=== PATIENT | female | born 1935 | race Caucasian/White ===

== ENCOUNTER → 2017-01-05 | Outpatient (CLI) | payer MEDICARE ==
[~2017-01-05] MED LIST: /RISE35TA OR; ACET65TA OR; ASPI325T OR; ASPI81TA85 PO; ATEN25TA PO; CALCCHW12 OR; CALCTAB28 PO; CENTRUM SILVER PO; COLA100C2 OR; CRAN125T PO; DOCU10CA PO; DUONSOL IN; GLUC1000 OR; LIPI20TA OR; LIPI80TA PO; LORT5TAB PO; MAGN400C2 PO; MILKSUS OR; NADO40TA5 OR; PLAV75TA38 PO; POTA20TA2 OR; SLOWTAB OR; TRAM50TA2 OR; VITA200016 PO; XANA0.5T OR; ZOCO20TA PO; ZOFR20TA PO; megakrill PO
--- NOTE | 2017-01-05 09:51 | REP ---
ULTRASOUND ABDOMINAL AORTA: Real-time sonographic evaluation of abdominal aorta performed and compared to prior study of 07/15/2016. Maximum AP diameter of the proximal abdominal aorta at the level of the diaphragms is 2.7 cm, at the level of the renal arteries 2.7 cm, at the mid aspect 2.7 cm, and just above the bifurcation 2.2 cm. Right common iliac artery measures 9 x 8 mm and left common iliac 6 x 8 mm. IMPRESSION: No significant change compared to prior study of 07/15/2016. Signed by Samson Vang MD 01/05/2017 08:06 P
== END ==
LOC: M RAD 08:18
PROVIDERS: ATTEND Family Medicine
DX: I71.4 Abdominal aortic aneurysm, without rupture (principal)

== ENCOUNTER → 2017-03-06 | Outpatient (CLI) | payer MEDICARE ==
--- NOTE | 2017-03-07 08:01 | REP ---
RIGHT RIBS, WITH PA CHEST: HISTORY: Trauma on the right. COMPARISON: None. The accompanying frontal view of the chest has been compared to 07/23/2016. There is a fracture of the right 6th rib. There is a fracture of the right 7th rib. The accompanying frontal view of the chest shows patchy opacities in the right lower lobe with blunting of the right CP angle, representing a change from the prior exam. This is likely secondary to subsegmental atelectatic change due to splinting from the rib fractures. IMPRESSION: Rib fractures and lung field findings as described above. Signed by Reji Pena DO 03/07/2017 09:55 A
== END ==
LOC: M WUC 13:04
PROVIDERS: ATTEND Physician Assistant
DX: S22.31XA Fracture of one rib, right side, initial encounter for closed fracture (principal); X58.XXXA Exposure to other specified factors, initial encounter; Y92.89 Other specified places as the place of occurrence of the external cause; Y93.89 Activity, other specified; Y99.8 Other external cause status

== ENCOUNTER → 2017-03-25 | Outpatient (CLI) | payer MEDICARE ==
[2017-03-25 20:02] LABS: ADD MORPHOLOGY? YES; BASO % 0.8 % (0.0-1.0); EOS # 0.1 K/mm3 (0.0-0.50); LARGE UNSTAINED CELL # 0.1 K/mm3 (0.0-0.4); LARGE UNSTAINED CELL % 1.4 % (0.0-4.0); LYMPH # 1.7 K/mm3 (1.5-4.5); LYMPH % 28.3 % (24.0-44.0); MEAN CORPUSCULAR HEMOGLOBIN 34.6 pg (27.0-33.0); MEAN CORPUSCULAR HGB CONC 31.5 g/dl (32.0-36.5); MEAN CORPUSCULAR VOLUME 109.8 fl (80.0-96.0); MONO # 0.5 K/mm3 (0.0-0.8); MONO % 8.6 % (0.0-5.0); NEUTROPHILS # 3.4 K/mm3 (1.8-7.7); NEUTROPHILS % 58.9 % (36.0-66.0); PLATELET COUNT, AUTOMATED 297 k/mm3 (150-450); RED CELL DISTRIBUTION WIDTH 14.7 % (11.5-14.5); WHITE BLOOD COUNT 5.7 K/mm3 (4.0-10.0)
[2017-03-25 20:11] LABS: VITAMIN B12 LEVEL 490 PG/ML (247-911)
[2017-03-25 20:35] LABS: ALBUMIN 3.3 GM/DL (3.2-5.2); ALBUMIN/GLOBULIN RATIO 0.92 (1.00-1.93); ALKALINE PHOSPHATASE 76 U/L (45-117); ALT/SGPT 26 U/L (12-78); ANION GAP 5 MEQ/L (8-16); AST/SGOT 24 U/L (15-37); BILIRUBIN,TOTAL 0.2 MG/DL (0.2-1.0); BLOOD UREA NITROGEN 18 MG/DL (7-18); CALCIUM LEVEL 8.6 MG/DL (8.8-10.2); CARBON DIOXIDE LEVEL 29 MEQ/L (21-32); CHLORIDE LEVEL 104 MEQ/L (98-107); CREATININE FOR GFR 0.61 MG/DL (0.55-1.02); FERRITIN 36 NG/ML (8-252); GLOMERULAR FILTRATION RATE > 60.0 (>32); GLUCOSE, FASTING 74 MG/DL (83-110); PERCENT SATURATION 10.5 % (13.2-37.4); SODIUM LEVEL 138 MEQ/L (136-145); TOTAL IRON BINDING CAPACITY 382 UG/DL (250-450); TOTAL PROTEIN 6.9 GM/DL (6.4-8.2)
== END ==
LOC: M WUC 18:13
PROVIDERS: ATTEND Family Medicine
DX: E55.9 Vitamin D deficiency, unspecified (principal); Z80.0 Family history of malignant neoplasm of digestive organs; Z79.899 Other long term (current) drug therapy

== ENCOUNTER → 2017-04-14 | Outpatient (CLI) | payer MEDICARE ==
--- NOTE | 2017-04-14 11:30 | REPMRS ---
Patient History The patient states she has not had a clinical breast exam in over a year. Patient is postmenopausal. Family history of colorectal cancer in mother at age 50 or over. Digital Woman Screen Mammo: April 14, 2017 - Exam #: [id number] Bilateral CC and MLO view(s) were taken. Technologist: Rebecca Jones, Technologist Prior study comparison: March 11, 2016, digital woman screen mammo performed at [facility]. FINDINGS: There are scattered fibroglandular densities. There has been no change in the appearance of the mammogram from the prior studies. There is a mild amount of residual fibroglandular tissue which is fairly symmetric. There is no interval development of dominant mass, architectural distortion, or clustered microcalcification suggestive of malignancy. ASSESSMENT: BI-RADS/ACR category 1 mammogram. Negative. Recommendation Routine screening mammogram in 1 year (for women over age 40). This mammogram was interpreted with the aid of an FDA-approved computer-aided dectection system. Electronically Signed By: Samson Vang MD 04/14/17 0008
== END ==
LOC: M WHC 10:52
PROVIDERS: ATTEND Family Medicine
DX: Z12.31 Encounter for screening mammogram for malignant neoplasm of breast (principal); Z78.0 Asymptomatic menopausal state

== ENCOUNTER 2017-06-22 08:57 | Outpatient (CLI) | payer MEDICARE ==
[~2017-06-22] VITALS: Ht 167.6 cm; Wt 62.6 kg
[~2017-06-22 08:57] MED LIST changes: +PLAV1TAB2 PO; -PLAV75TA38 PO
[2017-06-22] MEDS ORDERED: ZOLEDRONIC ACID 5 MG in APPROPRIATE DILUENT 1 EA IV ONE (09:15)
[2017-06-22] MEDS ORDERED: LORA2TAB9 PO (10:25)
[2017-06-22] MEDS ORDERED: PARO10TA3 PO (10:28)
[2017-06-22] MEDS ORDERED: LISI2.5T3 PO (10:28)
[2017-06-22] MEDS ORDERED: CLOB-49 EX (10:28)
[2017-06-22] MEDS ORDERED: VITA100T86 PO (10:34)
[2017-06-22] MEDS ORDERED: CRAN125T PO (10:34)
[2017-06-22] MEDS ORDERED: CULT10CA2 PO (10:34)
[2017-09-07] MEDS ORDERED: KRIL1000 PO (10:30)
[2017-09-07] MEDS ORDERED: MAGN400T5 PO (10:30)
[2017-09-07] MEDS ORDERED: CALCTAB74 PO (10:30)
[2017-09-07] MEDS ORDERED: CRAN400C PO (10:30)
[2017-09-07] MEDS ORDERED: FERR325T3 PO (10:36)
[2017-09-07] MEDS ORDERED: NITR0.4S14 SL (10:36)
[2017-09-07] MEDS ORDERED: RECL5INJ2 IV (10:36)
[2017-09-07] MEDS ORDERED: PANT40TA2 PO ×2 (10:36)
[2017-09-07] MEDS ORDERED: TOPR25TA PO (10:36)
[2017-09-07] MEDS ORDERED: LISI-542 PO (10:36)
[2017-09-07] MEDS ORDERED: NORC1TAB4 PO (10:36)
[2017-09-07] MEDS ORDERED: MEGA1CAP3 PO (11:23)
== END 2017-06-22 10:15 | disposition home or self-care (01) ==
LOC: M INFU 08:57
PROVIDERS: ATTEND Family Medicine
DX: M85.80 Other specified disorders of bone density and structure, unspecified site (principal); Z72.0 Tobacco use; Z86.79 Personal history of other diseases of the circulatory system; Z96.641 Presence of right artificial hip joint; Z91.048 Other nonmedicinal substance allergy status; Z79.82 Long term (current) use of aspirin; Z79.899 Other long term (current) drug therapy; Z88.5 Allergy status to narcotic agent; Z78.0 Asymptomatic menopausal state
CPT/HCPCS: 96365; J3489

== ENCOUNTER → 2017-07-13 | Outpatient (CLI) | payer MEDICARE ==
[~2017-07-13] MED LIST changes: +CALCTAB74 PO; +CLOB-49 EX; +CRAN400C PO; +CULT10CA2 PO; +FERR325T3 PO; +KRIL1000 PO; +LISI-542 PO; +LISI2.5T3 PO; +LORA2TAB9 PO; +MAGN400T5 PO; +MEGA1CAP3 PO; +NITR0.4S14 SL; +NORC1TAB4 PO; +PANT40TA2 PO; +PARO10TA3 PO; +RECL5INJ2 IV; +TOPR25TA PO; +VITA100T86 PO
[2017-07-13 12:36] LABS: BASO % 0.7 % (0.0-1.0); EOS # 0.1 K/mm3 (0.0-0.50); EOS % 1.6 % (0.0-3.0); LARGE UNSTAINED CELL # 0.1 K/mm3 (0.0-0.4); LARGE UNSTAINED CELL % 1.1 % (0.0-4.0); LYMPH # 0.5 K/mm3 (1.5-4.5); LYMPH % 8.8 % (24.0-44.0); MEAN CORPUSCULAR HEMOGLOBIN 34.1 pg (27.0-33.0); MEAN CORPUSCULAR HGB CONC 30.8 g/dl (32.0-36.5); MEAN CORPUSCULAR VOLUME 110.7 fl (80.0-96.0); MONO # 0.4 K/mm3 (0.0-0.8); MONO % 7.5 % (0.0-5.0); NEUTROPHILS # 4.4 K/mm3 (1.8-7.7); NEUTROPHILS % 80.4 % (36.0-66.0); PLATELET COUNT, AUTOMATED 274 k/mm3 (150-450); WHITE BLOOD COUNT 5.4 K/mm3 (4.0-10.0)
[2017-07-13 12:41] LABS: ADD MORPHOLOGY? YES
[2017-07-13 12:46] LABS: CHOLESTEROL LEVEL 126 MG/DL (<200); FERRITIN 62 NG/ML (8-252); FREE T4 0.89 NG/DL (0.76-1.46); PERCENT SATURATION 6.6 % (13.2-45.0); TOTAL IRON BINDING CAPACITY 331 UG/DL (250-450); TOTAL PROTEIN 6.7 GM/DL (6.4-8.2); TRIGLYCERIDES LEVEL 69 MG/DL (<150)
[2017-07-13 13:07] LABS: HYPOCHROMASIA 1+; POLYCHROMASIA 1+
[2017-07-13 14:30] LABS: PRETREATED FOLATE FOR RBCFOL 16.7 NG/ML
[2017-07-15 09:26] LABS: ALBUMIN 3.28 GM/DL (3.29-5.55); ALBUMIN % 48.9 % (55.8-66.1); GAMMA GLOBULIN % 15.9 % (11.1-18.8)
== END ==
LOC: M WUC 09:34
PROVIDERS: ATTEND Family Medicine
DX: D50.9 Iron deficiency anemia, unspecified (principal); R73.01 Impaired fasting glucose; Z79.899 Other long term (current) drug therapy

== ENCOUNTER → 2017-07-16 | Outpatient (REF) | payer MEDICARE | LOC: M SFHCPLAZ 14:00 | PROVIDERS: ATTEND Family Medicine | DX: D50.9 Iron deficiency anemia, unspecified (principal) ==

== ENCOUNTER → 2017-07-20 | Outpatient (REF) | payer MEDICARE ==
[2017-07-20 19:04] LABS: FERRITIN 70 NG/ML (8-252); TOTAL IRON BINDING CAPACITY 341 UG/DL (250-450)
[2017-07-20 21:12] LABS: MEAN CORPUSCULAR HEMOGLOBIN 34.6 pg (27.0-33.0); MEAN CORPUSCULAR HGB CONC 31.8 g/dl (32.0-36.5); MEAN CORPUSCULAR VOLUME 108.7 fl (80.0-96.0); RED CELL DISTRIBUTION WIDTH 14.7 % (11.5-14.5); RETIC HEMOGLOBIN CONTENT CHr 34.3 PG (24-36); RETICULOCYTE ABSOLUTE ADVIA212 60 x10(9)/L (17-77); WHITE BLOOD COUNT 4.4 K/mm3 (4.0-10.0)
[2017-07-20 22:32] LABS: ANISOCYTOSIS 2+; HYPOCHROMASIA 1+
[2017-07-22 10:14] LABS: H PYLORI SERUM QUANT IgG ABY 1.4 U/mL (0.0-0.8)
== END ==
LOC: M SFHCPLAZ 14:58
PROVIDERS: ATTEND Family Medicine
DX: D50.9 Iron deficiency anemia, unspecified (principal)

== ENCOUNTER → 2017-07-21 | Outpatient (CLI) | payer MEDICARE ==
[~2017-07-21] MED LIST changes: +E-Z-GAS II EFFERVESCENT PACKET (SODIUM BICARB./CITRIC ACID/SIMETHICONE) As Ordered ONE; +E-Z-HD 98% w/w 340GM SUSP BTL As Ordered ONE; +E-Z-PAQUE 96% w/w SUSP 176GM BTL As Ordered ONE
--- NOTE | 2017-07-21 17:26 | REP ---
UPPER GI, AIR CONTRAST, AND SMALL BOWEL FOLLOW-THROUGH: The procedure was performed under the direct supervision of Dr. Vang. The images were reviewed with Dr. Vang. The wheat and oats flake miller film shows no organomegaly or pathological masses. The intestinal gas pattern is nonspecific. There are degenerative changes of the spine. The patient is status post right hip arthroplasty. There are old healed fractures of the pubic rami. There are surgical sutures noted in the pelvis. Liquid barium and gas-producing granules were given in the erect position as well as liquid barium in the prone oblique position in order to perform a double contrast upper GI examination. The oral and pharyngeal stages of deglutition are unremarkable. Esophageal transport is prompt and efficient and there is no esophagitis, stricture, mucosal ring or hiatal hernia. Gastroesophageal reflux is not demonstrated on this examination. The stomach harris are normally outlined. The rugal folds are smooth and regular. There is no gastritis, neoplasm or ulcer disease. Within the duodenal bulb there are small punctate barium collections which may represent small ulcers. There are thickened folds in the post bulbar duodenum which may represent duodenitis. The visualized portion of the proximal small bowel appears normal in course and caliber. The barium column was followed through the small bowel to the level of the terminal ileum. Small bowel transit time is approximately 65 minutes. During fluoroscopy, gentle palpation shows all loops are freely movable and pliable. There are no fixed or angulated loops. The small bowel mucosal pattern is normal in course and caliber. There is no transition to suggest a partial small bowel obstruction. Spot filming of the terminal ileum shows it to be unremarkable. IMPRESSION: There are small punctate barium collections in the duodenal bulb, which may represent small ulcers. There are thickened folds in the post bulbar duodenum which may represent duodenitis. 4 minutes and 34 seconds of fluoroscopy time was utilized for this procedure. Reviewed by SHERIDAN Lala 07/23/2017 04:04 PEdited and Signed by Samson Vang MD 07/23/2017 07:21 P
== END ==
LOC: M RAD 10:04
PROVIDERS: ATTEND Family Medicine
DX: D50.0 Iron deficiency anemia secondary to blood loss (chronic) (principal)

== ENCOUNTER → 2017-07-23 | Outpatient (CLI) | payer MEDICARE ==
[~2017-07-23] MED LIST changes: -E-Z-GAS II EFFERVESCENT PACKET (SODIUM BICARB./CITRIC ACID/SIMETHICONE) As Ordered ONE; -E-Z-HD 98% w/w 340GM SUSP BTL As Ordered ONE; -E-Z-PAQUE 96% w/w SUSP 176GM BTL As Ordered ONE
[2017-07-23 16:57] LABS: ALBUMIN 3.2 GM/DL (3.2-5.2); ALBUMIN/GLOBULIN RATIO 0.91 (1.00-1.93); ALKALINE PHOSPHATASE 67 U/L (45-117); ALT/SGPT 33 U/L (12-78); ANION GAP 10 MEQ/L (8-16); AST/SGOT 31 U/L (15-37); BILIRUBIN,TOTAL 0.3 MG/DL (0.2-1.0); BLOOD UREA NITROGEN 17 MG/DL (7-18); CALCIUM LEVEL 8.4 MG/DL (8.8-10.2); CARBON DIOXIDE LEVEL 22 MEQ/L (21-32); CHLORIDE LEVEL 107 MEQ/L (98-107); CREATININE FOR GFR 0.59 MG/DL (0.55-1.02); GLOMERULAR FILTRATION RATE > 60.0 (>32); GLUCOSE, FASTING 89 MG/DL (83-110); POTASSIUM SERUM 4.4 MEQ/L (3.5-5.1); SODIUM LEVEL 139 MEQ/L (136-145); TOTAL PROTEIN 6.7 GM/DL (6.4-8.2)
== END ==
LOC: M WUC 13:57
PROVIDERS: ATTEND Family Medicine
DX: Z01.812 Encounter for preprocedural laboratory examination (principal)

== ENCOUNTER → 2017-07-27 | Outpatient (CLI) | payer MEDICARE ==
[~2017-07-27] MED LIST changes: +ISOVUE-370 76% 100ML VIAL (Q9967) As Ordered ONE
--- NOTE | 2017-07-27 15:36 | REP ---
CT ANGIOGRAM OF THE CHEST: TECHNIQUE: Axial contrast enhanced images from the thoracic inlet to the upper abdomen using 100 mL Isovue 370 intravenous contrast material with multiplanar reformations. COMPARISON: 04/24/2016 There is diffuse aneurysmal dilatation of the descending thoracic aorta with moderate diffuse atherosclerotic calcifications noted as well. The maximum diameter of the aneurysm is 4.6 cm in diameter, essentially unchanged since the prior exam. There is no dissection. More distally in the infrarenal region is aneurysmal dilatation of the abdominal aorta up to 3.5 cm also unchanged, although incompletely imaged. The inferior aspect of the aneurysm is not imaged. Heart is upper limits of normal in size. No mediastinal or hilar adenopathy is seen. There is no pleural or pericardial effusion. Scattered fibrotic changes are seen in the lungs. The other visualized upper abdominal structures appear unchanged. There is adrenal gland thickening. 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 Signed by Samson Vang MD 07/27/2017 05:24 P
== END ==
LOC: M RAD 10:11
PROVIDERS: ATTEND Family Medicine
DX: I71.2 Thoracic aortic aneurysm, without rupture (principal)
CPT/HCPCS: 71275; Q9967

== ENCOUNTER → 2017-07-30 | Outpatient (CLI) | payer MEDICARE ==
[~2017-07-30] MED LIST changes: -ISOVUE-370 76% 100ML VIAL (Q9967) As Ordered ONE
[2017-07-30 12:29] LABS: BASO % 0.6 % (0.0-1.0); EOS # 0.1 10^3/uL (0.0-0.50); EOS % 1.2 % (0.0-3.0); IMMATURE GRANULOCYTE % 0.2 % (0-0); LYMPH # 0.8 10^3/uL (1.5-4.5); LYMPH % 16.5 % (24.0-44.0); MEAN CORPUSCULAR HEMOGLOBIN 33.8 pg (27.0-33.0); MEAN CORPUSCULAR VOLUME 105.6 fl (80.0-96.0); MONO # 0.4 10^3/uL (0.0-0.8); MONO % 9.1 % (0.0-5.0); NEUTROPHILS # 3.5 10^3/uL (1.8-7.7); NEUTROPHILS % 72.4 % (36.0-66.0); PLATELET COUNT, AUTOMATED 235 10^3/uL (150-450); RED CELL DISTRIBUTION WIDTH 15.1 % (11.5-14.5); WHITE BLOOD COUNT 4.9 10^3/uL (4.0-10.0)
== END ==
LOC: M WUC 10:37
PROVIDERS: ATTEND Physician Assistant Medical
DX: D50.0 Iron deficiency anemia secondary to blood loss (chronic) (principal)

== ENCOUNTER → 2017-08-02 | Outpatient (REF) | payer MEDICARE ==
[2017-08-02 13:35] LABS: BASO % 0.7 % (0.0-1.0); EOS # 0.1 10^3/uL (0.0-0.50); EOS % 1.5 % (0.0-3.0); IMMATURE GRANULOCYTE % 0.2 % (0-0); LYMPH # 0.8 10^3/uL (1.5-4.5); LYMPH % 16.6 % (24.0-44.0); MEAN CORPUSCULAR HEMOGLOBIN 33.5 pg (27.0-33.0); MONO # 0.5 10^3/uL (0.0-0.8); MONO % 10.7 % (0.0-5.0); NEUTROPHILS # 3.2 10^3/uL (1.8-7.7); NEUTROPHILS % 70.3 % (36.0-66.0); PLATELET COUNT, AUTOMATED 213 10^3/uL (150-450); RED CELL DISTRIBUTION WIDTH 15.5 % (11.5-14.5); WHITE BLOOD COUNT 4.6 10^3/uL (4.0-10.0)
[2017-08-02 13:40] LABS: ADD MANUAL DIFFER NO; ADD MORPHOLOGY? YES; DIFF SLIDE NUMBER 200; MEAN CORPUSCULAR VOLUME 108.1 fl (80.0-96.0)
[2017-08-02 14:38] LABS: PERCENT SATURATION 58.1 % (13.2-45.0)
== END ==
LOC: M SFHCPLAZ 11:51
PROVIDERS: ATTEND Physician Assistant Medical
DX: K26.9 Duodenal ulcer, unspecified as acute or chronic, without hemorrhage or perforation (principal); Z23 Encounter for immunization
CPT/HCPCS: 82728; 83550; 85025; 90662; G0463

== ENCOUNTER → 2017-08-05 | Outpatient (CLI) | payer MEDICARE ==
[2017-08-05 17:42] LABS: MEAN CORPUSCULAR HEMOGLOBIN 34.6 pg (27.0-33.0); MEAN CORPUSCULAR HGB CONC 32.3 g/dl (32.0-36.5); RED CELL DISTRIBUTION WIDTH 15.9 % (11.5-14.5); RETIC HEMOGLOBIN EQUIVALENT 38.8 pg (24-36); RETICULOCYTE % 2.3 % (0.5-1.5); WHITE BLOOD COUNT 4.5 10^3/uL (4.0-10.0)
[2017-08-05 17:43] LABS: MEAN CORPUSCULAR VOLUME 107.1 fl (80.0-96.0)
[2017-08-05 17:57] LABS: FERRITIN 50 NG/ML (8-252); PERCENT SATURATION 18.1 % (13.2-45.0); TOTAL IRON BINDING CAPACITY 381 UG/DL (250-450)
[2017-08-05 18:34] LABS: ANISOCYTOSIS 2+; BASOPHILS 1 % (0-4); EOSINOPHILS 3 % (0-5)
[2017-08-07 14:09] LABS: H PYLORI SERUM QUANT IgG ABY 1.3 U/mL (0.0-0.8)
== END ==
LOC: M WUC 14:50
PROVIDERS: ATTEND Family Medicine
DX: D50.9 Iron deficiency anemia, unspecified (principal)

== ENCOUNTER → 2017-08-15 | Outpatient (CLI) | payer MEDICARE ==
[2017-08-15 18:03] LABS: BASO # 0.1 10^3/uL (0.0-0.2); BASO % 0.9 % (0.0-1.0); EOS # 0.2 10^3/uL (0.0-0.50); EOS % 4.1 % (0.0-3.0); IMMATURE GRANULOCYTE % 0.4 % (0-0); LYMPH # 1.9 10^3/uL (1.5-4.5); MEAN CORPUSCULAR HGB CONC 31.2 g/dl (32.0-36.5); MONO # 0.6 10^3/uL (0.0-0.8); MONO % 11.2 % (0.0-5.0); NEUTROPHILS # 2.5 10^3/uL (1.8-7.7); NEUTROPHILS % 47.4 % (36.0-66.0); PLATELET COUNT, AUTOMATED 258 10^3/uL (150-450); RED CELL DISTRIBUTION WIDTH 15.5 % (11.5-14.5); WHITE BLOOD COUNT 5.3 10^3/uL (4.0-10.0)
[2017-08-15 18:05] LABS: MEAN CORPUSCULAR VOLUME 108.9 fl (80.0-96.0); POSITIVE MORPH POS FLAG
[2017-08-15 18:06] LABS: ADD MORPHOLOGY? YES
[2017-08-15 18:24] LABS: PERCENT SATURATION 14.3 % (13.2-45.0)
[2017-08-15 19:39] LABS: ANISOCYTOSIS 2+
== END ==
LOC: M WUC 08:35
PROVIDERS: ATTEND Physician Assistant Medical
DX: K26.9 Duodenal ulcer, unspecified as acute or chronic, without hemorrhage or perforation (principal)

== ENCOUNTER 2017-09-16 11:05 | Day surgery (SDC) | payer MEDICARE ==
[~2017-09-16] VITALS: Ht 162.6 cm; Wt 53.7 kg
[2017-09-16] MEDS ORDERED: NS 1,000 ML IV SCH (14:00)
[2017-09-16] MEDS ORDERED: MIDAZOLAM INJ 2 MG/2 ML VIAL (J2250) As Ordered ONE ×3 (15:40→16:45)
[2017-09-16] MEDS ORDERED: fentaNYL 100 MCG/2 ML INJECTION (J3010) As Ordered ONE ×2 (15:41→16:15)
[2017-09-16] MEDS ORDERED: PROPOFOL 200 MG/20 ML VIAL As Ordered ONE (16:16)
[2017-09-16] MEDS ORDERED: LIDOCAINE 2% INJ 100 MG/5 ML SDV (FOR ANES.) As Ordered ONE (16:16)
[2017-09-16] MEDS ORDERED: ePHEDrine SULFATE 25 MG/5 ML(5MG/ML) SYRINGE As Ordered ONE (17:05)
[2017-09-16] MEDS ORDERED: PHENYLephrine HCL 500 MCG/5 ML (100MCG/ML) SYRINGE (J2370) As Ordered ONE (17:05)
--- NOTE | 2017-09-16 17:15 | ROOR ---
Patient Name: Izzy Chairez Procedure Date: 09/16/2017 4:22 PM Date of : 1935 Age: 81 Room: [facility] Gender: Female Note Status: Finalized Procedure: Upper GI endoscopy Indications: Iron deficiency anemia Providers: Jayme Phelan Jr, MD Referring MD: Ger Wray MD Requesting Provider: Medicines: Propofol per Anesthesia Complications: No immediate complications. Procedure: Pre-Anesthesia Assessment: - Prior to the procedure, a History and Physical was performed, and patient medications and allergies were reviewed. The patient is competent. The risks and benefits of the procedure and the sedation options and risks were discussed with the patient. All questions were answered and informed consent was obtained. Patient identification and proposed procedure were verified by the physician and the nurse in the pre-procedure area and in the procedure room. Mental Status Examination: alert and oriented. Airway Examination: normal oropharyngeal airway and neck mobility. Respiratory Examination: clear to auscultation. CV Examination: normal. ASA Grade Assessment: III - A patient with severe systemic disease. After reviewing the risks and benefits, the patient was deemed in satisfactory condition to undergo the procedure. The anesthesia plan was to use moderate sedation / analgesia (conscious sedation). Immediately prior to administration of medications, the patient was re-assessed for adequacy to receive sedatives. The heart rate, respiratory rate, oxygen saturations, blood pressure, adequacy of pulmonary ventilation, and response to care were monitored throughout the procedure. The physical status of the patient was re-assessed after the procedure. The Endoscope was introduced through the mouth, and advanced to the second part of duodenum. The upper GI endoscopy was accomplished without difficulty. The patient tolerated the procedure well. Findings: The upper third of the esophagus, middle third of the esophagus and lower third of the esophagus were normal. The cardia, gastric fundus and gastric body were normal. Diffuse mildly erythematous mucosa without bleeding was found in the gastric antrum and in the prepyloric region of the stomach. Biopsies were taken with a cold forceps for histology. The duodenal bulb, first portion of the duodenum and second portion of the duodenum were normal. Impression: - Normal upper third of esophagus, middle third of esophagus and lower third of esophagus. - Normal cardia, gastric fundus and gastric body. - Erythematous mucosa in the antrum and prepyloric region of the stomach. Biopsied. - Normal duodenal bulb, first portion of the duodenum and second portion of the duodenum. Recommendation: - Discharge patient to home (ambulatory). - Return to my office in 3 weeks. Jayme Phelan MD Jayme Phelan Jr, MD 09/16/2017 5:15:32 PM This report has been signed electronically. Number of Addenda: 0 Note Initiated On: 09/16/2017 4:22 PM Estimated Blood Loss: Estimated blood loss: none.
--- NOTE | 2017-09-16 17:20 | ROOR ---
Patient Name: Izzy Chairez Procedure Date: 09/16/2017 4:56 PM Date of : 1935 Age: 81 Gender: Female Note Status: Finalized Procedure: Colonoscopy Indications: Iron deficiency anemia Providers: Jayme Phelan Jr, MD Referring MD: Ger Wray MD Requesting Provider: Medicines: Propofol per Anesthesia Complications: No immediate complications. Procedure: Pre-Anesthesia Assessment: - Prior to the procedure, a History and Physical was performed, and patient medications and allergies were reviewed. The patient is competent. The risks and benefits of the procedure and the sedation options and risks were discussed with the patient. All questions were answered and informed consent was obtained. Patient identification and proposed procedure were verified by the physician and the nurse in the pre-procedure area and in the procedure room. Mental Status Examination: alert and oriented. Airway Examination: normal oropharyngeal airway and neck mobility. Respiratory Examination: clear to auscultation. CV Examination: normal. ASA Grade Assessment: III - A patient with severe systemic disease. After reviewing the risks and benefits, the patient was deemed in satisfactory condition to undergo the procedure. The anesthesia plan was to use moderate sedation / analgesia (conscious sedation). Immediately prior to administration of medications, the patient was re-assessed for adequacy to receive sedatives. The heart rate, respiratory rate, oxygen saturations, blood pressure, adequacy of pulmonary ventilation, and response to care were monitored throughout the procedure. The physical status of the patient was re-assessed after the procedure. The Colonoscope was introduced through the anus and advanced to the cecum, identified by appendiceal orifice and ileocecal valve. The colonoscopy was performed without difficulty. The patient tolerated the procedure well. The quality of the bowel preparation was adequate and fair. Findings: The rectum, sigmoid colon, descending colon, appendiceal orifice and ileocecal valve appeared normal. Two polyps were found in the transverse colon and ascending colon. The polyps were diminutive in size. These polyps were removed with a jumbo cold forceps. Resection and retrieval were complete. Impression: - Preparation of the colon was fair. - The rectum, sigmoid colon, descending colon, ascending colon, appendiceal orifice and ileocecal valve are normal. - Two diminutive polyps in the transverse colon and in the ascending colon, removed with a jumbo cold forceps. Resected and retrieved. Recommendation: - Repeat colonoscopy in 5-10 years for surveillance based on pathology results. Jayme Phelan MD Jayme Phelan Jr, MD 09/16/2017 5:19:24 PM This report has been signed electronically. Number of Addenda: 0 Note Initiated On: 09/16/2017 4:56 PM Estimated Blood Loss: Estimated blood loss: none.
[2017-09-16 17:40] VITALS: BP 98/72
== END 2017-09-16 18:07 | disposition home or self-care (01) ==
LOC: M OPP 11:05
PROVIDERS: ATTEND Surgery
DX: D50.9 Iron deficiency anemia, unspecified (principal); Z80.0 Family history of malignant neoplasm of digestive organs; Z87.11 Personal history of peptic ulcer disease; R63.4 Abnormal weight loss; D12.2 Benign neoplasm of ascending colon; D12.3 Benign neoplasm of transverse colon; K31.89 Other diseases of stomach and duodenum; I25.10 Atherosclerotic heart disease of native coronary artery without angina pectoris; Z95.5 Presence of coronary angioplasty implant and graft; I25.2 Old myocardial infarction; I10 Essential (primary) hypertension; E78.5 Hyperlipidemia, unspecified; I73.9 Peripheral vascular disease, unspecified; I71.4 Abdominal aortic aneurysm, without rupture; K57.32 Diverticulitis of large intestine without perforation or abscess without bleeding; R23.3 Spontaneous ecchymoses; M19.90 Unspecified osteoarthritis, unspecified site; M54.9 Dorsalgia, unspecified; F41.9 Anxiety disorder, unspecified; F32.9 Major depressive disorder, single episode, unspecified; G43.909 Migraine, unspecified, not intractable, without status migrainosus; Z78.0 Asymptomatic menopausal state; R32 Unspecified urinary incontinence; Z96.641 Presence of right artificial hip joint; F17.210 Nicotine dependence, cigarettes, uncomplicated; Z88.5 Allergy status to narcotic agent; Z79.82 Long term (current) use of aspirin; Z79.899 Other long term (current) drug therapy; Z80.1 Family history of malignant neoplasm of trachea, bronchus and lung
CPT/HCPCS: 43239; 45380; 88305; J2250; J2370; J3010

== ENCOUNTER → 2017-09-20 | Outpatient (REF) | payer MEDICARE | LOC: M SFHCPLAZ 15:35 | PROVIDERS: ATTEND Physician Assistant Medical | DX: N30.00 Acute cystitis without hematuria (principal) ==

== ENCOUNTER → 2017-11-26 | Outpatient (CLI) | payer MEDICARE ==
[2017-11-26 19:21] LABS: ALBUMIN 3.6 GM/DL (3.2-5.2); ALBUMIN/GLOBULIN RATIO 0.95 (1.00-1.93); ALKALINE PHOSPHATASE 65 U/L (45-117); ALT/SGPT 20 U/L (12-78); ANION GAP 6 MEQ/L (8-16); AST/SGOT 18 U/L (7-37); BILIRUBIN,TOTAL 0.3 MG/DL (0.2-1.0); BLOOD UREA NITROGEN 17 MG/DL (7-18); CALCIUM LEVEL 9.5 MG/DL (8.8-10.2); CARBON DIOXIDE LEVEL 34 MEQ/L (21-32); CHLORIDE LEVEL 100 MEQ/L (98-107); CREATININE FOR GFR 0.66 MG/DL (0.55-1.02); FERRITIN 48 NG/ML (8-252); GLOMERULAR FILTRATION RATE > 60.0 (>32); GLUCOSE, FASTING 85 MG/DL (70-100); IRON (FE) 55 UG/DL (50-170); MAGNESIUM LEVEL 1.8 MG/DL (1.8-2.4); PERCENT SATURATION 17.1 % (13.2-45.0); POTASSIUM SERUM 3.8 MEQ/L (3.5-5.1); SODIUM LEVEL 140 MEQ/L (136-145); TOTAL IRON BINDING CAPACITY 322 UG/DL (250-450); TOTAL PROTEIN 7.4 GM/DL (6.4-8.2)
[2017-11-26 19:27] LABS: BASO # 0.1 10^3/uL (0.0-0.2); BASO % 1.1 % (0.0-1.0); EOS # 0.1 10^3/uL (0.0-0.50); EOS % 2.1 % (0.0-3.0); HEMATOCRIT 36.9 % (36.0-47.0); HEMOGLOBIN 11.6 g/dl (12.0-16.0); IMMATURE GRANULOCYTE % 0.2 % (0-0); LYMPH # 1.5 10^3/uL (1.5-4.5); LYMPH % 30.8 % (24.0-44.0); MEAN CORPUSCULAR HEMOGLOBIN 33.3 pg (27.0-33.0); MEAN CORPUSCULAR HGB CONC 31.4 g/dl (32.0-36.5); MONO # 0.6 10^3/uL (0.0-0.8); MONO % 12.9 % (0.0-5.0); NEUTROPHILS # 2.5 10^3/uL (1.8-7.7); NEUTROPHILS % 52.9 % (36.0-66.0); PLATELET COUNT, AUTOMATED 263 10^3/uL (150-450); RED BLOOD COUNT 3.48 10^6/uL (4.00-5.40); RED CELL DISTRIBUTION WIDTH 13.2 % (11.5-14.5); RETIC HEMOGLOBIN EQUIVALENT 34.9 pg (24-36); RETICULOCYTE # 45.2 10^9/L (17-77); RETICULOCYTE % 1.3 % (0.5-1.5); WHITE BLOOD COUNT 4.7 10^3/uL (4.0-10.0)
[2017-11-26 19:41] LABS: TOTAL 25(OH) VITAMIN D 37.7 NG/ML (30.0-100.0)
[2017-11-26 20:27] LABS: ESTIMATED AVERAGE GLUCOSE 120 MG/DL (60-110); HEMOGLOBIN A1c 5.8 %
== END ==
LOC: M WUC 14:41
DX: D50.9 Iron deficiency anemia, unspecified (principal); R73.01 Impaired fasting glucose; E55.9 Vitamin D deficiency, unspecified
CPT/HCPCS: 83550

== ENCOUNTER → 2018-01-11 | Outpatient (CLI) | payer MEDICARE | LOC: M RAD 07:38 | DX: I65.23 Occlusion and stenosis of bilateral carotid arteries (principal); I71.4 Abdominal aortic aneurysm, without rupture | CPT/HCPCS: 76775 ==

== ENCOUNTER → 2018-01-11 | Outpatient (CLI) | payer MEDICARE | LOC: M RAD 07:42 | DX: I71.4 Abdominal aortic aneurysm, without rupture (principal) ==

== ENCOUNTER 2018-03-02 14:48 | Inpatient (IN) | payer MEDICARE ==
[2018-03-02 15:27] LABS: BASO % 0.3 % (0.0-1.0); EOS % 0.4 % (0.0-3.0); HEMATOCRIT 31.5 % (36.0-47.0); HEMOGLOBIN 11.1 g/dl (12.0-15.5); IMMATURE GRANULOCYTE % 0.5 % (0-3.0); LYMPH # 0.8 10^3/uL (1.5-4.5); LYMPH % 9.7 % (24.0-44.0); MEAN CORPUSCULAR HEMOGLOBIN 34.9 pg (27.0-33.0); MEAN CORPUSCULAR HGB CONC 35.2 g/dl (32.0-36.5); MEAN CORPUSCULAR VOLUME 99.1 fl (80.0-96.0); MONO # 0.7 10^3/uL (0.0-0.8); MONO % 8.5 % (0.0-5.0); NEUTROPHILS # 6.2 10^3/uL (1.8-7.7); NEUTROPHILS % 80.6 % (36.0-66.0); PLATELET COUNT, AUTOMATED 211 10^3/uL (150-450); RED BLOOD COUNT 3.18 10^6/uL (4.00-5.40); RED CELL DISTRIBUTION WIDTH 15.2 % (11.5-14.5); WHITE BLOOD COUNT 7.7 10^3/uL (4.0-10.0)
[2018-03-02 15:31] LABS: INR 0.94; PROTHROMBIN TIME 12.7 SECONDS (12.4-14.5)
[2018-03-02 15:32] LABS: PARTIAL THROMBOPLASTIN TIME 30.8 SECONDS (26.8-37.9)
[2018-03-02 15:40] LABS: ACETAMINOPHEN LEVEL < 2.0 UG/ML (10.0-30.0); ALBUMIN 3.3 GM/DL (3.2-5.2); ALBUMIN/GLOBULIN RATIO 0.94 (1.00-1.93); ALKALINE PHOSPHATASE 115 U/L (45-117); ALT/SGPT 249 U/L (12-78); ANION GAP 8 MEQ/L (8-16); AST/SGOT 53 U/L (7-37); BILIRUBIN,DIRECT 0.4 MG/DL (0.0-0.2); BILIRUBIN,TOTAL 0.8 MG/DL (0.2-1.0); BLOOD UREA NITROGEN 17 MG/DL (7-18); CALCIUM LEVEL 9.3 MG/DL (8.8-10.2); CARBON DIOXIDE LEVEL 23 MEQ/L (21-32); CHLORIDE LEVEL 107 MEQ/L (98-107); CPK CREATINE PHOSPHOKINASE 82 U/L (26-192); GLOMERULAR FILTRATION RATE > 60.0 (>32); GLUCOSE, FASTING 121 MG/DL (70-100); POTASSIUM SERUM 3.4 MEQ/L (3.5-5.1); SODIUM LEVEL 138 MEQ/L (136-145); TOTAL PROTEIN 6.8 GM/DL (6.4-8.2); TROPONIN I 0.07 NG/ML (< 0.10)
[2018-03-02 15:45] LABS: CK-MB VALUE MASS 3.7 NG/ML (<3.6); MB/CK RELATIVE INDEX 4.51 (< OR =4); THYROID STIMULATING HORMONE 0.951 uIU/ML (0.358-3.740)
[2018-03-02] MEDS: NS 1,000 ML IV (16:14)
[2018-03-02] MEDS ORDERED: ACETYLCYSTEINE IV ×3 (16:15→21:15)
[2018-03-02] MEDS ORDERED: D5W IV ×3 (16:15→21:15)
[2018-03-02] MEDS: D5W IV (16:46)
[2018-03-02] MEDS: ACETYLCYSTEINE IV (16:46)
[2018-03-02 17:28] LABS: SALICYLATE LEVEL < 1.7 MG/DL (5.0-30.0)
[2018-03-02 18:07] LABS: MAGNESIUM LEVEL 1.2 MG/DL (1.8-2.4); NT-PRO BNP 1277 PG/ML (<450)
[2018-03-02] MEDS: POTASSIUM CHLORIDE 10 MEQ SR TABLET PO (18:44)
[2018-03-02] MEDS: MAG SULF 1GM/100ML (MAG RUN) 1 GM in APPROPRIATE DILUENT 1 EA IV (20:15)
[2018-03-02] MEDS ORDERED: ONDANSETRON 4MG/2ML VIAL (J2405) IV (20:30)
[2018-03-02] MEDS ORDERED: BISACODYL 5 MG TAB PO (20:30)
[2018-03-02] MEDS ORDERED: MAGNESIUM OXIDE 400 MG TAB (MAG-OX) PO (20:30)
[2018-03-02] MEDS: CALCIUM/VITAMIN D 500 MG TAB PO (21:00)
[2018-03-02] MEDS: MAGNESIUM OXIDE 400 MG TAB (MAG-OX) PO (21:00)
[2018-03-02] MEDS: ANALGESIC BALM CRM 120 GM TOP (21:00)
[2018-03-02] MEDS: SENOKOT S TAB PO (21:00)
[2018-03-02 21:56] LABS: AMMONIA 11 uMOL/L (<32)
[2018-03-02 21:59] LABS: LACTIC ACID SEPSIS PROTOCOL 1.9 MMOL/L (0.4-2.0)
[2018-03-02 22:02] LABS: ALBUMIN 2.8 GM/DL (3.2-5.2); ALBUMIN/GLOBULIN RATIO 0.72 (1.00-1.93); ALKALINE PHOSPHATASE 89 U/L (45-117); ALT/SGPT 212 U/L (12-78); ANION GAP 9 MEQ/L (8-16); AST/SGOT 41 U/L (7-37); BILIRUBIN,TOTAL 0.9 MG/DL (0.2-1.0); BLOOD UREA NITROGEN 13 MG/DL (7-18); CARBON DIOXIDE LEVEL 21 MEQ/L (21-32); CHLORIDE LEVEL 110 MEQ/L (98-107); CK-MB VALUE MASS 3.6 NG/ML (<3.6); CPK CREATINE PHOSPHOKINASE 75 U/L (26-192); CREATININE FOR GFR 0.66 MG/DL (0.55-1.30); GLOMERULAR FILTRATION RATE > 60.0 (>32); GLUCOSE, FASTING 101 MG/DL (70-100); POTASSIUM SERUM 3.7 MEQ/L (3.5-5.1); SODIUM LEVEL 140 MEQ/L (136-145); TOTAL PROTEIN 6.7 GM/DL (6.4-8.2); TROPONIN I 0.08 NG/ML (< 0.10)
[2018-03-03 00:53] LABS: INR 1.01; PROTHROMBIN TIME 13.4 SECONDS (12.4-14.5)
[2018-03-03 00:54] LABS: PARTIAL THROMBOPLASTIN TIME 31.2 SECONDS (26.8-37.9)
[2018-03-03] MEDS: ACETYLCYSTEINE IV ×2 (01:54→06:13)
[2018-03-03] MEDS: D5W IV ×2 (01:54→06:13)
[2018-03-03] MEDS: NICOTINE 14 MG/24 HR TRANSDERMAL TD (01:55)
[2018-03-03 03:35] LABS: CK-MB VALUE MASS 3.3 NG/ML (<3.6); CPK CREATINE PHOSPHOKINASE 68 U/L (26-192); MB/CK RELATIVE INDEX 4.85 (< OR =4); TROPONIN I 0.08 NG/ML (< 0.10)
[2018-03-03 06:38] LABS: HEMATOCRIT 26.6 % (36.0-47.0); HEMOGLOBIN 9.6 g/dl (12.0-15.5); MEAN CORPUSCULAR HEMOGLOBIN 34.9 pg (27.0-33.0); MEAN CORPUSCULAR HGB CONC 36.1 g/dl (32.0-36.5); MEAN CORPUSCULAR VOLUME 96.7 fl (80.0-96.0); PLATELET COUNT, AUTOMATED 185 10^3/uL (150-450); RED BLOOD COUNT 2.75 10^6/uL (4.00-5.40); RED CELL DISTRIBUTION WIDTH 14.9 % (11.5-14.5); WHITE BLOOD COUNT 6.7 10^3/uL (4.0-10.0)
[2018-03-03 06:48] LABS: INR 1.06; PROTHROMBIN TIME 13.9 SECONDS (12.4-14.5)
[2018-03-03 06:49] LABS: PARTIAL THROMBOPLASTIN TIME 31.6 SECONDS (26.8-37.9)
[2018-03-03 07:01] LABS: AMMONIA 29 uMOL/L (<32)
[2018-03-03 07:02] LABS: ACETAMINOPHEN LEVEL < 2.0 UG/ML (10.0-30.0); ALBUMIN 2.6 GM/DL (3.2-5.2); ALBUMIN/GLOBULIN RATIO 0.81 (1.00-1.93); ALKALINE PHOSPHATASE 75 U/L (45-117); ALT/SGPT 180 U/L (12-78); ANION GAP 8 MEQ/L (8-16); AST/SGOT 38 U/L (7-37); BILIRUBIN,TOTAL 0.7 MG/DL (0.2-1.0); BLOOD UREA NITROGEN 10 MG/DL (7-18); CALCIUM LEVEL 8.5 MG/DL (8.8-10.2); CARBON DIOXIDE LEVEL 24 MEQ/L (21-32); CHLORIDE LEVEL 106 MEQ/L (98-107); CREATININE FOR GFR 0.55 MG/DL (0.55-1.30); GLOMERULAR FILTRATION RATE > 60.0 (>32); GLUCOSE, FASTING 133 MG/DL (70-100); MAGNESIUM LEVEL 1.8 MG/DL (1.8-2.4); POTASSIUM SERUM 3.6 MEQ/L (3.5-5.1); SODIUM LEVEL 138 MEQ/L (136-145); TOTAL PROTEIN 5.8 GM/DL (6.4-8.2)
[2018-03-03] MEDS: SENOKOT S TAB PO ×2 (09:00→21:32)
[2018-03-03] MEDS: ANALGESIC BALM CRM 120 GM TOP ×4 (09:00→21:00)
[2018-03-03] MEDS: METOPROLOL SUCC *XL* 25MG TAB (TopROL *XL*) PO (09:00)
[2018-03-03] MEDS: PANTOPRAZOLE 40MG TAB (PROTONIX) PO (09:48)
[2018-03-03] MEDS: HEPARIN SOD (PORCINE) 5000 UNITS/ML VIAL SC ×3 (09:48→21:33)
[2018-03-03] MEDS: VITAMIN D 1,000 INTERNATIONAL UNITS TABLET PO (09:48)
[2018-03-03] MEDS: MAGNESIUM OXIDE 400 MG TAB (MAG-OX) PO ×2 (09:48→21:32)
[2018-03-03] MEDS: MULTIVITAMINS/MINERALS THERAP 1 TAB PO (09:48)
[2018-03-03] MEDS: CLOPIDOGREL 75 MG TAB PO (09:48)
[2018-03-03] MEDS: CALCIUM/VITAMIN D 500 MG TAB PO ×2 (10:00→21:32)
[2018-03-03 12:21] LABS: PROTHROMBIN TIME 13.3 SECONDS (12.4-14.5)
[2018-03-03 12:22] LABS: PARTIAL THROMBOPLASTIN TIME 32.2 SECONDS (26.8-37.9)
[2018-03-03 13:17] LABS: ALBUMIN 2.6 GM/DL (3.2-5.2); ALKALINE PHOSPHATASE 82 U/L (45-117); ALT/SGPT 179 U/L (12-78); ANION GAP 6 MEQ/L (8-16); AST/SGOT 35 U/L (7-37); BILIRUBIN,TOTAL 0.5 MG/DL (0.2-1.0); BLOOD UREA NITROGEN 8 MG/DL (7-18); CALCIUM LEVEL 8.7 MG/DL (8.8-10.2); CARBON DIOXIDE LEVEL 26 MEQ/L (21-32); CHLORIDE LEVEL 107 MEQ/L (98-107); CREATININE FOR GFR 0.71 MG/DL (0.55-1.30); GLOMERULAR FILTRATION RATE > 60.0 (>32); GLUCOSE, FASTING 136 MG/DL (70-100); POTASSIUM SERUM 3.4 MEQ/L (3.5-5.1); SODIUM LEVEL 139 MEQ/L (136-145); TOTAL PROTEIN 6.3 GM/DL (6.4-8.2)
[2018-03-03 18:31] LABS: INR 0.97; PARTIAL THROMBOPLASTIN TIME 30.9 SECONDS (26.8-37.9)
[2018-03-03 18:48] LABS: ALBUMIN 2.6 GM/DL (3.2-5.2); ALBUMIN/GLOBULIN RATIO 0.81 (1.00-1.93); ALKALINE PHOSPHATASE 99 U/L (45-117); ALT/SGPT 157 U/L (12-78); ANION GAP 7 MEQ/L (8-16); AST/SGOT 30 U/L (7-37); BILIRUBIN,TOTAL 0.4 MG/DL (0.2-1.0); BLOOD UREA NITROGEN 10 MG/DL (7-18); CALCIUM LEVEL 8.5 MG/DL (8.8-10.2); CARBON DIOXIDE LEVEL 27 MEQ/L (21-32); CHLORIDE LEVEL 106 MEQ/L (98-107); CREATININE FOR GFR 0.86 MG/DL (0.55-1.30); GLOMERULAR FILTRATION RATE > 60.0 (>32); GLUCOSE, FASTING 154 MG/DL (70-100); POTASSIUM SERUM 3.6 MEQ/L (3.5-5.1); SODIUM LEVEL 140 MEQ/L (136-145); TOTAL PROTEIN 5.8 GM/DL (6.4-8.2)
[2018-03-03] MEDS: METOPROLOL TART 25 MG TABLET PO (21:32)
[2018-03-04] MEDS: METOPROLOL TART 25 MG TABLET PO ×2 (09:00→20:34)
[2018-03-04] MEDS: CALCIUM/VITAMIN D 500 MG TAB PO ×2 (09:00→20:17)
[2018-03-04] MEDS: SENOKOT S TAB PO ×2 (09:00→20:17)
[2018-03-04] MEDS: CLOPIDOGREL 75 MG TAB PO (09:00)
[2018-03-04] MEDS: HEPARIN SOD (PORCINE) 5000 UNITS/ML VIAL SC ×2 (09:00→20:17)
[2018-03-04] MEDS: MULTIVITAMINS/MINERALS THERAP 1 TAB PO (09:00)
[2018-03-04] MEDS: ANALGESIC BALM CRM 120 GM TOP ×4 (09:00→20:18)
[2018-03-04] MEDS: PANTOPRAZOLE 40MG TAB (PROTONIX) PO (09:00)
[2018-03-04] MEDS: MAGNESIUM OXIDE 400 MG TAB (MAG-OX) PO ×2 (09:00→20:17)
[2018-03-04] MEDS: VITAMIN D 1,000 INTERNATIONAL UNITS TABLET PO (09:00)
[2018-03-05] MEDS: PANTOPRAZOLE 40MG TAB (PROTONIX) PO ×2 (08:07→09:00)
[2018-03-05] MEDS: VITAMIN D 1,000 INTERNATIONAL UNITS TABLET PO (08:07)
[2018-03-05] MEDS: SENOKOT S TAB PO ×2 (08:07→20:43)
[2018-03-05] MEDS: CALCIUM/VITAMIN D 500 MG TAB PO ×2 (08:07→20:43)
[2018-03-05] MEDS: MAGNESIUM OXIDE 400 MG TAB (MAG-OX) PO ×3 (08:07→20:43)
[2018-03-05] MEDS: MULTIVITAMINS/MINERALS THERAP 1 TAB PO (08:07)
[2018-03-05] MEDS: CLOPIDOGREL 75 MG TAB PO ×2 (08:07→09:00)
[2018-03-05] MEDS: METOPROLOL TART 25 MG TABLET PO ×3 (08:10→20:43)
[2018-03-05] MEDS: HEPARIN SOD (PORCINE) 5000 UNITS/ML VIAL SC ×2 (08:10→20:44)
[2018-03-05] MEDS: ANALGESIC BALM CRM 120 GM TOP ×4 (08:11→20:46)
[2018-03-06] MEDS: CALCIUM/VITAMIN D 500 MG TAB PO ×2 (09:00→21:00)
[2018-03-06] MEDS: HEPARIN SOD (PORCINE) 5000 UNITS/ML VIAL SC ×2 (09:00→21:00)
[2018-03-06] MEDS: MULTIVITAMINS/MINERALS THERAP 1 TAB PO (09:00)
[2018-03-06] MEDS: MAGNESIUM OXIDE 400 MG TAB (MAG-OX) PO ×2 (09:00→21:00)
[2018-03-06] MEDS: SENOKOT S TAB PO ×2 (09:00→21:00)
[2018-03-06] MEDS: VITAMIN D 1,000 INTERNATIONAL UNITS TABLET PO (09:00)
[2018-03-06] MEDS: METOPROLOL TART 25 MG TABLET PO ×2 (09:00→21:00)
[2018-03-06] MEDS: ANALGESIC BALM CRM 120 GM TOP ×4 (09:00→21:00)
[2018-03-06] MEDS: CLOPIDOGREL 75 MG TAB PO (09:00)
[2018-03-06] MEDS: PANTOPRAZOLE 40MG TAB (PROTONIX) PO (09:00)
[2018-03-07] MEDS: METOPROLOL TART 25 MG TABLET PO ×2 (09:00→21:58)
[2018-03-07] MEDS: CLOPIDOGREL 75 MG TAB PO (09:00)
[2018-03-07] MEDS: VITAMIN D 1,000 INTERNATIONAL UNITS TABLET PO (09:00)
[2018-03-07] MEDS: MAGNESIUM OXIDE 400 MG TAB (MAG-OX) PO ×2 (09:00→21:58)
[2018-03-07] MEDS: CALCIUM/VITAMIN D 500 MG TAB PO ×2 (09:00→21:58)
[2018-03-07] MEDS: SENOKOT S TAB PO ×2 (09:00→21:58)
[2018-03-07] MEDS: HEPARIN SOD (PORCINE) 5000 UNITS/ML VIAL SC ×2 (09:00→21:58)
[2018-03-07] MEDS: PANTOPRAZOLE 40MG TAB (PROTONIX) PO (09:00)
[2018-03-07] MEDS: MULTIVITAMINS/MINERALS THERAP 1 TAB PO (09:00)
[2018-03-07] MEDS: ANALGESIC BALM CRM 120 GM TOP ×4 (09:00→21:59)
[2018-03-08] MEDS: MULTIVITAMINS/MINERALS THERAP 1 TAB PO (09:00)
[2018-03-08] MEDS: CALCIUM/VITAMIN D 500 MG TAB PO ×2 (09:00→21:00)
[2018-03-08] MEDS: HEPARIN SOD (PORCINE) 5000 UNITS/ML VIAL SC ×2 (09:00→21:00)
[2018-03-08] MEDS: ANALGESIC BALM CRM 120 GM TOP ×4 (09:00→21:00)
[2018-03-08] MEDS: CLOPIDOGREL 75 MG TAB PO (09:00)
[2018-03-08] MEDS: SENOKOT S TAB PO ×2 (09:00→21:00)
[2018-03-08] MEDS: MAGNESIUM OXIDE 400 MG TAB (MAG-OX) PO ×2 (09:00→21:00)
[2018-03-08] MEDS: VITAMIN D 1,000 INTERNATIONAL UNITS TABLET PO (09:00)
[2018-03-08] MEDS: METOPROLOL TART 25 MG TABLET PO ×2 (09:00→21:00)
[2018-03-08] MEDS: PANTOPRAZOLE 40MG TAB (PROTONIX) PO (09:00)
[2018-03-09] MEDS: PANTOPRAZOLE 40MG TAB (PROTONIX) PO (09:00)
[2018-03-09] MEDS: MAGNESIUM OXIDE 400 MG TAB (MAG-OX) PO ×2 (09:00→21:00)
[2018-03-09] MEDS: CALCIUM/VITAMIN D 500 MG TAB PO ×2 (09:00→21:00)
[2018-03-09] MEDS: CLOPIDOGREL 75 MG TAB PO (09:00)
[2018-03-09] MEDS: MULTIVITAMINS/MINERALS THERAP 1 TAB PO (09:00)
[2018-03-09] MEDS: VITAMIN D 1,000 INTERNATIONAL UNITS TABLET PO (09:00)
[2018-03-09] MEDS: METOPROLOL TART 25 MG TABLET PO ×2 (09:00→21:00)
[2018-03-09] MEDS: SENOKOT S TAB PO ×2 (09:00→21:00)
[2018-03-09] MEDS: HEPARIN SOD (PORCINE) 5000 UNITS/ML VIAL SC ×2 (09:00→21:00)
[2018-03-09] MEDS: ANALGESIC BALM CRM 120 GM TOP ×4 (09:00→21:00)
[2018-03-10] MEDS: SENOKOT S TAB PO ×2 (09:00→20:25)
[2018-03-10] MEDS: MULTIVITAMINS/MINERALS THERAP 1 TAB PO (09:00)
[2018-03-10] MEDS: ANALGESIC BALM CRM 120 GM TOP ×4 (09:00→20:25)
[2018-03-10] MEDS: MAGNESIUM OXIDE 400 MG TAB (MAG-OX) PO ×2 (09:00→20:25)
[2018-03-10] MEDS: CALCIUM/VITAMIN D 500 MG TAB PO ×2 (09:00→20:25)
[2018-03-10] MEDS: CLOPIDOGREL 75 MG TAB PO (09:00)
[2018-03-10] MEDS: HEPARIN SOD (PORCINE) 5000 UNITS/ML VIAL SC ×2 (09:00→20:25)
[2018-03-10] MEDS: PANTOPRAZOLE 40MG TAB (PROTONIX) PO (09:00)
[2018-03-10] MEDS: VITAMIN D 1,000 INTERNATIONAL UNITS TABLET PO (09:00)
[2018-03-10] MEDS: METOPROLOL TART 25 MG TABLET PO ×2 (09:00→20:24)
[2018-03-11] MEDS: METOPROLOL TART 25 MG TABLET PO ×2 (09:00→21:00)
[2018-03-11] MEDS: PANTOPRAZOLE 40MG TAB (PROTONIX) PO (09:00)
[2018-03-11] MEDS: VITAMIN D 1,000 INTERNATIONAL UNITS TABLET PO (09:00)
[2018-03-11] MEDS: CALCIUM/VITAMIN D 500 MG TAB PO ×2 (09:00→21:00)
[2018-03-11] MEDS: MAGNESIUM OXIDE 400 MG TAB (MAG-OX) PO ×2 (09:00→21:00)
[2018-03-11] MEDS: ANALGESIC BALM CRM 120 GM TOP ×4 (09:00→21:00)
[2018-03-11] MEDS: MULTIVITAMINS/MINERALS THERAP 1 TAB PO (09:00)
[2018-03-11] MEDS: SENOKOT S TAB PO ×2 (09:00→21:00)
[2018-03-11] MEDS: HEPARIN SOD (PORCINE) 5000 UNITS/ML VIAL SC ×2 (09:00→21:00)
[2018-03-11] MEDS: CLOPIDOGREL 75 MG TAB PO (09:00)
[2018-03-12] MEDS: CLOPIDOGREL 75 MG TAB PO (09:38)
[2018-03-12] MEDS: METOPROLOL TART 25 MG TABLET PO ×2 (09:38→20:34)
[2018-03-12] MEDS: MAGNESIUM OXIDE 400 MG TAB (MAG-OX) PO ×2 (09:38→20:34)
[2018-03-12] MEDS: HEPARIN SOD (PORCINE) 5000 UNITS/ML VIAL SC ×2 (09:39→20:34)
[2018-03-12] MEDS: MULTIVITAMINS/MINERALS THERAP 1 TAB PO (09:39)
[2018-03-12] MEDS: VITAMIN D 1,000 INTERNATIONAL UNITS TABLET PO (09:39)
[2018-03-12] MEDS: CALCIUM/VITAMIN D 500 MG TAB PO ×2 (09:39→20:34)
[2018-03-12] MEDS: PANTOPRAZOLE 40MG TAB (PROTONIX) PO (09:39)
[2018-03-12] MEDS: ANALGESIC BALM CRM 120 GM TOP ×4 (09:39→20:34)
[2018-03-12] MEDS: SENOKOT S TAB PO ×2 (09:39→20:34)
[2018-03-13] MEDS: CALCIUM/VITAMIN D 500 MG TAB PO (08:46)
[2018-03-13] MEDS: MULTIVITAMINS/MINERALS THERAP 1 TAB PO (08:46)
[2018-03-13] MEDS: PANTOPRAZOLE 40MG TAB (PROTONIX) PO (08:46)
[2018-03-13] MEDS: METOPROLOL TART 25 MG TABLET PO (08:46)
[2018-03-13] MEDS: CLOPIDOGREL 75 MG TAB PO (08:46)
[2018-03-13] MEDS: SENOKOT S TAB PO (08:46)
[2018-03-13] MEDS: MAGNESIUM OXIDE 400 MG TAB (MAG-OX) PO (08:46)
[2018-03-13] MEDS: VITAMIN D 1,000 INTERNATIONAL UNITS TABLET PO (08:47)
[2018-03-13] MEDS: HEPARIN SOD (PORCINE) 5000 UNITS/ML VIAL SC (08:47)
[2018-03-13] MEDS: ANALGESIC BALM CRM 120 GM TOP ×3 (08:47→16:31)
== END 2018-03-13 17:10 | disposition home or self-care (01) | DRG 918 ==
LOC: M ICU 03-03 06:01 → M MS5PR 03-04 16:24 → M PCU 03-03 16:10 → M ED 14:48 → M ED INP 20:03
DX: T39.1X1A Poisoning by 4-Aminophenol derivatives, accidental (unintentional), initial encounter (principal); I25.10 Atherosclerotic heart disease of native coronary artery without angina pectoris; M19.90 Unspecified osteoarthritis, unspecified site; I25.2 Old myocardial infarction; I65.23 Occlusion and stenosis of bilateral carotid arteries; K21.9 Gastro-esophageal reflux disease without esophagitis; F17.200 Nicotine dependence, unspecified, uncomplicated; F03.90 Unspecified dementia, unspecified severity, without behavioral disturbance, psychotic disturbance, mood disturbance, and anxiety; Z79.899 Other long term (current) drug therapy; I73.9 Peripheral vascular disease, unspecified; I71.4 Abdominal aortic aneurysm, without rupture; Z88.5 Allergy status to narcotic agent; G43.909 Migraine, unspecified, not intractable, without status migrainosus; E78.5 Hyperlipidemia, unspecified; I11.9 Hypertensive heart disease without heart failure; K59.00 Constipation, unspecified; Z95.2 Presence of prosthetic heart valve; I95.9 Hypotension, unspecified; E83.42 Hypomagnesemia; D64.9 Anemia, unspecified; M54.5 Low back pain

== ENCOUNTER 2018-03-14 21:39 | Inpatient (IN) | payer MEDICARE, MEDICAID ==
[2018-03-14] MEDS: NS 1,000 ML IV ×2 (21:56→22:45)
[2018-03-14 22:38] LABS: BASO # 0.1 10^3/uL (0.0-0.2); BASO % 0.8 % (0.0-1.0); EOS # 0.1 10^3/uL (0.0-0.50); EOS % 1.3 % (0.0-3.0); HEMATOCRIT 31.5 % (36.0-47.0); HEMOGLOBIN 10.2 g/dl (12.0-15.5); IMMATURE GRANULOCYTE % 0.5 % (0-3.0); LYMPH # 0.9 10^3/uL (1.5-4.5); LYMPH % 14.3 % (24.0-44.0); MEAN CORPUSCULAR HEMOGLOBIN 35.2 pg (27.0-33.0); MEAN CORPUSCULAR HGB CONC 32.4 g/dl (32.0-36.5); MEAN CORPUSCULAR VOLUME 108.6 fl (80.0-96.0); MONO # 0.8 10^3/uL (0.0-0.8); NEUTROPHILS # 4.2 10^3/uL (1.8-7.7); NEUTROPHILS % 70.1 % (36.0-66.0); PLATELET COUNT, AUTOMATED 285 10^3/uL (150-450); RED CELL DISTRIBUTION WIDTH 15.5 % (11.5-14.5)
[2018-03-14 22:57] LABS: AMPHETAMINES LEVEL URINE NEGATIVE (NEGATIVE); BARBITURATES URINE NEGATIVE (NEGATIVE); BENZODIAZEPINES URINE NEGATIVE (NEGATIVE); CANNABINOIDS URINE NEGATIVE (NEGATIVE); COCAINE METABOLITE URINE NEGATIVE (NEGATIVE); METHADONE URINE NEGATIVE (NEGATIVE); OPIATES URINE NEGATIVE (NEGATIVE); PHENCYCLIDINE URINE NEGATIVE (NEGATIVE)
[2018-03-14 23:30] LABS: ACETAMINOPHEN LEVEL < 2.0 UG/ML (10.0-30.0); ALBUMIN/GLOBULIN RATIO 0.83 (1.00-1.93); ALKALINE PHOSPHATASE 94 U/L (45-117); ALT/SGPT 83 U/L (12-78); ANION GAP 4 MEQ/L (8-16); AST/SGOT 30 U/L (7-37); BILIRUBIN,DIRECT < 0.1 MG/DL (0.0-0.2); BILIRUBIN,TOTAL 0.2 MG/DL (0.2-1.0); BLOOD UREA NITROGEN 19 MG/DL (7-18); CALCIUM LEVEL 8.4 MG/DL (8.8-10.2); CARBON DIOXIDE LEVEL 32 MEQ/L (21-32); CHLORIDE LEVEL 106 MEQ/L (98-107); CPK CREATINE PHOSPHOKINASE 102 U/L (26-192); CREATININE FOR GFR 0.68 MG/DL (0.55-1.30); GLOMERULAR FILTRATION RATE > 60.0 (>32); GLUCOSE, FASTING 103 MG/DL (70-100); POTASSIUM SERUM 4.1 MEQ/L (3.5-5.1); SALICYLATE LEVEL < 1.7 MG/DL (5.0-30.0); SODIUM LEVEL 142 MEQ/L (136-145); TOTAL PROTEIN 6.6 GM/DL (6.4-8.2); TROPONIN I 0.03 NG/ML (< 0.10)
[2018-03-14 23:36] LABS: APPEARANCE, URINE CLEAR (CLEAR); BACTERIA, URINE AUTO NEGATIVE (NEGATIVE); BILIRUBIN, URINE AUTO NEGATIVE (NEGATIVE); BLOOD, URINE BLOOD NEGATIVE (NEGATIVE); COLOR, URINE YELLOW (YELLOW); GLUCOSE, URINE (UA) AUTO NEGATIVE (NEGATIVE); KETONE, URINE AUTO NEGATIVE (NEGATIVE); LEUKOCYTE ESTERASE, URINE AUTO 1+ (NEGATIVE); MB/CK RELATIVE INDEX 1.96 (< OR =4); NITRITE, URINE AUTO NEGATIVE (NEGATIVE); PROTEIN, URINE AUTO 1+ mg/dL (NEGATIVE); RBC, URINE AUTO 3 /HPF (0-3); SPECIFIC GRAVITY URINE AUTO 1.019 (1.002-1.035); SQUAMOUS EPITHELIAL CELL UR AU 1 /HPF (0-6); UROBILINOGEN, URINE AUTO 0.2 mg/dL (0.0-2.0); WBC, URINE AUTO 4 /HPF (0-3)
[2018-03-14 23:43] LABS: ETHYL ALCOHOL (ETHANOL) < 0.003 % (0.000-0.010)
[2018-03-15] MEDS: OLANZapine INTRAMUSCULAR 10 MG VIAL (S0166) IM (00:14)
[2018-03-15] MEDS ORDERED: NITROGLYCERIN 0.4 MG SUBL TABLET SL (01:00)
[2018-03-15 01:36] LABS: AMMONIA 12 uMOL/L (<32)
[2018-03-15] MEDS: VITAMIN D 1,000 INTERNATIONAL UNITS TABLET PO (09:00)
[2018-03-15] MEDS: MAGNESIUM OXIDE 400 MG TAB (MAG-OX) PO ×2 (09:00→20:20)
[2018-03-15] MEDS: ENOXAPARIN 40 MG/0.4 ML SYRINGE (J1650) SC (09:00)
[2018-03-15] MEDS: MULTIVITAMINS/MINERALS THERAP 1 TAB PO (09:00)
[2018-03-15] MEDS: PANTOPRAZOLE 40MG TAB (PROTONIX) PO (09:00)
[2018-03-15] MEDS: FERROUS SULFATE 325MG TAB PO (09:00)
[2018-03-15 10:08] LABS: FOLATE 17.7 NG/ML (>5.4)
[2018-03-15] MEDS: LORazepam 0.5 MG TAB PO (10:27)
[2018-03-15] MEDS: LISINOPRIL 5 MG TAB PO (10:28)
[2018-03-15] MEDS: CLOPIDOGREL 75 MG TAB PO (10:28)
[2018-03-15] MEDS: PARoxetine 10MG TABLET PO (10:28)
[2018-03-15] MEDS: METOPROLOL SUCC *XL* 25MG TAB (TopROL *XL*) PO (10:29)
[2018-03-15] MEDS: NICOTINE 14 MG/24 HR TRANSDERMAL TD (10:31)
[2018-03-15] MEDS: ATORVASTATIN 20 MG TAB PO (20:20)
[2018-03-16] MEDS: LORazepam 0.5 MG TAB PO (03:41)
[2018-03-16 06:04] LABS: BASO # 0.1 10^3/uL (0.0-0.2); BASO % 1.2 % (0.0-1.0); EOS # 0.1 10^3/uL (0.0-0.50); EOS % 2.5 % (0.0-3.0); HEMATOCRIT 31.8 % (36.0-47.0); HEMOGLOBIN 10.1 g/dl (12.0-15.5); IMMATURE GRANULOCYTE % 0.4 % (0-3.0); LYMPH # 1.1 10^3/uL (1.5-4.5); LYMPH % 19.1 % (24.0-44.0); MEAN CORPUSCULAR HEMOGLOBIN 34.7 pg (27.0-33.0); MEAN CORPUSCULAR HGB CONC 31.8 g/dl (32.0-36.5); MEAN CORPUSCULAR VOLUME 109.3 fl (80.0-96.0); MONO # 0.7 10^3/uL (0.0-0.8); MONO % 12.8 % (0.0-5.0); NEUTROPHILS # 3.6 10^3/uL (1.8-7.7); PLATELET COUNT, AUTOMATED 300 10^3/uL (150-450); RED BLOOD COUNT 2.91 10^6/uL (4.00-5.40); RED CELL DISTRIBUTION WIDTH 15.3 % (11.5-14.5); WHITE BLOOD COUNT 5.6 10^3/uL (4.0-10.0)
[2018-03-16 06:39] LABS: ALBUMIN/GLOBULIN RATIO 0.65 (1.00-1.93); ALKALINE PHOSPHATASE 97 U/L (45-117); ALT/SGPT 68 U/L (12-78); ANION GAP 6 MEQ/L (8-16); AST/SGOT 26 U/L (7-37); BILIRUBIN,TOTAL 0.4 MG/DL (0.2-1.0); BLOOD UREA NITROGEN 26 MG/DL (7-18); CALCIUM LEVEL 8.8 MG/DL (8.8-10.2); CARBON DIOXIDE LEVEL 29 MEQ/L (21-32); CHLORIDE LEVEL 104 MEQ/L (98-107); CREATININE FOR GFR 0.85 MG/DL (0.55-1.30); GLOMERULAR FILTRATION RATE > 60.0 (>32); GLUCOSE, FASTING 105 MG/DL (70-100); MAGNESIUM LEVEL 1.9 MG/DL (1.8-2.4); SODIUM LEVEL 139 MEQ/L (136-145); TOTAL PROTEIN 7.6 GM/DL (6.4-8.2)
[2018-03-16] MEDS: VITAMIN D 1,000 INTERNATIONAL UNITS TABLET PO (09:00)
[2018-03-16] MEDS: FERROUS SULFATE 325MG TAB PO (09:00)
[2018-03-16] MEDS: PANTOPRAZOLE 40MG TAB (PROTONIX) PO (09:00)
[2018-03-16] MEDS: MULTIVITAMINS/MINERALS THERAP 1 TAB PO (09:00)
[2018-03-16] MEDS: MAGNESIUM OXIDE 400 MG TAB (MAG-OX) PO ×2 (09:00→21:11)
[2018-03-16] MEDS: PARoxetine 10MG TABLET PO (09:00)
[2018-03-16] MEDS: CLOPIDOGREL 75 MG TAB PO (12:01)
[2018-03-16] MEDS: LISINOPRIL 5 MG TAB PO (12:02)
[2018-03-16] MEDS: METOPROLOL SUCC *XL* 25MG TAB (TopROL *XL*) PO (12:02)
[2018-03-16] MEDS: ENOXAPARIN 40 MG/0.4 ML SYRINGE (J1650) SC (12:04)
[2018-03-16] MEDS: PARoxetine 20 MG TAB PO (12:04)
[2018-03-16] MEDS ORDERED: LORazepam 2 MG/ML VIAL (J2060) IV (12:45)
[2018-03-16] MEDS ORDERED: LORazepam 2 MG/ML VIAL (J2060) IM (16:00)
[2018-03-16] MEDS: ATORVASTATIN 20 MG TAB PO (21:12)
[2018-03-17 06:15] LABS: BASO # 0.1 10^3/uL (0.0-0.2); BASO % 1.7 % (0.0-1.0); EOS # 0.2 10^3/uL (0.0-0.50); HEMATOCRIT 29.5 % (36.0-47.0); HEMOGLOBIN 9.5 g/dl (12.0-15.5); IMMATURE GRANULOCYTE % 0.3 % (0-3.0); LYMPH # 0.9 10^3/uL (1.5-4.5); MEAN CORPUSCULAR HEMOGLOBIN 35.2 pg (27.0-33.0); MEAN CORPUSCULAR HGB CONC 32.2 g/dl (32.0-36.5); MEAN CORPUSCULAR VOLUME 109.3 fl (80.0-96.0); MONO # 0.5 10^3/uL (0.0-0.8); MONO % 14.5 % (0.0-5.0); NEUTROPHILS # 1.9 10^3/uL (1.8-7.7); NEUTROPHILS % 52.5 % (36.0-66.0); PLATELET COUNT, AUTOMATED 283 10^3/uL (150-450); RED CELL DISTRIBUTION WIDTH 15.2 % (11.5-14.5); WHITE BLOOD COUNT 3.6 10^3/uL (4.0-10.0)
[2018-03-17 06:40] LABS: ALBUMIN 2.6 GM/DL (3.2-5.2); ALBUMIN/GLOBULIN RATIO 0.68 (1.00-1.93); ALKALINE PHOSPHATASE 83 U/L (45-117); ALT/SGPT 54 U/L (12-78); ANION GAP 3 MEQ/L (8-16); AST/SGOT 26 U/L (7-37); BILIRUBIN,TOTAL 0.3 MG/DL (0.2-1.0); BLOOD UREA NITROGEN 20 MG/DL (7-18); CALCIUM LEVEL 8.5 MG/DL (8.8-10.2); CARBON DIOXIDE LEVEL 32 MEQ/L (21-32); CHLORIDE LEVEL 107 MEQ/L (98-107); GLOMERULAR FILTRATION RATE > 60.0 (>32); GLUCOSE, FASTING 80 MG/DL (70-100); POTASSIUM SERUM 3.9 MEQ/L (3.5-5.1); SODIUM LEVEL 142 MEQ/L (136-145); TOTAL PROTEIN 6.4 GM/DL (6.4-8.2)
[2018-03-17] MEDS: CLOPIDOGREL 75 MG TAB PO (08:37)
[2018-03-17] MEDS: ENOXAPARIN 40 MG/0.4 ML SYRINGE (J1650) SC (08:37)
[2018-03-17] MEDS: PANTOPRAZOLE 40MG TAB (PROTONIX) PO (08:37)
[2018-03-17] MEDS: VITAMIN D 1,000 INTERNATIONAL UNITS TABLET PO (08:37)
[2018-03-17] MEDS: MAGNESIUM OXIDE 400 MG TAB (MAG-OX) PO ×2 (08:37→20:22)
[2018-03-17] MEDS: MULTIVITAMINS/MINERALS THERAP 1 TAB PO (08:38)
[2018-03-17] MEDS: FERROUS SULFATE 325MG TAB PO (08:38)
[2018-03-17] MEDS: LISINOPRIL 5 MG TAB PO (09:00)
[2018-03-17] MEDS: METOPROLOL SUCC *XL* 25MG TAB (TopROL *XL*) PO (09:00)
[2018-03-17] MEDS: PPD DOCUMENTATION ENTRY MISC XX (10:00)
[2018-03-17] MEDS ORDERED: PPD DOCUMENTATION ENTRY MISC XX (14:15)
[2018-03-17] MEDS: TUBERCULIN PPD 5 UNITS/0.1 ML ID (15:10)
[2018-03-17] MEDS: ATORVASTATIN 20 MG TAB PO (20:23)
[2018-03-18 00:08] LABS: VIT B12 UNSAT BINDING CAPACITY 1245 pg/mL (725-2045)
[2018-03-18 06:06] LABS: BASO # 0.1 10^3/uL (0.0-0.2); BASO % 2.1 % (0.0-1.0); EOS # 0.1 10^3/uL (0.0-0.50); EOS % 3.6 % (0.0-3.0); HEMATOCRIT 31.3 % (36.0-47.0); HEMOGLOBIN 9.9 g/dl (12.0-15.5); IMMATURE GRANULOCYTE % 0.5 % (0-3.0); LYMPH # 1.1 10^3/uL (1.5-4.5); LYMPH % 27.1 % (24.0-44.0); MEAN CORPUSCULAR HEMOGLOBIN 34.6 pg (27.0-33.0); MEAN CORPUSCULAR HGB CONC 31.6 g/dl (32.0-36.5); MEAN CORPUSCULAR VOLUME 109.4 fl (80.0-96.0); MONO # 0.6 10^3/uL (0.0-0.8); MONO % 16.3 % (0.0-5.0); NEUTROPHILS % 50.4 % (36.0-66.0); PLATELET COUNT, AUTOMATED 315 10^3/uL (150-450); RED BLOOD COUNT 2.86 10^6/uL (4.00-5.40); RED CELL DISTRIBUTION WIDTH 14.8 % (11.5-14.5); WHITE BLOOD COUNT 3.9 10^3/uL (4.0-10.0)
[2018-03-18 06:28] LABS: ALBUMIN 2.8 GM/DL (3.2-5.2); ALBUMIN/GLOBULIN RATIO 0.67 (1.00-1.93); ALKALINE PHOSPHATASE 84 U/L (45-117); ALT/SGPT 51 U/L (12-78); ANION GAP 3 MEQ/L (8-16); AST/SGOT 28 U/L (7-37); BILIRUBIN,TOTAL 0.4 MG/DL (0.2-1.0); BLOOD UREA NITROGEN 18 MG/DL (7-18); CALCIUM LEVEL 8.7 MG/DL (8.8-10.2); CARBON DIOXIDE LEVEL 32 MEQ/L (21-32); CHLORIDE LEVEL 105 MEQ/L (98-107); GLOMERULAR FILTRATION RATE > 60.0 (>32); GLUCOSE, FASTING 94 MG/DL (70-100); POTASSIUM SERUM 4.3 MEQ/L (3.5-5.1); SODIUM LEVEL 140 MEQ/L (136-145)
[2018-03-18] MEDS: FERROUS SULFATE 325MG TAB PO (08:05)
[2018-03-18] MEDS: CLOPIDOGREL 75 MG TAB PO (08:06)
[2018-03-18] MEDS: METOPROLOL SUCC *XL* 25MG TAB (TopROL *XL*) PO (08:07)
[2018-03-18] MEDS: MAGNESIUM OXIDE 400 MG TAB (MAG-OX) PO ×2 (08:07→20:02)
[2018-03-18] MEDS: MULTIVITAMINS/MINERALS THERAP 1 TAB PO (08:08)
[2018-03-18] MEDS: VITAMIN D 1,000 INTERNATIONAL UNITS TABLET PO (08:08)
[2018-03-18] MEDS: PARoxetine 20 MG TAB PO (08:08)
[2018-03-18] MEDS: LISINOPRIL 5 MG TAB PO (08:08)
[2018-03-18] MEDS: PANTOPRAZOLE 40MG TAB (PROTONIX) PO (08:08)
[2018-03-18] MEDS: ENOXAPARIN 40 MG/0.4 ML SYRINGE (J1650) SC (08:09)
[2018-03-18] MEDS: QUEtiapine FUMARATE 50 MG TAB PO (20:02)
[2018-03-18] MEDS: ATORVASTATIN 20 MG TAB PO (20:02)
[2018-03-19] MEDS: FERROUS SULFATE 325MG TAB PO (09:00)
[2018-03-19] MEDS: ENOXAPARIN 40 MG/0.4 ML SYRINGE (J1650) SC (09:15)
[2018-03-19] MEDS: MAGNESIUM OXIDE 400 MG TAB (MAG-OX) PO ×2 (09:15→20:01)
[2018-03-19] MEDS: MULTIVITAMINS/MINERALS THERAP 1 TAB PO (09:15)
[2018-03-19] MEDS: VITAMIN D 1,000 INTERNATIONAL UNITS TABLET PO (09:15)
[2018-03-19] MEDS: PARoxetine 20 MG TAB PO (09:15)
[2018-03-19] MEDS: PANTOPRAZOLE 40MG TAB (PROTONIX) PO (09:16)
[2018-03-19] MEDS: METOPROLOL SUCC *XL* 25MG TAB (TopROL *XL*) PO (09:16)
[2018-03-19] MEDS: LISINOPRIL 5 MG TAB PO (09:16)
[2018-03-19] MEDS: CLOPIDOGREL 75 MG TAB PO (09:16)
[2018-03-19] MEDS: PPD DOCUMENTATION ENTRY MISC XX (10:00)
[2018-03-19] MEDS: ATORVASTATIN 20 MG TAB PO (20:01)
[2018-03-19] MEDS: QUEtiapine FUMARATE 50 MG TAB PO (20:01)
[2018-03-20] MEDS: METOPROLOL SUCC *XL* 25MG TAB (TopROL *XL*) PO (09:00)
[2018-03-20] MEDS: LISINOPRIL 5 MG TAB PO (09:00)
[2018-03-20] MEDS: ENOXAPARIN 40 MG/0.4 ML SYRINGE (J1650) SC (09:02)
[2018-03-20] MEDS: VITAMIN D 1,000 INTERNATIONAL UNITS TABLET PO (09:03)
[2018-03-20] MEDS: MAGNESIUM OXIDE 400 MG TAB (MAG-OX) PO ×2 (09:03→23:20)
[2018-03-20] MEDS: CLOPIDOGREL 75 MG TAB PO (09:03)
[2018-03-20] MEDS: PARoxetine 20 MG TAB PO (09:04)
[2018-03-20] MEDS: FERROUS SULFATE 325MG TAB PO (09:04)
[2018-03-20] MEDS: PANTOPRAZOLE 40MG TAB (PROTONIX) PO (09:04)
[2018-03-20] MEDS: MULTIVITAMINS/MINERALS THERAP 1 TAB PO (09:04)
[2018-03-20] MEDS: QUEtiapine FUMARATE 50 MG TAB PO ×2 (21:00→23:20)
[2018-03-20] MEDS: ATORVASTATIN 20 MG TAB PO (23:20)
[2018-03-21 06:11] LABS: HEMOGLOBIN 10.3 g/dl (12.0-15.5); MEAN CORPUSCULAR HEMOGLOBIN 34.2 pg (27.0-33.0); MEAN CORPUSCULAR HGB CONC 31.2 g/dl (32.0-36.5); MEAN CORPUSCULAR VOLUME 109.6 fl (80.0-96.0); PLATELET COUNT, AUTOMATED 328 10^3/uL (150-450); RED BLOOD COUNT 3.01 10^6/uL (4.00-5.40); RED CELL DISTRIBUTION WIDTH 14.4 % (11.5-14.5); WHITE BLOOD COUNT 5.8 10^3/uL (4.0-10.0)
[2018-03-21] MEDS: FERROUS SULFATE 325MG TAB PO ×2 (09:00→09:52)
[2018-03-21] MEDS: ENOXAPARIN 40 MG/0.4 ML SYRINGE (J1650) SC (09:00)
[2018-03-21] MEDS: MAGNESIUM OXIDE 400 MG TAB (MAG-OX) PO ×2 (09:52→20:24)
[2018-03-21] MEDS: PARoxetine 20 MG TAB PO (09:52)
[2018-03-21] MEDS: PANTOPRAZOLE 40MG TAB (PROTONIX) PO (09:52)
[2018-03-21] MEDS: MULTIVITAMINS/MINERALS THERAP 1 TAB PO (09:52)
[2018-03-21] MEDS: VITAMIN D 1,000 INTERNATIONAL UNITS TABLET PO (09:52)
[2018-03-21] MEDS: METOPROLOL SUCC *XL* 25MG TAB (TopROL *XL*) PO (09:53)
[2018-03-21] MEDS: LISINOPRIL 5 MG TAB PO (09:53)
[2018-03-21] MEDS: CLOPIDOGREL 75 MG TAB PO (09:53)
[2018-03-21] MEDS: QUEtiapine FUMARATE 50 MG TAB PO (20:24)
[2018-03-21] MEDS: ATORVASTATIN 20 MG TAB PO (20:24)
[2018-03-22] MEDS: FERROUS SULFATE 325MG TAB PO ×2 (09:00→09:21)
[2018-03-22] MEDS: LISINOPRIL 5 MG TAB PO (09:20)
[2018-03-22] MEDS: MULTIVITAMINS/MINERALS THERAP 1 TAB PO (09:21)
[2018-03-22] MEDS: METOPROLOL SUCC *XL* 25MG TAB (TopROL *XL*) PO (09:21)
[2018-03-22] MEDS: PARoxetine 20 MG TAB PO (09:21)
[2018-03-22] MEDS: VITAMIN D 1,000 INTERNATIONAL UNITS TABLET PO (09:22)
[2018-03-22] MEDS: MAGNESIUM OXIDE 400 MG TAB (MAG-OX) PO ×2 (09:22→20:24)
[2018-03-22] MEDS: PANTOPRAZOLE 40MG TAB (PROTONIX) PO (09:22)
[2018-03-22] MEDS: CLOPIDOGREL 75 MG TAB PO (09:22)
[2018-03-22] MEDS: QUEtiapine FUMARATE 50 MG TAB PO (20:24)
[2018-03-22] MEDS: ATORVASTATIN 20 MG TAB PO (20:25)
[2018-03-23] MEDS: PARoxetine 20 MG TAB PO (10:12)
[2018-03-23] MEDS: MULTIVITAMINS/MINERALS THERAP 1 TAB PO (10:12)
[2018-03-23] MEDS: LISINOPRIL 5 MG TAB PO (10:12)
[2018-03-23] MEDS: CLOPIDOGREL 75 MG TAB PO (10:12)
[2018-03-23] MEDS: PANTOPRAZOLE 40MG TAB (PROTONIX) PO (10:12)
[2018-03-23] MEDS: VITAMIN D 1,000 INTERNATIONAL UNITS TABLET PO (10:12)
[2018-03-23] MEDS: FERROUS SULFATE 325MG TAB PO (10:13)
[2018-03-23] MEDS: METOPROLOL SUCC *XL* 25MG TAB (TopROL *XL*) PO (10:13)
[2018-03-23] MEDS: MAGNESIUM OXIDE 400 MG TAB (MAG-OX) PO ×2 (10:13→20:09)
[2018-03-23] MEDS: ACETAMINOPHEN TAB 650MG DOSE (2X325MG) PO (16:37)
[2018-03-23] MEDS: ATORVASTATIN 20 MG TAB PO (20:09)
[2018-03-23] MEDS: QUEtiapine FUMARATE 50 MG TAB PO (20:09)
[2018-03-24 05:45] LABS: HEMATOCRIT 31.5 % (36.0-47.0); HEMOGLOBIN 10.1 g/dl (12.0-15.5); MEAN CORPUSCULAR HEMOGLOBIN 34.6 pg (27.0-33.0); MEAN CORPUSCULAR HGB CONC 32.1 g/dl (32.0-36.5); MEAN CORPUSCULAR VOLUME 107.9 fl (80.0-96.0); PLATELET COUNT, AUTOMATED 275 10^3/uL (150-450); RED BLOOD COUNT 2.92 10^6/uL (4.00-5.40); RED CELL DISTRIBUTION WIDTH 13.6 % (11.5-14.5); WHITE BLOOD COUNT 4.6 10^3/uL (4.0-10.0)
[2018-03-24] MEDS: PANTOPRAZOLE 40MG TAB (PROTONIX) PO (09:11)
[2018-03-24] MEDS: VITAMIN D 1,000 INTERNATIONAL UNITS TABLET PO (09:11)
[2018-03-24] MEDS: CLOPIDOGREL 75 MG TAB PO (09:11)
[2018-03-24] MEDS: MULTIVITAMINS/MINERALS THERAP 1 TAB PO (09:11)
[2018-03-24] MEDS: MAGNESIUM OXIDE 400 MG TAB (MAG-OX) PO ×2 (09:12→20:49)
[2018-03-24] MEDS: METOPROLOL SUCC *XL* 25MG TAB (TopROL *XL*) PO (09:12)
[2018-03-24] MEDS: PARoxetine 20 MG TAB PO (09:12)
[2018-03-24] MEDS: FERROUS SULFATE 325MG TAB PO (09:12)
[2018-03-24] MEDS: LISINOPRIL 5 MG TAB PO (09:12)
[2018-03-24] MEDS: QUEtiapine FUMARATE 50 MG TAB PO (20:49)
[2018-03-24] MEDS: ATORVASTATIN 20 MG TAB PO (20:49)
[2018-03-25] MEDS: PARoxetine 20 MG TAB PO (08:49)
[2018-03-25] MEDS: MULTIVITAMINS/MINERALS THERAP 1 TAB PO (08:49)
[2018-03-25] MEDS: CLOPIDOGREL 75 MG TAB PO (08:49)
[2018-03-25] MEDS: VITAMIN D 1,000 INTERNATIONAL UNITS TABLET PO (08:49)
[2018-03-25] MEDS: MAGNESIUM OXIDE 400 MG TAB (MAG-OX) PO ×2 (08:49→20:38)
[2018-03-25] MEDS: PANTOPRAZOLE 40MG TAB (PROTONIX) PO (08:49)
[2018-03-25] MEDS: FERROUS SULFATE 325MG TAB PO (08:50)
[2018-03-25] MEDS: METOPROLOL SUCC *XL* 25MG TAB (TopROL *XL*) PO (08:50)
[2018-03-25] MEDS: LISINOPRIL 5 MG TAB PO ×2 (08:50→08:51)
[2018-03-25] MEDS: QUEtiapine FUMARATE 50 MG TAB PO (20:38)
[2018-03-25] MEDS: ATORVASTATIN 20 MG TAB PO (20:38)
[2018-03-26] MEDS: METOPROLOL SUCC *XL* 25MG TAB (TopROL *XL*) PO (08:13)
[2018-03-26] MEDS: PARoxetine 20 MG TAB PO (08:13)
[2018-03-26] MEDS: PANTOPRAZOLE 40MG TAB (PROTONIX) PO (08:13)
[2018-03-26] MEDS: VITAMIN D 1,000 INTERNATIONAL UNITS TABLET PO (08:14)
[2018-03-26] MEDS: MULTIVITAMINS/MINERALS THERAP 1 TAB PO (08:14)
[2018-03-26] MEDS: CLOPIDOGREL 75 MG TAB PO (08:14)
[2018-03-26] MEDS: LISINOPRIL 5 MG TAB PO (08:15)
[2018-03-26] MEDS: FERROUS SULFATE 325MG TAB PO (08:16)
[2018-03-26] MEDS: MAGNESIUM OXIDE 400 MG TAB (MAG-OX) PO ×2 (08:16→21:22)
[2018-03-26] MEDS: QUEtiapine FUMARATE 50 MG TAB PO (21:21)
[2018-03-26] MEDS: ATORVASTATIN 20 MG TAB PO (21:22)
[2018-03-27 06:50] LABS: HEMATOCRIT 30.4 % (36.0-47.0); HEMOGLOBIN 9.8 g/dl (12.0-15.5); MEAN CORPUSCULAR HEMOGLOBIN 34.4 pg (27.0-33.0); MEAN CORPUSCULAR HGB CONC 32.2 g/dl (32.0-36.5); MEAN CORPUSCULAR VOLUME 106.7 fl (80.0-96.0); PLATELET COUNT, AUTOMATED 235 10^3/uL (150-450); RED BLOOD COUNT 2.85 10^6/uL (4.00-5.40); RED CELL DISTRIBUTION WIDTH 13.4 % (11.5-14.5); WHITE BLOOD COUNT 6.2 10^3/uL (4.0-10.0)
[2018-03-27] MEDS: PARoxetine 20 MG TAB PO (08:37)
[2018-03-27] MEDS: MULTIVITAMINS/MINERALS THERAP 1 TAB PO (08:37)
[2018-03-27] MEDS: MAGNESIUM OXIDE 400 MG TAB (MAG-OX) PO ×2 (08:37→20:28)
[2018-03-27] MEDS: VITAMIN D 1,000 INTERNATIONAL UNITS TABLET PO (08:37)
[2018-03-27] MEDS: PANTOPRAZOLE 40MG TAB (PROTONIX) PO (08:37)
[2018-03-27] MEDS: FERROUS SULFATE 325MG TAB PO ×2 (08:37→08:40)
[2018-03-27] MEDS: CLOPIDOGREL 75 MG TAB PO (08:37)
[2018-03-27] MEDS: LISINOPRIL 5 MG TAB PO (08:38)
[2018-03-27] MEDS: METOPROLOL SUCC *XL* 25MG TAB (TopROL *XL*) PO (08:38)
[2018-03-27] MEDS: QUEtiapine FUMARATE 50 MG TAB PO (20:28)
[2018-03-27] MEDS: ATORVASTATIN 20 MG TAB PO (20:28)
[2018-03-28] MEDS: FERROUS SULFATE 325MG TAB PO (09:00)
[2018-03-28] MEDS: CLOPIDOGREL 75 MG TAB PO (11:07)
[2018-03-28] MEDS: METOPROLOL SUCC *XL* 25MG TAB (TopROL *XL*) PO (11:07)
[2018-03-28] MEDS: LISINOPRIL 5 MG TAB PO (11:07)
[2018-03-28] MEDS: VITAMIN D 1,000 INTERNATIONAL UNITS TABLET PO (11:07)
[2018-03-28] MEDS: PARoxetine 20 MG TAB PO (11:08)
[2018-03-28] MEDS: MULTIVITAMINS/MINERALS THERAP 1 TAB PO (11:08)
[2018-03-28] MEDS: PANTOPRAZOLE 40MG TAB (PROTONIX) PO (11:08)
[2018-03-28] MEDS: MAGNESIUM OXIDE 400 MG TAB (MAG-OX) PO ×2 (11:08→21:41)
[2018-03-28] MEDS: QUEtiapine FUMARATE 50 MG TAB PO (21:41)
[2018-03-28] MEDS: ATORVASTATIN 20 MG TAB PO (21:41)
[2018-03-29] MEDS: FERROUS SULFATE 325MG TAB PO (09:00)
[2018-03-29] MEDS: PARoxetine 20 MG TAB PO (09:39)
[2018-03-29] MEDS: MAGNESIUM OXIDE 400 MG TAB (MAG-OX) PO ×2 (09:39→20:35)
[2018-03-29] MEDS: VITAMIN D 1,000 INTERNATIONAL UNITS TABLET PO (09:39)
[2018-03-29] MEDS: PANTOPRAZOLE 40MG TAB (PROTONIX) PO (09:40)
[2018-03-29] MEDS: MULTIVITAMINS/MINERALS THERAP 1 TAB PO (09:40)
[2018-03-29] MEDS: METOPROLOL SUCC *XL* 25MG TAB (TopROL *XL*) PO (09:40)
[2018-03-29] MEDS: CLOPIDOGREL 75 MG TAB PO (09:40)
[2018-03-29] MEDS: LISINOPRIL 5 MG TAB PO (09:40)
[2018-03-29] MEDS: ATORVASTATIN 20 MG TAB PO (20:35)
[2018-03-29] MEDS: QUEtiapine FUMARATE 50 MG TAB PO (20:35)
[2018-03-30] MEDS: MULTIVITAMINS/MINERALS THERAP 1 TAB PO (08:34)
[2018-03-30] MEDS: FERROUS SULFATE 325MG TAB PO (08:34)
[2018-03-30] MEDS: VITAMIN D 1,000 INTERNATIONAL UNITS TABLET PO (08:34)
[2018-03-30] MEDS: METOPROLOL SUCC *XL* 25MG TAB (TopROL *XL*) PO (08:35)
[2018-03-30] MEDS: PARoxetine 20 MG TAB PO (08:35)
[2018-03-30] MEDS: CLOPIDOGREL 75 MG TAB PO (08:36)
[2018-03-30] MEDS: MAGNESIUM OXIDE 400 MG TAB (MAG-OX) PO ×2 (08:36→21:00)
[2018-03-30] MEDS: PANTOPRAZOLE 40MG TAB (PROTONIX) PO (08:36)
[2018-03-30] MEDS: LISINOPRIL 5 MG TAB PO (08:37)
[2018-03-30] MEDS: ATORVASTATIN 20 MG TAB PO (21:00)
[2018-03-30] MEDS: QUEtiapine FUMARATE 50 MG TAB PO (21:00)
[2018-03-31] MEDS: PANTOPRAZOLE 40MG TAB (PROTONIX) PO (08:47)
[2018-03-31] MEDS: MULTIVITAMINS/MINERALS THERAP 1 TAB PO (08:47)
[2018-03-31] MEDS: MAGNESIUM OXIDE 400 MG TAB (MAG-OX) PO ×2 (08:47→20:08)
[2018-03-31] MEDS: VITAMIN D 1,000 INTERNATIONAL UNITS TABLET PO (08:48)
[2018-03-31] MEDS: CLOPIDOGREL 75 MG TAB PO (08:48)
[2018-03-31] MEDS: METOPROLOL SUCC *XL* 25MG TAB (TopROL *XL*) PO (08:48)
[2018-03-31] MEDS: PARoxetine 20 MG TAB PO (08:48)
[2018-03-31] MEDS: LISINOPRIL 5 MG TAB PO (08:48)
[2018-03-31] MEDS: FERROUS SULFATE 325MG TAB PO (08:49)
[2018-03-31] MEDS: QUEtiapine FUMARATE 50 MG TAB PO (20:07)
[2018-03-31] MEDS: ATORVASTATIN 20 MG TAB PO (20:08)
[2018-04-01] MEDS: FERROUS SULFATE 325MG TAB PO (09:00)
[2018-04-01] MEDS: MULTIVITAMINS/MINERALS THERAP 1 TAB PO (10:26)
[2018-04-01] MEDS: CLOPIDOGREL 75 MG TAB PO (10:26)
[2018-04-01] MEDS: MAGNESIUM OXIDE 400 MG TAB (MAG-OX) PO ×2 (10:26→21:24)
[2018-04-01] MEDS: VITAMIN D 1,000 INTERNATIONAL UNITS TABLET PO (10:26)
[2018-04-01] MEDS: PARoxetine 20 MG TAB PO (10:26)
[2018-04-01] MEDS: PANTOPRAZOLE 40MG TAB (PROTONIX) PO (10:26)
[2018-04-01] MEDS: LISINOPRIL 5 MG TAB PO (10:27)
[2018-04-01] MEDS: METOPROLOL SUCC *XL* 25MG TAB (TopROL *XL*) PO (10:27)
[2018-04-01] MEDS: QUEtiapine FUMARATE 50 MG TAB PO (21:24)
[2018-04-01] MEDS: ATORVASTATIN 20 MG TAB PO (21:24)
[2018-04-02] MEDS: FERROUS SULFATE 325MG TAB PO (09:00)
[2018-04-02] MEDS: MULTIVITAMINS/MINERALS THERAP 1 TAB PO (09:10)
[2018-04-02] MEDS: VITAMIN D 1,000 INTERNATIONAL UNITS TABLET PO (09:11)
[2018-04-02] MEDS: PARoxetine 20 MG TAB PO (09:12)
[2018-04-02] MEDS: LISINOPRIL 5 MG TAB PO (09:12)
[2018-04-02] MEDS: CLOPIDOGREL 75 MG TAB PO (09:13)
[2018-04-02] MEDS: PANTOPRAZOLE 40MG TAB (PROTONIX) PO (09:13)
[2018-04-02] MEDS: METOPROLOL SUCC *XL* 25MG TAB (TopROL *XL*) PO (09:13)
[2018-04-02] MEDS: MAGNESIUM OXIDE 400 MG TAB (MAG-OX) PO ×2 (09:14→20:29)
[2018-04-02] MEDS: QUEtiapine FUMARATE 50 MG TAB PO (20:29)
[2018-04-02] MEDS: ATORVASTATIN 20 MG TAB PO (20:29)
[2018-04-03] MEDS: PANTOPRAZOLE 40MG TAB (PROTONIX) PO (09:13)
[2018-04-03] MEDS: CLOPIDOGREL 75 MG TAB PO (09:13)
[2018-04-03] MEDS: VITAMIN D 1,000 INTERNATIONAL UNITS TABLET PO (09:13)
[2018-04-03] MEDS: FERROUS SULFATE 325MG TAB PO ×2 (09:14→09:18)
[2018-04-03] MEDS: MULTIVITAMINS/MINERALS THERAP 1 TAB PO (09:14)
[2018-04-03] MEDS: PARoxetine 20 MG TAB PO (09:14)
[2018-04-03] MEDS: MAGNESIUM OXIDE 400 MG TAB (MAG-OX) PO ×2 (09:14→21:13)
[2018-04-03] MEDS: LISINOPRIL 5 MG TAB PO (09:15)
[2018-04-03] MEDS: METOPROLOL SUCC *XL* 25MG TAB (TopROL *XL*) PO (09:16)
[2018-04-03] MEDS: QUEtiapine FUMARATE 50 MG TAB PO (21:13)
[2018-04-03] MEDS: ATORVASTATIN 20 MG TAB PO (21:13)
[2018-04-04] MEDS: FERROUS SULFATE 325MG TAB PO ×2 (09:00→10:20)
[2018-04-04] MEDS: LISINOPRIL 5 MG TAB PO (09:00)
[2018-04-04] MEDS: METOPROLOL SUCC *XL* 25MG TAB (TopROL *XL*) PO (09:00)
[2018-04-04] MEDS: PARoxetine 20 MG TAB PO (10:20)
[2018-04-04] MEDS: VITAMIN D 1,000 INTERNATIONAL UNITS TABLET PO (10:20)
[2018-04-04] MEDS: CLOPIDOGREL 75 MG TAB PO (10:20)
[2018-04-04] MEDS: MULTIVITAMINS/MINERALS THERAP 1 TAB PO (10:20)
[2018-04-04] MEDS: PANTOPRAZOLE 40MG TAB (PROTONIX) PO (10:21)
[2018-04-04] MEDS: MAGNESIUM OXIDE 400 MG TAB (MAG-OX) PO ×2 (10:21→21:20)
[2018-04-04] MEDS: ATORVASTATIN 20 MG TAB PO (21:20)
[2018-04-04] MEDS: QUEtiapine FUMARATE 50 MG TAB PO (21:20)
[2018-04-05] MEDS: FERROUS SULFATE 325MG TAB PO ×2 (09:00→09:23)
[2018-04-05] MEDS: VITAMIN D 1,000 INTERNATIONAL UNITS TABLET PO (09:22)
[2018-04-05] MEDS: PARoxetine 20 MG TAB PO (09:22)
[2018-04-05] MEDS: CLOPIDOGREL 75 MG TAB PO (09:23)
[2018-04-05] MEDS: MAGNESIUM OXIDE 400 MG TAB (MAG-OX) PO ×2 (09:23→20:00)
[2018-04-05] MEDS: MULTIVITAMINS/MINERALS THERAP 1 TAB PO (09:23)
[2018-04-05] MEDS: PANTOPRAZOLE 40MG TAB (PROTONIX) PO (09:23)
[2018-04-05] MEDS: METOPROLOL SUCC *XL* 25MG TAB (TopROL *XL*) PO (09:26)
[2018-04-05] MEDS: LISINOPRIL 5 MG TAB PO (09:26)
[2018-04-05] MEDS: QUEtiapine FUMARATE 50 MG TAB PO (20:00)
[2018-04-05] MEDS: ATORVASTATIN 20 MG TAB PO (20:00)
[2018-04-06] MEDS: FERROUS SULFATE 325MG TAB PO ×2 (09:35→09:37)
[2018-04-06] MEDS: PANTOPRAZOLE 40MG TAB (PROTONIX) PO (09:35)
[2018-04-06] MEDS: METOPROLOL SUCC *XL* 25MG TAB (TopROL *XL*) PO (09:36)
[2018-04-06] MEDS: VITAMIN D 1,000 INTERNATIONAL UNITS TABLET PO (09:36)
[2018-04-06] MEDS: CLOPIDOGREL 75 MG TAB PO (09:36)
[2018-04-06] MEDS: MULTIVITAMINS/MINERALS THERAP 1 TAB PO (09:36)
[2018-04-06] MEDS: PARoxetine 20 MG TAB PO (09:36)
[2018-04-06] MEDS: LISINOPRIL 5 MG TAB PO (09:36)
[2018-04-06] MEDS: MAGNESIUM OXIDE 400 MG TAB (MAG-OX) PO ×2 (09:37→21:16)
[2018-04-06] MEDS: ATORVASTATIN 20 MG TAB PO (21:15)
[2018-04-06] MEDS: QUEtiapine FUMARATE 50 MG TAB PO (21:16)
[2018-04-07] MEDS: PARoxetine 20 MG TAB PO (09:51)
[2018-04-07] MEDS: VITAMIN D 1,000 INTERNATIONAL UNITS TABLET PO (09:51)
[2018-04-07] MEDS: CLOPIDOGREL 75 MG TAB PO (09:51)
[2018-04-07] MEDS: MULTIVITAMINS/MINERALS THERAP 1 TAB PO (09:51)
[2018-04-07] MEDS: PANTOPRAZOLE 40MG TAB (PROTONIX) PO (09:51)
[2018-04-07] MEDS: MAGNESIUM OXIDE 400 MG TAB (MAG-OX) PO ×2 (09:52→20:31)
[2018-04-07] MEDS: LISINOPRIL 5 MG TAB PO (09:52)
[2018-04-07] MEDS: METOPROLOL SUCC *XL* 25MG TAB (TopROL *XL*) PO (09:52)
[2018-04-07] MEDS: FERROUS SULFATE 325MG TAB PO (09:53)
[2018-04-07] MEDS: ATORVASTATIN 20 MG TAB PO (20:30)
[2018-04-07] MEDS: QUEtiapine FUMARATE 50 MG TAB PO (20:31)
[2018-04-07] MEDS: ACETAMINOPHEN TAB 650MG DOSE (2X325MG) PO (21:01)
[2018-04-07] MEDS: NORCO, ANEXSIA 5/325MG TABLET (HYDROcodone/ACETAMINOPHEN) PO (21:40)
[2018-04-08] MEDS: VITAMIN D 1,000 INTERNATIONAL UNITS TABLET PO (10:15)
[2018-04-08] MEDS: FERROUS SULFATE 325MG TAB PO ×2 (10:15→10:19)
[2018-04-08] MEDS: CLOPIDOGREL 75 MG TAB PO (10:15)
[2018-04-08] MEDS: PARoxetine 20 MG TAB PO (10:15)
[2018-04-08] MEDS: MULTIVITAMINS/MINERALS THERAP 1 TAB PO (10:16)
[2018-04-08] MEDS: BISACODYL 5 MG TAB PO (10:16)
[2018-04-08] MEDS: PANTOPRAZOLE 40MG TAB (PROTONIX) PO (10:16)
[2018-04-08] MEDS: MAGNESIUM OXIDE 400 MG TAB (MAG-OX) PO ×2 (10:16→21:22)
[2018-04-08] MEDS: LISINOPRIL 5 MG TAB PO (10:16)
[2018-04-08] MEDS: METOPROLOL SUCC *XL* 25MG TAB (TopROL *XL*) PO (10:17)
[2018-04-08] MEDS: ATORVASTATIN 20 MG TAB PO (21:22)
[2018-04-08] MEDS: QUEtiapine FUMARATE 50 MG TAB PO (21:22)
[2018-04-09] MEDS: ACETAMINOPHEN TAB 650MG DOSE (2X325MG) PO ×2 (00:01→16:24)
[2018-04-09] MEDS: PARoxetine 20 MG TAB PO (08:36)
[2018-04-09] MEDS: PANTOPRAZOLE 40MG TAB (PROTONIX) PO (08:36)
[2018-04-09] MEDS: CLOPIDOGREL 75 MG TAB PO (08:36)
[2018-04-09] MEDS: MULTIVITAMINS/MINERALS THERAP 1 TAB PO (08:36)
[2018-04-09] MEDS: LISINOPRIL 5 MG TAB PO (08:37)
[2018-04-09] MEDS: MAGNESIUM OXIDE 400 MG TAB (MAG-OX) PO ×2 (08:37→20:12)
[2018-04-09] MEDS: METOPROLOL SUCC *XL* 25MG TAB (TopROL *XL*) PO (08:37)
[2018-04-09] MEDS: VITAMIN D 1,000 INTERNATIONAL UNITS TABLET PO (08:37)
[2018-04-09] MEDS: FERROUS SULFATE 325MG TAB PO (08:37)
[2018-04-09] MEDS: ATORVASTATIN 20 MG TAB PO (20:12)
[2018-04-09] MEDS: QUEtiapine FUMARATE 50 MG TAB PO (20:12)
[2018-04-10] MEDS: PARoxetine 20 MG TAB PO (09:56)
[2018-04-10] MEDS: MULTIVITAMINS/MINERALS THERAP 1 TAB PO (09:56)
[2018-04-10] MEDS: METOPROLOL SUCC *XL* 25MG TAB (TopROL *XL*) PO (09:56)
[2018-04-10] MEDS: CLOPIDOGREL 75 MG TAB PO (09:56)
[2018-04-10] MEDS: LISINOPRIL 5 MG TAB PO (09:56)
[2018-04-10] MEDS: PANTOPRAZOLE 40MG TAB (PROTONIX) PO (09:56)
[2018-04-10] MEDS: VITAMIN D 1,000 INTERNATIONAL UNITS TABLET PO (09:57)
[2018-04-10] MEDS: MAGNESIUM OXIDE 400 MG TAB (MAG-OX) PO ×2 (09:57→20:31)
[2018-04-10] MEDS: FERROUS SULFATE 325MG TAB PO (09:57)
[2018-04-10] MEDS: ACETAMINOPHEN TAB 650MG DOSE (2X325MG) PO ×2 (10:01→18:38)
[2018-04-10] MEDS: ATORVASTATIN 20 MG TAB PO (20:31)
[2018-04-10] MEDS: QUEtiapine FUMARATE 50 MG TAB PO (20:31)
[2018-04-11] MEDS: FERROUS SULFATE 325MG TAB PO (08:39)
[2018-04-11] MEDS: LISINOPRIL 5 MG TAB PO (08:40)
[2018-04-11] MEDS: METOPROLOL SUCC *XL* 25MG TAB (TopROL *XL*) PO (08:40)
[2018-04-11] MEDS: PARoxetine 20 MG TAB PO (08:41)
[2018-04-11] MEDS: VITAMIN D 1,000 INTERNATIONAL UNITS TABLET PO (08:41)
[2018-04-11] MEDS: MULTIVITAMINS/MINERALS THERAP 1 TAB PO (08:41)
[2018-04-11] MEDS: CLOPIDOGREL 75 MG TAB PO (08:41)
[2018-04-11] MEDS: PANTOPRAZOLE 40MG TAB (PROTONIX) PO (08:41)
[2018-04-11] MEDS: MAGNESIUM OXIDE 400 MG TAB (MAG-OX) PO ×2 (08:41→21:38)
[2018-04-11] MEDS: ACETAMINOPHEN TAB 650MG DOSE (2X325MG) PO (16:26)
[2018-04-11] MEDS: QUEtiapine FUMARATE 50 MG TAB PO (21:38)
[2018-04-11] MEDS: ATORVASTATIN 20 MG TAB PO (21:38)
[2018-04-12] MEDS: MULTIVITAMINS/MINERALS THERAP 1 TAB PO (08:43)
[2018-04-12] MEDS: VITAMIN D 1,000 INTERNATIONAL UNITS TABLET PO (08:43)
[2018-04-12] MEDS: ACETAMINOPHEN TAB 650MG DOSE (2X325MG) PO (08:43)
[2018-04-12] MEDS: MAGNESIUM OXIDE 400 MG TAB (MAG-OX) PO ×2 (08:44→21:39)
[2018-04-12] MEDS: PANTOPRAZOLE 40MG TAB (PROTONIX) PO (08:44)
[2018-04-12] MEDS: METOPROLOL SUCC *XL* 25MG TAB (TopROL *XL*) PO (08:44)
[2018-04-12] MEDS: LISINOPRIL 5 MG TAB PO (08:45)
[2018-04-12] MEDS: PARoxetine 20 MG TAB PO (08:45)
[2018-04-12] MEDS: FERROUS SULFATE 325MG TAB PO (08:45)
[2018-04-12] MEDS: CLOPIDOGREL 75 MG TAB PO (08:45)
[2018-04-12] MEDS: ATORVASTATIN 20 MG TAB PO (21:39)
[2018-04-12] MEDS: QUEtiapine FUMARATE 50 MG TAB PO (21:39)
[2018-04-13] MEDS: FERROUS SULFATE 325MG TAB PO (09:00)
[2018-04-13] MEDS: CLOPIDOGREL 75 MG TAB PO (09:51)
[2018-04-13] MEDS: MAGNESIUM OXIDE 400 MG TAB (MAG-OX) PO ×2 (09:52→20:15)
[2018-04-13] MEDS: PARoxetine 20 MG TAB PO (09:52)
[2018-04-13] MEDS: VITAMIN D 1,000 INTERNATIONAL UNITS TABLET PO (09:52)
[2018-04-13] MEDS: METOPROLOL SUCC *XL* 25MG TAB (TopROL *XL*) PO (09:52)
[2018-04-13] MEDS: PANTOPRAZOLE 40MG TAB (PROTONIX) PO (09:52)
[2018-04-13] MEDS: LISINOPRIL 5 MG TAB PO (09:53)
[2018-04-13] MEDS: MULTIVITAMINS/MINERALS THERAP 1 TAB PO (09:53)
[2018-04-13] MEDS: QUEtiapine FUMARATE 50 MG TAB PO (20:14)
[2018-04-13] MEDS: ATORVASTATIN 20 MG TAB PO (20:14)
[2018-04-14] MEDS: FERROUS SULFATE 325MG TAB PO (07:39)
[2018-04-14] MEDS: LISINOPRIL 5 MG TAB PO (07:39)
[2018-04-14] MEDS: MAGNESIUM OXIDE 400 MG TAB (MAG-OX) PO ×2 (07:40→21:56)
[2018-04-14] MEDS: METOPROLOL SUCC *XL* 25MG TAB (TopROL *XL*) PO (07:40)
[2018-04-14] MEDS: CLOPIDOGREL 75 MG TAB PO (07:40)
[2018-04-14] MEDS: MULTIVITAMINS/MINERALS THERAP 1 TAB PO (07:40)
[2018-04-14] MEDS: VITAMIN D 1,000 INTERNATIONAL UNITS TABLET PO (07:41)
[2018-04-14] MEDS: PANTOPRAZOLE 40MG TAB (PROTONIX) PO (07:41)
[2018-04-14] MEDS: PARoxetine 20 MG TAB PO (07:41)
[2018-04-14] MEDS: ATORVASTATIN 20 MG TAB PO (21:55)
[2018-04-14] MEDS: QUEtiapine FUMARATE 50 MG TAB PO (21:56)
[2018-04-15] MEDS: FERROUS SULFATE 325MG TAB PO (09:00)
[2018-04-15] MEDS: VITAMIN D 1,000 INTERNATIONAL UNITS TABLET PO (09:57)
[2018-04-15] MEDS: PARoxetine 20 MG TAB PO (09:58)
[2018-04-15] MEDS: PANTOPRAZOLE 40MG TAB (PROTONIX) PO (09:58)
[2018-04-15] MEDS: MULTIVITAMINS/MINERALS THERAP 1 TAB PO (09:58)
[2018-04-15] MEDS: METOPROLOL SUCC *XL* 25MG TAB (TopROL *XL*) PO (09:58)
[2018-04-15] MEDS: MAGNESIUM OXIDE 400 MG TAB (MAG-OX) PO ×2 (09:58→20:04)
[2018-04-15] MEDS: LISINOPRIL 5 MG TAB PO (09:59)
[2018-04-15] MEDS: CLOPIDOGREL 75 MG TAB PO (09:59)
[2018-04-15] MEDS: MUPIROCIN 2% OINT 22 GM TUBE TOP ×2 (11:45→20:05)
[2018-04-15] MEDS: ACETAMINOPHEN TAB 650MG DOSE (2X325MG) PO (16:19)
[2018-04-15] MEDS: QUEtiapine FUMARATE 50 MG TAB PO (20:04)
[2018-04-15] MEDS: ATORVASTATIN 20 MG TAB PO (20:04)
[2018-04-16] MEDS: FERROUS SULFATE 325MG TAB PO (09:00)
[2018-04-16] MEDS: METOPROLOL SUCC *XL* 25MG TAB (TopROL *XL*) PO (10:24)
[2018-04-16] MEDS: VITAMIN D 1,000 INTERNATIONAL UNITS TABLET PO (10:24)
[2018-04-16] MEDS: MULTIVITAMINS/MINERALS THERAP 1 TAB PO (10:24)
[2018-04-16] MEDS: CLOPIDOGREL 75 MG TAB PO (10:25)
[2018-04-16] MEDS: MAGNESIUM OXIDE 400 MG TAB (MAG-OX) PO ×2 (10:25→20:54)
[2018-04-16] MEDS: LISINOPRIL 5 MG TAB PO (10:25)
[2018-04-16] MEDS: PARoxetine 20 MG TAB PO (10:25)
[2018-04-16] MEDS: PANTOPRAZOLE 40MG TAB (PROTONIX) PO (10:25)
[2018-04-16] MEDS: MUPIROCIN 2% OINT 22 GM TUBE TOP ×2 (10:26→20:54)
[2018-04-16] MEDS: ATORVASTATIN 20 MG TAB PO (20:54)
[2018-04-16] MEDS: QUEtiapine FUMARATE 50 MG TAB PO (20:54)
[2018-04-17] MEDS: LISINOPRIL 5 MG TAB PO (08:17)
[2018-04-17] MEDS: MAGNESIUM OXIDE 400 MG TAB (MAG-OX) PO ×2 (08:17→20:55)
[2018-04-17] MEDS: MULTIVITAMINS/MINERALS THERAP 1 TAB PO (08:17)
[2018-04-17] MEDS: VITAMIN D 1,000 INTERNATIONAL UNITS TABLET PO (08:17)
[2018-04-17] MEDS: FERROUS SULFATE 325MG TAB PO (08:17)
[2018-04-17] MEDS: PARoxetine 20 MG TAB PO (08:18)
[2018-04-17] MEDS: CLOPIDOGREL 75 MG TAB PO (08:18)
[2018-04-17] MEDS: MUPIROCIN 2% OINT 22 GM TUBE TOP ×2 (08:18→20:55)
[2018-04-17] MEDS: METOPROLOL SUCC *XL* 25MG TAB (TopROL *XL*) PO (08:18)
[2018-04-17] MEDS: PANTOPRAZOLE 40MG TAB (PROTONIX) PO (08:18)
[2018-04-17] MEDS: ACETAMINOPHEN TAB 650MG DOSE (2X325MG) PO (19:09)
[2018-04-17] MEDS: ATORVASTATIN 20 MG TAB PO (20:55)
[2018-04-17] MEDS: QUEtiapine FUMARATE 50 MG TAB PO (20:55)
[2018-04-18] MEDS: MAGNESIUM OXIDE 400 MG TAB (MAG-OX) PO ×2 (08:24→20:45)
[2018-04-18] MEDS: MULTIVITAMINS/MINERALS THERAP 1 TAB PO (08:24)
[2018-04-18] MEDS: FERROUS SULFATE 325MG TAB PO ×2 (08:25→09:00)
[2018-04-18] MEDS: LISINOPRIL 5 MG TAB PO (08:25)
[2018-04-18] MEDS: PARoxetine 20 MG TAB PO (08:25)
[2018-04-18] MEDS: CLOPIDOGREL 75 MG TAB PO (08:25)
[2018-04-18] MEDS: VITAMIN D 1,000 INTERNATIONAL UNITS TABLET PO (08:25)
[2018-04-18] MEDS: PANTOPRAZOLE 40MG TAB (PROTONIX) PO (08:26)
[2018-04-18] MEDS: MUPIROCIN 2% OINT 22 GM TUBE TOP ×2 (08:26→20:45)
[2018-04-18] MEDS: METOPROLOL SUCC *XL* 25MG TAB (TopROL *XL*) PO (08:26)
[2018-04-18] MEDS: ATORVASTATIN 20 MG TAB PO (20:44)
[2018-04-18] MEDS: QUEtiapine FUMARATE 50 MG TAB PO (20:45)
[2018-04-19] MEDS: PARoxetine 20 MG TAB PO (07:19)
[2018-04-19] MEDS: MULTIVITAMINS/MINERALS THERAP 1 TAB PO (07:19)
[2018-04-19] MEDS: VITAMIN D 1,000 INTERNATIONAL UNITS TABLET PO (07:19)
[2018-04-19] MEDS: PANTOPRAZOLE 40MG TAB (PROTONIX) PO (07:19)
[2018-04-19] MEDS: CLOPIDOGREL 75 MG TAB PO (07:19)
[2018-04-19] MEDS: MAGNESIUM OXIDE 400 MG TAB (MAG-OX) PO ×2 (07:19→20:13)
[2018-04-19] MEDS: METOPROLOL SUCC *XL* 25MG TAB (TopROL *XL*) PO (07:22)
[2018-04-19] MEDS: MUPIROCIN 2% OINT 22 GM TUBE TOP ×2 (07:23→20:13)
[2018-04-19] MEDS: FERROUS SULFATE 325MG TAB PO (07:23)
[2018-04-19] MEDS: LISINOPRIL 5 MG TAB PO (07:23)
[2018-04-19] MEDS: ATORVASTATIN 20 MG TAB PO (20:12)
[2018-04-19] MEDS: QUEtiapine FUMARATE 50 MG TAB PO (20:13)
[2018-04-20] MEDS: FERROUS SULFATE 325MG TAB PO (07:55)
[2018-04-20] MEDS: PANTOPRAZOLE 40MG TAB (PROTONIX) PO (08:01)
[2018-04-20] MEDS: LISINOPRIL 5 MG TAB PO (08:02)
[2018-04-20] MEDS: PARoxetine 20 MG TAB PO (08:02)
[2018-04-20] MEDS: CLOPIDOGREL 75 MG TAB PO (08:02)
[2018-04-20] MEDS: METOPROLOL SUCC *XL* 25MG TAB (TopROL *XL*) PO (08:02)
[2018-04-20] MEDS: MULTIVITAMINS/MINERALS THERAP 1 TAB PO (08:03)
[2018-04-20] MEDS: MUPIROCIN 2% OINT 22 GM TUBE TOP ×2 (08:03→22:33)
[2018-04-20] MEDS: VITAMIN D 1,000 INTERNATIONAL UNITS TABLET PO (08:03)
[2018-04-20] MEDS: MAGNESIUM OXIDE 400 MG TAB (MAG-OX) PO ×2 (08:03→22:32)
[2018-04-20] MEDS: QUEtiapine FUMARATE 50 MG TAB PO (22:33)
[2018-04-20] MEDS: ATORVASTATIN 20 MG TAB PO (22:33)
[2018-04-21] MEDS: FERROUS SULFATE 325MG TAB PO (09:18)
[2018-04-21] MEDS: VITAMIN D 1,000 INTERNATIONAL UNITS TABLET PO (09:18)
[2018-04-21] MEDS: LISINOPRIL 5 MG TAB PO (09:18)
[2018-04-21] MEDS: METOPROLOL SUCC *XL* 25MG TAB (TopROL *XL*) PO (09:18)
[2018-04-21] MEDS: MAGNESIUM OXIDE 400 MG TAB (MAG-OX) PO ×2 (09:19→20:48)
[2018-04-21] MEDS: MULTIVITAMINS/MINERALS THERAP 1 TAB PO (09:19)
[2018-04-21] MEDS: CLOPIDOGREL 75 MG TAB PO (09:19)
[2018-04-21] MEDS: PARoxetine 20 MG TAB PO (09:19)
[2018-04-21] MEDS: PANTOPRAZOLE 40MG TAB (PROTONIX) PO (09:19)
[2018-04-21] MEDS: MUPIROCIN 2% OINT 22 GM TUBE TOP ×2 (09:20→20:48)
[2018-04-21] MEDS: QUEtiapine FUMARATE 50 MG TAB PO (20:48)
[2018-04-21] MEDS: ATORVASTATIN 20 MG TAB PO (20:48)
[2018-04-22] MEDS: PANTOPRAZOLE 40MG TAB (PROTONIX) PO (08:52)
[2018-04-22] MEDS: FERROUS SULFATE 325MG TAB PO (08:52)
[2018-04-22] MEDS: PARoxetine 20 MG TAB PO (08:52)
[2018-04-22] MEDS: CLOPIDOGREL 75 MG TAB PO (08:52)
[2018-04-22] MEDS: MUPIROCIN 2% OINT 22 GM TUBE TOP ×2 (08:53→20:47)
[2018-04-22] MEDS: MAGNESIUM OXIDE 400 MG TAB (MAG-OX) PO ×2 (08:53→20:45)
[2018-04-22] MEDS: LISINOPRIL 5 MG TAB PO (08:53)
[2018-04-22] MEDS: METOPROLOL SUCC *XL* 25MG TAB (TopROL *XL*) PO (08:53)
[2018-04-22] MEDS: MULTIVITAMINS/MINERALS THERAP 1 TAB PO (08:53)
[2018-04-22] MEDS: VITAMIN D 1,000 INTERNATIONAL UNITS TABLET PO (08:53)
[2018-04-22] MEDS: QUEtiapine FUMARATE 50 MG TAB PO (20:45)
[2018-04-22] MEDS: ATORVASTATIN 20 MG TAB PO (20:45)
[2018-04-23] MEDS: CLOPIDOGREL 75 MG TAB PO (08:05)
[2018-04-23] MEDS: MAGNESIUM OXIDE 400 MG TAB (MAG-OX) PO ×2 (08:05→22:07)
[2018-04-23] MEDS: MULTIVITAMINS/MINERALS THERAP 1 TAB PO (08:05)
[2018-04-23] MEDS: VITAMIN D 1,000 INTERNATIONAL UNITS TABLET PO (08:05)
[2018-04-23] MEDS: FERROUS SULFATE 325MG TAB PO ×2 (08:05→08:08)
[2018-04-23] MEDS: PARoxetine 20 MG TAB PO (08:05)
[2018-04-23] MEDS: LISINOPRIL 5 MG TAB PO (08:05)
[2018-04-23] MEDS: PANTOPRAZOLE 40MG TAB (PROTONIX) PO (08:05)
[2018-04-23] MEDS: METOPROLOL SUCC *XL* 25MG TAB (TopROL *XL*) PO (08:05)
[2018-04-23] MEDS: MUPIROCIN 2% OINT 22 GM TUBE TOP ×2 (08:09→22:07)
[2018-04-23] MEDS: QUEtiapine FUMARATE 50 MG TAB PO (22:07)
[2018-04-23] MEDS: ATORVASTATIN 20 MG TAB PO (22:07)
[2018-04-24] MEDS: MUPIROCIN 2% OINT 22 GM TUBE TOP ×2 (08:35→20:40)
[2018-04-24] MEDS: VITAMIN D 1,000 INTERNATIONAL UNITS TABLET PO (08:35)
[2018-04-24] MEDS: CLOPIDOGREL 75 MG TAB PO (08:36)
[2018-04-24] MEDS: MULTIVITAMINS/MINERALS THERAP 1 TAB PO (08:36)
[2018-04-24] MEDS: METOPROLOL SUCC *XL* 25MG TAB (TopROL *XL*) PO (08:36)
[2018-04-24] MEDS: PANTOPRAZOLE 40MG TAB (PROTONIX) PO (08:36)
[2018-04-24] MEDS: LISINOPRIL 5 MG TAB PO (08:36)
[2018-04-24] MEDS: PARoxetine 20 MG TAB PO (08:36)
[2018-04-24] MEDS: FERROUS SULFATE 325MG TAB PO (08:37)
[2018-04-24] MEDS: MAGNESIUM OXIDE 400 MG TAB (MAG-OX) PO ×2 (08:37→20:39)
[2018-04-24] MEDS: ATORVASTATIN 20 MG TAB PO (20:39)
[2018-04-24] MEDS: QUEtiapine FUMARATE 50 MG TAB PO (20:39)
[2018-04-25] MEDS: MAGNESIUM OXIDE 400 MG TAB (MAG-OX) PO ×2 (08:19→21:33)
[2018-04-25] MEDS: MULTIVITAMINS/MINERALS THERAP 1 TAB PO (08:19)
[2018-04-25] MEDS: FERROUS SULFATE 325MG TAB PO (08:19)
[2018-04-25] MEDS: VITAMIN D 1,000 INTERNATIONAL UNITS TABLET PO (08:20)
[2018-04-25] MEDS: METOPROLOL SUCC *XL* 25MG TAB (TopROL *XL*) PO (08:20)
[2018-04-25] MEDS: MUPIROCIN 2% OINT 22 GM TUBE TOP ×2 (08:20→21:34)
[2018-04-25] MEDS: CLOPIDOGREL 75 MG TAB PO (08:20)
[2018-04-25] MEDS: PARoxetine 20 MG TAB PO (08:20)
[2018-04-25] MEDS: PANTOPRAZOLE 40MG TAB (PROTONIX) PO (08:20)
[2018-04-25] MEDS: LISINOPRIL 5 MG TAB PO (08:20)
[2018-04-25 08:35] LABS: BASO % 0.9 % (0.0-1.0); EOS # 0.3 10^3/uL (0.0-0.50); EOS % 5.7 % (0.0-3.0); HEMATOCRIT 28.9 % (36.0-47.0); HEMOGLOBIN 9.4 g/dl (12.0-15.5); IMMATURE GRANULOCYTE % 0.7 % (0-3.0); LYMPH # 1.3 10^3/uL (1.5-4.5); LYMPH % 28.4 % (24.0-44.0); MEAN CORPUSCULAR HEMOGLOBIN 33.1 pg (27.0-33.0); MEAN CORPUSCULAR HGB CONC 32.5 g/dl (32.0-36.5); MEAN CORPUSCULAR VOLUME 101.8 fl (80.0-96.0); MONO # 0.6 10^3/uL (0.0-0.8); MONO % 12.6 % (0.0-5.0); NEUTROPHILS # 2.4 10^3/uL (1.8-7.7); NEUTROPHILS % 51.7 % (36.0-66.0); PLATELET COUNT, AUTOMATED 215 10^3/uL (150-450); RED BLOOD COUNT 2.84 10^6/uL (4.00-5.40); WHITE BLOOD COUNT 4.5 10^3/uL (4.0-10.0)
[2018-04-25 09:07] LABS: ALBUMIN 2.7 GM/DL (3.2-5.2); ALBUMIN/GLOBULIN RATIO 0.75 (1.00-1.93); ALKALINE PHOSPHATASE 73 U/L (45-117); ALT/SGPT 24 U/L (12-78); ANION GAP 5 MEQ/L (8-16); AST/SGOT 19 U/L (7-37); BILIRUBIN,TOTAL 0.3 MG/DL (0.2-1.0); BLOOD UREA NITROGEN 17 MG/DL (7-18); CALCIUM LEVEL 8.6 MG/DL (8.8-10.2); CARBON DIOXIDE LEVEL 33 MEQ/L (21-32); CHLORIDE LEVEL 99 MEQ/L (98-107); CREATININE FOR GFR 0.89 MG/DL (0.55-1.30); GLOMERULAR FILTRATION RATE > 60.0 (>32); GLUCOSE, FASTING 81 MG/DL (70-100); POTASSIUM SERUM 3.9 MEQ/L (3.5-5.1); SODIUM LEVEL 137 MEQ/L (136-145); TOTAL PROTEIN 6.3 GM/DL (6.4-8.2)
[2018-04-25] MEDS: ATORVASTATIN 20 MG TAB PO (21:32)
[2018-04-25] MEDS: QUEtiapine FUMARATE 50 MG TAB PO (21:33)
[2018-04-26] MEDS: FERROUS SULFATE 325MG TAB PO (08:20)
[2018-04-26] MEDS: PARoxetine 20 MG TAB PO (08:24)
[2018-04-26] MEDS: PANTOPRAZOLE 40MG TAB (PROTONIX) PO (08:24)
[2018-04-26] MEDS: LISINOPRIL 5 MG TAB PO (08:25)
[2018-04-26] MEDS: VITAMIN D 1,000 INTERNATIONAL UNITS TABLET PO (08:25)
[2018-04-26] MEDS: MULTIVITAMINS/MINERALS THERAP 1 TAB PO (08:25)
[2018-04-26] MEDS: CLOPIDOGREL 75 MG TAB PO (08:25)
[2018-04-26] MEDS: MAGNESIUM OXIDE 400 MG TAB (MAG-OX) PO ×2 (08:25→20:30)
[2018-04-26] MEDS: METOPROLOL SUCC *XL* 25MG TAB (TopROL *XL*) PO (08:25)
[2018-04-26] MEDS: MUPIROCIN 2% OINT 22 GM TUBE TOP ×2 (08:26→20:30)
[2018-04-26] MEDS: QUEtiapine FUMARATE 50 MG TAB PO (20:29)
[2018-04-26] MEDS: ATORVASTATIN 20 MG TAB PO (20:29)
[2018-04-27] MEDS: FERROUS SULFATE 325MG TAB PO (09:00)
[2018-04-27] MEDS: MULTIVITAMINS/MINERALS THERAP 1 TAB PO (10:54)
[2018-04-27] MEDS: PARoxetine 20 MG TAB PO (10:54)
[2018-04-27] MEDS: VITAMIN D 1,000 INTERNATIONAL UNITS TABLET PO (10:54)
[2018-04-27] MEDS: MAGNESIUM OXIDE 400 MG TAB (MAG-OX) PO ×2 (10:54→20:56)
[2018-04-27] MEDS: PANTOPRAZOLE 40MG TAB (PROTONIX) PO (10:55)
[2018-04-27] MEDS: METOPROLOL SUCC *XL* 25MG TAB (TopROL *XL*) PO (10:55)
[2018-04-27] MEDS: MUPIROCIN 2% OINT 22 GM TUBE TOP ×2 (10:55→20:56)
[2018-04-27] MEDS: LISINOPRIL 5 MG TAB PO (10:55)
[2018-04-27] MEDS: CLOPIDOGREL 75 MG TAB PO (10:55)
[2018-04-27] MEDS: QUEtiapine FUMARATE 50 MG TAB PO (20:56)
[2018-04-27] MEDS: ATORVASTATIN 20 MG TAB PO (20:56)
[2018-04-28] MEDS: FERROUS SULFATE 325MG TAB PO ×2 (09:00→10:04)
[2018-04-28] MEDS: METOPROLOL SUCC *XL* 25MG TAB (TopROL *XL*) PO (10:04)
[2018-04-28] MEDS: MULTIVITAMINS/MINERALS THERAP 1 TAB PO (10:04)
[2018-04-28] MEDS: MAGNESIUM OXIDE 400 MG TAB (MAG-OX) PO ×2 (10:04→22:01)
[2018-04-28] MEDS: VITAMIN D 1,000 INTERNATIONAL UNITS TABLET PO (10:04)
[2018-04-28] MEDS: PARoxetine 20 MG TAB PO (10:05)
[2018-04-28] MEDS: CLOPIDOGREL 75 MG TAB PO (10:05)
[2018-04-28] MEDS: MUPIROCIN 2% OINT 22 GM TUBE TOP ×2 (10:05→22:01)
[2018-04-28] MEDS: PANTOPRAZOLE 40MG TAB (PROTONIX) PO (10:05)
[2018-04-28] MEDS: LISINOPRIL 5 MG TAB PO (10:05)
[2018-04-28] MEDS: QUEtiapine FUMARATE 50 MG TAB PO (22:00)
[2018-04-28] MEDS: ATORVASTATIN 20 MG TAB PO (22:00)
[2018-04-29] MEDS: CLOPIDOGREL 75 MG TAB PO (10:18)
[2018-04-29] MEDS: MULTIVITAMINS/MINERALS THERAP 1 TAB PO (10:18)
[2018-04-29] MEDS: VITAMIN D 1,000 INTERNATIONAL UNITS TABLET PO (10:18)
[2018-04-29] MEDS: PARoxetine 20 MG TAB PO (10:18)
[2018-04-29] MEDS: MAGNESIUM OXIDE 400 MG TAB (MAG-OX) PO ×2 (10:18→20:08)
[2018-04-29] MEDS: PANTOPRAZOLE 40MG TAB (PROTONIX) PO (10:18)
[2018-04-29] MEDS: LISINOPRIL 5 MG TAB PO (10:19)
[2018-04-29] MEDS: METOPROLOL SUCC *XL* 25MG TAB (TopROL *XL*) PO (10:19)
[2018-04-29] MEDS: FERROUS SULFATE 325MG TAB PO (10:19)
[2018-04-29] MEDS: MUPIROCIN 2% OINT 22 GM TUBE TOP ×2 (10:21→20:09)
[2018-04-29] MEDS: QUEtiapine FUMARATE 50 MG TAB PO (20:08)
[2018-04-29] MEDS: ATORVASTATIN 20 MG TAB PO (20:09)
[2018-04-30] MEDS: PARoxetine 20 MG TAB PO (08:08)
[2018-04-30] MEDS: PANTOPRAZOLE 40MG TAB (PROTONIX) PO (08:08)
[2018-04-30] MEDS: CLOPIDOGREL 75 MG TAB PO (08:08)
[2018-04-30] MEDS: VITAMIN D 1,000 INTERNATIONAL UNITS TABLET PO (08:08)
[2018-04-30] MEDS: MULTIVITAMINS/MINERALS THERAP 1 TAB PO (08:08)
[2018-04-30] MEDS: METOPROLOL SUCC *XL* 25MG TAB (TopROL *XL*) PO (08:09)
[2018-04-30] MEDS: LISINOPRIL 5 MG TAB PO (08:09)
[2018-04-30] MEDS: MUPIROCIN 2% OINT 22 GM TUBE TOP ×2 (08:09→20:04)
[2018-04-30] MEDS: FERROUS SULFATE 325MG TAB PO (08:09)
[2018-04-30] MEDS: MAGNESIUM OXIDE 400 MG TAB (MAG-OX) PO ×2 (08:09→20:03)
[2018-04-30] MEDS: ATORVASTATIN 20 MG TAB PO (20:03)
[2018-04-30] MEDS: QUEtiapine FUMARATE 50 MG TAB PO (20:03)
[2018-05-01] MEDS: VITAMIN D 1,000 INTERNATIONAL UNITS TABLET PO (08:19)
[2018-05-01] MEDS: LISINOPRIL 5 MG TAB PO (08:19)
[2018-05-01] MEDS: PANTOPRAZOLE 40MG TAB (PROTONIX) PO (08:19)
[2018-05-01] MEDS: MULTIVITAMINS/MINERALS THERAP 1 TAB PO (08:19)
[2018-05-01] MEDS: CLOPIDOGREL 75 MG TAB PO (08:19)
[2018-05-01] MEDS: METOPROLOL SUCC *XL* 25MG TAB (TopROL *XL*) PO (08:19)
[2018-05-01] MEDS: PARoxetine 20 MG TAB PO (08:19)
[2018-05-01] MEDS: FERROUS SULFATE 325MG TAB PO (08:20)
[2018-05-01] MEDS: MUPIROCIN 2% OINT 22 GM TUBE TOP ×2 (08:20→20:18)
[2018-05-01] MEDS: MAGNESIUM OXIDE 400 MG TAB (MAG-OX) PO ×2 (08:20→20:18)
[2018-05-01] MEDS: QUEtiapine FUMARATE 50 MG TAB PO (20:18)
[2018-05-01] MEDS: ATORVASTATIN 20 MG TAB PO (20:18)
[2018-05-02] MEDS: VITAMIN D 1,000 INTERNATIONAL UNITS TABLET PO (08:59)
[2018-05-02] MEDS: LISINOPRIL 5 MG TAB PO (08:59)
[2018-05-02] MEDS: PANTOPRAZOLE 40MG TAB (PROTONIX) PO (08:59)
[2018-05-02] MEDS: CLOPIDOGREL 75 MG TAB PO (08:59)
[2018-05-02] MEDS: PARoxetine 20 MG TAB PO (09:00)
[2018-05-02] MEDS: METOPROLOL SUCC *XL* 25MG TAB (TopROL *XL*) PO (09:00)
[2018-05-02] MEDS: MAGNESIUM OXIDE 400 MG TAB (MAG-OX) PO ×2 (09:00→20:36)
[2018-05-02] MEDS: MULTIVITAMINS/MINERALS THERAP 1 TAB PO (09:00)
[2018-05-02] MEDS: MUPIROCIN 2% OINT 22 GM TUBE TOP ×2 (09:01→20:36)
[2018-05-02] MEDS: FERROUS SULFATE 325MG TAB PO ×2 (09:01→19:59)
[2018-05-02] MEDS: QUEtiapine FUMARATE 50 MG TAB PO (20:36)
[2018-05-02] MEDS: ATORVASTATIN 20 MG TAB PO (20:36)
[2018-05-03] MEDS: CLOPIDOGREL 75 MG TAB PO (08:14)
[2018-05-03] MEDS: VITAMIN D 1,000 INTERNATIONAL UNITS TABLET PO (08:14)
[2018-05-03] MEDS: MULTIVITAMINS/MINERALS THERAP 1 TAB PO (08:14)
[2018-05-03] MEDS: MAGNESIUM OXIDE 400 MG TAB (MAG-OX) PO ×2 (08:14→20:06)
[2018-05-03] MEDS: METOPROLOL SUCC *XL* 25MG TAB (TopROL *XL*) PO (08:15)
[2018-05-03] MEDS: PANTOPRAZOLE 40MG TAB (PROTONIX) PO (08:16)
[2018-05-03] MEDS: PARoxetine 20 MG TAB PO (08:16)
[2018-05-03] MEDS: LISINOPRIL 5 MG TAB PO (08:16)
[2018-05-03] MEDS: MUPIROCIN 2% OINT 22 GM TUBE TOP ×2 (08:17→20:07)
[2018-05-03] MEDS: ATORVASTATIN 20 MG TAB PO (20:06)
[2018-05-03] MEDS: QUEtiapine FUMARATE 50 MG TAB PO (20:06)
[2018-05-04] MEDS: FERROUS SULFATE 325MG TAB PO (07:31)
[2018-05-04] MEDS: VITAMIN D 1,000 INTERNATIONAL UNITS TABLET PO (08:52)
[2018-05-04] MEDS: MULTIVITAMINS/MINERALS THERAP 1 TAB PO (08:52)
[2018-05-04] MEDS: CLOPIDOGREL 75 MG TAB PO (08:52)
[2018-05-04] MEDS: PANTOPRAZOLE 40MG TAB (PROTONIX) PO (08:52)
[2018-05-04] MEDS: METOPROLOL SUCC *XL* 25MG TAB (TopROL *XL*) PO (08:52)
[2018-05-04] MEDS: MAGNESIUM OXIDE 400 MG TAB (MAG-OX) PO ×2 (08:53→20:03)
[2018-05-04] MEDS: PARoxetine 20 MG TAB PO (08:53)
[2018-05-04] MEDS: MUPIROCIN 2% OINT 22 GM TUBE TOP ×2 (08:53→20:04)
[2018-05-04] MEDS: LISINOPRIL 5 MG TAB PO (08:53)
[2018-05-04] MEDS: QUEtiapine FUMARATE 50 MG TAB PO (20:03)
[2018-05-04] MEDS: ATORVASTATIN 20 MG TAB PO (20:03)
[2018-05-05] MEDS: FERROUS SULFATE 325MG TAB PO (09:00)
[2018-05-05] MEDS: MULTIVITAMINS/MINERALS THERAP 1 TAB PO (09:17)
[2018-05-05] MEDS: PANTOPRAZOLE 40MG TAB (PROTONIX) PO (09:17)
[2018-05-05] MEDS: CLOPIDOGREL 75 MG TAB PO (09:17)
[2018-05-05] MEDS: MAGNESIUM OXIDE 400 MG TAB (MAG-OX) PO ×2 (09:18→21:04)
[2018-05-05] MEDS: VITAMIN D 1,000 INTERNATIONAL UNITS TABLET PO (09:18)
[2018-05-05] MEDS: LISINOPRIL 5 MG TAB PO (09:18)
[2018-05-05] MEDS: PARoxetine 20 MG TAB PO (09:18)
[2018-05-05] MEDS: METOPROLOL SUCC *XL* 25MG TAB (TopROL *XL*) PO (09:19)
[2018-05-05] MEDS: MUPIROCIN 2% OINT 22 GM TUBE TOP ×2 (09:19→21:05)
[2018-05-05] MEDS: QUEtiapine FUMARATE 50 MG TAB PO (21:04)
[2018-05-05] MEDS: ATORVASTATIN 20 MG TAB PO (21:05)
[2018-05-06] MEDS: FERROUS SULFATE 325MG TAB PO (09:00)
[2018-05-06] MEDS: PANTOPRAZOLE 40MG TAB (PROTONIX) PO (10:50)
[2018-05-06] MEDS: MAGNESIUM OXIDE 400 MG TAB (MAG-OX) PO ×2 (10:50→21:01)
[2018-05-06] MEDS: MULTIVITAMINS/MINERALS THERAP 1 TAB PO (10:50)
[2018-05-06] MEDS: VITAMIN D 1,000 INTERNATIONAL UNITS TABLET PO (10:51)
[2018-05-06] MEDS: CLOPIDOGREL 75 MG TAB PO (10:51)
[2018-05-06] MEDS: LISINOPRIL 5 MG TAB PO (10:51)
[2018-05-06] MEDS: PARoxetine 20 MG TAB PO (10:51)
[2018-05-06] MEDS: METOPROLOL SUCC *XL* 25MG TAB (TopROL *XL*) PO (10:51)
[2018-05-06] MEDS: MUPIROCIN 2% OINT 22 GM TUBE TOP ×2 (10:53→21:01)
[2018-05-06] MEDS: QUEtiapine FUMARATE 50 MG TAB PO (21:01)
[2018-05-06] MEDS: ATORVASTATIN 20 MG TAB PO (21:01)
[2018-05-07] MEDS: VITAMIN D 1,000 INTERNATIONAL UNITS TABLET PO (07:52)
[2018-05-07] MEDS: CLOPIDOGREL 75 MG TAB PO (07:52)
[2018-05-07] MEDS: MAGNESIUM OXIDE 400 MG TAB (MAG-OX) PO ×2 (07:52→21:03)
[2018-05-07] MEDS: PANTOPRAZOLE 40MG TAB (PROTONIX) PO (07:53)
[2018-05-07] MEDS: PARoxetine 20 MG TAB PO (07:53)
[2018-05-07] MEDS: METOPROLOL SUCC *XL* 25MG TAB (TopROL *XL*) PO (07:53)
[2018-05-07] MEDS: FERROUS SULFATE 325MG TAB PO (07:53)
[2018-05-07] MEDS: MULTIVITAMINS/MINERALS THERAP 1 TAB PO (07:53)
[2018-05-07] MEDS: LISINOPRIL 5 MG TAB PO (07:54)
[2018-05-07] MEDS: MUPIROCIN 2% OINT 22 GM TUBE TOP ×2 (07:54→21:03)
[2018-05-07] MEDS: ATORVASTATIN 20 MG TAB PO (21:03)
[2018-05-07] MEDS: QUEtiapine FUMARATE 50 MG TAB PO (21:03)
[2018-05-08] MEDS: PANTOPRAZOLE 40MG TAB (PROTONIX) PO (08:08)
[2018-05-08] MEDS: FERROUS SULFATE 325MG TAB PO (08:08)
[2018-05-08] MEDS: PARoxetine 20 MG TAB PO (08:09)
[2018-05-08] MEDS: CLOPIDOGREL 75 MG TAB PO (08:09)
[2018-05-08] MEDS: MULTIVITAMINS/MINERALS THERAP 1 TAB PO (08:09)
[2018-05-08] MEDS: METOPROLOL SUCC *XL* 25MG TAB (TopROL *XL*) PO (08:09)
[2018-05-08] MEDS: MAGNESIUM OXIDE 400 MG TAB (MAG-OX) PO ×2 (08:09→20:39)
[2018-05-08] MEDS: VITAMIN D 1,000 INTERNATIONAL UNITS TABLET PO (08:09)
[2018-05-08] MEDS: LISINOPRIL 5 MG TAB PO (08:09)
[2018-05-08] MEDS: MUPIROCIN 2% OINT 22 GM TUBE TOP ×2 (08:12→20:40)
[2018-05-08] MEDS: ATORVASTATIN 20 MG TAB PO (20:39)
[2018-05-08] MEDS: QUEtiapine FUMARATE 50 MG TAB PO (20:40)
[2018-05-09] MEDS: FERROUS SULFATE 325MG TAB PO (09:00)
[2018-05-09] MEDS: MULTIVITAMINS/MINERALS THERAP 1 TAB PO (10:14)
[2018-05-09] MEDS: VITAMIN D 1,000 INTERNATIONAL UNITS TABLET PO (10:14)
[2018-05-09] MEDS: PARoxetine 20 MG TAB PO (10:14)
[2018-05-09] MEDS: LISINOPRIL 5 MG TAB PO (10:15)
[2018-05-09] MEDS: PANTOPRAZOLE 40MG TAB (PROTONIX) PO (10:15)
[2018-05-09] MEDS: METOPROLOL SUCC *XL* 25MG TAB (TopROL *XL*) PO (10:15)
[2018-05-09] MEDS: MAGNESIUM OXIDE 400 MG TAB (MAG-OX) PO ×2 (10:15→20:33)
[2018-05-09] MEDS: CLOPIDOGREL 75 MG TAB PO (10:15)
[2018-05-09] MEDS: MUPIROCIN 2% OINT 22 GM TUBE TOP ×2 (10:16→20:34)
[2018-05-09] MEDS: ATORVASTATIN 20 MG TAB PO (20:33)
[2018-05-09] MEDS: QUEtiapine FUMARATE 50 MG TAB PO (20:33)
[2018-05-10] MEDS: LISINOPRIL 5 MG TAB PO (10:33)
[2018-05-10] MEDS: FERROUS SULFATE 325MG TAB PO (10:33)
[2018-05-10] MEDS: METOPROLOL SUCC *XL* 25MG TAB (TopROL *XL*) PO (10:34)
[2018-05-10] MEDS: PARoxetine 20 MG TAB PO (10:58)
[2018-05-10] MEDS: VITAMIN D 1,000 INTERNATIONAL UNITS TABLET PO (10:58)
[2018-05-10] MEDS: MULTIVITAMINS/MINERALS THERAP 1 TAB PO (10:58)
[2018-05-10] MEDS: CLOPIDOGREL 75 MG TAB PO (10:58)
[2018-05-10] MEDS: MUPIROCIN 2% OINT 22 GM TUBE TOP ×2 (10:59→20:49)
[2018-05-10] MEDS: PANTOPRAZOLE 40MG TAB (PROTONIX) PO (10:59)
[2018-05-10] MEDS: MAGNESIUM OXIDE 400 MG TAB (MAG-OX) PO ×2 (10:59→20:49)
[2018-05-10] MEDS: ATORVASTATIN 20 MG TAB PO (20:49)
[2018-05-10] MEDS: QUEtiapine FUMARATE 50 MG TAB PO (20:49)
[2018-05-11] MEDS: PANTOPRAZOLE 40MG TAB (PROTONIX) PO (08:38)
[2018-05-11] MEDS: MAGNESIUM OXIDE 400 MG TAB (MAG-OX) PO ×2 (08:38→20:55)
[2018-05-11] MEDS: FERROUS SULFATE 325MG TAB PO ×2 (08:38→08:45)
[2018-05-11] MEDS: PARoxetine 20 MG TAB PO (08:38)
[2018-05-11] MEDS: CLOPIDOGREL 75 MG TAB PO (08:38)
[2018-05-11] MEDS: MULTIVITAMINS/MINERALS THERAP 1 TAB PO (08:38)
[2018-05-11] MEDS: LISINOPRIL 5 MG TAB PO (08:38)
[2018-05-11] MEDS: METOPROLOL SUCC *XL* 25MG TAB (TopROL *XL*) PO (08:40)
[2018-05-11] MEDS: MUPIROCIN 2% OINT 22 GM TUBE TOP ×2 (08:41→20:55)
[2018-05-11] MEDS: VITAMIN D 1,000 INTERNATIONAL UNITS TABLET PO (08:42)
[2018-05-11] MEDS: QUEtiapine FUMARATE 50 MG TAB PO (20:55)
[2018-05-11] MEDS: ATORVASTATIN 20 MG TAB PO (20:55)
[2018-05-12] MEDS: VITAMIN D 1,000 INTERNATIONAL UNITS TABLET PO (07:57)
[2018-05-12] MEDS: PARoxetine 20 MG TAB PO (07:57)
[2018-05-12] MEDS: MULTIVITAMINS/MINERALS THERAP 1 TAB PO (07:57)
[2018-05-12] MEDS: MAGNESIUM OXIDE 400 MG TAB (MAG-OX) PO ×2 (07:57→19:59)
[2018-05-12] MEDS: CLOPIDOGREL 75 MG TAB PO (07:57)
[2018-05-12] MEDS: LISINOPRIL 5 MG TAB PO (07:58)
[2018-05-12] MEDS: PANTOPRAZOLE 40MG TAB (PROTONIX) PO (07:58)
[2018-05-12] MEDS: FERROUS SULFATE 325MG TAB PO (07:58)
[2018-05-12] MEDS: MUPIROCIN 2% OINT 22 GM TUBE TOP ×2 (07:58→19:59)
[2018-05-12] MEDS: METOPROLOL SUCC *XL* 25MG TAB (TopROL *XL*) PO (07:58)
[2018-05-12] MEDS: ATORVASTATIN 20 MG TAB PO (19:58)
[2018-05-12] MEDS: QUEtiapine FUMARATE 50 MG TAB PO (19:59)
[2018-05-12] MEDS: ACETAMINOPHEN TAB 650MG DOSE (2X325MG) PO (20:01)
[2018-05-13] MEDS: FERROUS SULFATE 325MG TAB PO (09:00)
[2018-05-13] MEDS: CLOPIDOGREL 75 MG TAB PO (12:26)
[2018-05-13] MEDS: PANTOPRAZOLE 40MG TAB (PROTONIX) PO (12:26)
[2018-05-13] MEDS: MULTIVITAMINS/MINERALS THERAP 1 TAB PO (12:26)
[2018-05-13] MEDS: PARoxetine 20 MG TAB PO (12:26)
[2018-05-13] MEDS: METOPROLOL SUCC *XL* 25MG TAB (TopROL *XL*) PO (12:26)
[2018-05-13] MEDS: LISINOPRIL 5 MG TAB PO (12:27)
[2018-05-13] MEDS: MAGNESIUM OXIDE 400 MG TAB (MAG-OX) PO ×2 (12:27→21:24)
[2018-05-13] MEDS: VITAMIN D 1,000 INTERNATIONAL UNITS TABLET PO (12:27)
[2018-05-13] MEDS: MUPIROCIN 2% OINT 22 GM TUBE TOP (12:28)
[2018-05-13] MEDS: ACETAMINOPHEN TAB 650MG DOSE (2X325MG) PO (18:21)
[2018-05-13] MEDS: QUEtiapine FUMARATE 50 MG TAB PO (21:24)
[2018-05-13] MEDS: ATORVASTATIN 20 MG TAB PO (21:24)
[2018-05-14] MEDS: PARoxetine 20 MG TAB PO (07:49)
[2018-05-14] MEDS: MULTIVITAMINS/MINERALS THERAP 1 TAB PO (07:49)
[2018-05-14] MEDS: CLOPIDOGREL 75 MG TAB PO (07:49)
[2018-05-14] MEDS: PANTOPRAZOLE 40MG TAB (PROTONIX) PO (07:50)
[2018-05-14] MEDS: MAGNESIUM OXIDE 400 MG TAB (MAG-OX) PO ×2 (07:50→21:49)
[2018-05-14] MEDS: LISINOPRIL 5 MG TAB PO (07:50)
[2018-05-14] MEDS: METOPROLOL SUCC *XL* 25MG TAB (TopROL *XL*) PO (07:50)
[2018-05-14] MEDS: VITAMIN D 1,000 INTERNATIONAL UNITS TABLET PO (07:50)
[2018-05-14] MEDS: FERROUS SULFATE 325MG TAB PO (07:51)
[2018-05-14] MEDS: QUEtiapine FUMARATE 50 MG TAB PO (21:49)
[2018-05-14] MEDS: ATORVASTATIN 20 MG TAB PO (21:49)
[2018-05-15] MEDS: FERROUS SULFATE 325MG TAB PO (09:00)
[2018-05-15] MEDS: CLOPIDOGREL 75 MG TAB PO (10:01)
[2018-05-15] MEDS: PANTOPRAZOLE 40MG TAB (PROTONIX) PO (10:01)
[2018-05-15] MEDS: MULTIVITAMINS/MINERALS THERAP 1 TAB PO (10:01)
[2018-05-15] MEDS: VITAMIN D 1,000 INTERNATIONAL UNITS TABLET PO (10:02)
[2018-05-15] MEDS: PARoxetine 20 MG TAB PO (10:02)
[2018-05-15] MEDS: MAGNESIUM OXIDE 400 MG TAB (MAG-OX) PO ×2 (10:02→20:31)
[2018-05-15] MEDS: LISINOPRIL 5 MG TAB PO (10:02)
[2018-05-15] MEDS: METOPROLOL SUCC *XL* 25MG TAB (TopROL *XL*) PO (10:03)
[2018-05-15] MEDS: QUEtiapine FUMARATE 50 MG TAB PO (20:31)
[2018-05-15] MEDS: ATORVASTATIN 20 MG TAB PO (20:31)
[2018-05-16] MEDS: FERROUS SULFATE 325MG TAB PO (09:00)
[2018-05-16] MEDS: LISINOPRIL 5 MG TAB PO (10:29)
[2018-05-16] MEDS: MAGNESIUM OXIDE 400 MG TAB (MAG-OX) PO ×2 (10:30→20:37)
[2018-05-16] MEDS: MULTIVITAMINS/MINERALS THERAP 1 TAB PO (10:30)
[2018-05-16] MEDS: CLOPIDOGREL 75 MG TAB PO (10:30)
[2018-05-16] MEDS: VITAMIN D 1,000 INTERNATIONAL UNITS TABLET PO (10:31)
[2018-05-16] MEDS: METOPROLOL SUCC *XL* 25MG TAB (TopROL *XL*) PO (10:31)
[2018-05-16] MEDS: PARoxetine 20 MG TAB PO (10:31)
[2018-05-16] MEDS: PANTOPRAZOLE 40MG TAB (PROTONIX) PO (10:31)
[2018-05-16] MEDS: QUEtiapine FUMARATE 50 MG TAB PO (20:37)
[2018-05-16] MEDS: ATORVASTATIN 20 MG TAB PO (20:37)
[2018-05-17] MEDS: FERROUS SULFATE 325MG TAB PO (09:35)
[2018-05-17] MEDS: CLOPIDOGREL 75 MG TAB PO (09:35)
[2018-05-17] MEDS: MAGNESIUM OXIDE 400 MG TAB (MAG-OX) PO ×2 (09:35→21:14)
[2018-05-17] MEDS: PARoxetine 20 MG TAB PO (09:35)
[2018-05-17] MEDS: MULTIVITAMINS/MINERALS THERAP 1 TAB PO (09:35)
[2018-05-17] MEDS: METOPROLOL SUCC *XL* 25MG TAB (TopROL *XL*) PO (09:36)
[2018-05-17] MEDS: LISINOPRIL 5 MG TAB PO (09:36)
[2018-05-17] MEDS: PANTOPRAZOLE 40MG TAB (PROTONIX) PO (09:38)
[2018-05-17] MEDS: VITAMIN D 1,000 INTERNATIONAL UNITS TABLET PO (09:38)
[2018-05-17] MEDS: ATORVASTATIN 20 MG TAB PO (21:14)
[2018-05-17] MEDS: QUEtiapine FUMARATE 50 MG TAB PO (21:14)
[2018-05-18] MEDS: METOPROLOL SUCC *XL* 25MG TAB (TopROL *XL*) PO (09:00)
[2018-05-18] MEDS: FERROUS SULFATE 325MG TAB PO ×2 (09:00→11:19)
[2018-05-18] MEDS: MUPIROCIN 2% OINT 22 GM TUBE TOP ×2 (09:00→21:06)
[2018-05-18] MEDS: LISINOPRIL 5 MG TAB PO (09:00)
[2018-05-18] MEDS: SODIUM CHLORIDE 0.9% 1000ML IV (10:44)
[2018-05-18] MEDS: VANCOMYCIN HCL 1,000 MG, VIAL MATE ADAPTER 1 EACH in D5W 250 ML IV (11:15)
[2018-05-18] MEDS: MULTIVITAMINS/MINERALS THERAP 1 TAB PO (11:18)
[2018-05-18 11:19] LABS: BASO # 0.1 10^3/uL (0.0-0.2); BASO % 0.6 % (0.0-1.0); EOS # 0.2 10^3/uL (0.0-0.50); EOS % 3.1 % (0.0-3.0); HEMATOCRIT 32.5 % (36.0-47.0); HEMOGLOBIN 10.3 g/dl (12.0-15.5); IMMATURE GRANULOCYTE % 0.4 % (0-3.0); LYMPH # 1.8 10^3/uL (1.5-4.5); LYMPH % 22.3 % (24.0-44.0); MEAN CORPUSCULAR HEMOGLOBIN 32.1 pg (27.0-33.0); MEAN CORPUSCULAR HGB CONC 31.7 g/dl (32.0-36.5); MEAN CORPUSCULAR VOLUME 101.2 fl (80.0-96.0); MONO # 0.9 10^3/uL (0.0-0.8); MONO % 10.9 % (0.0-5.0); NEUTROPHILS # 4.9 10^3/uL (1.8-7.7); NEUTROPHILS % 62.7 % (36.0-66.0); PLATELET COUNT, AUTOMATED 255 10^3/uL (150-450); RED BLOOD COUNT 3.21 10^6/uL (4.00-5.40); RED CELL DISTRIBUTION WIDTH 13.6 % (11.5-14.5); WHITE BLOOD COUNT 7.9 10^3/uL (4.0-10.0)
[2018-05-18] MEDS: MAGNESIUM OXIDE 400 MG TAB (MAG-OX) PO ×2 (11:19→21:06)
[2018-05-18] MEDS: MEROPENEM INJ 1 GM in APPROPRIATE DILUENT 1 EA IV ×2 (11:19→22:30)
[2018-05-18] MEDS: PANTOPRAZOLE 40MG TAB (PROTONIX) PO (11:19)
[2018-05-18] MEDS: VITAMIN D 1,000 INTERNATIONAL UNITS TABLET PO (11:19)
[2018-05-18] MEDS: PARoxetine 20 MG TAB PO (11:19)
[2018-05-18] MEDS: CLOPIDOGREL 75 MG TAB PO (11:19)
[2018-05-18 11:44] LABS: LACTIC ACID SEPSIS PROTOCOL 1.2 MMOL/L (0.4-2.0)
[2018-05-18 11:44] LABS: ALBUMIN 2.9 GM/DL (3.2-5.2); ALBUMIN/GLOBULIN RATIO 0.73 (1.00-1.93); ALKALINE PHOSPHATASE 79 U/L (45-117); ALT/SGPT 24 U/L (12-78); ANION GAP 7 MEQ/L (8-16); AST/SGOT 24 U/L (7-37); BILIRUBIN,TOTAL 0.3 MG/DL (0.2-1.0); BLOOD UREA NITROGEN 21 MG/DL (7-18); CALCIUM LEVEL 8.4 MG/DL (8.8-10.2); CARBON DIOXIDE LEVEL 29 MEQ/L (21-32); CHLORIDE LEVEL 99 MEQ/L (98-107); CREATININE FOR GFR 0.92 MG/DL (0.55-1.30); GLOMERULAR FILTRATION RATE > 60.0 (>32); GLUCOSE, FASTING 120 MG/DL (70-100); POTASSIUM SERUM 4.3 MEQ/L (3.5-5.1); SODIUM LEVEL 135 MEQ/L (136-145); TOTAL PROTEIN 6.9 GM/DL (6.4-8.2)
[2018-05-18] MEDS: VANCOMYCIN HCL 500 MG in D5W MINI-BAG PLUS 100 ML IV (16:08)
[2018-05-18 16:39] LABS: APPEARANCE, URINE HAZY (CLEAR); BACTERIA, URINE AUTO NEGATIVE (NEGATIVE); BILIRUBIN, URINE AUTO NEGATIVE (NEGATIVE); BLOOD, URINE BLOOD NEGATIVE (NEGATIVE); COLOR, URINE YELLOW (YELLOW); GLUCOSE, URINE (UA) AUTO NEGATIVE (NEGATIVE); KETONE, URINE AUTO NEGATIVE (NEGATIVE); LEUKOCYTE ESTERASE, URINE AUTO TRACE (NEGATIVE); NITRITE, URINE AUTO NEGATIVE (NEGATIVE); PROTEIN, URINE AUTO NEGATIVE (NEGATIVE); RBC, URINE AUTO 2 /HPF (0-3); SPECIFIC GRAVITY URINE AUTO 1.014 (1.002-1.035); SQUAMOUS EPITHELIAL CELL UR AU 1 /HPF (0-6); TRANSITIONAL EPITHELIAL AUTO <1 /HPF; UROBILINOGEN, URINE AUTO 0.2 mg/dL (0.0-2.0); WBC, URINE AUTO 7 /HPF (0-3)
[2018-05-18] MEDS: QUEtiapine FUMARATE 50 MG TAB PO (21:05)
[2018-05-18] MEDS: ATORVASTATIN 20 MG TAB PO (21:05)
[2018-05-19 06:26] LABS: BASO # 0.1 10^3/uL (0.0-0.2); BASO % 1.1 % (0.0-1.0); EOS # 0.3 10^3/uL (0.0-0.50); EOS % 5.5 % (0.0-3.0); HEMATOCRIT 28.6 % (36.0-47.0); HEMOGLOBIN 9.2 g/dl (12.0-15.5); IMMATURE GRANULOCYTE % 0.4 % (0-3.0); LYMPH # 1.4 10^3/uL (1.5-4.5); LYMPH % 24.6 % (24.0-44.0); MEAN CORPUSCULAR HEMOGLOBIN 31.8 pg (27.0-33.0); MEAN CORPUSCULAR HGB CONC 32.2 g/dl (32.0-36.5); MONO # 0.7 10^3/uL (0.0-0.8); MONO % 12.4 % (0.0-5.0); NEUTROPHILS # 3.1 10^3/uL (1.8-7.7); PLATELET COUNT, AUTOMATED 252 10^3/uL (150-450); RED BLOOD COUNT 2.89 10^6/uL (4.00-5.40); RED CELL DISTRIBUTION WIDTH 13.5 % (11.5-14.5); WHITE BLOOD COUNT 5.5 10^3/uL (4.0-10.0)
[2018-05-19 06:47] LABS: ALBUMIN 2.5 GM/DL (3.2-5.2); ALBUMIN/GLOBULIN RATIO 0.58 (1.00-1.93); ALKALINE PHOSPHATASE 69 U/L (45-117); ALT/SGPT 24 U/L (12-78); ANION GAP 5 MEQ/L (8-16); AST/SGOT 23 U/L (7-37); BILIRUBIN,TOTAL 0.3 MG/DL (0.2-1.0); BLOOD UREA NITROGEN 16 MG/DL (7-18); CALCIUM LEVEL 8.1 MG/DL (8.8-10.2); CARBON DIOXIDE LEVEL 30 MEQ/L (21-32); CHLORIDE LEVEL 102 MEQ/L (98-107); CREATININE FOR GFR 0.75 MG/DL (0.55-1.30); GLOMERULAR FILTRATION RATE > 60.0 (>32); GLUCOSE, FASTING 102 MG/DL (70-100); POTASSIUM SERUM 4.1 MEQ/L (3.5-5.1); SODIUM LEVEL 137 MEQ/L (136-145); TOTAL PROTEIN 6.8 GM/DL (6.4-8.2)
[2018-05-19] MEDS: FERROUS SULFATE 325MG TAB PO (09:14)
[2018-05-19] MEDS: METOPROLOL SUCC *XL* 25MG TAB (TopROL *XL*) PO (09:15)
[2018-05-19] MEDS: CLOPIDOGREL 75 MG TAB PO (09:15)
[2018-05-19] MEDS: MULTIVITAMINS/MINERALS THERAP 1 TAB PO (09:15)
[2018-05-19] MEDS: VITAMIN D 1,000 INTERNATIONAL UNITS TABLET PO (09:15)
[2018-05-19] MEDS: MAGNESIUM OXIDE 400 MG TAB (MAG-OX) PO ×2 (09:15→20:39)
[2018-05-19] MEDS: MUPIROCIN 2% OINT 22 GM TUBE TOP ×2 (09:16→20:40)
[2018-05-19] MEDS: PANTOPRAZOLE 40MG TAB (PROTONIX) PO (09:16)
[2018-05-19] MEDS: PARoxetine 20 MG TAB PO (09:16)
[2018-05-19] MEDS: MEROPENEM INJ 1 GM in APPROPRIATE DILUENT 1 EA IV ×2 (10:49→22:26)
[2018-05-19] MEDS: VANCOMYCIN HCL 1,000 MG, VIAL MATE ADAPTER 1 EACH in D5W 250 ML IV (13:36)
[2018-05-19] MEDS: QUEtiapine FUMARATE 50 MG TAB PO (20:39)
[2018-05-19] MEDS: ATORVASTATIN 20 MG TAB PO (20:40)
[2018-05-20] MEDS: FERROUS SULFATE 325MG TAB PO ×2 (09:00→10:38)
[2018-05-20] MEDS: METOPROLOL SUCC *XL* 25MG TAB (TopROL *XL*) PO (09:00)
[2018-05-20] MEDS: MUPIROCIN 2% OINT 22 GM TUBE TOP ×2 (09:00→20:33)
[2018-05-20] MEDS: MULTIVITAMINS/MINERALS THERAP 1 TAB PO (10:37)
[2018-05-20] MEDS: MAGNESIUM OXIDE 400 MG TAB (MAG-OX) PO ×2 (10:37→20:32)
[2018-05-20] MEDS: PARoxetine 20 MG TAB PO (10:37)
[2018-05-20] MEDS: PANTOPRAZOLE 40MG TAB (PROTONIX) PO (10:38)
[2018-05-20] MEDS: CLOPIDOGREL 75 MG TAB PO (10:38)
[2018-05-20] MEDS: VITAMIN D 1,000 INTERNATIONAL UNITS TABLET PO (10:39)
[2018-05-20] MEDS: ACETAMINOPHEN TAB 650MG DOSE (2X325MG) PO (14:59)
[2018-05-20] MEDS: ATORVASTATIN 20 MG TAB PO (20:32)
[2018-05-20] MEDS: QUEtiapine FUMARATE 50 MG TAB PO (20:32)
[2018-05-21] MEDS: MULTIVITAMINS/MINERALS THERAP 1 TAB PO (08:01)
[2018-05-21] MEDS: MAGNESIUM OXIDE 400 MG TAB (MAG-OX) PO ×2 (08:02→21:35)
[2018-05-21] MEDS: VITAMIN D 1,000 INTERNATIONAL UNITS TABLET PO (08:02)
[2018-05-21] MEDS: PARoxetine 20 MG TAB PO (08:02)
[2018-05-21] MEDS: PANTOPRAZOLE 40MG TAB (PROTONIX) PO (08:02)
[2018-05-21] MEDS: CLOPIDOGREL 75 MG TAB PO (08:02)
[2018-05-21] MEDS: FERROUS SULFATE 325MG TAB PO ×3 (08:05→08:09)
[2018-05-21] MEDS: METOPROLOL SUCC *XL* 25MG TAB (TopROL *XL*) PO (08:05)
[2018-05-21] MEDS: MUPIROCIN 2% OINT 22 GM TUBE TOP ×2 (08:06→21:36)
[2018-05-21] MEDS: ACETAMINOPHEN TAB 650MG DOSE (2X325MG) PO (16:09)
[2018-05-21] MEDS: QUEtiapine FUMARATE 50 MG TAB PO (21:35)
[2018-05-21] MEDS: ATORVASTATIN 20 MG TAB PO (21:35)
[2018-05-22] MEDS: ACETAMINOPHEN TAB 650MG DOSE (2X325MG) PO ×2 (05:39→16:07)
[2018-05-22] MEDS: MULTIVITAMINS/MINERALS THERAP 1 TAB PO (08:14)
[2018-05-22] MEDS: MAGNESIUM OXIDE 400 MG TAB (MAG-OX) PO ×2 (08:15→20:18)
[2018-05-22] MEDS: CLOPIDOGREL 75 MG TAB PO (08:15)
[2018-05-22] MEDS: PANTOPRAZOLE 40MG TAB (PROTONIX) PO (08:15)
[2018-05-22] MEDS: PARoxetine 20 MG TAB PO (08:15)
[2018-05-22] MEDS: VITAMIN D 1,000 INTERNATIONAL UNITS TABLET PO (08:15)
[2018-05-22] MEDS: FERROUS SULFATE 325MG TAB PO (08:15)
[2018-05-22] MEDS: METOPROLOL SUCC *XL* 25MG TAB (TopROL *XL*) PO (08:16)
[2018-05-22] MEDS: MUPIROCIN 2% OINT 22 GM TUBE TOP ×2 (08:17→20:18)
[2018-05-22] MEDS: ATORVASTATIN 20 MG TAB PO (20:17)
[2018-05-22] MEDS: QUEtiapine FUMARATE 50 MG TAB PO (20:18)
[2018-05-23] MEDS: MULTIVITAMINS/MINERALS THERAP 1 TAB PO (11:39)
[2018-05-23] MEDS: PANTOPRAZOLE 40MG TAB (PROTONIX) PO (11:39)
[2018-05-23] MEDS: METOPROLOL SUCC *XL* 25MG TAB (TopROL *XL*) PO (11:39)
[2018-05-23] MEDS: VITAMIN D 1,000 INTERNATIONAL UNITS TABLET PO (11:39)
[2018-05-23] MEDS: FERROUS SULFATE 325MG TAB PO (11:40)
[2018-05-23] MEDS: MUPIROCIN 2% OINT 22 GM TUBE TOP ×2 (11:40→20:02)
[2018-05-23] MEDS: MAGNESIUM OXIDE 400 MG TAB (MAG-OX) PO ×2 (11:40→20:03)
[2018-05-23] MEDS: PARoxetine 20 MG TAB PO (11:40)
[2018-05-23] MEDS: CLOPIDOGREL 75 MG TAB PO (11:40)
[2018-05-23] MEDS: QUEtiapine FUMARATE 50 MG TAB PO (20:03)
[2018-05-23] MEDS: ATORVASTATIN 20 MG TAB PO (20:03)
[2018-05-24] MEDS: ACETAMINOPHEN TAB 650MG DOSE (2X325MG) PO (06:39)
[2018-05-24] MEDS: PARoxetine 20 MG TAB PO (08:47)
[2018-05-24] MEDS: PANTOPRAZOLE 40MG TAB (PROTONIX) PO (08:47)
[2018-05-24] MEDS: CLOPIDOGREL 75 MG TAB PO (08:47)
[2018-05-24] MEDS: MAGNESIUM OXIDE 400 MG TAB (MAG-OX) PO ×2 (08:47→21:31)
[2018-05-24] MEDS: FERROUS SULFATE 325MG TAB PO (08:47)
[2018-05-24] MEDS: METOPROLOL SUCC *XL* 25MG TAB (TopROL *XL*) PO (08:47)
[2018-05-24] MEDS: MULTIVITAMINS/MINERALS THERAP 1 TAB PO (08:47)
[2018-05-24] MEDS: VITAMIN D 1,000 INTERNATIONAL UNITS TABLET PO (08:47)
[2018-05-24] MEDS: MUPIROCIN 2% OINT 22 GM TUBE TOP ×2 (09:00→21:32)
[2018-05-24] MEDS: ATORVASTATIN 20 MG TAB PO (21:31)
[2018-05-24] MEDS: QUEtiapine FUMARATE 50 MG TAB PO (21:31)
[2018-05-25] MEDS: FERROUS SULFATE 325MG TAB PO (09:00)
[2018-05-25] MEDS: MUPIROCIN 2% OINT 22 GM TUBE TOP ×2 (09:00→21:53)
[2018-05-25] MEDS: PANTOPRAZOLE 40MG TAB (PROTONIX) PO (09:17)
[2018-05-25] MEDS: VITAMIN D 1,000 INTERNATIONAL UNITS TABLET PO (09:17)
[2018-05-25] MEDS: PARoxetine 20 MG TAB PO (09:17)
[2018-05-25] MEDS: MULTIVITAMINS/MINERALS THERAP 1 TAB PO (09:17)
[2018-05-25] MEDS: MAGNESIUM OXIDE 400 MG TAB (MAG-OX) PO ×2 (09:18→21:52)
[2018-05-25] MEDS: CLOPIDOGREL 75 MG TAB PO (09:18)
[2018-05-25] MEDS: METOPROLOL SUCC *XL* 25MG TAB (TopROL *XL*) PO (09:21)
[2018-05-25] MEDS: QUEtiapine FUMARATE 50 MG TAB PO (21:52)
[2018-05-25] MEDS: ATORVASTATIN 20 MG TAB PO (21:52)
[2018-05-26] MEDS: FERROUS SULFATE 325MG TAB PO (09:00)
[2018-05-26] MEDS: MAGNESIUM OXIDE 400 MG TAB (MAG-OX) PO ×2 (11:34→21:21)
[2018-05-26] MEDS: CLOPIDOGREL 75 MG TAB PO (11:34)
[2018-05-26] MEDS: PARoxetine 20 MG TAB PO (11:34)
[2018-05-26] MEDS: PANTOPRAZOLE 40MG TAB (PROTONIX) PO (11:34)
[2018-05-26] MEDS: METOPROLOL SUCC *XL* 25MG TAB (TopROL *XL*) PO (11:34)
[2018-05-26] MEDS: VITAMIN D 1,000 INTERNATIONAL UNITS TABLET PO (11:35)
[2018-05-26] MEDS: MUPIROCIN 2% OINT 22 GM TUBE TOP ×2 (11:35→21:21)
[2018-05-26] MEDS: MULTIVITAMINS/MINERALS THERAP 1 TAB PO (11:35)
[2018-05-26] MEDS: ATORVASTATIN 20 MG TAB PO (21:20)
[2018-05-26] MEDS: QUEtiapine FUMARATE 50 MG TAB PO (21:20)
[2018-05-27] MEDS: METOPROLOL SUCC *XL* 25MG TAB (TopROL *XL*) PO (10:04)
[2018-05-27] MEDS: CLOPIDOGREL 75 MG TAB PO (10:04)
[2018-05-27] MEDS: MAGNESIUM OXIDE 400 MG TAB (MAG-OX) PO ×2 (10:04→20:45)
[2018-05-27] MEDS: VITAMIN D 1,000 INTERNATIONAL UNITS TABLET PO (10:04)
[2018-05-27] MEDS: MULTIVITAMINS/MINERALS THERAP 1 TAB PO (10:04)
[2018-05-27] MEDS: PARoxetine 20 MG TAB PO (10:05)
[2018-05-27] MEDS: MUPIROCIN 2% OINT 22 GM TUBE TOP ×2 (10:05→20:46)
[2018-05-27] MEDS: PANTOPRAZOLE 40MG TAB (PROTONIX) PO (10:05)
[2018-05-27] MEDS: FERROUS SULFATE 325MG TAB PO (10:06)
[2018-05-27] MEDS: ATORVASTATIN 20 MG TAB PO (20:45)
[2018-05-27] MEDS: QUEtiapine FUMARATE 50 MG TAB PO (20:45)
[2018-05-27] MEDS: ACETAMINOPHEN TAB 650MG DOSE (2X325MG) PO (20:47)
[2018-05-28] MEDS: ACETAMINOPHEN TAB 650MG DOSE (2X325MG) PO ×4 (05:47→20:24)
[2018-05-28] MEDS: FERROUS SULFATE 325MG TAB PO ×2 (08:46→08:58)
[2018-05-28] MEDS: PANTOPRAZOLE 40MG TAB (PROTONIX) PO (08:46)
[2018-05-28] MEDS: VITAMIN D 1,000 INTERNATIONAL UNITS TABLET PO (08:46)
[2018-05-28] MEDS: CLOPIDOGREL 75 MG TAB PO (08:47)
[2018-05-28] MEDS: MAGNESIUM OXIDE 400 MG TAB (MAG-OX) PO ×2 (08:47→20:23)
[2018-05-28] MEDS: PARoxetine 20 MG TAB PO (08:47)
[2018-05-28] MEDS: MULTIVITAMINS/MINERALS THERAP 1 TAB PO (08:47)
[2018-05-28] MEDS: METOPROLOL SUCC *XL* 25MG TAB (TopROL *XL*) PO (08:48)
[2018-05-28] MEDS: MUPIROCIN 2% OINT 22 GM TUBE TOP ×2 (08:49→20:29)
[2018-05-28] MEDS: ATORVASTATIN 20 MG TAB PO (20:23)
[2018-05-28] MEDS: QUEtiapine FUMARATE 50 MG TAB PO (20:23)
[2018-05-29] MEDS: ACETAMINOPHEN TAB 650MG DOSE (2X325MG) PO ×2 (06:37→20:21)
[2018-05-29] MEDS: MULTIVITAMINS/MINERALS THERAP 1 TAB PO (08:27)
[2018-05-29] MEDS: PANTOPRAZOLE 40MG TAB (PROTONIX) PO (08:27)
[2018-05-29] MEDS: MUPIROCIN 2% OINT 22 GM TUBE TOP ×2 (08:28→20:21)
[2018-05-29] MEDS: METOPROLOL SUCC *XL* 25MG TAB (TopROL *XL*) PO (08:28)
[2018-05-29] MEDS: PARoxetine 20 MG TAB PO (08:28)
[2018-05-29] MEDS: VITAMIN D 1,000 INTERNATIONAL UNITS TABLET PO (08:28)
[2018-05-29] MEDS: MAGNESIUM OXIDE 400 MG TAB (MAG-OX) PO ×2 (08:28→20:20)
[2018-05-29] MEDS: CLOPIDOGREL 75 MG TAB PO (09:00)
[2018-05-29] MEDS: FERROUS SULFATE 325MG TAB PO (09:00)
[2018-05-29] MEDS: CEPACOL LOZENGE PO ×2 (13:35→21:55)
[2018-05-29] MEDS: QUEtiapine FUMARATE 50 MG TAB PO (20:20)
[2018-05-29] MEDS: ATORVASTATIN 20 MG TAB PO (20:21)
[2018-05-30] MEDS: ACETAMINOPHEN TAB 650MG DOSE (2X325MG) PO ×3 (06:23→21:50)
[2018-05-30] MEDS: FERROUS SULFATE 325MG TAB PO (09:00)
[2018-05-30 09:54] LABS: BASO % 0.7 % (0.0-1.0); EOS # 0.2 10^3/uL (0.0-0.50); EOS % 4.1 % (0.0-3.0); HEMATOCRIT 28.1 % (36.0-47.0); IMMATURE GRANULOCYTE % 0.5 % (0-3.0); LYMPH # 1.1 10^3/uL (1.5-4.5); LYMPH % 18.2 % (24.0-44.0); MEAN CORPUSCULAR HEMOGLOBIN 30.9 pg (27.0-33.0); MEAN CORPUSCULAR VOLUME 96.6 fl (80.0-96.0); MONO # 0.5 10^3/uL (0.0-0.8); NEUTROPHILS % 68.5 % (36.0-66.0); PLATELET COUNT, AUTOMATED 273 10^3/uL (150-450); RED BLOOD COUNT 2.91 10^6/uL (4.00-5.40); RED CELL DISTRIBUTION WIDTH 14.4 % (11.5-14.5); WHITE BLOOD COUNT 5.9 10^3/uL (4.0-10.0)
[2018-05-30 10:18] LABS: ALBUMIN 2.5 GM/DL (3.2-5.2); ALBUMIN/GLOBULIN RATIO 0.63 (1.00-1.93); ALKALINE PHOSPHATASE 73 U/L (45-117); ALT/SGPT 36 U/L (12-78); ANION GAP 8 MEQ/L (8-16); AST/SGOT 30 U/L (7-37); BILIRUBIN,TOTAL 0.4 MG/DL (0.2-1.0); BLOOD UREA NITROGEN 19 MG/DL (7-18); CALCIUM LEVEL 8.2 MG/DL (8.8-10.2); CARBON DIOXIDE LEVEL 30 MEQ/L (21-32); CHLORIDE LEVEL 95 MEQ/L (98-107); CREATININE FOR GFR 0.92 MG/DL (0.55-1.30); GLOMERULAR FILTRATION RATE > 60.0 (>32); GLUCOSE, FASTING 142 MG/DL (70-100); POTASSIUM SERUM 3.7 MEQ/L (3.5-5.1); SODIUM LEVEL 133 MEQ/L (136-145); TOTAL PROTEIN 6.5 GM/DL (6.4-8.2)
[2018-05-30] MEDS: METOPROLOL SUCC *XL* 25MG TAB (TopROL *XL*) PO (11:39)
[2018-05-30] MEDS: MAGNESIUM OXIDE 400 MG TAB (MAG-OX) PO ×2 (11:39→20:31)
[2018-05-30] MEDS: PANTOPRAZOLE 40MG TAB (PROTONIX) PO (11:39)
[2018-05-30] MEDS: VITAMIN D 1,000 INTERNATIONAL UNITS TABLET PO (11:39)
[2018-05-30] MEDS: MULTIVITAMINS/MINERALS THERAP 1 TAB PO (11:40)
[2018-05-30] MEDS: MUPIROCIN 2% OINT 22 GM TUBE TOP ×2 (11:40→20:32)
[2018-05-30] MEDS: CLOPIDOGREL 75 MG TAB PO (11:40)
[2018-05-30] MEDS: PARoxetine 20 MG TAB PO (11:40)
[2018-05-30 12:11] LABS: APPEARANCE, URINE CLEAR (CLEAR); BACTERIA, URINE AUTO 1+ (NEGATIVE); BILIRUBIN, URINE AUTO NEGATIVE (NEGATIVE); BLOOD, URINE BLOOD NEGATIVE (NEGATIVE); COLOR, URINE YELLOW (YELLOW); GLUCOSE, URINE (UA) AUTO NEGATIVE (NEGATIVE); KETONE, URINE AUTO NEGATIVE (NEGATIVE); LEUKOCYTE ESTERASE, URINE AUTO 2+ (NEGATIVE); NITRITE, URINE AUTO NEGATIVE (NEGATIVE); PROTEIN, URINE AUTO NEGATIVE (NEGATIVE); RBC, URINE AUTO 1 /HPF (0-3); SPECIFIC GRAVITY URINE AUTO 1.008 (1.002-1.035); SQUAMOUS EPITHELIAL CELL UR AU 1 /HPF (0-6); UROBILINOGEN, URINE AUTO 0.2 mg/dL (0.0-2.0); WBC, URINE AUTO 2 /HPF (0-3)
[2018-05-30] MEDS: ATORVASTATIN 20 MG TAB PO (20:31)
[2018-05-30] MEDS: QUEtiapine FUMARATE 50 MG TAB PO (20:32)
[2018-05-31] MEDS: ACETAMINOPHEN TAB 650MG DOSE (2X325MG) PO ×3 (07:08→21:59)
[2018-05-31] MEDS: MULTIVITAMINS/MINERALS THERAP 1 TAB PO (09:28)
[2018-05-31] MEDS: PARoxetine 20 MG TAB PO (09:28)
[2018-05-31] MEDS: FERROUS SULFATE 325MG TAB PO (09:28)
[2018-05-31] MEDS: MAGNESIUM OXIDE 400 MG TAB (MAG-OX) PO ×2 (09:29→21:57)
[2018-05-31] MEDS: CLOPIDOGREL 75 MG TAB PO (09:29)
[2018-05-31] MEDS: PANTOPRAZOLE 40MG TAB (PROTONIX) PO (09:29)
[2018-05-31] MEDS: VITAMIN D 1,000 INTERNATIONAL UNITS TABLET PO (09:32)
[2018-05-31] MEDS: MUPIROCIN 2% OINT 22 GM TUBE TOP ×2 (09:33→21:58)
[2018-05-31] MEDS: METOPROLOL SUCC *XL* 25MG TAB (TopROL *XL*) PO (09:33)
[2018-05-31] MEDS: QUEtiapine FUMARATE 50 MG TAB PO (21:57)
[2018-05-31] MEDS: ATORVASTATIN 20 MG TAB PO (21:57)
[2018-06-01] MEDS: ACETAMINOPHEN TAB 650MG DOSE (2X325MG) PO ×4 (01:59→20:17)
[2018-06-01] MEDS: FERROUS SULFATE 325MG TAB PO (09:00)
[2018-06-01] MEDS: MULTIVITAMINS/MINERALS THERAP 1 TAB PO (09:13)
[2018-06-01] MEDS: MAGNESIUM OXIDE 400 MG TAB (MAG-OX) PO ×2 (09:13→20:10)
[2018-06-01] MEDS: CLOPIDOGREL 75 MG TAB PO (09:13)
[2018-06-01] MEDS: PANTOPRAZOLE 40MG TAB (PROTONIX) PO (09:13)
[2018-06-01] MEDS: PARoxetine 20 MG TAB PO (09:13)
[2018-06-01] MEDS: VITAMIN D 1,000 INTERNATIONAL UNITS TABLET PO (09:14)
[2018-06-01] MEDS: MUPIROCIN 2% OINT 22 GM TUBE TOP ×2 (09:14→20:11)
[2018-06-01] MEDS: METOPROLOL SUCC *XL* 25MG TAB (TopROL *XL*) PO (09:14)
[2018-06-01] MEDS: ATORVASTATIN 20 MG TAB PO (20:10)
[2018-06-01] MEDS: LIDOCAINE 5% (LIDODERM) PATCH TD (20:11)
[2018-06-01] MEDS: QUEtiapine FUMARATE 50 MG TAB PO (21:58)
[2018-06-02] MEDS: ACETAMINOPHEN TAB 650MG DOSE (2X325MG) PO (02:45)
[2018-06-02] MEDS: FERROUS SULFATE 325MG TAB PO (09:00)
[2018-06-02] MEDS: **NOTE PATIENT COMMENT** MISC XX (09:00)
[2018-06-02] MEDS: MAGNESIUM OXIDE 400 MG TAB (MAG-OX) PO ×2 (09:56→21:06)
[2018-06-02] MEDS: METOPROLOL SUCC *XL* 25MG TAB (TopROL *XL*) PO (09:57)
[2018-06-02] MEDS: VITAMIN D 1,000 INTERNATIONAL UNITS TABLET PO (09:57)
[2018-06-02] MEDS: MULTIVITAMINS/MINERALS THERAP 1 TAB PO (09:57)
[2018-06-02] MEDS: CLOPIDOGREL 75 MG TAB PO (09:57)
[2018-06-02] MEDS: PARoxetine 20 MG TAB PO (09:57)
[2018-06-02] MEDS: PANTOPRAZOLE 40MG TAB (PROTONIX) PO (09:57)
[2018-06-02] MEDS: MUPIROCIN 2% OINT 22 GM TUBE TOP ×2 (09:58→21:06)
[2018-06-02] MEDS ORDERED: ACETAMINOPHEN 650MG ER TAB (TYLENOL ARTHRITIS) PO (10:30)
[2018-06-02] MEDS: ACETAMINOPHEN 650MG ER TAB (TYLENOL ARTHRITIS) PO ×2 (14:35→21:06)
[2018-06-02] MEDS: LIDOCAINE 5% (LIDODERM) PATCH TD (19:45)
[2018-06-02] MEDS: QUEtiapine FUMARATE 50 MG TAB PO (21:06)
[2018-06-02] MEDS: ATORVASTATIN 20 MG TAB PO (21:06)
[2018-06-03] MEDS: ACETAMINOPHEN 650MG ER TAB (TYLENOL ARTHRITIS) PO ×3 (05:53→20:42)
[2018-06-03] MEDS: **NOTE PATIENT COMMENT** MISC XX (08:00)
[2018-06-03] MEDS: FERROUS SULFATE 325MG TAB PO (08:16)
[2018-06-03] MEDS: PANTOPRAZOLE 40MG TAB (PROTONIX) PO (08:20)
[2018-06-03] MEDS: CLOPIDOGREL 75 MG TAB PO (08:20)
[2018-06-03] MEDS: METOPROLOL SUCC *XL* 25MG TAB (TopROL *XL*) PO (08:20)
[2018-06-03] MEDS: VITAMIN D 1,000 INTERNATIONAL UNITS TABLET PO (08:20)
[2018-06-03] MEDS: MULTIVITAMINS/MINERALS THERAP 1 TAB PO (08:20)
[2018-06-03] MEDS: PARoxetine 20 MG TAB PO (08:21)
[2018-06-03] MEDS: MAGNESIUM OXIDE 400 MG TAB (MAG-OX) PO ×2 (08:21→20:42)
[2018-06-03] MEDS: MUPIROCIN 2% OINT 22 GM TUBE TOP ×2 (08:21→20:42)
[2018-06-03] MEDS: NORCO, ANEXSIA 5/325MG TABLET (HYDROcodone/ACETAMINOPHEN) PO ×2 (10:33→17:41)
[2018-06-03] MEDS: QUEtiapine FUMARATE 50 MG TAB PO (20:42)
[2018-06-03] MEDS: ATORVASTATIN 20 MG TAB PO (20:42)
[2018-06-03] MEDS: LIDOCAINE 5% (LIDODERM) PATCH TD (20:43)
[2018-06-04] MEDS: NORCO, ANEXSIA 5/325MG TABLET (HYDROcodone/ACETAMINOPHEN) PO ×4 (00:15→23:44)
[2018-06-04] MEDS: ACETAMINOPHEN 650MG ER TAB (TYLENOL ARTHRITIS) PO ×3 (06:01→20:52)
[2018-06-04] MEDS: **NOTE PATIENT COMMENT** MISC XX (08:00)
[2018-06-04] MEDS: FERROUS SULFATE 325MG TAB PO (09:00)
[2018-06-04] MEDS: CLOPIDOGREL 75 MG TAB PO (09:03)
[2018-06-04] MEDS: MULTIVITAMINS/MINERALS THERAP 1 TAB PO (09:03)
[2018-06-04] MEDS: METOPROLOL SUCC *XL* 25MG TAB (TopROL *XL*) PO (09:03)
[2018-06-04] MEDS: PANTOPRAZOLE 40MG TAB (PROTONIX) PO (09:04)
[2018-06-04] MEDS: MAGNESIUM OXIDE 400 MG TAB (MAG-OX) PO ×2 (09:04→20:52)
[2018-06-04] MEDS: VITAMIN D 1,000 INTERNATIONAL UNITS TABLET PO (09:04)
[2018-06-04] MEDS: PARoxetine 20 MG TAB PO (09:04)
[2018-06-04] MEDS: MUPIROCIN 2% OINT 22 GM TUBE TOP ×2 (14:16→20:52)
[2018-06-04] MEDS: ATORVASTATIN 20 MG TAB PO (20:51)
[2018-06-04] MEDS: LIDOCAINE 5% (LIDODERM) PATCH TD (20:52)
[2018-06-04] MEDS: QUEtiapine FUMARATE 50 MG TAB PO (23:32)
[2018-06-05] MEDS: ACETAMINOPHEN 650MG ER TAB (TYLENOL ARTHRITIS) PO ×2 (05:58→13:44)
[2018-06-05] MEDS: **NOTE PATIENT COMMENT** MISC XX (08:00)
[2018-06-05] MEDS: NORCO, ANEXSIA 5/325MG TABLET (HYDROcodone/ACETAMINOPHEN) PO ×2 (08:33→17:55)
[2018-06-05] MEDS: PARoxetine 20 MG TAB PO (08:33)
[2018-06-05] MEDS: METOPROLOL SUCC *XL* 25MG TAB (TopROL *XL*) PO (08:33)
[2018-06-05] MEDS: MULTIVITAMINS/MINERALS THERAP 1 TAB PO (08:33)
[2018-06-05] MEDS: CLOPIDOGREL 75 MG TAB PO (08:33)
[2018-06-05] MEDS: VITAMIN D 1,000 INTERNATIONAL UNITS TABLET PO (08:34)
[2018-06-05] MEDS: MAGNESIUM OXIDE 400 MG TAB (MAG-OX) PO ×2 (08:34→21:30)
[2018-06-05] MEDS: PANTOPRAZOLE 40MG TAB (PROTONIX) PO (08:34)
[2018-06-05] MEDS: FERROUS SULFATE 325MG TAB PO (08:42)
[2018-06-05] MEDS: MUPIROCIN 2% OINT 22 GM TUBE TOP ×2 (14:45→21:00)
[2018-06-05] MEDS: LIDOCAINE 5% (LIDODERM) PATCH TD (21:29)
[2018-06-05] MEDS: ATORVASTATIN 20 MG TAB PO (21:29)
[2018-06-05] MEDS: QUEtiapine FUMARATE 50 MG TAB PO (21:30)
[2018-06-06] MEDS: NORCO, ANEXSIA 5/325MG TABLET (HYDROcodone/ACETAMINOPHEN) PO ×4 (00:52→21:52)
[2018-06-06] MEDS: PANTOPRAZOLE 40MG TAB (PROTONIX) PO (09:00)
[2018-06-06] MEDS: FERROUS SULFATE 325MG TAB PO (09:00)
[2018-06-06] MEDS: PARoxetine 20 MG TAB PO (09:00)
[2018-06-06] MEDS: VITAMIN D 1,000 INTERNATIONAL UNITS TABLET PO (09:00)
[2018-06-06] MEDS: MAGNESIUM OXIDE 400 MG TAB (MAG-OX) PO ×2 (09:01→20:37)
[2018-06-06] MEDS: MULTIVITAMINS/MINERALS THERAP 1 TAB PO (09:01)
[2018-06-06] MEDS: CLOPIDOGREL 75 MG TAB PO (09:01)
[2018-06-06] MEDS: METOPROLOL SUCC *XL* 25MG TAB (TopROL *XL*) PO (09:04)
[2018-06-06] MEDS: MUPIROCIN 2% OINT 22 GM TUBE TOP ×2 (09:04→20:38)
[2018-06-06] MEDS: **NOTE PATIENT COMMENT** MISC XX (09:05)
[2018-06-06] MEDS: LIDOCAINE 5% (LIDODERM) PATCH TD ×2 (20:36)
[2018-06-06] MEDS: QUEtiapine FUMARATE 50 MG TAB PO (20:37)
[2018-06-06] MEDS: ATORVASTATIN 20 MG TAB PO (20:37)
[2018-06-07] MEDS: NORCO, ANEXSIA 5/325MG TABLET (HYDROcodone/ACETAMINOPHEN) PO ×3 (05:02→21:26)
[2018-06-07 06:42] LABS: ANION GAP 7 MEQ/L (8-16); BLOOD UREA NITROGEN 17 MG/DL (7-18); CALCIUM LEVEL 8.5 MG/DL (8.8-10.2); CARBON DIOXIDE LEVEL 31 MEQ/L (21-32); CHLORIDE LEVEL 100 MEQ/L (98-107); GLOMERULAR FILTRATION RATE > 60.0 (>32); GLUCOSE, FASTING 93 MG/DL (70-100); POTASSIUM SERUM 4.2 MEQ/L (3.5-5.1); SODIUM LEVEL 138 MEQ/L (136-145)
[2018-06-07] MEDS: FERROUS SULFATE 325MG TAB PO (07:44)
[2018-06-07] MEDS: **NOTE PATIENT COMMENT** MISC XX (08:00)
[2018-06-07] MEDS: ONDANSETRON 4 MG ORAL DISINTEGRATING TAB (Q0162 PER 1MG) SL (08:44)
[2018-06-07] MEDS: MUPIROCIN 2% OINT 22 GM TUBE TOP ×3 (09:00→21:14)
[2018-06-07] MEDS: METOPROLOL SUCC *XL* 25MG TAB (TopROL *XL*) PO (09:00)
[2018-06-07] MEDS: VITAMIN D 1,000 INTERNATIONAL UNITS TABLET PO (09:42)
[2018-06-07] MEDS: PANTOPRAZOLE 40MG TAB (PROTONIX) PO (09:42)
[2018-06-07] MEDS: MAGNESIUM OXIDE 400 MG TAB (MAG-OX) PO ×2 (09:42→21:14)
[2018-06-07] MEDS: MULTIVITAMINS/MINERALS THERAP 1 TAB PO (09:42)
[2018-06-07] MEDS: PARoxetine 20 MG TAB PO (09:42)
[2018-06-07] MEDS: CLOPIDOGREL 75 MG TAB PO (09:42)
[2018-06-07] MEDS ORDERED: ACETAMINOPHEN 500 MG TAB As Ordered (16:58)
[2018-06-07] MEDS: ACETAMINOPHEN 500 MG TAB PO (16:59)
[2018-06-07 17:14] LABS: BASO # 0.1 10^3/uL (0.0-0.2); BASO % 0.8 % (0.0-1.0); EOS # 0.4 10^3/uL (0.0-0.50); EOS % 5.6 % (0.0-3.0); HEMATOCRIT 31.7 % (36.0-47.0); HEMOGLOBIN 9.7 g/dl (12.0-15.5); IMMATURE GRANULOCYTE % 0.6 % (0-3.0); LYMPH # 2.5 10^3/uL (1.5-4.5); LYMPH % 34.3 % (24.0-44.0); MEAN CORPUSCULAR HEMOGLOBIN 30.1 pg (27.0-33.0); MEAN CORPUSCULAR HGB CONC 30.6 g/dl (32.0-36.5); MEAN CORPUSCULAR VOLUME 98.4 fl (80.0-96.0); MONO # 0.8 10^3/uL (0.0-0.8); MONO % 10.7 % (0.0-5.0); NEUTROPHILS # 3.5 10^3/uL (1.8-7.7); PLATELET COUNT, AUTOMATED 354 10^3/uL (150-450); RED BLOOD COUNT 3.22 10^6/uL (4.00-5.40); WHITE BLOOD COUNT 7.3 10^3/uL (4.0-10.0)
[2018-06-07 17:29] LABS: ABG BASE EXCESS 3.8 (-2.0-2.0); ABG PARTIAL PRESSURE CO2 46.7 mmHg (35.0-45.0); ABG PARTIAL PRESSURE O2 259.4 mmHg (75.0-100.0); ABG STANDARD HCO3 27.9 MEQ/L (22.0-26.0); ABG TOTAL CO2 30.4 MEQ/L (23.0-31.0); ABG pH (ARTERIAL) 7.411 UNITS (7.350-7.450)
[2018-06-07 17:46] LABS: CK-MB VALUE MASS 1.2 NG/ML (<3.6); CPK CREATINE PHOSPHOKINASE 38 U/L (26-192); MB/CK RELATIVE INDEX 3.15 (< OR =4); TROPONIN I 0.03 NG/ML (< 0.10)
[2018-06-07 18:19] LABS: D-DIMER QUANT 2336.4 ng/ml (<500)
[2018-06-07] MEDS: LIDOCAINE 5% (LIDODERM) PATCH TD (21:13)
[2018-06-07] MEDS: ATORVASTATIN 20 MG TAB PO (21:13)
[2018-06-07] MEDS: QUEtiapine FUMARATE 50 MG TAB PO (21:14)
[2018-06-07 22:08] LABS: CK-MB VALUE MASS < 1.0 NG/ML (<3.6); CPK CREATINE PHOSPHOKINASE 43 U/L (26-192); MB/CK RELATIVE INDEX 2.32 (< OR =4); TROPONIN I 0.03 NG/ML (< 0.10)
[2018-06-08] MEDS: **NOTE PATIENT COMMENT** MISC XX (08:00)
[2018-06-08] MEDS: FERROUS SULFATE 325MG TAB PO (09:00)
[2018-06-08] MEDS: PARoxetine 20 MG TAB PO (09:35)
[2018-06-08] MEDS: MAGNESIUM OXIDE 400 MG TAB (MAG-OX) PO ×2 (09:35→20:27)
[2018-06-08] MEDS: CLOPIDOGREL 75 MG TAB PO (09:35)
[2018-06-08] MEDS: PANTOPRAZOLE 40MG TAB (PROTONIX) PO (09:36)
[2018-06-08] MEDS: METOPROLOL SUCC *XL* 25MG TAB (TopROL *XL*) PO (09:36)
[2018-06-08] MEDS: MULTIVITAMINS/MINERALS THERAP 1 TAB PO (09:36)
[2018-06-08] MEDS: VITAMIN D 1,000 INTERNATIONAL UNITS TABLET PO (09:37)
[2018-06-08] MEDS: MUPIROCIN 2% OINT 22 GM TUBE TOP ×2 (09:37→20:27)
[2018-06-08] MEDS: NORCO, ANEXSIA 5/325MG TABLET (HYDROcodone/ACETAMINOPHEN) PO ×3 (09:43→23:06)
[2018-06-08] MEDS: LIDOCAINE 5% (LIDODERM) PATCH TD (20:26)
[2018-06-08] MEDS: QUEtiapine FUMARATE 50 MG TAB PO (20:27)
[2018-06-08] MEDS: ATORVASTATIN 20 MG TAB PO (20:27)
[2018-06-09] MEDS: **NOTE PATIENT COMMENT** MISC XX (06:49)
[2018-06-09] MEDS: METOPROLOL SUCC *XL* 25MG TAB (TopROL *XL*) PO (09:43)
[2018-06-09] MEDS: MULTIVITAMINS/MINERALS THERAP 1 TAB PO (09:44)
[2018-06-09] MEDS: PARoxetine 20 MG TAB PO (09:44)
[2018-06-09] MEDS: VITAMIN D 1,000 INTERNATIONAL UNITS TABLET PO (09:44)
[2018-06-09] MEDS: CLOPIDOGREL 75 MG TAB PO (09:44)
[2018-06-09] MEDS: PANTOPRAZOLE 40MG TAB (PROTONIX) PO (09:44)
[2018-06-09] MEDS: MAGNESIUM OXIDE 400 MG TAB (MAG-OX) PO ×2 (09:45→21:30)
[2018-06-09] MEDS: MUPIROCIN 2% OINT 22 GM TUBE TOP ×2 (09:45→21:31)
[2018-06-09] MEDS: NORCO, ANEXSIA 5/325MG TABLET (HYDROcodone/ACETAMINOPHEN) PO ×2 (09:50→21:32)
[2018-06-09] MEDS ORDERED: MAXIMUM TYLENOL (APAP) = 4GM/24H XX (12:45)
[2018-06-09] MEDS: LIDOCAINE 5% (LIDODERM) PATCH TD (21:30)
[2018-06-09] MEDS: ATORVASTATIN 20 MG TAB PO (21:30)
[2018-06-09] MEDS: QUEtiapine FUMARATE 50 MG TAB PO (21:30)
[2018-06-10] MEDS: PANTOPRAZOLE 40MG TAB (PROTONIX) PO (09:07)
[2018-06-10] MEDS: VITAMIN D 1,000 INTERNATIONAL UNITS TABLET PO (09:07)
[2018-06-10] MEDS: MAGNESIUM OXIDE 400 MG TAB (MAG-OX) PO ×2 (09:08→20:50)
[2018-06-10] MEDS: **NOTE PATIENT COMMENT** MISC XX (09:08)
[2018-06-10] MEDS: PARoxetine 20 MG TAB PO (09:08)
[2018-06-10] MEDS: MULTIVITAMINS/MINERALS THERAP 1 TAB PO (09:08)
[2018-06-10] MEDS: CLOPIDOGREL 75 MG TAB PO (09:08)
[2018-06-10] MEDS: MUPIROCIN 2% OINT 22 GM TUBE TOP ×2 (09:08→20:50)
[2018-06-10] MEDS: NORCO, ANEXSIA 5/325MG TABLET (HYDROcodone/ACETAMINOPHEN) PO (09:10)
[2018-06-10] MEDS: ACETAMINOPHEN 500 MG TAB PO (17:22)
[2018-06-10] MEDS: ATORVASTATIN 20 MG TAB PO (20:50)
[2018-06-10] MEDS: LIDOCAINE 5% (LIDODERM) PATCH TD (20:50)
[2018-06-10] MEDS: QUEtiapine FUMARATE 50 MG TAB PO (20:50)
[2018-06-11] MEDS: NORCO, ANEXSIA 5/325MG TABLET (HYDROcodone/ACETAMINOPHEN) PO ×2 (05:19→20:31)
[2018-06-11] MEDS: **NOTE PATIENT COMMENT** MISC XX (08:00)
[2018-06-11] MEDS: MUPIROCIN 2% OINT 22 GM TUBE TOP ×2 (09:00→20:41)
[2018-06-11] MEDS: PARoxetine 20 MG TAB PO (09:03)
[2018-06-11] MEDS: MAGNESIUM OXIDE 400 MG TAB (MAG-OX) PO ×2 (09:03→20:30)
[2018-06-11] MEDS: PANTOPRAZOLE 40MG TAB (PROTONIX) PO (09:03)
[2018-06-11] MEDS: CLOPIDOGREL 75 MG TAB PO (09:03)
[2018-06-11] MEDS: VITAMIN D 1,000 INTERNATIONAL UNITS TABLET PO (09:03)
[2018-06-11] MEDS: MULTIVITAMINS/MINERALS THERAP 1 TAB PO (09:03)
[2018-06-11] MEDS: ACETAMINOPHEN 500 MG TAB PO ×2 (10:24→17:01)
[2018-06-11] MEDS: LIDOCAINE 5% (LIDODERM) PATCH TD (20:00)
[2018-06-11] MEDS: ATORVASTATIN 20 MG TAB PO (20:30)
[2018-06-11] MEDS: QUEtiapine FUMARATE 50 MG TAB PO (20:30)
[2018-06-12] MEDS: ACETAMINOPHEN 500 MG TAB PO ×4 (00:08→21:29)
[2018-06-12] MEDS: NORCO, ANEXSIA 5/325MG TABLET (HYDROcodone/ACETAMINOPHEN) PO ×3 (07:49→16:05)
[2018-06-12] MEDS: PARoxetine 20 MG TAB PO (07:50)
[2018-06-12] MEDS: CLOPIDOGREL 75 MG TAB PO (07:50)
[2018-06-12] MEDS: PANTOPRAZOLE 40MG TAB (PROTONIX) PO (07:50)
[2018-06-12] MEDS: MAGNESIUM OXIDE 400 MG TAB (MAG-OX) PO ×2 (07:50→21:30)
[2018-06-12] MEDS: VITAMIN D 1,000 INTERNATIONAL UNITS TABLET PO (07:50)
[2018-06-12] MEDS: MULTIVITAMINS/MINERALS THERAP 1 TAB PO (07:51)
[2018-06-12] MEDS: MUPIROCIN 2% OINT 22 GM TUBE TOP ×2 (07:55→21:31)
[2018-06-12] MEDS: **NOTE PATIENT COMMENT** MISC XX (07:55)
[2018-06-12] MEDS: LIDOCAINE 5% (LIDODERM) PATCH TD (21:28)
[2018-06-12] MEDS: ATORVASTATIN 20 MG TAB PO (21:29)
[2018-06-12] MEDS: QUEtiapine FUMARATE 50 MG TAB PO (21:29)
[2018-06-12] MEDS: DICLOFENAC EPOLAMINE 1.3 % PATCH TOP (22:28)
[2018-06-13] MEDS: ACETAMINOPHEN 500 MG TAB PO ×3 (04:20→20:19)
[2018-06-13] MEDS: MULTIVITAMINS/MINERALS THERAP 1 TAB PO (10:08)
[2018-06-13] MEDS: PANTOPRAZOLE 40MG TAB (PROTONIX) PO (10:08)
[2018-06-13] MEDS: CLOPIDOGREL 75 MG TAB PO (10:08)
[2018-06-13] MEDS: VITAMIN D 1,000 INTERNATIONAL UNITS TABLET PO (10:08)
[2018-06-13] MEDS: PARoxetine 20 MG TAB PO (10:08)
[2018-06-13] MEDS: **NOTE PATIENT COMMENT** MISC XX (10:09)
[2018-06-13] MEDS: MAGNESIUM OXIDE 400 MG TAB (MAG-OX) PO ×2 (10:09→20:16)
[2018-06-13] MEDS: MUPIROCIN 2% OINT 22 GM TUBE TOP ×2 (10:10→20:18)
[2018-06-13] MEDS: DICLOFENAC EPOLAMINE 1.3 % PATCH TOP ×2 (10:11→20:17)
[2018-06-13] MEDS: LIDOCAINE 5% (LIDODERM) PATCH TD (20:17)
[2018-06-13] MEDS: ATORVASTATIN 20 MG TAB PO (20:17)
[2018-06-13] MEDS: QUEtiapine FUMARATE 50 MG TAB PO (20:18)
[2018-06-14] MEDS: ACETAMINOPHEN 500 MG TAB PO ×4 (07:46→23:08)
[2018-06-14] MEDS: **NOTE PATIENT COMMENT** MISC XX (08:00)
[2018-06-14] MEDS: MAGNESIUM OXIDE 400 MG TAB (MAG-OX) PO ×2 (09:55→21:16)
[2018-06-14] MEDS: CLOPIDOGREL 75 MG TAB PO (09:55)
[2018-06-14] MEDS: PARoxetine 20 MG TAB PO (09:55)
[2018-06-14] MEDS: PANTOPRAZOLE 40MG TAB (PROTONIX) PO (09:55)
[2018-06-14] MEDS: VITAMIN D 1,000 INTERNATIONAL UNITS TABLET PO (09:55)
[2018-06-14] MEDS: MULTIVITAMINS/MINERALS THERAP 1 TAB PO (09:55)
[2018-06-14] MEDS: MUPIROCIN 2% OINT 22 GM TUBE TOP ×2 (09:56→21:16)
[2018-06-14] MEDS: DICLOFENAC EPOLAMINE 1.3 % PATCH TOP ×2 (09:56→22:09)
[2018-06-14] MEDS: ATORVASTATIN 20 MG TAB PO (21:15)
[2018-06-14] MEDS: QUEtiapine FUMARATE 50 MG TAB PO (21:16)
[2018-06-15] MEDS: ACETAMINOPHEN 500 MG TAB PO ×4 (08:01→22:15)
[2018-06-15] MEDS: VITAMIN D 1,000 INTERNATIONAL UNITS TABLET PO (08:01)
[2018-06-15] MEDS: MULTIVITAMINS/MINERALS THERAP 1 TAB PO (08:01)
[2018-06-15] MEDS: CLOPIDOGREL 75 MG TAB PO (08:02)
[2018-06-15] MEDS: DICLOFENAC EPOLAMINE 1.3 % PATCH TOP ×2 (08:02→20:09)
[2018-06-15] MEDS: MUPIROCIN 2% OINT 22 GM TUBE TOP ×2 (08:02→20:10)
[2018-06-15] MEDS: PANTOPRAZOLE 40MG TAB (PROTONIX) PO (08:02)
[2018-06-15] MEDS: MAGNESIUM OXIDE 400 MG TAB (MAG-OX) PO ×2 (08:02→20:10)
[2018-06-15] MEDS: PARoxetine 20 MG TAB PO (08:02)
[2018-06-15] MEDS: QUEtiapine FUMARATE 50 MG TAB PO (20:10)
[2018-06-15] MEDS: ATORVASTATIN 20 MG TAB PO (20:10)
[2018-06-16] MEDS: ACETAMINOPHEN 500 MG TAB PO ×4 (02:56→18:13)
[2018-06-16] MEDS: MAGNESIUM OXIDE 400 MG TAB (MAG-OX) PO ×2 (09:51→21:15)
[2018-06-16] MEDS: PARoxetine 20 MG TAB PO (09:51)
[2018-06-16] MEDS: MULTIVITAMINS/MINERALS THERAP 1 TAB PO (09:51)
[2018-06-16] MEDS: VITAMIN D 1,000 INTERNATIONAL UNITS TABLET PO (09:51)
[2018-06-16] MEDS: PANTOPRAZOLE 40MG TAB (PROTONIX) PO (09:51)
[2018-06-16] MEDS: CLOPIDOGREL 75 MG TAB PO (09:51)
[2018-06-16] MEDS: DICLOFENAC EPOLAMINE 1.3 % PATCH TOP ×2 (09:52→21:16)
[2018-06-16] MEDS: MUPIROCIN 2% OINT 22 GM TUBE TOP ×2 (09:52→21:16)
[2018-06-16 14:53] LABS: KETONE, URINE AUTO RFX NEGATIVE (NEGATIVE); NITRITE, URINE AUTO RFX NEGATIVE (NEGATIVE); RBC, URINE AUTO RFX 1 /HPF (0-3); SPECIFIC GRAVITY UR AUTO RFX 1.013 (1.002-1.035); SQUAM EPITHELIAL CELL UR AURFX 0 /HPF (0-6); WBC, URINE AUTO RFX 9 /HPF (0-3)
[2018-06-16 14:55] LABS: LEUKOCYTE ESTERASE UR AUTO RFX 2+ (NEGATIVE)
[2018-06-16] MEDS: ATORVASTATIN 20 MG TAB PO (21:15)
[2018-06-16] MEDS: QUEtiapine FUMARATE 50 MG TAB PO (21:16)
[2018-06-17] MEDS: ACETAMINOPHEN 500 MG TAB PO ×3 (04:31→18:22)
[2018-06-17] MEDS: CLOPIDOGREL 75 MG TAB PO (09:08)
[2018-06-17] MEDS: MUPIROCIN 2% OINT 22 GM TUBE TOP ×2 (09:08→20:27)
[2018-06-17] MEDS: PANTOPRAZOLE 40MG TAB (PROTONIX) PO (09:08)
[2018-06-17] MEDS: MAGNESIUM OXIDE 400 MG TAB (MAG-OX) PO ×2 (09:08→20:27)
[2018-06-17] MEDS: PARoxetine 20 MG TAB PO (09:09)
[2018-06-17] MEDS: VITAMIN D 1,000 INTERNATIONAL UNITS TABLET PO (09:09)
[2018-06-17] MEDS: DICLOFENAC EPOLAMINE 1.3 % PATCH TOP ×2 (09:09→20:27)
[2018-06-17] MEDS: MULTIVITAMINS/MINERALS THERAP 1 TAB PO (09:09)
[2018-06-17] MEDS: ATORVASTATIN 20 MG TAB PO (20:26)
[2018-06-17] MEDS: QUEtiapine FUMARATE 50 MG TAB PO (20:27)
[2018-06-18] MEDS: MULTIVITAMINS/MINERALS THERAP 1 TAB PO (09:23)
[2018-06-18] MEDS: PANTOPRAZOLE 40MG TAB (PROTONIX) PO (09:23)
[2018-06-18] MEDS: VITAMIN D 1,000 INTERNATIONAL UNITS TABLET PO (09:24)
[2018-06-18] MEDS: CLOPIDOGREL 75 MG TAB PO (09:24)
[2018-06-18] MEDS: PARoxetine 20 MG TAB PO (09:24)
[2018-06-18] MEDS: ACETAMINOPHEN 500 MG TAB PO ×2 (09:24→21:56)
[2018-06-18] MEDS: DICLOFENAC EPOLAMINE 1.3 % PATCH TOP ×2 (09:24→21:55)
[2018-06-18] MEDS: MAGNESIUM OXIDE 400 MG TAB (MAG-OX) PO ×2 (09:24→21:55)
[2018-06-18] MEDS: MUPIROCIN 2% OINT 22 GM TUBE TOP ×2 (09:25→21:55)
[2018-06-18] MEDS: ATORVASTATIN 20 MG TAB PO (21:54)
[2018-06-18] MEDS: QUEtiapine FUMARATE 50 MG TAB PO (21:55)
[2018-06-19] MEDS: ACETAMINOPHEN 500 MG TAB PO ×4 (06:30→20:31)
[2018-06-19] MEDS: MUPIROCIN 2% OINT 22 GM TUBE TOP ×2 (09:10→20:31)
[2018-06-19] MEDS: MAGNESIUM OXIDE 400 MG TAB (MAG-OX) PO ×2 (09:11→20:31)
[2018-06-19] MEDS: VITAMIN D 1,000 INTERNATIONAL UNITS TABLET PO (09:11)
[2018-06-19] MEDS: DICLOFENAC EPOLAMINE 1.3 % PATCH TOP ×2 (09:11→20:30)
[2018-06-19] MEDS: CLOPIDOGREL 75 MG TAB PO (09:11)
[2018-06-19] MEDS: MULTIVITAMINS/MINERALS THERAP 1 TAB PO (09:11)
[2018-06-19] MEDS: PARoxetine 20 MG TAB PO (09:11)
[2018-06-19] MEDS: PANTOPRAZOLE 40MG TAB (PROTONIX) PO (09:11)
[2018-06-19] MEDS: ONDANSETRON 4 MG ORAL DISINTEGRATING TAB (Q0162 PER 1MG) SL (11:50)
[2018-06-19] MEDS: ATORVASTATIN 20 MG TAB PO (20:31)
[2018-06-19] MEDS: QUEtiapine FUMARATE 50 MG TAB PO (22:00)
[2018-06-20] MEDS: ACETAMINOPHEN 500 MG TAB PO ×5 (00:41→21:41)
[2018-06-20] MEDS: VITAMIN D 1,000 INTERNATIONAL UNITS TABLET PO (09:40)
[2018-06-20] MEDS: MUPIROCIN 2% OINT 22 GM TUBE TOP ×2 (09:40→21:42)
[2018-06-20] MEDS: MAGNESIUM OXIDE 400 MG TAB (MAG-OX) PO ×2 (09:40→21:40)
[2018-06-20] MEDS: PANTOPRAZOLE 40MG TAB (PROTONIX) PO (09:40)
[2018-06-20] MEDS: PARoxetine 20 MG TAB PO (09:40)
[2018-06-20] MEDS: CLOPIDOGREL 75 MG TAB PO (09:40)
[2018-06-20] MEDS: DICLOFENAC EPOLAMINE 1.3 % PATCH TOP ×2 (09:40→21:41)
[2018-06-20] MEDS: MULTIVITAMINS/MINERALS THERAP 1 TAB PO (09:40)
[2018-06-20] MEDS: ATORVASTATIN 20 MG TAB PO (21:41)
[2018-06-20] MEDS: QUEtiapine FUMARATE 50 MG TAB PO (21:42)
[2018-06-21] MEDS: ACETAMINOPHEN 500 MG TAB PO ×3 (04:49→15:33)
[2018-06-21] MEDS: PANTOPRAZOLE 40MG TAB (PROTONIX) PO (09:45)
[2018-06-21] MEDS: PARoxetine 20 MG TAB PO (09:45)
[2018-06-21] MEDS: MAGNESIUM OXIDE 400 MG TAB (MAG-OX) PO ×2 (09:45→20:09)
[2018-06-21] MEDS: MULTIVITAMINS/MINERALS THERAP 1 TAB PO (09:45)
[2018-06-21] MEDS: VITAMIN D 1,000 INTERNATIONAL UNITS TABLET PO (09:45)
[2018-06-21] MEDS: CLOPIDOGREL 75 MG TAB PO (09:46)
[2018-06-21] MEDS: MUPIROCIN 2% OINT 22 GM TUBE TOP ×2 (09:46→20:10)
[2018-06-21] MEDS: DICLOFENAC EPOLAMINE 1.3 % PATCH TOP ×2 (09:46→20:10)
[2018-06-21] MEDS: NYSTATIN 100,000 UNITS/GM TOPICAL PWD 15 GM TOP (11:48)
[2018-06-21] MEDS: QUEtiapine FUMARATE 50 MG TAB PO (20:09)
[2018-06-21] MEDS: ATORVASTATIN 20 MG TAB PO (20:09)
[2018-06-22] MEDS: ACETAMINOPHEN 500 MG TAB PO ×3 (02:34→17:52)
[2018-06-22] MEDS: NYSTATIN 100,000 UNITS/GM TOPICAL PWD 15 GM TOP ×2 (02:34→08:57)
[2018-06-22] MEDS: PANTOPRAZOLE 40MG TAB (PROTONIX) PO (08:55)
[2018-06-22] MEDS: DICLOFENAC EPOLAMINE 1.3 % PATCH TOP ×2 (08:55→21:59)
[2018-06-22] MEDS: MAGNESIUM OXIDE 400 MG TAB (MAG-OX) PO ×2 (08:55→21:59)
[2018-06-22] MEDS: MULTIVITAMINS/MINERALS THERAP 1 TAB PO (08:55)
[2018-06-22] MEDS: CLOPIDOGREL 75 MG TAB PO (08:55)
[2018-06-22] MEDS: PARoxetine 20 MG TAB PO (08:56)
[2018-06-22] MEDS: VITAMIN D 1,000 INTERNATIONAL UNITS TABLET PO (08:56)
[2018-06-22] MEDS: MUPIROCIN 2% OINT 22 GM TUBE TOP ×2 (08:57→21:59)
[2018-06-22] MEDS: QUEtiapine FUMARATE 50 MG TAB PO (21:59)
[2018-06-22] MEDS: ATORVASTATIN 20 MG TAB PO (21:59)
[2018-06-23] MEDS: ACETAMINOPHEN 500 MG TAB PO ×3 (01:25→19:01)
[2018-06-23] MEDS: DICLOFENAC EPOLAMINE 1.3 % PATCH TOP ×2 (08:19→20:29)
[2018-06-23] MEDS: MAGNESIUM OXIDE 400 MG TAB (MAG-OX) PO ×2 (08:19→20:29)
[2018-06-23] MEDS: VITAMIN D 1,000 INTERNATIONAL UNITS TABLET PO (08:19)
[2018-06-23] MEDS: PARoxetine 20 MG TAB PO (08:19)
[2018-06-23] MEDS: CLOPIDOGREL 75 MG TAB PO (08:19)
[2018-06-23] MEDS: PANTOPRAZOLE 40MG TAB (PROTONIX) PO (08:19)
[2018-06-23] MEDS: MULTIVITAMINS/MINERALS THERAP 1 TAB PO (08:20)
[2018-06-23] MEDS: MUPIROCIN 2% OINT 22 GM TUBE TOP ×2 (08:20→20:29)
[2018-06-23] MEDS: ATORVASTATIN 20 MG TAB PO (20:29)
[2018-06-23] MEDS: QUEtiapine FUMARATE 50 MG TAB PO (20:29)
[2018-06-24] MEDS: PARoxetine 20 MG TAB PO (07:55)
[2018-06-24] MEDS: MULTIVITAMINS/MINERALS THERAP 1 TAB PO (07:55)
[2018-06-24] MEDS: CLOPIDOGREL 75 MG TAB PO (07:55)
[2018-06-24] MEDS: ACETAMINOPHEN 500 MG TAB PO ×3 (07:55→17:08)
[2018-06-24] MEDS: VITAMIN D 1,000 INTERNATIONAL UNITS TABLET PO (07:55)
[2018-06-24] MEDS: PANTOPRAZOLE 40MG TAB (PROTONIX) PO (07:55)
[2018-06-24] MEDS: DICLOFENAC EPOLAMINE 1.3 % PATCH TOP ×2 (07:56→20:51)
[2018-06-24] MEDS: MUPIROCIN 2% OINT 22 GM TUBE TOP ×2 (07:56→20:51)
[2018-06-24] MEDS: MAGNESIUM OXIDE 400 MG TAB (MAG-OX) PO ×2 (07:56→20:50)
[2018-06-24] MEDS: CEPACOL LOZENGE PO (17:10)
[2018-06-24] MEDS: QUEtiapine FUMARATE 50 MG TAB PO (20:50)
[2018-06-24] MEDS: ATORVASTATIN 20 MG TAB PO (20:51)
[2018-06-25] MEDS: MULTIVITAMINS/MINERALS THERAP 1 TAB PO (08:01)
[2018-06-25] MEDS: MAGNESIUM OXIDE 400 MG TAB (MAG-OX) PO ×2 (08:01→20:38)
[2018-06-25] MEDS: PANTOPRAZOLE 40MG TAB (PROTONIX) PO (08:01)
[2018-06-25] MEDS: CLOPIDOGREL 75 MG TAB PO (08:01)
[2018-06-25] MEDS: PARoxetine 20 MG TAB PO (08:01)
[2018-06-25] MEDS: MUPIROCIN 2% OINT 22 GM TUBE TOP ×2 (08:02→20:38)
[2018-06-25] MEDS: ACETAMINOPHEN 500 MG TAB PO ×4 (08:02→22:42)
[2018-06-25] MEDS: VITAMIN D 1,000 INTERNATIONAL UNITS TABLET PO (08:02)
[2018-06-25] MEDS: DICLOFENAC EPOLAMINE 1.3 % PATCH TOP ×2 (08:04→20:38)
[2018-06-25] MEDS: QUEtiapine FUMARATE 50 MG TAB PO (20:37)
[2018-06-25] MEDS: ATORVASTATIN 20 MG TAB PO (20:38)
[2018-06-26] MEDS: ACETAMINOPHEN 500 MG TAB PO ×4 (05:36→22:28)
[2018-06-26] MEDS: PARoxetine 20 MG TAB PO (09:59)
[2018-06-26] MEDS: DICLOFENAC EPOLAMINE 1.3 % PATCH TOP ×2 (09:59→22:28)
[2018-06-26] MEDS: CLOPIDOGREL 75 MG TAB PO (09:59)
[2018-06-26] MEDS: MULTIVITAMINS/MINERALS THERAP 1 TAB PO (09:59)
[2018-06-26] MEDS: VITAMIN D 1,000 INTERNATIONAL UNITS TABLET PO (10:00)
[2018-06-26] MEDS: MAGNESIUM OXIDE 400 MG TAB (MAG-OX) PO ×2 (10:00→21:00)
[2018-06-26] MEDS: PANTOPRAZOLE 40MG TAB (PROTONIX) PO (10:00)
[2018-06-26] MEDS: MUPIROCIN 2% OINT 22 GM TUBE TOP ×2 (10:01→22:29)
[2018-06-26] MEDS: ATORVASTATIN 20 MG TAB PO (22:27)
[2018-06-26] MEDS: QUEtiapine FUMARATE 50 MG TAB PO (22:27)
[2018-06-27] MEDS: ACETAMINOPHEN 500 MG TAB PO ×3 (04:16→15:56)
[2018-06-27 05:56] LABS: HEMATOCRIT 31.1 % (36.0-47.0); HEMOGLOBIN 9.8 g/dl (12.0-15.5); MEAN CORPUSCULAR HEMOGLOBIN 29.9 pg (27.0-33.0); MEAN CORPUSCULAR HGB CONC 31.5 g/dl (32.0-36.5); MEAN CORPUSCULAR VOLUME 94.8 fl (80.0-96.0); PLATELET COUNT, AUTOMATED 226 10^3/uL (150-450); RED BLOOD COUNT 3.28 10^6/uL (4.00-5.40); WHITE BLOOD COUNT 4.8 10^3/uL (4.0-10.0)
[2018-06-27 06:22] LABS: ALBUMIN 2.8 GM/DL (3.2-5.2); ALBUMIN/GLOBULIN RATIO 0.67 (1.00-1.93); ALKALINE PHOSPHATASE 107 U/L (45-117); ALT/SGPT 29 U/L (12-78); ANION GAP 8 MEQ/L (8-16); AST/SGOT 26 U/L (7-37); BILIRUBIN,TOTAL 0.2 MG/DL (0.2-1.0); BLOOD UREA NITROGEN 21 MG/DL (7-18); CALCIUM LEVEL 8.4 MG/DL (8.8-10.2); CARBON DIOXIDE LEVEL 28 MEQ/L (21-32); CHLORIDE LEVEL 103 MEQ/L (98-107); CREATININE FOR GFR 0.88 MG/DL (0.55-1.30); GLOMERULAR FILTRATION RATE > 60.0 (>32); GLUCOSE, FASTING 92 MG/DL (70-100); SODIUM LEVEL 139 MEQ/L (136-145)
[2018-06-27] MEDS: CLOPIDOGREL 75 MG TAB PO (09:30)
[2018-06-27] MEDS: MUPIROCIN 2% OINT 22 GM TUBE TOP ×2 (09:30→21:30)
[2018-06-27] MEDS: VITAMIN D 1,000 INTERNATIONAL UNITS TABLET PO (09:30)
[2018-06-27] MEDS: PANTOPRAZOLE 40MG TAB (PROTONIX) PO (09:30)
[2018-06-27] MEDS: MULTIVITAMINS/MINERALS THERAP 1 TAB PO (09:30)
[2018-06-27] MEDS: MAGNESIUM OXIDE 400 MG TAB (MAG-OX) PO ×2 (09:30→21:29)
[2018-06-27] MEDS: PARoxetine 20 MG TAB PO (09:30)
[2018-06-27] MEDS: DICLOFENAC EPOLAMINE 1.3 % PATCH TOP ×2 (09:31→21:29)
[2018-06-27] MEDS: ATORVASTATIN 20 MG TAB PO (21:29)
[2018-06-27] MEDS: QUEtiapine FUMARATE 50 MG TAB PO (21:29)
[2018-06-28] MEDS: DICLOFENAC EPOLAMINE 1.3 % PATCH TOP ×2 (07:52→20:06)
[2018-06-28] MEDS: VITAMIN D 1,000 INTERNATIONAL UNITS TABLET PO (07:52)
[2018-06-28] MEDS: MUPIROCIN 2% OINT 22 GM TUBE TOP ×2 (07:53→20:07)
[2018-06-28] MEDS: ACETAMINOPHEN 500 MG TAB PO ×4 (07:54→22:28)
[2018-06-28] MEDS: PANTOPRAZOLE 40MG TAB (PROTONIX) PO (07:55)
[2018-06-28] MEDS: MULTIVITAMINS/MINERALS THERAP 1 TAB PO (07:55)
[2018-06-28] MEDS: MAGNESIUM OXIDE 400 MG TAB (MAG-OX) PO ×2 (07:55→20:05)
[2018-06-28] MEDS: PARoxetine 20 MG TAB PO (07:55)
[2018-06-28] MEDS: CLOPIDOGREL 75 MG TAB PO (07:55)
[2018-06-28] MEDS: CEPACOL LOZENGE PO (14:20)
[2018-06-28] MEDS: ATORVASTATIN 20 MG TAB PO (20:06)
[2018-06-28] MEDS: QUEtiapine FUMARATE 50 MG TAB PO (20:07)
[2018-06-29] MEDS: ACETAMINOPHEN 500 MG TAB PO ×3 (03:36→21:23)
[2018-06-29] MEDS: VITAMIN D 1,000 INTERNATIONAL UNITS TABLET PO (10:01)
[2018-06-29] MEDS: MAGNESIUM OXIDE 400 MG TAB (MAG-OX) PO ×2 (10:01→20:15)
[2018-06-29] MEDS: PANTOPRAZOLE 40MG TAB (PROTONIX) PO (10:02)
[2018-06-29] MEDS: MUPIROCIN 2% OINT 22 GM TUBE TOP ×2 (10:02→20:16)
[2018-06-29] MEDS: CLOPIDOGREL 75 MG TAB PO (10:02)
[2018-06-29] MEDS: MULTIVITAMINS/MINERALS THERAP 1 TAB PO (10:02)
[2018-06-29] MEDS: DICLOFENAC EPOLAMINE 1.3 % PATCH TOP ×2 (10:02→20:15)
[2018-06-29] MEDS: PARoxetine 20 MG TAB PO (10:02)
[2018-06-29] MEDS: CEPACOL LOZENGE PO (17:50)
[2018-06-29] MEDS: ATORVASTATIN 20 MG TAB PO (20:15)
[2018-06-29] MEDS: QUEtiapine FUMARATE 50 MG TAB PO (21:23)
[2018-06-30] MEDS: ACETAMINOPHEN 500 MG TAB PO ×4 (04:12→21:54)
[2018-06-30] MEDS: PARoxetine 20 MG TAB PO (09:26)
[2018-06-30] MEDS: MULTIVITAMINS/MINERALS THERAP 1 TAB PO (09:26)
[2018-06-30] MEDS: PANTOPRAZOLE 40MG TAB (PROTONIX) PO (09:26)
[2018-06-30] MEDS: VITAMIN D 1,000 INTERNATIONAL UNITS TABLET PO (09:26)
[2018-06-30] MEDS: CLOPIDOGREL 75 MG TAB PO (09:26)
[2018-06-30] MEDS: MAGNESIUM OXIDE 400 MG TAB (MAG-OX) PO ×2 (09:26→20:39)
[2018-06-30] MEDS: MUPIROCIN 2% OINT 22 GM TUBE TOP ×2 (09:27→20:40)
[2018-06-30] MEDS: DICLOFENAC EPOLAMINE 1.3 % PATCH TOP ×2 (09:27→20:39)
[2018-06-30] MEDS: ATORVASTATIN 20 MG TAB PO (20:40)
[2018-06-30] MEDS: QUEtiapine FUMARATE 50 MG TAB PO (20:40)
[2018-06-30] MEDS: CEPACOL LOZENGE PO (20:40)
[2018-07-01] MEDS: CEPACOL LOZENGE PO (07:31)
[2018-07-01] MEDS: ACETAMINOPHEN 500 MG TAB PO ×4 (08:56→22:14)
[2018-07-01] MEDS: VITAMIN D 1,000 INTERNATIONAL UNITS TABLET PO (08:56)
[2018-07-01] MEDS: MULTIVITAMINS/MINERALS THERAP 1 TAB PO (08:57)
[2018-07-01] MEDS: PANTOPRAZOLE 40MG TAB (PROTONIX) PO (08:57)
[2018-07-01] MEDS: PARoxetine 20 MG TAB PO (08:57)
[2018-07-01] MEDS: MAGNESIUM OXIDE 400 MG TAB (MAG-OX) PO ×2 (08:57→21:05)
[2018-07-01] MEDS: MUPIROCIN 2% OINT 22 GM TUBE TOP ×2 (08:58→21:06)
[2018-07-01] MEDS: DICLOFENAC EPOLAMINE 1.3 % PATCH TOP ×2 (08:58→21:05)
[2018-07-01] MEDS: CLOPIDOGREL 75 MG TAB PO (08:58)
[2018-07-01] MEDS: QUEtiapine FUMARATE 50 MG TAB PO (21:05)
[2018-07-01] MEDS: ATORVASTATIN 20 MG TAB PO (21:05)
[2018-07-02] MEDS: ACETAMINOPHEN 500 MG TAB PO ×4 (03:31→20:40)
[2018-07-02] MEDS: CLOPIDOGREL 75 MG TAB PO (09:17)
[2018-07-02] MEDS: DICLOFENAC EPOLAMINE 1.3 % PATCH TOP ×2 (09:17→20:41)
[2018-07-02] MEDS: PANTOPRAZOLE 40MG TAB (PROTONIX) PO (09:17)
[2018-07-02] MEDS: VITAMIN D 1,000 INTERNATIONAL UNITS TABLET PO (09:18)
[2018-07-02] MEDS: MULTIVITAMINS/MINERALS THERAP 1 TAB PO (09:18)
[2018-07-02] MEDS: PARoxetine 20 MG TAB PO (09:18)
[2018-07-02] MEDS: MAGNESIUM OXIDE 400 MG TAB (MAG-OX) PO ×2 (09:18→20:40)
[2018-07-02] MEDS: MUPIROCIN 2% OINT 22 GM TUBE TOP ×2 (09:19→20:40)
[2018-07-02] MEDS: ATORVASTATIN 20 MG TAB PO (20:39)
[2018-07-02] MEDS: QUEtiapine FUMARATE 50 MG TAB PO (20:40)
[2018-07-03] MEDS: ACETAMINOPHEN 500 MG TAB PO ×4 (00:59→20:48)
[2018-07-03] MEDS: VITAMIN D 1,000 INTERNATIONAL UNITS TABLET PO (10:01)
[2018-07-03] MEDS: PARoxetine 20 MG TAB PO (10:01)
[2018-07-03] MEDS: CLOPIDOGREL 75 MG TAB PO (10:01)
[2018-07-03] MEDS: PANTOPRAZOLE 40MG TAB (PROTONIX) PO (10:01)
[2018-07-03] MEDS: MULTIVITAMINS/MINERALS THERAP 1 TAB PO (10:02)
[2018-07-03] MEDS: MAGNESIUM OXIDE 400 MG TAB (MAG-OX) PO ×2 (10:02→20:49)
[2018-07-03] MEDS: DICLOFENAC EPOLAMINE 1.3 % PATCH TOP ×2 (10:02→20:48)
[2018-07-03] MEDS: MUPIROCIN 2% OINT 22 GM TUBE TOP ×2 (10:03→20:48)
[2018-07-03] MEDS: ATORVASTATIN 20 MG TAB PO (20:47)
[2018-07-03] MEDS: QUEtiapine FUMARATE 50 MG TAB PO (20:48)
[2018-07-04] MEDS: ACETAMINOPHEN 500 MG TAB PO ×5 (00:45→22:24)
[2018-07-04] MEDS: CEPACOL LOZENGE PO (02:26)
[2018-07-04] MEDS: PANTOPRAZOLE 40MG TAB (PROTONIX) PO (09:01)
[2018-07-04] MEDS: DICLOFENAC EPOLAMINE 1.3 % PATCH TOP ×2 (09:03→21:08)
[2018-07-04] MEDS: CLOPIDOGREL 75 MG TAB PO (09:03)
[2018-07-04] MEDS: MAGNESIUM OXIDE 400 MG TAB (MAG-OX) PO ×2 (09:03→21:07)
[2018-07-04] MEDS: VITAMIN D 1,000 INTERNATIONAL UNITS TABLET PO (09:03)
[2018-07-04] MEDS: MULTIVITAMINS/MINERALS THERAP 1 TAB PO (09:04)
[2018-07-04] MEDS: MUPIROCIN 2% OINT 22 GM TUBE TOP ×2 (09:04→21:08)
[2018-07-04] MEDS: PARoxetine 20 MG TAB PO (09:04)
[2018-07-04] MEDS: QUEtiapine FUMARATE 50 MG TAB PO (21:07)
[2018-07-04] MEDS: ATORVASTATIN 20 MG TAB PO (21:07)
[2018-07-05] MEDS: ACETAMINOPHEN 500 MG TAB PO ×3 (08:59→20:43)
[2018-07-05] MEDS: MULTIVITAMINS/MINERALS THERAP 1 TAB PO (08:59)
[2018-07-05] MEDS: CLOPIDOGREL 75 MG TAB PO (08:59)
[2018-07-05] MEDS: PARoxetine 20 MG TAB PO (08:59)
[2018-07-05] MEDS: PANTOPRAZOLE 40MG TAB (PROTONIX) PO (08:59)
[2018-07-05] MEDS: MAGNESIUM OXIDE 400 MG TAB (MAG-OX) PO ×2 (08:59→20:40)
[2018-07-05] MEDS: VITAMIN D 1,000 INTERNATIONAL UNITS TABLET PO (09:00)
[2018-07-05] MEDS: MUPIROCIN 2% OINT 22 GM TUBE TOP ×2 (09:00→20:41)
[2018-07-05] MEDS: DICLOFENAC EPOLAMINE 1.3 % PATCH TOP ×2 (09:00→20:40)
[2018-07-05] MEDS: ATORVASTATIN 20 MG TAB PO (20:40)
[2018-07-05] MEDS: QUEtiapine FUMARATE 50 MG TAB PO (20:41)
[2018-07-06] MEDS: ACETAMINOPHEN 500 MG TAB PO ×3 (03:52→14:07)
[2018-07-06] MEDS: MUPIROCIN 2% OINT 22 GM TUBE TOP ×2 (09:00→20:30)
[2018-07-06] MEDS: PARoxetine 20 MG TAB PO (10:39)
[2018-07-06] MEDS: VITAMIN D 1,000 INTERNATIONAL UNITS TABLET PO (10:39)
[2018-07-06] MEDS: PANTOPRAZOLE 40MG TAB (PROTONIX) PO (10:39)
[2018-07-06] MEDS: MULTIVITAMINS/MINERALS THERAP 1 TAB PO (10:40)
[2018-07-06] MEDS: CLOPIDOGREL 75 MG TAB PO (10:40)
[2018-07-06] MEDS: DICLOFENAC EPOLAMINE 1.3 % PATCH TOP ×2 (10:41→20:30)
[2018-07-06] MEDS: MAGNESIUM OXIDE 400 MG TAB (MAG-OX) PO ×2 (10:41→20:30)
[2018-07-06] MEDS: ATORVASTATIN 20 MG TAB PO (20:30)
[2018-07-06] MEDS: NAPROXEN 250 MG TAB PO (20:32)
[2018-07-06] MEDS: QUEtiapine FUMARATE 50 MG TAB PO (20:32)
[2018-07-07] MEDS: VITAMIN D 1,000 INTERNATIONAL UNITS TABLET PO (10:11)
[2018-07-07] MEDS: PARoxetine 20 MG TAB PO (10:11)
[2018-07-07] MEDS: PANTOPRAZOLE 40MG TAB (PROTONIX) PO (10:12)
[2018-07-07] MEDS: CLOPIDOGREL 75 MG TAB PO (10:12)
[2018-07-07] MEDS: MUPIROCIN 2% OINT 22 GM TUBE TOP ×2 (10:13→20:03)
[2018-07-07] MEDS: DICLOFENAC EPOLAMINE 1.3 % PATCH TOP ×2 (10:13→20:02)
[2018-07-07] MEDS: MAGNESIUM OXIDE 400 MG TAB (MAG-OX) PO ×2 (10:13→20:02)
[2018-07-07] MEDS: NAPROXEN 250 MG TAB PO (10:13)
[2018-07-07] MEDS: MULTIVITAMINS/MINERALS THERAP 1 TAB PO (10:13)
[2018-07-07] MEDS: ACETAMINOPHEN 500 MG TAB PO ×2 (12:37→20:02)
[2018-07-07] MEDS: ATORVASTATIN 20 MG TAB PO (20:02)
[2018-07-07] MEDS: QUEtiapine FUMARATE 50 MG TAB PO (20:02)
[2018-07-08] MEDS: NAPROXEN 250 MG TAB PO ×2 (01:37→20:00)
[2018-07-08] MEDS: ACETAMINOPHEN 500 MG TAB PO ×3 (03:57→13:59)
[2018-07-08 06:05] LABS: ANION GAP 7 MEQ/L (8-16); BLOOD UREA NITROGEN 18 MG/DL (7-18); CALCIUM LEVEL 8.7 MG/DL (8.8-10.2); CARBON DIOXIDE LEVEL 31 MEQ/L (21-32); CHLORIDE LEVEL 99 MEQ/L (98-107); CREATININE FOR GFR 0.91 MG/DL (0.55-1.30); GLOMERULAR FILTRATION RATE > 60.0 (>32); GLUCOSE, FASTING 86 MG/DL (70-100); POTASSIUM SERUM 4.2 MEQ/L (3.5-5.1); SODIUM LEVEL 137 MEQ/L (136-145)
[2018-07-08] MEDS: MUPIROCIN 2% OINT 22 GM TUBE TOP ×2 (08:51→20:01)
[2018-07-08] MEDS: MAGNESIUM OXIDE 400 MG TAB (MAG-OX) PO ×2 (08:51→20:00)
[2018-07-08] MEDS: PANTOPRAZOLE 40MG TAB (PROTONIX) PO (08:51)
[2018-07-08] MEDS: VITAMIN D 1,000 INTERNATIONAL UNITS TABLET PO (08:51)
[2018-07-08] MEDS: CLOPIDOGREL 75 MG TAB PO (08:51)
[2018-07-08] MEDS: MULTIVITAMINS/MINERALS THERAP 1 TAB PO (08:52)
[2018-07-08] MEDS: PARoxetine 20 MG TAB PO (08:52)
[2018-07-08] MEDS: DICLOFENAC EPOLAMINE 1.3 % PATCH TOP ×2 (08:54→20:01)
[2018-07-08] MEDS: QUEtiapine FUMARATE 50 MG TAB PO (20:00)
[2018-07-08] MEDS: ATORVASTATIN 20 MG TAB PO (20:02)
[2018-07-09] MEDS: ACETAMINOPHEN 500 MG TAB PO ×2 (03:35→17:33)
[2018-07-09] MEDS: PARoxetine 20 MG TAB PO (09:55)
[2018-07-09] MEDS: NAPROXEN 250 MG TAB PO ×2 (09:55→22:15)
[2018-07-09] MEDS: MAGNESIUM OXIDE 400 MG TAB (MAG-OX) PO ×2 (09:55→20:11)
[2018-07-09] MEDS: CLOPIDOGREL 75 MG TAB PO (09:55)
[2018-07-09] MEDS: PANTOPRAZOLE 40MG TAB (PROTONIX) PO (09:55)
[2018-07-09] MEDS: MUPIROCIN 2% OINT 22 GM TUBE TOP ×2 (09:56→20:11)
[2018-07-09] MEDS: VITAMIN D 1,000 INTERNATIONAL UNITS TABLET PO (09:56)
[2018-07-09] MEDS: MULTIVITAMINS/MINERALS THERAP 1 TAB PO (09:56)
[2018-07-09] MEDS: DICLOFENAC EPOLAMINE 1.3 % PATCH TOP ×2 (09:56→20:11)
[2018-07-09] MEDS: ATORVASTATIN 20 MG TAB PO (20:10)
[2018-07-09] MEDS: QUEtiapine FUMARATE 50 MG TAB PO (20:10)
[2018-07-10] MEDS: VITAMIN D 1,000 INTERNATIONAL UNITS TABLET PO (08:45)
[2018-07-10] MEDS: DICLOFENAC EPOLAMINE 1.3 % PATCH TOP ×2 (08:45→20:24)
[2018-07-10] MEDS: PANTOPRAZOLE 40MG TAB (PROTONIX) PO (08:45)
[2018-07-10] MEDS: PARoxetine 20 MG TAB PO (08:46)
[2018-07-10] MEDS: MULTIVITAMINS/MINERALS THERAP 1 TAB PO (08:46)
[2018-07-10] MEDS: MUPIROCIN 2% OINT 22 GM TUBE TOP ×2 (08:46→20:24)
[2018-07-10] MEDS: MAGNESIUM OXIDE 400 MG TAB (MAG-OX) PO ×2 (08:46→20:23)
[2018-07-10] MEDS: CLOPIDOGREL 75 MG TAB PO (08:46)
[2018-07-10] MEDS: ACETAMINOPHEN 500 MG TAB PO ×3 (08:46→23:11)
[2018-07-10] MEDS: NAPROXEN 250 MG TAB PO (13:34)
[2018-07-10] MEDS: QUEtiapine FUMARATE 50 MG TAB PO (20:22)
[2018-07-10] MEDS: ATORVASTATIN 20 MG TAB PO (20:23)
[2018-07-11] MEDS: ACETAMINOPHEN 500 MG TAB PO ×2 (04:37→10:11)
[2018-07-11] MEDS: VITAMIN D 1,000 INTERNATIONAL UNITS TABLET PO (10:09)
[2018-07-11] MEDS: PARoxetine 20 MG TAB PO (10:10)
[2018-07-11] MEDS: MAGNESIUM OXIDE 400 MG TAB (MAG-OX) PO ×2 (10:10→20:40)
[2018-07-11] MEDS: MULTIVITAMINS/MINERALS THERAP 1 TAB PO (10:10)
[2018-07-11] MEDS: PANTOPRAZOLE 40MG TAB (PROTONIX) PO (10:10)
[2018-07-11] MEDS: CLOPIDOGREL 75 MG TAB PO (10:10)
[2018-07-11] MEDS: DICLOFENAC EPOLAMINE 1.3 % PATCH TOP ×2 (10:11→20:40)
[2018-07-11] MEDS: MUPIROCIN 2% OINT 22 GM TUBE TOP ×2 (10:12→20:24)
[2018-07-11] MEDS: HYDROCORTISONE 1% CREAM 30 GM TOP (20:27)
[2018-07-11] MEDS: ATORVASTATIN 20 MG TAB PO (20:40)
[2018-07-11] MEDS: QUEtiapine FUMARATE 50 MG TAB PO (20:40)
[2018-07-11] MEDS: NAPROXEN 250 MG TAB PO (23:18)
[2018-07-12] MEDS: DICLOFENAC EPOLAMINE 1.3 % PATCH TOP ×2 (09:00→20:34)
[2018-07-12] MEDS: MULTIVITAMINS/MINERALS THERAP 1 TAB PO (11:07)
[2018-07-12] MEDS: VITAMIN D 1,000 INTERNATIONAL UNITS TABLET PO (11:07)
[2018-07-12] MEDS: MAGNESIUM OXIDE 400 MG TAB (MAG-OX) PO ×2 (11:07→20:33)
[2018-07-12] MEDS: PARoxetine 20 MG TAB PO (11:07)
[2018-07-12] MEDS: CLOPIDOGREL 75 MG TAB PO (11:07)
[2018-07-12] MEDS: PANTOPRAZOLE 40MG TAB (PROTONIX) PO (11:07)
[2018-07-12] MEDS: MUPIROCIN 2% OINT 22 GM TUBE TOP ×2 (11:08→20:34)
[2018-07-12] MEDS: HYDROCORTISONE 1% CREAM 30 GM TOP ×2 (11:15→20:01)
[2018-07-12] MEDS: ACETAMINOPHEN 500 MG TAB PO ×2 (13:23→22:55)
[2018-07-12] MEDS: NAPROXEN 250 MG TAB PO (19:57)
[2018-07-12] MEDS: QUEtiapine FUMARATE 50 MG TAB PO (20:33)
[2018-07-12] MEDS: ATORVASTATIN 20 MG TAB PO (20:33)
[2018-07-12] MEDS: CEPACOL LOZENGE PO (22:00)
[2018-07-13] MEDS: DICLOFENAC EPOLAMINE 1.3 % PATCH TOP ×2 (09:00→20:57)
[2018-07-13] MEDS: ACETAMINOPHEN 500 MG TAB PO (10:34)
[2018-07-13] MEDS: MAGNESIUM OXIDE 400 MG TAB (MAG-OX) PO ×2 (10:34→20:53)
[2018-07-13] MEDS: PARoxetine 20 MG TAB PO (10:34)
[2018-07-13] MEDS: VITAMIN D 1,000 INTERNATIONAL UNITS TABLET PO (10:35)
[2018-07-13] MEDS: HYDROCORTISONE 1% CREAM 30 GM TOP (10:35)
[2018-07-13] MEDS: CLOPIDOGREL 75 MG TAB PO (10:35)
[2018-07-13] MEDS: PANTOPRAZOLE 40MG TAB (PROTONIX) PO (10:35)
[2018-07-13] MEDS: MUPIROCIN 2% OINT 22 GM TUBE TOP ×2 (10:36→20:54)
[2018-07-13] MEDS: MULTIVITAMINS/MINERALS THERAP 1 TAB PO (10:38)
[2018-07-13] MEDS: ATORVASTATIN 20 MG TAB PO (20:53)
[2018-07-13] MEDS: NAPROXEN 250 MG TAB PO (20:54)
[2018-07-13] MEDS: QUEtiapine FUMARATE 50 MG TAB PO (20:55)
[2018-07-14] MEDS: ACETAMINOPHEN 500 MG TAB PO ×2 (00:48→19:06)
[2018-07-14] MEDS: MULTIVITAMINS/MINERALS THERAP 1 TAB PO (07:23)
[2018-07-14] MEDS: VITAMIN D 1,000 INTERNATIONAL UNITS TABLET PO (07:23)
[2018-07-14] MEDS: PARoxetine 20 MG TAB PO (07:23)
[2018-07-14] MEDS: CLOPIDOGREL 75 MG TAB PO (07:23)
[2018-07-14] MEDS: DICLOFENAC EPOLAMINE 1.3 % PATCH TOP ×4 (07:23→20:09)
[2018-07-14] MEDS: PANTOPRAZOLE 40MG TAB (PROTONIX) PO (07:24)
[2018-07-14] MEDS: MAGNESIUM OXIDE 400 MG TAB (MAG-OX) PO ×2 (07:24→20:10)
[2018-07-14] MEDS: MUPIROCIN 2% OINT 22 GM TUBE TOP ×2 (07:25→20:10)
[2018-07-14] MEDS: NAPROXEN 250 MG TAB PO (12:46)
[2018-07-14] MEDS: ATORVASTATIN 20 MG TAB PO (20:09)
[2018-07-14] MEDS: QUEtiapine FUMARATE 50 MG TAB PO (20:10)
[2018-07-15] MEDS: ACETAMINOPHEN 500 MG TAB PO ×4 (03:56→20:56)
[2018-07-15] MEDS: NAPROXEN 250 MG TAB PO (04:44)
[2018-07-15] MEDS: CLOPIDOGREL 75 MG TAB PO (10:09)
[2018-07-15] MEDS: MAGNESIUM OXIDE 400 MG TAB (MAG-OX) PO ×2 (10:09→20:55)
[2018-07-15] MEDS: VITAMIN D 1,000 INTERNATIONAL UNITS TABLET PO (10:09)
[2018-07-15] MEDS: PANTOPRAZOLE 40MG TAB (PROTONIX) PO (10:09)
[2018-07-15] MEDS: PARoxetine 20 MG TAB PO (10:09)
[2018-07-15] MEDS: MULTIVITAMINS/MINERALS THERAP 1 TAB PO (10:09)
[2018-07-15] MEDS: MUPIROCIN 2% OINT 22 GM TUBE TOP ×2 (10:10→20:57)
[2018-07-15] MEDS: DICLOFENAC EPOLAMINE 1.3 % PATCH TOP ×2 (10:10→20:57)
[2018-07-15] MEDS: HYDROCORTISONE 1% CREAM 30 GM TOP (10:11)
[2018-07-15] MEDS: QUEtiapine FUMARATE 50 MG TAB PO (20:55)
[2018-07-15] MEDS: ATORVASTATIN 20 MG TAB PO (20:55)
[2018-07-16] MEDS: ACETAMINOPHEN 500 MG TAB PO ×2 (05:42→17:51)
[2018-07-16] MEDS: MULTIVITAMINS/MINERALS THERAP 1 TAB PO (08:19)
[2018-07-16] MEDS: VITAMIN D 1,000 INTERNATIONAL UNITS TABLET PO (08:19)
[2018-07-16] MEDS: PANTOPRAZOLE 40MG TAB (PROTONIX) PO (08:19)
[2018-07-16] MEDS: MAGNESIUM OXIDE 400 MG TAB (MAG-OX) PO ×2 (08:19→20:09)
[2018-07-16] MEDS: CLOPIDOGREL 75 MG TAB PO (08:19)
[2018-07-16] MEDS: PARoxetine 20 MG TAB PO (08:19)
[2018-07-16] MEDS: DICLOFENAC EPOLAMINE 1.3 % PATCH TOP ×2 (08:20→20:04)
[2018-07-16] MEDS: MUPIROCIN 2% OINT 22 GM TUBE TOP ×2 (08:20→20:10)
[2018-07-16] MEDS: NAPROXEN 250 MG TAB PO (13:32)
[2018-07-16] MEDS: QUEtiapine FUMARATE 50 MG TAB PO (20:09)
[2018-07-16] MEDS: ATORVASTATIN 20 MG TAB PO (20:09)
[2018-07-17] MEDS: ACETAMINOPHEN 500 MG TAB PO ×3 (03:45→20:15)
[2018-07-17] MEDS: VITAMIN D 1,000 INTERNATIONAL UNITS TABLET PO (09:36)
[2018-07-17] MEDS: DICLOFENAC EPOLAMINE 1.3 % PATCH TOP ×2 (09:36→20:11)
[2018-07-17] MEDS: MULTIVITAMINS/MINERALS THERAP 1 TAB PO (09:37)
[2018-07-17] MEDS: CLOPIDOGREL 75 MG TAB PO (09:37)
[2018-07-17] MEDS: MUPIROCIN 2% OINT 22 GM TUBE TOP ×2 (09:37→20:14)
[2018-07-17] MEDS: PANTOPRAZOLE 40MG TAB (PROTONIX) PO (09:37)
[2018-07-17] MEDS: PARoxetine 20 MG TAB PO (09:37)
[2018-07-17] MEDS: MAGNESIUM OXIDE 400 MG TAB (MAG-OX) PO ×2 (09:37→20:13)
[2018-07-17] MEDS: NAPROXEN 250 MG TAB PO (10:39)
[2018-07-17] MEDS: ATORVASTATIN 20 MG TAB PO (20:13)
[2018-07-17] MEDS: QUEtiapine FUMARATE 50 MG TAB PO (20:13)
[2018-07-18] MEDS: MAGNESIUM OXIDE 400 MG TAB (MAG-OX) PO ×2 (10:27→20:44)
[2018-07-18] MEDS: MULTIVITAMINS/MINERALS THERAP 1 TAB PO (10:27)
[2018-07-18] MEDS: PANTOPRAZOLE 40MG TAB (PROTONIX) PO (10:28)
[2018-07-18] MEDS: VITAMIN D 1,000 INTERNATIONAL UNITS TABLET PO (10:28)
[2018-07-18] MEDS: PARoxetine 20 MG TAB PO (10:28)
[2018-07-18] MEDS: CLOPIDOGREL 75 MG TAB PO (10:28)
[2018-07-18] MEDS: ACETAMINOPHEN 500 MG TAB PO ×2 (10:29→20:46)
[2018-07-18] MEDS: HYDROCORTISONE 1% CREAM 30 GM TOP (10:29)
[2018-07-18] MEDS: DICLOFENAC EPOLAMINE 1.3 % PATCH TOP ×2 (10:30→20:52)
[2018-07-18] MEDS: MUPIROCIN 2% OINT 22 GM TUBE TOP ×2 (10:30→20:52)
[2018-07-18 12:24] LABS: MAGNESIUM LEVEL 1.8 MG/DL (1.8-2.4)
[2018-07-18] MEDS: NAPROXEN 250 MG TAB PO (16:30)
[2018-07-18] MEDS: ATORVASTATIN 20 MG TAB PO (20:44)
[2018-07-18] MEDS: QUEtiapine FUMARATE 50 MG TAB PO (20:44)
[2018-07-19] MEDS: ACETAMINOPHEN 500 MG TAB PO ×4 (04:57→23:40)
[2018-07-19] MEDS: DICLOFENAC EPOLAMINE 1.3 % PATCH TOP ×2 (09:00→20:43)
[2018-07-19] MEDS: PANTOPRAZOLE 40MG TAB (PROTONIX) PO (10:34)
[2018-07-19] MEDS: MULTIVITAMINS/MINERALS THERAP 1 TAB PO (10:35)
[2018-07-19] MEDS: VITAMIN D 1,000 INTERNATIONAL UNITS TABLET PO (10:35)
[2018-07-19] MEDS: PARoxetine 20 MG TAB PO (10:35)
[2018-07-19] MEDS: CLOPIDOGREL 75 MG TAB PO (10:35)
[2018-07-19] MEDS: MAGNESIUM OXIDE 400 MG TAB (MAG-OX) PO ×2 (10:35→20:38)
[2018-07-19] MEDS: MUPIROCIN 2% OINT 22 GM TUBE TOP ×2 (10:36→20:42)
[2018-07-19] MEDS: HYDROCORTISONE 1% CREAM 30 GM TOP (10:36)
[2018-07-19] MEDS: QUEtiapine FUMARATE 50 MG TAB PO (20:38)
[2018-07-19] MEDS: ATORVASTATIN 20 MG TAB PO (20:39)
[2018-07-19] MEDS: NAPROXEN 250 MG TAB PO (20:39)
[2018-07-20] MEDS: ACETAMINOPHEN 500 MG TAB PO ×4 (04:06→22:30)
[2018-07-20] MEDS: MULTIVITAMINS/MINERALS THERAP 1 TAB PO (08:18)
[2018-07-20] MEDS: PARoxetine 20 MG TAB PO (08:19)
[2018-07-20] MEDS: MAGNESIUM OXIDE 400 MG TAB (MAG-OX) PO ×2 (08:19→20:18)
[2018-07-20] MEDS: VITAMIN D 1,000 INTERNATIONAL UNITS TABLET PO (08:19)
[2018-07-20] MEDS: CLOPIDOGREL 75 MG TAB PO (08:19)
[2018-07-20] MEDS: PANTOPRAZOLE 40MG TAB (PROTONIX) PO (08:19)
[2018-07-20] MEDS: HYDROCORTISONE 1% CREAM 30 GM TOP (08:20)
[2018-07-20] MEDS: MUPIROCIN 2% OINT 22 GM TUBE TOP ×2 (08:20→20:19)
[2018-07-20] MEDS: DICLOFENAC EPOLAMINE 1.3 % PATCH TOP ×2 (09:00→20:19)
[2018-07-20] MEDS: NAPROXEN 250 MG TAB PO (10:08)
[2018-07-20] MEDS: QUEtiapine FUMARATE 50 MG TAB PO (20:18)
[2018-07-20] MEDS: ATORVASTATIN 20 MG TAB PO (20:18)
[2018-07-21] MEDS: CLOPIDOGREL 75 MG TAB PO (10:37)
[2018-07-21] MEDS: MULTIVITAMINS/MINERALS THERAP 1 TAB PO (10:37)
[2018-07-21] MEDS: PARoxetine 20 MG TAB PO (10:38)
[2018-07-21] MEDS: MUPIROCIN 2% OINT 22 GM TUBE TOP ×2 (10:38→21:22)
[2018-07-21] MEDS: MAGNESIUM OXIDE 400 MG TAB (MAG-OX) PO ×2 (10:38→21:22)
[2018-07-21] MEDS: PANTOPRAZOLE 40MG TAB (PROTONIX) PO (10:38)
[2018-07-21] MEDS: VITAMIN D 1,000 INTERNATIONAL UNITS TABLET PO (10:38)
[2018-07-21] MEDS: DICLOFENAC EPOLAMINE 1.3 % PATCH TOP ×2 (10:39→21:00)
[2018-07-21] MEDS: ACETAMINOPHEN 500 MG TAB PO ×2 (10:41→21:23)
[2018-07-21] MEDS: NAPROXEN 250 MG TAB PO (17:20)
[2018-07-21] MEDS: ATORVASTATIN 20 MG TAB PO (21:21)
[2018-07-21] MEDS: QUEtiapine FUMARATE 50 MG TAB PO (21:22)
[2018-07-22] MEDS: DICLOFENAC EPOLAMINE 1.3 % PATCH TOP ×2 (09:00→20:28)
[2018-07-22] MEDS: MAGNESIUM OXIDE 400 MG TAB (MAG-OX) PO ×2 (10:25→20:28)
[2018-07-22] MEDS: PARoxetine 20 MG TAB PO (10:25)
[2018-07-22] MEDS: PANTOPRAZOLE 40MG TAB (PROTONIX) PO (10:25)
[2018-07-22] MEDS: VITAMIN D 1,000 INTERNATIONAL UNITS TABLET PO (10:25)
[2018-07-22] MEDS: CLOPIDOGREL 75 MG TAB PO (10:25)
[2018-07-22] MEDS: ACETAMINOPHEN 500 MG TAB PO ×2 (10:26→21:14)
[2018-07-22] MEDS: MULTIVITAMINS/MINERALS THERAP 1 TAB PO (10:26)
[2018-07-22] MEDS: MUPIROCIN 2% OINT 22 GM TUBE TOP ×2 (10:27→20:28)
[2018-07-22] MEDS: ATORVASTATIN 20 MG TAB PO (20:27)
[2018-07-22] MEDS: NAPROXEN 250 MG TAB PO (20:28)
[2018-07-22] MEDS: QUEtiapine FUMARATE 50 MG TAB PO (21:44)
[2018-07-23] MEDS: ACETAMINOPHEN 500 MG TAB PO ×3 (06:07→20:22)
[2018-07-23] MEDS: VITAMIN D 1,000 INTERNATIONAL UNITS TABLET PO (08:50)
[2018-07-23] MEDS: PARoxetine 20 MG TAB PO (08:50)
[2018-07-23] MEDS: MAGNESIUM OXIDE 400 MG TAB (MAG-OX) PO ×2 (08:50→20:23)
[2018-07-23] MEDS: PANTOPRAZOLE 40MG TAB (PROTONIX) PO (08:51)
[2018-07-23] MEDS: DICLOFENAC EPOLAMINE 1.3 % PATCH TOP ×2 (08:51→20:23)
[2018-07-23] MEDS: MUPIROCIN 2% OINT 22 GM TUBE TOP ×2 (08:51→20:23)
[2018-07-23] MEDS: CLOPIDOGREL 75 MG TAB PO (08:51)
[2018-07-23] MEDS: MULTIVITAMINS/MINERALS THERAP 1 TAB PO (08:51)
[2018-07-23] MEDS: QUEtiapine FUMARATE 50 MG TAB PO (20:23)
[2018-07-23] MEDS: ATORVASTATIN 20 MG TAB PO (20:23)
[2018-07-24] MEDS: CLOPIDOGREL 75 MG TAB PO (08:53)
[2018-07-24] MEDS: PARoxetine 20 MG TAB PO (08:53)
[2018-07-24] MEDS: VITAMIN D 1,000 INTERNATIONAL UNITS TABLET PO (08:53)
[2018-07-24] MEDS: PANTOPRAZOLE 40MG TAB (PROTONIX) PO (08:53)
[2018-07-24] MEDS: MAGNESIUM OXIDE 400 MG TAB (MAG-OX) PO ×2 (08:53→20:39)
[2018-07-24] MEDS: MULTIVITAMINS/MINERALS THERAP 1 TAB PO (08:53)
[2018-07-24] MEDS: DICLOFENAC EPOLAMINE 1.3 % PATCH TOP ×2 (08:53→20:39)
[2018-07-24] MEDS: MUPIROCIN 2% OINT 22 GM TUBE TOP ×2 (08:54→20:39)
[2018-07-24] MEDS: ACETAMINOPHEN 500 MG TAB PO ×2 (08:55→17:25)
[2018-07-24] MEDS: QUEtiapine FUMARATE 50 MG TAB PO (20:38)
[2018-07-24] MEDS: ATORVASTATIN 20 MG TAB PO (20:39)
[2018-07-25] MEDS: CLOPIDOGREL 75 MG TAB PO (09:02)
[2018-07-25] MEDS: MUPIROCIN 2% OINT 22 GM TUBE TOP ×2 (09:02→20:04)
[2018-07-25] MEDS: PANTOPRAZOLE 40MG TAB (PROTONIX) PO (09:02)
[2018-07-25] MEDS: VITAMIN D 1,000 INTERNATIONAL UNITS TABLET PO (09:02)
[2018-07-25] MEDS: MAGNESIUM OXIDE 400 MG TAB (MAG-OX) PO ×2 (09:03→20:03)
[2018-07-25] MEDS: DICLOFENAC EPOLAMINE 1.3 % PATCH TOP ×2 (09:03→20:04)
[2018-07-25] MEDS: MULTIVITAMINS/MINERALS THERAP 1 TAB PO (09:03)
[2018-07-25] MEDS: PARoxetine 20 MG TAB PO (09:03)
[2018-07-25] MEDS: ACETAMINOPHEN 500 MG TAB PO ×2 (11:54→17:46)
[2018-07-25] MEDS: ATORVASTATIN 20 MG TAB PO (20:03)
[2018-07-25] MEDS: QUEtiapine FUMARATE 50 MG TAB PO (20:03)
[2018-07-25] MEDS: NAPROXEN 250 MG TAB PO (20:04)
[2018-07-26] MEDS: MULTIVITAMINS/MINERALS THERAP 1 TAB PO (08:44)
[2018-07-26] MEDS: CLOPIDOGREL 75 MG TAB PO (08:44)
[2018-07-26] MEDS: PANTOPRAZOLE 40MG TAB (PROTONIX) PO (08:44)
[2018-07-26] MEDS: PARoxetine 20 MG TAB PO (08:44)
[2018-07-26] MEDS: MAGNESIUM OXIDE 400 MG TAB (MAG-OX) PO ×2 (08:44→20:00)
[2018-07-26] MEDS: VITAMIN D 1,000 INTERNATIONAL UNITS TABLET PO (08:44)
[2018-07-26] MEDS: DICLOFENAC EPOLAMINE 1.3 % PATCH TOP ×2 (08:45→20:01)
[2018-07-26] MEDS: MUPIROCIN 2% OINT 22 GM TUBE TOP ×2 (08:45→20:01)
[2018-07-26] MEDS: ACETAMINOPHEN 500 MG TAB PO ×2 (08:45→20:01)
[2018-07-26] MEDS: NAPROXEN 250 MG TAB PO (16:03)
[2018-07-26] MEDS: ALPRAZolam 0.5 MG TAB PO (19:18)
[2018-07-26] MEDS: ATORVASTATIN 20 MG TAB PO (20:00)
[2018-07-26] MEDS: QUEtiapine FUMARATE 50 MG TAB PO (20:00)
[2018-07-27] MEDS: ACETAMINOPHEN 500 MG TAB PO ×4 (04:32→20:12)
[2018-07-27] MEDS: VITAMIN D 1,000 INTERNATIONAL UNITS TABLET PO (08:50)
[2018-07-27] MEDS: CLOPIDOGREL 75 MG TAB PO (08:50)
[2018-07-27] MEDS: MUPIROCIN 2% OINT 22 GM TUBE TOP ×2 (08:50→20:08)
[2018-07-27] MEDS: MAGNESIUM OXIDE 400 MG TAB (MAG-OX) PO ×2 (08:50→20:08)
[2018-07-27] MEDS: PANTOPRAZOLE 40MG TAB (PROTONIX) PO (08:50)
[2018-07-27] MEDS: MULTIVITAMINS/MINERALS THERAP 1 TAB PO (08:50)
[2018-07-27] MEDS: PARoxetine 20 MG TAB PO (08:50)
[2018-07-27] MEDS: DICLOFENAC EPOLAMINE 1.3 % PATCH TOP ×2 (08:50→20:08)
[2018-07-27] MEDS: NAPROXEN 250 MG TAB PO (19:36)
[2018-07-27] MEDS: ATORVASTATIN 20 MG TAB PO (20:07)
[2018-07-27] MEDS: ALPRAZolam 0.5 MG TAB PO (20:21)
[2018-07-27] MEDS: QUEtiapine FUMARATE 50 MG TAB PO (22:29)
[2018-07-28] MEDS: VITAMIN D 1,000 INTERNATIONAL UNITS TABLET PO (08:24)
[2018-07-28] MEDS: PARoxetine 20 MG TAB PO (08:24)
[2018-07-28] MEDS: ACETAMINOPHEN 500 MG TAB PO ×3 (08:24→17:27)
[2018-07-28] MEDS: MAGNESIUM OXIDE 400 MG TAB (MAG-OX) PO ×2 (08:24→20:05)
[2018-07-28] MEDS: DICLOFENAC EPOLAMINE 1.3 % PATCH TOP ×2 (08:25→20:06)
[2018-07-28] MEDS: MULTIVITAMINS/MINERALS THERAP 1 TAB PO (08:25)
[2018-07-28] MEDS: MUPIROCIN 2% OINT 22 GM TUBE TOP ×2 (08:25→20:05)
[2018-07-28] MEDS: CLOPIDOGREL 75 MG TAB PO (08:25)
[2018-07-28] MEDS: PANTOPRAZOLE 40MG TAB (PROTONIX) PO (08:25)
[2018-07-28] MEDS: ATORVASTATIN 20 MG TAB PO (20:04)
[2018-07-28] MEDS: NAPROXEN 250 MG TAB PO (20:05)
[2018-07-28] MEDS: NYSTATIN 100,000 UNITS/GM TOPICAL PWD 15 GM TOP (20:06)
[2018-07-28] MEDS: QUEtiapine FUMARATE 50 MG TAB PO (22:05)
[2018-07-29] MEDS: ACETAMINOPHEN 500 MG TAB PO ×3 (00:04→16:53)
[2018-07-29] MEDS: VITAMIN D 1,000 INTERNATIONAL UNITS TABLET PO (08:35)
[2018-07-29] MEDS: PARoxetine 20 MG TAB PO (08:36)
[2018-07-29] MEDS: CLOPIDOGREL 75 MG TAB PO (08:36)
[2018-07-29] MEDS: MAGNESIUM OXIDE 400 MG TAB (MAG-OX) PO ×2 (08:36→20:26)
[2018-07-29] MEDS: MUPIROCIN 2% OINT 22 GM TUBE TOP ×2 (08:36→20:27)
[2018-07-29] MEDS: MULTIVITAMINS/MINERALS THERAP 1 TAB PO (08:36)
[2018-07-29] MEDS: PANTOPRAZOLE 40MG TAB (PROTONIX) PO (08:36)
[2018-07-29] MEDS: DICLOFENAC EPOLAMINE 1.3 % PATCH TOP ×2 (08:36→20:00)
[2018-07-29] MEDS: QUEtiapine FUMARATE 50 MG TAB PO (20:27)
[2018-07-29] MEDS: ATORVASTATIN 20 MG TAB PO (20:27)
[2018-07-29] MEDS: NAPROXEN 250 MG TAB PO (20:27)
[2018-07-30] MEDS: VITAMIN D 1,000 INTERNATIONAL UNITS TABLET PO (08:27)
[2018-07-30] MEDS: PARoxetine 20 MG TAB PO (08:27)
[2018-07-30] MEDS: NAPROXEN 250 MG TAB PO ×2 (08:27→20:36)
[2018-07-30] MEDS: MAGNESIUM OXIDE 400 MG TAB (MAG-OX) PO ×2 (08:27→20:35)
[2018-07-30] MEDS: CLOPIDOGREL 75 MG TAB PO (08:27)
[2018-07-30] MEDS: PANTOPRAZOLE 40MG TAB (PROTONIX) PO (08:27)
[2018-07-30] MEDS: MULTIVITAMINS/MINERALS THERAP 1 TAB PO (08:27)
[2018-07-30] MEDS: MUPIROCIN 2% OINT 22 GM TUBE TOP ×2 (08:28→20:35)
[2018-07-30] MEDS: DICLOFENAC EPOLAMINE 1.3 % PATCH TOP ×2 (08:28→20:35)
[2018-07-30] MEDS: ACETAMINOPHEN 500 MG TAB PO ×2 (12:53→17:19)
[2018-07-30] MEDS: ATORVASTATIN 20 MG TAB PO (20:35)
[2018-07-30] MEDS: QUEtiapine FUMARATE 50 MG TAB PO (20:35)
[2018-07-30] MEDS ORDERED: HALOPERIDOL 5 MG/ML VIAL (J1630) IM (23:45)
[2018-07-31] MEDS: VITAMIN D 1,000 INTERNATIONAL UNITS TABLET PO (10:38)
[2018-07-31] MEDS: PARoxetine 20 MG TAB PO (10:39)
[2018-07-31] MEDS: CLOPIDOGREL 75 MG TAB PO (10:39)
[2018-07-31] MEDS: MULTIVITAMINS/MINERALS THERAP 1 TAB PO (10:39)
[2018-07-31] MEDS: PANTOPRAZOLE 40MG TAB (PROTONIX) PO (10:39)
[2018-07-31] MEDS: MAGNESIUM OXIDE 400 MG TAB (MAG-OX) PO ×2 (10:39→20:31)
[2018-07-31] MEDS: MUPIROCIN 2% OINT 22 GM TUBE TOP ×2 (10:40→20:32)
[2018-07-31] MEDS: NAPROXEN 250 MG TAB PO (10:46)
[2018-07-31] MEDS: DICLOFENAC EPOLAMINE 1.3 % PATCH TOP ×2 (10:52→20:33)
[2018-07-31] MEDS: ACETAMINOPHEN 500 MG TAB PO ×2 (14:25→20:30)
[2018-07-31] MEDS: ATORVASTATIN 20 MG TAB PO (20:31)
[2018-07-31] MEDS: ALPRAZolam 0.5 MG TAB PO (20:31)
[2018-07-31] MEDS: QUEtiapine FUMARATE 50 MG TAB PO (22:34)
[2018-08-01] MEDS: VITAMIN D 1,000 INTERNATIONAL UNITS TABLET PO (10:39)
[2018-08-01] MEDS: MULTIVITAMINS/MINERALS THERAP 1 TAB PO (10:39)
[2018-08-01] MEDS: NYSTATIN 100,000 UNITS/GM TOPICAL PWD 15 GM TOP (10:40)
[2018-08-01] MEDS: PANTOPRAZOLE 40MG TAB (PROTONIX) PO (10:40)
[2018-08-01] MEDS: MUPIROCIN 2% OINT 22 GM TUBE TOP ×2 (10:40→20:35)
[2018-08-01] MEDS: PARoxetine 20 MG TAB PO (10:40)
[2018-08-01] MEDS: ACETAMINOPHEN 500 MG TAB PO ×3 (10:40→20:37)
[2018-08-01] MEDS: CLOPIDOGREL 75 MG TAB PO (10:40)
[2018-08-01] MEDS: MAGNESIUM OXIDE 400 MG TAB (MAG-OX) PO ×2 (10:40→20:34)
[2018-08-01] MEDS: DICLOFENAC EPOLAMINE 1.3 % PATCH TOP ×2 (10:41→20:36)
[2018-08-01] MEDS: QUEtiapine FUMARATE 50 MG TAB PO (20:34)
[2018-08-01] MEDS: ATORVASTATIN 20 MG TAB PO (20:34)
[2018-08-01] MEDS: HYDROCORTISONE 1% CREAM 30 GM TOP (20:45)
[2018-08-02 01:12] LABS: KETONE, URINE AUTO RFX NEGATIVE (NEGATIVE); NITRITE, URINE AUTO RFX NEGATIVE (NEGATIVE); RBC, URINE AUTO RFX 6 /HPF (0-3); SPECIFIC GRAVITY UR AUTO RFX 1.015 (1.002-1.035); SQUAM EPITHELIAL CELL UR AURFX 0 /HPF (0-6)
[2018-08-02 01:31] LABS: LEUKOCYTE ESTERASE UR AUTO RFX 3+ (NEGATIVE); WBC, URINE AUTO RFX 42 /HPF (0-3)
[2018-08-02] MEDS: ACETAMINOPHEN 500 MG TAB PO ×3 (08:38→20:20)
[2018-08-02] MEDS: VITAMIN D 1,000 INTERNATIONAL UNITS TABLET PO (08:39)
[2018-08-02] MEDS: CLOPIDOGREL 75 MG TAB PO (08:39)
[2018-08-02] MEDS: PARoxetine 20 MG TAB PO (08:39)
[2018-08-02] MEDS: DICLOFENAC EPOLAMINE 1.3 % PATCH TOP ×2 (08:39→20:19)
[2018-08-02] MEDS: PANTOPRAZOLE 40MG TAB (PROTONIX) PO (08:39)
[2018-08-02] MEDS: MUPIROCIN 2% OINT 22 GM TUBE TOP ×2 (08:39→20:19)
[2018-08-02] MEDS: MAGNESIUM OXIDE 400 MG TAB (MAG-OX) PO ×2 (08:39→20:18)
[2018-08-02] MEDS: MULTIVITAMINS/MINERALS THERAP 1 TAB PO (08:39)
[2018-08-02] MEDS ORDERED: NITROFURANTOIN (MACROBID) 100 MG CAP PO (09:00)
[2018-08-02] MEDS: AMOXICILLIN 500 MG CAP PO ×2 (14:53→20:18)
[2018-08-02] MEDS: QUEtiapine FUMARATE 50 MG TAB PO (20:18)
[2018-08-02] MEDS: ATORVASTATIN 20 MG TAB PO (20:18)
[2018-08-02] MEDS: HYDROCORTISONE 1% CREAM 30 GM TOP (20:27)
[2018-08-03] MEDS: DICLOFENAC EPOLAMINE 1.3 % PATCH TOP ×2 (09:00→20:50)
[2018-08-03] MEDS: AMOXICILLIN 500 MG CAP PO ×2 (12:24→20:50)
[2018-08-03] MEDS: PARoxetine 20 MG TAB PO (12:24)
[2018-08-03] MEDS: MAGNESIUM OXIDE 400 MG TAB (MAG-OX) PO ×2 (12:24→20:50)
[2018-08-03] MEDS: MULTIVITAMINS/MINERALS THERAP 1 TAB PO (12:24)
[2018-08-03] MEDS: PANTOPRAZOLE 40MG TAB (PROTONIX) PO (12:25)
[2018-08-03] MEDS: CLOPIDOGREL 75 MG TAB PO (12:25)
[2018-08-03] MEDS: VITAMIN D 1,000 INTERNATIONAL UNITS TABLET PO (12:25)
[2018-08-03] MEDS: ACETAMINOPHEN 500 MG TAB PO ×3 (12:26→22:12)
[2018-08-03] MEDS: MUPIROCIN 2% OINT 22 GM TUBE TOP ×2 (12:26→20:50)
[2018-08-03] MEDS: NAPROXEN 250 MG TAB PO (18:02)
[2018-08-03] MEDS: ATORVASTATIN 20 MG TAB PO (20:49)
[2018-08-03] MEDS: QUEtiapine FUMARATE 50 MG TAB PO (20:50)
[2018-08-04] MEDS: AMOXICILLIN 500 MG CAP PO ×2 (08:56→21:42)
[2018-08-04] MEDS: MULTIVITAMINS/MINERALS THERAP 1 TAB PO (08:56)
[2018-08-04] MEDS: PARoxetine 20 MG TAB PO (08:56)
[2018-08-04] MEDS: CLOPIDOGREL 75 MG TAB PO (08:56)
[2018-08-04] MEDS: VITAMIN D 1,000 INTERNATIONAL UNITS TABLET PO (08:56)
[2018-08-04] MEDS: ACETAMINOPHEN 500 MG TAB PO ×3 (08:56→21:44)
[2018-08-04] MEDS: MAGNESIUM OXIDE 400 MG TAB (MAG-OX) PO ×2 (08:57→21:42)
[2018-08-04] MEDS: MUPIROCIN 2% OINT 22 GM TUBE TOP ×2 (08:57→21:42)
[2018-08-04] MEDS: PANTOPRAZOLE 40MG TAB (PROTONIX) PO (08:57)
[2018-08-04] MEDS: DICLOFENAC EPOLAMINE 1.3 % PATCH TOP ×2 (08:57→21:00)
[2018-08-04] MEDS: QUEtiapine FUMARATE 50 MG TAB PO (21:42)
[2018-08-04] MEDS: ATORVASTATIN 20 MG TAB PO (21:42)
[2018-08-05] MEDS: ACETAMINOPHEN 500 MG TAB PO ×2 (03:06→10:32)
[2018-08-05] MEDS: DICLOFENAC EPOLAMINE 1.3 % PATCH TOP (09:00)
[2018-08-05] MEDS: AMOXICILLIN 500 MG CAP PO (10:32)
[2018-08-05] MEDS: VITAMIN D 1,000 INTERNATIONAL UNITS TABLET PO (10:32)
[2018-08-05] MEDS: PANTOPRAZOLE 40MG TAB (PROTONIX) PO (10:33)
[2018-08-05] MEDS: MULTIVITAMINS/MINERALS THERAP 1 TAB PO (10:33)
[2018-08-05] MEDS: MUPIROCIN 2% OINT 22 GM TUBE TOP (10:33)
[2018-08-05] MEDS: MAGNESIUM OXIDE 400 MG TAB (MAG-OX) PO (10:33)
[2018-08-05] MEDS: CLOPIDOGREL 75 MG TAB PO (10:33)
[2018-08-05] MEDS: PARoxetine 20 MG TAB PO (10:33)
== END 2018-08-05 13:38 | DRG 884 ==
LOC: M ED 21:39 → M MSPAV 03-17 10:48 → M ED INP 21:40 → M MSPAV 03-15 01:32
DX: F03.91 Unspecified dementia, unspecified severity, with behavioral disturbance (principal); A41.9 Sepsis, unspecified organism; N39.0 Urinary tract infection, site not specified; I25.10 Atherosclerotic heart disease of native coronary artery without angina pectoris; I10 Essential (primary) hypertension; Z79.899 Other long term (current) drug therapy; Z95.2 Presence of prosthetic heart valve; I73.9 Peripheral vascular disease, unspecified; G43.909 Migraine, unspecified, not intractable, without status migrainosus; K21.9 Gastro-esophageal reflux disease without esophagitis; Z88.5 Allergy status to narcotic agent; F17.200 Nicotine dependence, unspecified, uncomplicated; F41.9 Anxiety disorder, unspecified; F32.9 Major depressive disorder, single episode, unspecified

== ENCOUNTER → 2018-09-15 | Outpatient (REF) | payer MEDICARE, MEDICAID ==
[2018-09-15 09:56] LABS: MAGNESIUM LEVEL 1.7 MG/DL (1.8-2.4)
== END ==
LOC: SKLAB8 07:00
DX: E83.42 Hypomagnesemia (principal)
CPT/HCPCS: 83735

== ENCOUNTER → 2018-10-06 | Outpatient (REF) | payer MEDICARE, MEDICAID ==
[2018-10-06 08:30] LABS: ALBUMIN 3.1 GM/DL (3.2-5.2); ALBUMIN/GLOBULIN RATIO 0.91 (1.00-1.93); ALKALINE PHOSPHATASE 66 U/L (45-117); ALT/SGPT 18 U/L (12-78); AST/SGOT 18 U/L (7-37); BILIRUBIN,DIRECT < 0.1 MG/DL (0.0-0.2); BILIRUBIN,TOTAL 0.3 MG/DL (0.2-1.0); CHOLESTEROL LEVEL 129 MG/DL (<200); CHOLESTEROL RISK RATIO 2.303 (<5); HDL CHOLESTEROL 56 MG/DL (>40); LDL CHOLESTEROL 51 MG/DL (<100); NON-HDL-C 73 MG/DL; TOTAL PROTEIN 6.5 GM/DL (6.4-8.2); TRIGLYCERIDES LEVEL 112 MG/DL (<150)
== END ==
LOC: SKLAB3 08:00
DX: E78.5 Hyperlipidemia, unspecified (principal); Z79.899 Other long term (current) drug therapy
CPT/HCPCS: 80076

== ENCOUNTER → 2018-12-19 | Outpatient (REF) | payer MEDICARE, MEDICAID ==
[~2018-12-19] MED LIST changes: +ALPR0.5T3 PO; +AMOX500C PO; +BISAC5TA PO; -CLOB-49 EX; +CLOB-49 TOP; +DULC5TAB PO; +FERR1TAB8 PO; -LISI2.5T3 PO; +LISI2.5T5 PO; +LORA0.5T11 PO; +MAPA500T2 PO; +METO1TAB32 PO; +NICO14PA TD; +NICODIS2 TD; -PANT40TA2 PO; +PANT40TA3 PO; +PARO20TA3 PO; +QUET5TAB PO; -TOPR25TA PO; +TOPR25TA13 PO; +VITMTA PO; -ZOFR20TA PO; +ZOFR4TAB16 PO
[2018-12-19 09:00] LABS: HEMOGLOBIN 9.8 g/dl (12.0-15.5); MEAN CORPUSCULAR HEMOGLOBIN 25.2 pg (27.0-33.0); MEAN CORPUSCULAR HGB CONC 28.8 g/dl (32.0-36.5); MEAN CORPUSCULAR VOLUME 87.4 fl (80.0-96.0); PLATELET COUNT, AUTOMATED 308 10^3/uL (150-450); RED BLOOD COUNT 3.89 10^6/uL (4.00-5.40); WHITE BLOOD COUNT 7.3 10^3/uL (4.0-10.0)
[2018-12-19 09:46] LABS: ALBUMIN 3.7 GM/DL (3.2-5.2); ALT/SGPT 15 U/L (12-78); BILIRUBIN,TOTAL 0.4 MG/DL (0.2-1.0); BLOOD UREA NITROGEN 17 MG/DL (7-18); CALCIUM LEVEL 8.7 MG/DL (8.8-10.2); CARBON DIOXIDE LEVEL 26 MEQ/L (21-32); CHLORIDE LEVEL 103 MEQ/L (98-107); CREATININE FOR GFR 0.94 MG/DL (0.55-1.30); GLOMERULAR FILTRATION RATE > 60.0 (>32); GLUCOSE, FASTING 112 MG/DL (70-100); POTASSIUM SERUM 4.9 MEQ/L (3.5-5.1); SODIUM LEVEL 137 MEQ/L (136-145); TOTAL PROTEIN 7.5 GM/DL (6.4-8.2)
== END ==
LOC: SKLAB3 12:49
PROVIDERS: ATTEND Family Medicine
DX: F03.90 Unspecified dementia, unspecified severity, without behavioral disturbance, psychotic disturbance, mood disturbance, and anxiety (principal); I10 Essential (primary) hypertension

== ENCOUNTER 2019-02-15 18:30 | Inpatient (IN) | payer MEDICARE, MEDICAID ==
[~2019-02-15] VITALS: Ht 167.6 cm; Wt 72.3 kg
[~2019-02-15 18:30] MED LIST changes: -ACET-683 PO; -ASPE16CR TOP; -ATOR80TA59 PO; -CLOP75TA2 PO; -D32000TA PO; -DULC10SU2 PR; -DULO20CA27 PO; -ENEMENE PR; -ENEMENE22 PR; -HYDR-3713 PO; -MAGN400C PO; -MILKSUS3 PO; -NITR4TASL SL; -QUET1TAB7 PO; -SENN1TAB41 PO; -SERT-141 PO
[2019-02-15] MEDS ORDERED: DULO20CA27 PO (19:31)
[2019-02-15] MEDS ORDERED: SENN1TAB41 PO (19:31)
[2019-02-15] MEDS ORDERED: ACET-683 PO (19:31)
[2019-02-15] MEDS ORDERED: ENEMENE22 PR (19:31)
[2019-02-15] MEDS ORDERED: QUET5TAB PO (19:31)
[2019-02-15] MEDS ORDERED: QUET1TAB7 PO (19:31)
[2019-02-15] MEDS ORDERED: HYDR-3713 PO (19:31)
[2019-02-15] MEDS ORDERED: ASPE16CR TOP (19:31)
[2019-02-15] MEDS ORDERED: MEGA1CAP3 PO (19:37)
[2019-02-15] MEDS ORDERED: DULC10SU2 PR (19:37)
[2019-02-15] MEDS ORDERED: ATOR80TA59 PO (19:37)
[2019-02-15] MEDS ORDERED: MILKSUS3 PO (19:37)
[2019-02-15] MEDS ORDERED: MAGN400C PO (19:37)
[2019-02-15] MEDS ORDERED: CLOP75TA2 PO (19:37)
[2019-02-15] MEDS ORDERED: D32000TA PO (19:37)
[2019-02-15] MEDS ORDERED: ENEMENE PR (19:37)
[2019-02-15] MEDS ORDERED: CRAN400C PO (19:37)
[2019-02-15] MEDS ORDERED: PANT40TA3 PO (19:38)
[2019-02-15] MEDS ORDERED: SERT-141 PO (19:38)
[2019-02-15] MEDS ORDERED: NITR4TASL SL (19:38)
[2019-02-15] MEDS ORDERED: QUEtiapine FUMARATE 50 MG TAB PO ONE (20:45)
[2019-02-15] MEDS: QUEtiapine FUMARATE 50 MG TAB PO SCH (21:00)
[2019-02-15] MEDS: ATORVASTATIN 20 MG TAB PO SCH (21:00)
[2019-02-15] MEDS: MAGNESIUM OXIDE 400 MG TAB (MAG-OX) PO SCH (21:00)
[2019-02-15] MEDS: DULoxetine 20 MG CAP (CYMBALTA) PO SCH (21:00)
[2019-02-15 21:19] LABS: ABG BASE EXCESS 0.3 (-2.0-2.0); ABG HCO3 26.5 MEQ/L (22.0-26.0); ABG O2 SATURATION 96.1 % (95.0-99.0); ABG PARTIAL PRESSURE CO2 51.1 mmHg (35.0-45.0); ABG STANDARD HCO3 24.8 MEQ/L (22.0-26.0); ABG TOTAL CO2 28.1 MEQ/L (23.0-31.0); ABG pH (ARTERIAL) 7.333 UNITS (7.350-7.450)
[2019-02-15 21:21] LABS: BASO % 0.5 % (0.0-1.0); EOS # 0.2 10^3/uL (0.0-0.50); EOS % 3.1 % (0.0-3.0); HEMATOCRIT 27.7 % (36.0-47.0); HEMOGLOBIN 7.8 g/dl (12.0-15.5); LYMPH # 1.4 10^3/uL (1.5-4.5); LYMPH % 21.6 % (24.0-44.0); MEAN CORPUSCULAR HEMOGLOBIN 23.9 pg (27.0-33.0); MEAN CORPUSCULAR HGB CONC 28.2 g/dl (32.0-36.5); MEAN CORPUSCULAR VOLUME 84.7 fl (80.0-96.0); MONO # 0.6 10^3/uL (0.0-0.8); MONO % 8.8 % (0.0-5.0); NEUTROPHILS # 4.2 10^3/uL (1.8-7.7); NEUTROPHILS % 65.5 % (36.0-66.0); PLATELET COUNT, AUTOMATED 220 10^3/uL (150-450); RED BLOOD COUNT 3.27 10^6/uL (4.00-5.40); WHITE BLOOD COUNT 6.4 10^3/uL (4.0-10.0)
[2019-02-15 21:53] LABS: CALCIUM LEVEL 7.8 MG/DL (8.8-10.2); CREATININE FOR GFR 0.98 MG/DL (0.55-1.30); GLOMERULAR FILTRATION RATE 57.7 (>32); POTASSIUM SERUM 4.3 MEQ/L (3.5-5.1)
[2019-02-15] MEDS ORDERED: NORCO, ANEXSIA 5/325MG TABLET (HYDROcodone/ACETAMINOPHEN) PO ONE (22:00)
[2019-02-15] MEDS ORDERED: OLANZapine INTRAMUSCULAR 10 MG VIAL (S0166) IM ONE (22:00)
[2019-02-16] VITALS (9 sets, daily range): BP systolic 108–144; BP diastolic 50–90; O2SAT 89–99
[2019-02-16] MEDS ORDERED: FUROSEMIDE 40 MG/4 ML VIAL (J1940) IV ONE (01:15)
[2019-02-16] MEDS ORDERED: NITROGLYCERIN 0.4 MG SUBL TABLET SL PRN (01:15)
[2019-02-16] MEDS ORDERED: LORazepam 2 MG/ML VIAL (J2060) IV STA (01:35)
[2019-02-16 02:01] LABS: PERCENT SATURATION 2.9 % (13.2-45.0)
[2019-02-16] MEDS ORDERED: LORazepam 2 MG/ML VIAL (J2060) IM STA (04:26)
--- NOTE | 2019-02-16 05:41 | HPEPDOC ---
General Date of Admission Feb 16, 2019 at 00:27 Chief Complaint The patient is a 83-year-old female admitted with a reason for visit of Pleural Effusion. History of Present Illness 83-year-old female with past medical history of hypertension, dyslipidemia, CAD, Dementia, GERD, anxiety/depression presents to the ER from the [facility] the chief complaint of shortness of breath over the last several days. The patient's history was limited due to her underlying dementia. The patient's daughter, who is at the bedside reports that the patient has been having increased swelling in her lower extremities and has appeared to be more short of breath during this time. There were no reports of fevers, chills, chest pain, palpitations, cough, abdominal pain, or any nausea/vomiting/diarrhea. In the ER, the patient was requiring 4 L of supplemental oxygen which she does not require at baseline. In addition, the patient was noted to be anemic. Imaging revealed a right-sided pleural effusion. The patient will be admitted under the [facility] service for further evaluation and management. Home Medications Scheduled Acetaminophen (Acetaminophen) 500 Mg Tablet, 1,000 MG PO BID, (Reported) AT 1100 AND 1600 Atorvastatin Calcium (Atorvastatin Calcium) 80 Mg Tablet, 80 MG PO QHS, (Reported) Cholecalciferol (Vitamin D3) (Vitamin D3) 2,000 Unit Tablet, 2,000 UNIT PO DAILY, (Reported) Clopidogrel Bisulfate (Clopidogrel) 75 Mg Tablet, 75 MG PO DAILY, (Reported) Cranberry (Cranberry) 400 Mg Capsule, 400 MG PO BID, (Reported) Duloxetine HCl (Duloxetine HCl) 20 Mg Capsule.dr, 20 MG PO QHS, (Reported) Hydrocodone/Acetaminophen (Hydrocodone-Acetamin 5-325 mg) 1 Each Tablet, 1 TAB PO BID, (Reported) AT 0630 AND 2030 Krill/Om-3/Dha/Epa/Phospho/Ast (Megared [place]-3 Krill Oil Sfgl) 1 Each Capsule, 1 CAP PO DAILY, (Reported) Lidocaine HCl (Aspercreme) 4% Cream..g., 1 APLCT TOP BID, (Reported) AT 1100 AND 2100 Magnesium Oxide (Magnesium) 400 Mg Capsule, 400 MG PO BID, (Reported) Pantoprazole Sodium (Pantoprazole Sodium) 40 Mg Tablet.dr, 40 MG PO DAILY, (Reported) Quetiapine Fumarate (Quetiapine Fumarate) 25 Mg Tablet, 25 MG PO DAILY, (Reported) Quetiapine Fumarate (Quetiapine Fumarate) 50 Mg Tablet, 50 MG PO QHS, (Reported) Sennosides/Docusate Sodium (Senna-S Tablet) 1 Each Tablet, 2 TAB PO DAILY, (Reported) Sertraline Hcl (Sertraline HCl) 50 Mg Tablet, 50 MG PO DAILY, (Reported) Scheduled PRN Bisacodyl (Dulcolax) 10 Mg Supp.rect, 10 MG NJ DAILY PRN for CONSTIPATION, (Reported) Magnesium Hydroxide (Milk of Magnesia) 400 Mg/5 Ml Oral.susp, 30 ML PO DAILY PRN for CONSTIPATION, (Reported) Nitroglycerin (Nitrostat) 0.4 Mg Tab.subl, 0.4 MG SL Q5MP PRN for CHEST PAIN, ( Reported) Sodium Phosphate,[place]-Dibasic (Enema) 133 Ml Enema, 1 RICH NJ DAILY PRN for CONSTIPATION, (Reported) Allergies Coded Allergies: morphine (Verified Allergy, Unknown, 02/15/19) Past Medical History Medical History As noted in HPI. Surgical History Cardiac stenting, abdominal aortic aneurysm repair, carpal tunnel procedure, enterovesical fistula repair, right total hip replacement, appendectomy, inguinal hernia repair, carotid enterectomy Social History * Smoker: Denies Alcohol: rarely Review of Systems Other systems 10 point review of systems negative unless otherwise specified in HPI. Physical Examination General Exam: Positive: Alert, Cooperative, No Acute Distress ENT Exam: Positive: Atraumatic, Mucous membr. moist/pink Chest Exam: Positive: Wheezing, Diminished Heart Exam: Positive: Rate Normal, Normal S1, Normal S2 Abdomen Exam: Positive: Soft; Negative: Tenderness Extremity Exam: Positive: Swelling (2+ pitting edema of the lower extremities bilaterally, with weeping of fluid noted. ); Negative: Tenderness Vital Signs Vital Signs Date Time Temp Pulse Resp B/P (MAP) Pulse Ox O2 Delivery O2 Flow Rate FiO2 02/16/19 03:34 98.6 93 18 125/85 (98) 99 Nasal Cannula 4.0 Laboratory Data Labs 24H Laboratory Tests 2 02/15/19 20:37: Blood Gas Bicarbonate Standard 24.8, Arterial Blood pH 7.333L, Arterial Blood Partial Pressure CO2 51.1H, Arterial Blood Partial Pressure O2 90.0, Arterial Blood Total CO2 28.1, Arterial Blood HCO3 26.5H, Arterial Blood Base Excess 0.3, Arterial Blood Oxygen Saturation 96.1 02/15/19 21:15: Immature Granulocyte % (Auto) 0.5, White Blood Count 6.4, Red Blood Count 3.27L, Hemoglobin 7.8L, Hematocrit 27.7L, Mean Corpuscular Volume 84.7, Mean Corpuscul ar Hemoglobin 23.9L, Mean Corpuscular Hemoglobin Concent 28.2L, Red Cell Distribution Width 18.0H, Platelet Count 220, Neutrophils (%) (Auto) 65.5, Lymphocytes (%) (Auto) 21.6L, Monocytes (%) (Auto) 8.8H, Eosinophils (%) (Auto) 3.1H, Basophils (%) (Auto) 0.5, Neutrophils # (Auto) 4.2, Lymphocytes # (Auto) 1.4L, Monocytes # (Auto) 0.6, Eosinophils # (Auto) 0.2, Basophils # (Auto) 0.0, Nucleated Red Blood Cells % (auto) 0.8H, Anion Gap 4L, Glomerular Filtration Rate 57.7, Blood Urea Nitrogen 22H, Creatinine 0.98, Sodium Level 138, Potassium Level 4.3, Chloride Level 103, Carbon Dioxide Level 31, Calcium Level 7.8L, Iron Level 12L, Total Iron Binding Capacity 410, Transferrin % Saturation 2.9L, Ferritin 16, PF-Bvq-G-Type Natriuretic Peptide 7295H CBC/BMP Laboratory Tests 02/15/19 21:15 Red Blood Count 3.27 L, Mean Corpuscular Volume 84.7, Mean Corpuscular Hemoglobin 23.9 L, Mean Corpuscular Hemoglobin Concent 28.2 L, Red Cell Distribution Width 18.0 H, Neutrophils (%) (Auto) 65.5, Lymphocytes (%) (Auto) 21.6 L, Monocytes (%) (Auto) 8.8 H, Eosinophils (%) (Auto) 3.1 H, Basophils (%) (Auto) 0.5, Neutrophils # (Auto) 4.2, Lymphocytes # (Auto) 1.4 L, Monocytes # (Auto) 0.6, Eosinophils # (Auto) 0.2, Basophils # (Auto) 0.0, Calcium Level 7.8 L Plan / VTE VTE Prophylaxis Ordered?: Yes Plan Plan SOB 2/2 Pleural Effusion, possibly underlying CHF CXR notable for right sided pleural effusion--CT Chest ordered for further delineation We have ordered lasix dose in the ER to assess for response 2D ECHO ordered for further delineation of underlying cardiac function Patient to possibly require thoracentesis for further work up of effusion, we will defer to the day team after they have reviewed aforementioned pending studies Downtitrate supplemental oxygen as tolerated Acute on Chronic Normocytic Anemia There were no apparent episodes of dark tarry stools according to patient's daughter Iron Studies, Stool Occult ordered We will transfuse the patient 1 Unit of PRBC's She will need an EGD at some point as well Hx of CAD s/p stenting Continue Plavix, statin Dementia/anxiety Continue Seroquel, Zoloft, Cymbalta GERD Continue PPI Constipation Bowel regimen ordered History of carotid stenosis status post endarterectomy History of abdominal aortic aneurysm status post repair DVT prophylaxis SCDs/JANET Lucio MD Feb 16, 2019 05:41
[2019-02-16] MEDS: FERROUS SULFATE 325MG TAB PO SCH ×2 (09:00→20:20)
[2019-02-16] MEDS: PANTOPRAZOLE 40MG TAB (PROTONIX) PO SCH (09:04)
[2019-02-16] MEDS: VITAMIN D 1,000 INTERNATIONAL UNITS TABLET PO SCH (09:05)
[2019-02-16] MEDS: MAGNESIUM OXIDE 400 MG TAB (MAG-OX) PO SCH ×2 (09:05→20:20)
[2019-02-16] MEDS: CLOPIDOGREL 75 MG TAB PO SCH (09:05)
[2019-02-16] MEDS: SENOKOT S TAB PO SCH (09:06)
[2019-02-16] MEDS: QUEtiapine FUMARATE 25 MG TAB PO SCH (09:06)
[2019-02-16] MEDS: SERTRALINE HCL 50 MG TAB PO SCH (09:06)
[2019-02-16 09:16] LABS: MEAN CORPUSCULAR HEMOGLOBIN 23.8 pg (27.0-33.0); MEAN CORPUSCULAR VOLUME 85.2 fl (80.0-96.0); PLATELET COUNT, AUTOMATED 228 10^3/uL (150-450); RED BLOOD COUNT 4.11 10^6/uL (4.00-5.40); WHITE BLOOD COUNT 6.3 10^3/uL (4.0-10.0)
[2019-02-16 09:25] LABS: HEMOGLOBIN 9.8 g/dl (12.0-15.5)
[2019-02-16 09:31] LABS: BLOOD UREA NITROGEN 18 MG/DL (7-18); CALCIUM LEVEL 8.3 MG/DL (8.8-10.2); CARBON DIOXIDE LEVEL 31 MEQ/L (21-32); CHLORIDE LEVEL 103 MEQ/L (98-107); CREATININE FOR GFR 0.93 MG/DL (0.55-1.30); GLOMERULAR FILTRATION RATE > 60.0 (>32); GLUCOSE, FASTING 87 MG/DL (70-100); POTASSIUM SERUM 4.3 MEQ/L (3.5-5.1); SODIUM LEVEL 139 MEQ/L (136-145)
[2019-02-16 10:25] LABS: FOLATE 16.3 NG/ML (>5.4)
--- NOTE | 2019-02-16 11:02 | IPNPDOC ---
Subjective Date Seen The patient was seen on 02/16/19. Subjective Chief Complaint/HPI Pt this in ER reyna. She isn't able to tell me why she is here and denies SOB. She has a sitter at bedside. General: Reports: ROS Unobtainable Objective Physical Examination General Exam: Positive: Alert, Cooperative (asleep when I entered, arousable to voice), No Acute Distress ENT Exam: Positive: Atraumatic, Mucous membr. moist/pink Chest Exam: Positive: Diminished (rales to mid R lung field, L basilar rales); Negative: Wheezing Heart Exam: Positive: Rate Normal, Normal S1, Normal S2 Abdomen Exam: Positive: Normal bowel sounds, Soft; Negative: Tenderness Extremity Exam: Positive: Edema (+ 2 mm pitting pedal edema, trace RLE edema); Negative: Tenderness Neuro Exam: Positive: Normal Speech Psych Exam: Negative: Mental status NL Assessment /Plan Problems (1) Pleural effusion Status: Acute Problem Text: I believe this is assoc with failure, she rec a dose of IV lasix in the ED, will cont for Net Neg of 1L/24 h, monitor renal function. ECHO has been ordered, it has been sometime since this was done last. Repeat CXR in AM. Cont O2. (2) Iron deficiency anemia Status: Acute Response to Treatment: Stable Problem Specific Plan: Monitor Clinically, Repeat Labs Problem Text: Hgb 7.8 on admission, she has rec 1 unit pRBCs with improvement in her Hgb to 9.8, she will be started on supplemental iron, as her Fe was 12, hemoccult has been ordered. 09/17 colonoscopy with diminutive polyps. (3) Dementia Status: Chronic Response to Treatment: Stable Problem Specific Plan: Monitor Clinically Problem Text: NH resident. (4) CAD (coronary artery disease) Status: Chronic Response to Treatment: Stable Problem Text: Cont Plavix, lipitor. Plan/VTE VTE Prophylaxis Ordered?: Yes VS, I&O, 24H, Fishbone Vital Signs/I&O Vital Signs Date Time Temp Pulse Resp B/P (MAP) Pulse Ox O2 Delivery O2 Flow Rate FiO2 02/16/19 09:48 97 97 130/89 (103) 99 Non-Rebreather 15.0 02/16/19 07:29 100 02/16/19 05:51 97.2 Laboratory Data 24H LABS Laboratory Tests 2 02/15/19 20:37: Blood Gas Bicarbonate Standard 24.8, Arterial Blood pH 7.333L, Arterial Blood Partial Pressure CO2 51.1H, Arterial Blood Partial Pressure O2 90.0, Arterial Blood Total CO2 28.1, Arterial Blood HCO3 26.5H, Arterial Blood Base Excess 0.3, Arterial Blood Oxygen Saturation 96.1 02/15/19 21:15: Immature Granulocyte % (Auto) 0.5, White Blood Count 6.4, Red Blood Count 3.27L, Hemoglobin 7.8L, Hematocrit 27.7L, Mean Corpuscular Volume 84.7, Mean Corpuscular Hemoglobin 23.9L, Mean Corpuscular Hemoglobin Concent 28.2L, Red Cell Distribution Width 18.0H, Platelet Count 220, Neutrophils (%) (Auto) 65.5, Lymphocytes (%) (Auto) 21.6L, Monocytes (%) (Auto) 8.8H, Eosinophils (%) (Auto) 3.1H, Basophils (%) (Auto) 0.5, Neutrophils # (Auto) 4.2, Lymphocytes # (Auto) 1.4L, Monocytes # (Auto) 0.6, Eosinophils # (Auto) 0.2, Basophils # (Auto) 0.0, Nucleated Red Blood Cells % (auto) 0.8H, Anion Gap 4L, Glomerular Filtration Rate 57.7, Blood Urea Nitrogen 22H, Creatinine 0.98, Sodium Level 138, Potassium Level 4.3, Chloride Level 103, Carbon Dioxide Level 31, Calcium Level 7.8L, Iron Level 12L, Total Iron Binding Capacity 410, Transferrin % Saturation 2.9L, Ferritin 16, LC-Ngd-H-Type Natriuretic Peptide 7295H, Folate 16.3 02/16/19 08:52: Nucleated Red Blood Cells % (auto) 0.6H, Anion Gap 5L, Glomerular Filtration Rate > 60.0, Blood Urea Nitrogen 18, Creatinine 0.93, Sodium Level 139, Potassium Level 4.3, Chloride Level 103, Carbon Dioxide Level 31, Calcium Level 8.3L CBC/BMP Laboratory Tests 02/15/19 21:15 Red Blood Count 3.27 L, Mean Corpuscular Volume 84.7, Mean Corpuscular Hemoglobin 23.9 L, Mean Corpuscular Hemoglobin Concent 28.2 L, Red Cell Distribution Width 18.0 H, Neutrophils (%) (Auto) 65.5, Lymphocytes (%) (Auto) 21.6 L, Monocytes (%) (Auto) 8.8 H, Eosinophils (%) (Auto) 3.1 H, Basophils (%) (Auto) 0.5, Neutrophils # (Auto) 4.2, Lymphocytes # (Auto) 1.4 L, Monocytes # (Auto) 0.6, Eosinophils # (Auto) 0.2, Basophils # (Auto) 0.0, Calcium Level 7.8 L 02/16/19 08:52 Red Blood Count 4.11, Mean Corpuscular Volume 85.2, Mean Corpuscular Hemoglobin 23.8 L, Mean Corpuscular Hemoglobin Concent 28.0 L, Red Cell Distribution Width 17.2 H, Calcium Level 8.3 L SEEMA ARZOLA PA-C Feb 16, 2019 11:02
[2019-02-16] MEDS: FUROSEMIDE 40 MG/4 ML VIAL (J1940) IV SCH ×2 (12:00→18:18)
--- NOTE | 2019-02-16 14:59 | REP ---
CT of the chest without IV contrast: Comparison is the portable chest dated 02/15/2019. There is a large right pleural effusion, not significantly change taking into consideration of the CT is performed with the patient supine. There is a tiny left pleural effusion. The interstitial coarsening has improved. There is cardiomegaly, unchanged. There is no pericardial effusion. There is no mediastinal or axillary adenopathy. The thoracic aorta is unremarkable except for calcified atheroma. There is circumferential K atheromatous calcification of the aortic valve. There is atheromatous calcification in the coronary arteries. The visualized upper abdominal structures are unremarkable. Impression: Large right pleural effusion. Tiny left pleural effusion. The interstitial coarsening appears to have improved. Cardiomegaly without pericardial effusion, unchanged. Vascular calcified atheroma at the aortic valve and coronary arteries. Electronically Signed by Samson Mares MD 02/16/2019 02:51 P
[2019-02-16] MEDS ORDERED: NYSTATIN 100,000 UNITS/GM TOPICAL PWD 15 GM TOP PRN (15:30)
[2019-02-16 16:06] LABS: ABG BASE EXCESS 6.7 (-2.0-2.0); ABG HCO3 33.8 MEQ/L (22.0-26.0); ABG O2 SATURATION 98.2 % (95.0-99.0); ABG PARTIAL PRESSURE O2 119.5 mmHg (75.0-100.0); ABG STANDARD HCO3 30.6 MEQ/L (22.0-26.0); ABG TOTAL CO2 35.7 MEQ/L (23.0-31.0); ABG pH (ARTERIAL) 7.343 UNITS (7.350-7.450)
[2019-02-16 16:07] LABS: ABG PARTIAL PRESSURE CO2 63.6 mmHg (35.0-45.0)
[2019-02-16] MEDS: ALBUTEROL SULFATE 2.5 MG/0.5 ML INH NEB SOLN NEB PRN (16:14)
[2019-02-16] MEDS: IPRATROPIUM 0.5MG/ALBUTEROL 2.5MG INH SOL UD 3ML (DUONEB)(J7620) NEB SCH (20:00)
[2019-02-16] MEDS: QUEtiapine FUMARATE 50 MG TAB PO SCH (20:20)
[2019-02-16] MEDS: ATORVASTATIN 20 MG TAB PO SCH (20:20)
[2019-02-16] MEDS: DULoxetine 20 MG CAP (CYMBALTA) PO SCH (20:20)
[2019-02-16] MEDS: HALOPERIDOL 5 MG/ML VIAL (J1630) IM PRN (20:21)
[2019-02-16] MEDS: ACETAMINOPHEN TAB 650MG DOSE (2X325MG) PO PRN (21:13)
[2019-02-16] MEDS ORDERED: LORazepam 2 MG/ML VIAL (J2060) IV PRN (21:45)
[2019-02-17] VITALS (25 sets, daily range): BP systolic 106–124; BP diastolic 54–73; O2SAT 85–97
[2019-02-17] MEDS ORDERED: LORazepam 1 MG TAB PO SCH
[2019-02-17] MEDS: FUROSEMIDE 40 MG/4 ML VIAL (J1940) IV SCH ×5 (00:10→19:20)
[2019-02-17] MEDS ORDERED: LORazepam 2 MG/ML VIAL (J2060) IV PRN (00:15)
[2019-02-17] MEDS: LORazepam 1 MG TAB PO PRN (00:24)
[2019-02-17] MEDS: IPRATROPIUM 0.5MG/ALBUTEROL 2.5MG INH SOL UD 3ML (DUONEB)(J7620) NEB SCH ×4 (00:40→19:56)
[2019-02-17] MEDS: HALOPERIDOL 5 MG/ML VIAL (J1630) IM PRN (03:12)
[2019-02-17 05:49] LABS: HEMATOCRIT 31.1 % (36.0-47.0); HEMOGLOBIN 9.1 g/dl (12.0-15.5); MEAN CORPUSCULAR HEMOGLOBIN 24.7 pg (27.0-33.0); MEAN CORPUSCULAR HGB CONC 29.3 g/dl (32.0-36.5); MEAN CORPUSCULAR VOLUME 84.5 fl (80.0-96.0); PLATELET COUNT, AUTOMATED 205 10^3/uL (150-450); RED BLOOD COUNT 3.68 10^6/uL (4.00-5.40); WHITE BLOOD COUNT 5.7 10^3/uL (4.0-10.0)
[2019-02-17 06:28] LABS: ALBUMIN 2.9 GM/DL (3.2-5.2); BILIRUBIN,TOTAL 0.6 MG/DL (0.2-1.0); CALCIUM LEVEL 8.3 MG/DL (8.8-10.2); CREATININE FOR GFR 1.35 MG/DL (0.55-1.30); GLOMERULAR FILTRATION RATE 39.9 (>32); MAGNESIUM LEVEL 1.3 MG/DL (1.8-2.4); POTASSIUM SERUM 3.3 MEQ/L (3.5-5.1); TOTAL PROTEIN 6.8 GM/DL (6.4-8.2)
[2019-02-17] MEDS: PANTOPRAZOLE 40MG TAB (PROTONIX) PO SCH (08:01)
[2019-02-17] MEDS: FERROUS SULFATE 325MG TAB PO SCH ×2 (08:01→19:52)
[2019-02-17] MEDS: SENOKOT S TAB PO SCH (08:01)
[2019-02-17] MEDS: CLOPIDOGREL 75 MG TAB PO SCH (08:02)
[2019-02-17] MEDS: SERTRALINE HCL 50 MG TAB PO SCH (08:02)
[2019-02-17] MEDS: QUEtiapine FUMARATE 25 MG TAB PO SCH ×2 (08:02→19:52)
[2019-02-17] MEDS: MAGNESIUM OXIDE 400 MG TAB (MAG-OX) PO SCH ×2 (08:02→19:52)
[2019-02-17] MEDS: VITAMIN D 1,000 INTERNATIONAL UNITS TABLET PO SCH (08:02)
[2019-02-17] MEDS: MAG SULF 1GM/100ML (MAG RUN) 1 GM in APPROPRIATE DILUENT 1 EA IV SCH ×2 (08:03→11:28)
[2019-02-17] MEDS: ACETAMINOPHEN TAB 650MG DOSE (2X325MG) PO PRN ×2 (08:03→16:35)
[2019-02-17] MEDS: ANALGESIC BALM CRM 120 GM TOP PRN ×2 (08:03→16:35)
--- NOTE | 2019-02-17 08:15 | REP ---
All chest x-ray: Single view. History: Effusion. Comparison study: February 15, 2019. Findings: EKG monitoring electrodes and oxygen delivery tubing are seen. There are surgical clips in the soft tissues of the neck on the left. There is blunting of the right lateral pleural angle again noted with some fissural fluid on the right. Pulmonary vascular congestion and cephalization is seen. Moderate cardiomegaly is observed. There are some increased markings in the right lower lobe which may be atelectasis or infiltrate. The aorta is calcific and tortuous as before. Impression: CHF pattern with right pleural effusion unchanged. Atelectasis versus infiltrate right base. Electronically Signed by Pedro Baker MD 02/17/2019 08:07 A
--- NOTE | 2019-02-17 08:57 | IPNPDOC ---
Subjective Date Seen The patient was seen on 02/17/19. Subjective Chief Complaint/HPI Pt this morning reports improvement in her breathing. She is c/o back pain today. She was quite restless and agitated throughout the night as she was the night before as well. General: Reports: Fatigue Constitutional: Denies: Chills, Fever ENT: Denies: Head Aches Pulmonary: Reports: Dyspnea; Denies: Cough Cardiovascular: Denies: Chest Pain, Palpitations Gastrointestinal: Denies: Nausea, Vomiting, Diarrhea Musculoskeletal: Reports: Back Pain Psych: Reports: Memory Issues, Anger Objective Physical Examination General Exam: Positive: Alert, Cooperative (recognized me when I entered the room, agitated), No Acute Distress ENT Exam: Positive: Atraumatic, Mucous membr. moist/pink Chest Exam: Positive: Diminished (rales to mid R lung field, L basilar rales, improved c/w yesterday); Negative: Wheezing Heart Exam: Positive: Rate Normal, Normal S1, Normal S2 Abdomen Exam: Positive: Normal bowel sounds, Soft; Negative: Tenderness Extremity Exam: Positive: Edema (trace pedal edema); Negative: Tenderness Neuro Exam: Positive: Normal Speech Psych Exam: Positive: Anxiety; Negative: Mental status NL, Mood NL Assessment /Plan Problems (1) Pleural effusion Status: Acute Problem Text: 02/17 met Neg Net overnight, Lasix held this morning, will cont to monitor. Rise in her Scr, BUN stable, monitor. Cont diuresis for now. Portable CXR this morning without change in effusion. ECHO report not available yet. O2 being titrated to keep sats 88-90% 02/16 I believe this is assoc with failure, she rec a dose of IV lasix in the ED, will cont for Net Neg of 1L/24 h, monitor renal function. ECHO has been ordered, it has been sometime since this was done last. Repeat CXR in AM. Cont O2. (2) Iron deficiency anemia Status: Acute Response to Treatment: Stable Problem Specific Plan: Monitor Clinically, Repeat Labs Problem Text: 02/17 Hgb 9.1, down form 9.8, cont to monitor. 02/16 Hgb 7.8 on admission, she has rec 1 unit pRBCs with improvement in her Hgb to 9.8, she will be started on supplemental iron, as her Fe was 12, hemoccult has been ordered. 09/17 colonoscopy with diminutive polyps. (3) Dementia Status: Chronic Response to Treatment: Stable Problem Specific Plan: Monitor Clinically Problem Text: Increase evening Seroquel dose tonight due to increased agitation. NH resident. (4) CAD (coronary artery disease) Status: Chronic Response to Treatment: Stable Problem Text: Cont Plavix, lipitor. (5) Chronic back pain Status: Chronic Problem Specific Plan: Monitor Clinically Problem Text: Pt not getting relief from Tyl and Muscle cream, will add heating pad and tramadol. Plan/VTE VTE Prophylaxis Ordered?: Yes VS, I&O, 24H, Fishbone Vital Signs/I&O Vital Signs Date Time Temp Pulse Resp B/P (MAP) Pulse Ox O2 Delivery O2 Flow Rate FiO2 02/17/19 06:39 91 4.0 02/17/19 06:00 Nasal Cannula 02/17/19 04:00 97.2 88 20 114/54 (74) 02/16/19 07:29 100 I&O- Last 24 Hours up to 6 AM 02/17/19 06:00 Intake Total 510 ml Output Total 1425 ml Balance -915 ml Laboratory Data 24H LABS Laboratory Tests 2 02/16/19 08:52: Nucleated Red Blood Cells % (auto) 0.6H, Anion Gap 5L, Glomerular Filtration Rate > 60.0, Blood Urea Nitrogen 18, Creatinine 0.93, Sodium Level 139, Potassium Level 4.3, Chloride Level 103, Carbon Dioxide Level 31, Calcium Level 8.3L 02/16/19 16:00: Blood Gas Bicarbonate Standard 30.6H, Arterial Blood pH 7.343L, Arterial Blood Partial Pressure CO2 63.6*H, Arterial Blood Partial Pressure O2 119.5H, Arterial Blood Total CO2 35.7H, Arterial Blood HCO3 33.8H, Arterial Blood Base Excess 6.7H, Arterial Blood Oxygen Saturation 98.2 02/16/19 18:52: Urine Color STRAW, Urine Appearance CLEAR, Urine pH 6.0, Urine Specific [place] 1.008, Urine Protein NEGATIVE, Urine Glucose (UA) NEGATIVE, Urine Ketones NEGATIVE, Urine Blood NEGATIVE, Urine Nitrite NEGATIVE, Urine Bilirubin NEGATIVE, Urine Urobilinogen 0.2, Urine Leukocyte Esterase NEGATIVE, Urine WBC (Auto) 0, Urine RBC (Auto) 0, Urine Hyaline Casts (Auto) 0, Urine Bacteria (Auto) NEGATIVE, Urine Squamous Epithelial Cells 0, Urine Sperm (Auto) 02/17/19 05:33: Nucleated Red Blood Cells % (auto) 0.5H, Anion Gap 7L, Glomerular Filtration Rate 39.9, Blood Urea Nitrogen 20H, Creatinine 1.35H, Sodium Level 140, Potassium Level 3.3#L, Chloride Level 95L, Carbon Dioxide Level 38H, Calcium Level 8.3L, Aspartate Amino Transf (AST/SGOT) 44H, Alanine Aminotransferase (ALT/SGPT) 34, Alkaline Phosphatase 85, Total Bilirubin 0.6, Total Protein 6.8, Albumin 2.9L, Magnesium Level 1.3L, LW-Mav-S-Type Natriuretic Peptide 01151R, Albumin/Globulin Ratio 0.74L CBC/BMP Laboratory Tests 02/16/19 08:52 Red Blood Count 4.11, Mean Corpuscular Volume 85.2, Mean Corpuscular Hemoglobin 23.8 L, Mean Corpuscular Hemoglobin Concent 28.0 L, Red Cell Distribution Width 17.2 H, Calcium Level 8.3 L 02/17/19 05:33 Red Blood Count 3.68 L, Mean Corpuscular Volume 84.5, Mean Corpuscular Hemoglobin 24.7 L, Mean Corpuscular Hemoglobin Concent 29.3 L, Red Cell Distribution Width 17.2 H, Calcium Level 8.3 L, Aspartate Amino Transf (AST/SGOT) 44 H, Alanine Aminotransferase (ALT/SGPT) 34, Alkaline Phosphatase 85, Total Bilirubin 0.6, Total Protein 6.8, Albumin 2.9 L SEEMA ARZOLA PA-C Feb 17, 2019 08:57
[2019-02-17] MEDS ORDERED: POTASSIUM CHLORIDE 10 MEQ SR TABLET PO ONE (09:00)
[2019-02-17] MEDS: traMADol 50 MG TAB PO PRN ×2 (11:27→19:51)
--- NOTE | 2019-02-17 12:32 | ECHO ---
DATE OF PROCEDURE: 02/16/2019 AGE: 83 GENDER: Female. HEIGHT: 66 inches. WEIGHT: 150 pounds. BODY SURFACE AREA: 1.82 meters squared. LOCATION: Inpatient, progressive care unit (PCU), room 3229. REFERRING PHYSICIAN: Burton Yi MD INDICATION: Congestive heart failure (CHF). MEASUREMENTS: 2-D measurements: RV - 4.2 cm LV - 4.9 cm Septum 1.0 cm Posterior wall 1.0 cm Aortic root 3.1 cm LA - 4.0 cm LVEF of 45 - 50% DOPPLER MEASUREMENTS: AV - 2.0 meters per second LVOT - 1.35 meters per second LVOT diameter 1.9 cm. MV - unable to obtain flow measurements in light of superimposition of early and late diastolic filling. PV - 0.75 meters per second Pulmonary artery acceleration time 53 milliseconds RVSP 55 - 60 mmHg IVC - 2.0 cm COMMENTS: Sinus tachycardia at 108 beats per minute. Left bundle branch block. Somewhat technically challenging study in light of the patient's body habitus but diagnostically useful information was still obtained. Two-dimensional echocardiography was performed with pulsed, continuous wave, color flow and tissue Doppler studies. Normal left ventricular size and wall thickness with septal wall motion abnormality, suspected to be due to left bundle branch block and possibly right ventricular pressure overload. At least mild - moderate impairment of global resting left ventricular systolic function. Mildly dilated left atrium. Unable to comment on LV diastolic function or estimate the pulmonary arterial wedge pressure in light of superimposition of early late diastolic filling patterns with his sinus tachycardia but also with the observed mitral insufficiency. Mildly dilated right heart chambers with slight right ventricular hypokinesis and Doppler evidence of at least moderately severe to severe pulmonary hypertension. IVC size upper limits of normal with reduced respiratory collapse in keeping with an elevated central venous pressure. Aortic valvular sclerosis without stenosis and only very mild insufficiency. Normal aortic root size. Moderately severe mitral annular calcification without inflow tract obstruction but mild to moderate insufficiency. Normal appearing tricuspid valve with moderate insufficiency. Minuscule posterior pericardial effusion. Unable to detect any intracardiac mass. The observed right ventricular dysfunction appears out of keeping with her left ventricular disease. Left atrial size is only slightly increased. The observed left atrial size does suggest an elevated mean left atrial pressure but this does not appear in keeping with the observed right ventricular dysfunction. MTDD
--- NOTE | 2019-02-17 13:05 | ECGEPIP ---
Stationary ECG Study [facility] Test Date: 2019-02-16 Pat Name: JEIMY CAM Department: Room: [place] [address] Gender: F Food Porter: NALINI : 1935 Requested By: Gordo Cyr Order Number: [id number] Reading MD: Dion Altamirano Measurements Intervals [place] Rate: 105 P: 73 VA: 219 QRS: -16 QRSD: 135 T: 126 QT: 353 QTc: 467 Interpretive Statements Sinus tachycardia with an isolated PVC. First-degree AV block. Left axis deviation Left bundle branch block. Slower rate than 06/07/18. Electronically Signed On 02-17-2019 13:04:48 EDT by Dion Altamirano
[2019-02-17] MEDS: BISACODYL 10 MG SUPP PR PRN ×2 (16:27→19:20)
[2019-02-17] MEDS: ALBUTEROL SULFATE 2.5 MG/0.5 ML INH NEB SOLN NEB PRN (16:38)
[2019-02-17] MEDS: DULoxetine 20 MG CAP (CYMBALTA) PO SCH (19:51)
[2019-02-17] MEDS: ATORVASTATIN 20 MG TAB PO SCH (19:52)
[2019-02-18] VITALS (16 sets, daily range): BP systolic 104–166; BP diastolic 56–83; O2SAT 90–96
[2019-02-18] MEDS: LORazepam 1 MG TAB PO PRN (00:02)
[2019-02-18] MEDS: FUROSEMIDE 40 MG/4 ML VIAL (J1940) IV SCH ×5 (00:03→23:45)
[2019-02-18] MEDS: ACETAMINOPHEN TAB 650MG DOSE (2X325MG) PO PRN ×3 (00:11→23:45)
[2019-02-18] MEDS: IPRATROPIUM 0.5MG/ALBUTEROL 2.5MG INH SOL UD 3ML (DUONEB)(J7620) NEB SCH ×4 (02:00→21:36)
[2019-02-18 06:08] LABS: HEMATOCRIT 30.8 % (36.0-47.0); HEMOGLOBIN 8.7 g/dl (12.0-15.5); MEAN CORPUSCULAR HEMOGLOBIN 23.7 pg (27.0-33.0); MEAN CORPUSCULAR HGB CONC 28.2 g/dl (32.0-36.5); MEAN CORPUSCULAR VOLUME 83.9 fl (80.0-96.0); PLATELET COUNT, AUTOMATED 198 10^3/uL (150-450); RED BLOOD COUNT 3.67 10^6/uL (4.00-5.40); WHITE BLOOD COUNT 4.7 10^3/uL (4.0-10.0)
[2019-02-18] MEDS: traMADol 50 MG TAB PO PRN ×2 (06:24→20:12)
[2019-02-18 06:29] LABS: ALBUMIN 2.7 GM/DL (3.2-5.2); CALCIUM LEVEL 8.4 MG/DL (8.8-10.2); CREATININE FOR GFR 1.14 MG/DL (0.55-1.30); GLOMERULAR FILTRATION RATE 48.5 (>32); MAGNESIUM LEVEL 1.7 MG/DL (1.8-2.4); PHOSPHORUS LEVEL 4.3 MG/DL (2.5-4.9); POTASSIUM SERUM 3.2 MEQ/L (3.5-5.1)
[2019-02-18] MEDS: VITAMIN D 1,000 INTERNATIONAL UNITS TABLET PO SCH (08:59)
[2019-02-18] MEDS: CLOPIDOGREL 75 MG TAB PO SCH (08:59)
[2019-02-18] MEDS: MAGNESIUM OXIDE 400 MG TAB (MAG-OX) PO SCH ×2 (08:59→20:10)
[2019-02-18] MEDS: FERROUS SULFATE 325MG TAB PO SCH ×2 (08:59→20:11)
[2019-02-18] MEDS: PANTOPRAZOLE 40MG TAB (PROTONIX) PO SCH (09:00)
[2019-02-18] MEDS: SERTRALINE HCL 50 MG TAB PO SCH (09:00)
[2019-02-18] MEDS: QUEtiapine FUMARATE 25 MG TAB PO SCH ×2 (09:00→20:11)
[2019-02-18] MEDS: SENOKOT S TAB PO SCH (09:00)
[2019-02-18] MEDS: ANALGESIC BALM CRM 120 GM TOP PRN ×2 (13:22→22:30)
[2019-02-18] MEDS: POTASSIUM CHLORIDE 10 MEQ SR TABLET PO SCH ×2 (13:51→20:11)
--- NOTE | 2019-02-18 15:04 | IPN ---
DATE: 02/18/2019 The patient is seen today on PCU. She was admitted to the hospital several days ago with shortness of breath, found to have dropped her hemoglobin 2 grams from her baseline and also had a large right pleural effusion that was not present when she had her last chest x-ray in June. She is being treated for congestive heart failure. She did get some transfusions. She has had some agitation and has received a number of different medications for this. She her received some intramuscular (IM) Haldol. She has gotten some Seroquel, and also has been dosed with the lorazepam. She was having issues with back pain, which is a chronic problem for her, but it had been much more symptomatic recently at the custodial. According to Dr. King, she was not complaining of it yesterday and this morning is not complaining of it. She feels her breathing is better. She does not have much of an appetite today. Her breathing is a little noisy today. She does not offer that she is having any distress, although her respiratory efforts caused her to be taking deep breaths, and there is a little wheezing, although it seems to be emanating from her throat rather than her chest itself. Her current medications are Seroquel 75 mg which she got last night, tramadol 50 mg as needed, Ativan every 6 hours as needed, DuoNebs [id number]. She has as needed haloperidol - last time she received this actually was 18 hours ago. She has as-needed medications for wheezing. She is getting net negative furosemide. She is on vitamin D, Plavix, Protonix. She is also getting Seroquel 25 mg in the morning. She has gotten Zoloft, Senokot-S, ferrous sulfate, as-needed medications for chest pain and bowel care. She is on atorvastatin, magnesium and Cymbalta. ON EXAMINATION: Her temperature is 98.0, blood pressure 166/81, although earlier this morning it was 116/56, pulse is 97 and seems regular. Respiratory rate is 18. Oxygen (O2) saturation is fluctuating between 90 and 96% on 3 liters. She is alert and cooperative, not in any distress. As noted above, respirations are deep, and she does have some wheezing that, again, seems to emanate from her throat rather than her chest: Lungs show diminished breath sounds at the right base. Heart: Has a regular rhythm without any murmur, click or gallop. Abdomen is soft and nontender without any masses or organomegaly. Bowel sounds are active. There is trace edema at the worst. Labs show a hemoglobin of 8.7 today, WBC is 4700. Her BUN is 24, creatinine 1.14, carbon dioxide is 40, potassium is 3.2, magnesium was 1.7, which is better than yesterday. Her pro BNP yesterday was 10,298. ASSESSMENT: 1. Congestive heart failure. 2. Pleural effusion. 3. Iron deficiency anemia. 4. Dementia. 5. Chronic back pain. PLAN: The patient will be continued on her net negative diuretic regimen. I am going to reduce her as-needed medications for agitation because I do not want her overly sedated. We need to give her some supplemental potassium, get some additional lab work done in the morning and will see how things go. They did talk with the family about our plans, we would like to avoid actually having a thoracentesis because it is not clear whether she would be adequately cooperative for it to be done safely. Certainly there is not an urgent need to have that done. I should note that her echocardiogram was interpreted as showing some sinus tachycardia. Normal left ventricular size and wall thickness, moderate dilatation of the left atrium, mildly dilated right heart chambers, aortic valve sclerosis, severe annular calcification of the mitral apparatus but mild to moderate insufficiency, right ventricular dysfunction out of proportion to left ventricular disease, seems to be an element of pulmonary hypertension. MTDD
[2019-02-18] MEDS: ALBUTEROL SULFATE 2.5 MG/0.5 ML INH NEB SOLN NEB PRN (16:15)
[2019-02-18] MEDS: ATORVASTATIN 20 MG TAB PO SCH (20:11)
[2019-02-18] MEDS: DULoxetine 20 MG CAP (CYMBALTA) PO SCH (20:11)
[2019-02-18] MEDS: LORazepam 0.5 MG TAB PO PRN (22:23)
[2019-02-19] VITALS (16 sets, daily range): BP systolic 97–127; BP diastolic 55–70; O2SAT 91–99
[2019-02-19] MEDS: IPRATROPIUM 0.5MG/ALBUTEROL 2.5MG INH SOL UD 3ML (DUONEB)(J7620) NEB SCH ×4 (00:54→20:59)
[2019-02-19] MEDS: FUROSEMIDE 40 MG/4 ML VIAL (J1940) IV SCH ×2 (05:58→17:49)
[2019-02-19 06:09] LABS: HEMATOCRIT 30.7 % (36.0-47.0); HEMOGLOBIN 8.7 g/dl (12.0-15.5); MEAN CORPUSCULAR HEMOGLOBIN 23.7 pg (27.0-33.0); MEAN CORPUSCULAR HGB CONC 28.3 g/dl (32.0-36.5); MEAN CORPUSCULAR VOLUME 83.7 fl (80.0-96.0); PLATELET COUNT, AUTOMATED 204 10^3/uL (150-450); RED BLOOD COUNT 3.67 10^6/uL (4.00-5.40); WHITE BLOOD COUNT 6.1 10^3/uL (4.0-10.0)
[2019-02-19 06:23] LABS: CALCIUM LEVEL 8.6 MG/DL (8.8-10.2); CREATININE FOR GFR 1.15 MG/DL (0.55-1.30); MAGNESIUM LEVEL 1.4 MG/DL (1.8-2.4); PHOSPHORUS LEVEL 3.9 MG/DL (2.5-4.9); POTASSIUM SERUM 3.4 MEQ/L (3.5-5.1)
[2019-02-19] MEDS: traMADol 50 MG TAB PO PRN ×3 (07:37→17:49)
[2019-02-19] MEDS: FERROUS SULFATE 325MG TAB PO SCH ×2 (08:24→20:22)
[2019-02-19] MEDS: MAGNESIUM OXIDE 400 MG TAB (MAG-OX) PO SCH ×2 (08:24→20:21)
[2019-02-19] MEDS: VITAMIN D 1,000 INTERNATIONAL UNITS TABLET PO SCH (08:24)
[2019-02-19] MEDS: SERTRALINE HCL 50 MG TAB PO SCH (08:25)
[2019-02-19] MEDS: PANTOPRAZOLE 40MG TAB (PROTONIX) PO SCH (08:25)
[2019-02-19] MEDS: CLOPIDOGREL 75 MG TAB PO SCH (08:25)
[2019-02-19] MEDS: SENOKOT S TAB PO SCH (08:25)
[2019-02-19] MEDS: QUEtiapine FUMARATE 25 MG TAB PO SCH ×2 (08:25→20:21)
[2019-02-19] MEDS: POTASSIUM CHLORIDE 10 MEQ SR TABLET PO SCH ×2 (08:25→20:21)
[2019-02-19] MEDS: ALBUTEROL SULFATE 2.5 MG/0.5 ML INH NEB SOLN NEB PRN (09:07)
--- NOTE | 2019-02-19 11:01 | REP ---
REASON: History of CHF. Assess for pleural effusion. AP and lateral views were obtained. The technique utilized in obtaining the radiograph has magnified the cardiac silhouette and accentuated the interstitial markings. There is no change from two days ago. The heart is enlarged. There is a right pleural effusion. There is interstitial fibrotic change. Superimposed acute disease cannot be ruled out. There is evidence of CHF. There is no change in the osseous structures. IMPRESSION: No change. Electronically Signed by Reji Pena DO 02/19/2019 02:31 P
[2019-02-19] MEDS ORDERED: POTASSIUM CHLORIDE 10 MEQ SR TABLET PO ONE (11:45)
[2019-02-19] MEDS: LORazepam 0.5 MG TAB PO PRN ×2 (14:14→23:01)
[2019-02-19] MEDS: HALOPERIDOL 5 MG/ML VIAL (J1630) IM PRN (16:17)
[2019-02-19] MEDS: ATORVASTATIN 20 MG TAB PO SCH (20:20)
[2019-02-19] MEDS: DULoxetine 20 MG CAP (CYMBALTA) PO SCH (20:22)
[2019-02-19] MEDS: ACETAMINOPHEN TAB 650MG DOSE (2X325MG) PO PRN (23:01)
[2019-02-20] VITALS (26 sets, daily range): BP systolic 102–141; BP diastolic 55–78; O2SAT 86–97
[2019-02-20] MEDS: IPRATROPIUM 0.5MG/ALBUTEROL 2.5MG INH SOL UD 3ML (DUONEB)(J7620) NEB SCH ×4 (01:19→20:00)
[2019-02-20 05:45] LABS: HEMATOCRIT 35.1 % (36.0-47.0); HEMOGLOBIN 9.7 g/dl (12.0-15.5); MEAN CORPUSCULAR HEMOGLOBIN 24.1 pg (27.0-33.0); MEAN CORPUSCULAR HGB CONC 27.6 g/dl (32.0-36.5); MEAN CORPUSCULAR VOLUME 87.1 fl (80.0-96.0); PLATELET COUNT, AUTOMATED 171 10^3/uL (150-450); RED BLOOD COUNT 4.03 10^6/uL (4.00-5.40); WHITE BLOOD COUNT 5.5 10^3/uL (4.0-10.0)
[2019-02-20 06:32] LABS: ALBUMIN 2.9 GM/DL (3.2-5.2); CALCIUM LEVEL 8.7 MG/DL (8.8-10.2); CREATININE FOR GFR 0.96 MG/DL (0.55-1.30); GLOMERULAR FILTRATION RATE 59.1 (>32); MAGNESIUM LEVEL 1.6 MG/DL (1.8-2.4); PHOSPHORUS LEVEL 3.4 MG/DL (2.5-4.9); POTASSIUM SERUM 3.9 MEQ/L (3.5-5.1)
--- NOTE | 2019-02-20 06:56 | IPN ---
DATE OF VISIT: 02/19/2019 HISTORY: The patient is seen on progressive care unit (PCU). She still has some noisy respirations but seems to be more alert. She feels short of breath at times. She is able to speak in full sentences. She naps a lot and she is readily of awakened from sleep. She seems very comfortable at this time although she intermittently has had backache. She is not having any dysuria, no leg pain, no edema, no chest pains. She describes her back pain as coming from the lower posterior midline thoracic area. CURRENT MEDICATIONS: - potassium chloride 20 mEq twice a day - she has been on furosemide every 6 hours IV - lorazepam 0.5 as needed for anxiety, she had her last dose at 10:30 last night - as needed Haldol which she has not gotten - she is getting quetiapine 75 mg at bedtime, 25 mg in the morning - tramadol as needed for pain which she got this morning at 07:30 - she has scheduled DuoNebs every 6 hours, although several of her recent doses are not administered - as needed albuterol - vitamin D - Plavix - Protonix - Seroquel - Senokot-S - iron - atorvastatin - magnesium - Cymbalta PHYSICAL EXAMINATION: VITAL SIGNS: Temperature is 98.4, pulse is 101 and regular, respiratory rate 18, blood pressure 97/55, O2 saturation was 97% on 3 liters this morning. GENERAL: She is alert, pleasant, cooperative, not in any distress. HEENT/NECK: She is not coughing, her voice is a little bit raspy. It sounds as she may have a bit of wheezing. It is hard to assess her for jugular venous distension. LUNGS: Her lungs show some rales and rhonchi at the right base. HEAT: Heart has a regular rhythm. Not hearing any murmur, click or gallop. ABDOMEN: Abdomen is soft and nontender without any masses or organomegaly. Bowel sounds are active. EXTREMITIES: There is no edema. LABORATORY DATA: Labs today show hemoglobin of 8.7, WBC 6100, platelets 204,000. Her potassium is 3.4, sodium was 136, chlorides 89, CO2 is 42, BUN 24, creatinine 1.15, glucose 91. IMAGING: We did another chest x-ray this morning which is stable. She is still has evidence of congestive heart failure (CHF) and the right pleural effusion but no worse than her priors. ASSESSMENT: 1. Congestive heart failure. 2. Right pleural effusion. 3. Iron deficiency anemia. 4. Dementia. 5. Chronic back pain. 6. Hypokalemia. 7. Hypochloremia. PLAN: Based on today's labs I have decided that we will reduce her IV Lasix to twice daily and increase her potassium to 40 mEq twice daily. I think she is more alert and I think some of that is due to having backed off on her as needed psychotropic meds. She seems quite comfortable. She is not moaning with pain as she did when she was at the residential. It was always hard to assess her back pain because of her dementia which contributed to her embellishing pain. I did discuss with both her and her daughter the nature of the thoracentesis procedure if we want to go ahead with that. The patient indicated that she would be willing to go through with it and would be cooperative. We will have to wait and will see how she is tomorrow. . CAMILLA
[2019-02-20] MEDS: VITAMIN D 1,000 INTERNATIONAL UNITS TABLET PO SCH (08:41)
[2019-02-20] MEDS: PANTOPRAZOLE 40MG TAB (PROTONIX) PO SCH (08:41)
[2019-02-20] MEDS: CLOPIDOGREL 75 MG TAB PO SCH (08:41)
[2019-02-20] MEDS: POTASSIUM CHLORIDE 10 MEQ SR TABLET PO SCH ×2 (08:42→20:01)
[2019-02-20] MEDS: FERROUS SULFATE 325MG TAB PO SCH ×2 (08:42→20:00)
[2019-02-20] MEDS: SENOKOT S TAB PO SCH (08:42)
[2019-02-20] MEDS: SERTRALINE HCL 50 MG TAB PO SCH (08:42)
[2019-02-20] MEDS: MAGNESIUM OXIDE 400 MG TAB (MAG-OX) PO SCH ×2 (08:42→20:00)
[2019-02-20] MEDS: QUEtiapine FUMARATE 25 MG TAB PO SCH ×2 (08:43→20:00)
[2019-02-20] MEDS: FUROSEMIDE 40 MG/4 ML VIAL (J1940) IV SCH ×2 (08:43→18:09)
[2019-02-20] MEDS: ACETAMINOPHEN TAB 650MG DOSE (2X325MG) PO PRN ×2 (10:31→19:57)
[2019-02-20] MEDS: ANALGESIC BALM CRM 120 GM TOP PRN (10:32)
[2019-02-20] MEDS: LORazepam 0.5 MG TAB PO PRN ×2 (10:49→19:58)
--- NOTE | 2019-02-20 10:52 | IPNPDOC ---
Subjective Date Seen The patient was seen on 02/20/19. Subjective Chief Complaint/HPI Continue breathing difficulties and anxiety Events since last encounter I interviewed the patient in the presence of her daughter today. Ms. Chairez seems to be doing well and her oxygen saturations have been maintained in the mid to high 90s. Nursing has turned her oxygen down from 3 L/m to 2 L/m and she is maintained her saturations well. Despite this the patient reports anxiety. The patient does have a known underlying history of anxiety which makes it difficult to sort out whether hypoxemia or her baseline anxiety is responsible for her symptoms. Additionally her dementia distorts the picture even more. Constitutional: Denies: Chills, Fever Pulmonary: Reports: Dyspnea, Cough Cardiovascular: Denies: Chest Pain Gastrointestinal: Denies: Nausea, Vomiting Psych: Reports: Anxiety Objective Physical Examination General Exam: Positive: Alert, Cooperative, No Acute Distress Eye Exam: Negative: Sclera icteric ENT Exam: Positive: Atraumatic, Mucous membr. moist/pink Neck Exam: Negative: Lymphadenopathy Chest Exam: Positive: Wheezing (noted in bilateral lung olson today), Diminished (rales the lower one third of the right posterior lung olson) Heart Exam: Positive: Rate Normal, Normal S1, Normal S2 Abdomen Exam: Positive: Normal bowel sounds, Soft; Negative: Tenderness Extremity Exam: Positive: Edema (trace pedal edema); Negative: Tenderness Neuro Exam: Positive: Normal Speech (but sometimes the content drifts away from her current conversation) Psych Exam: Positive: Anxiety; Negative: Memory Intact Assessment /Plan Problems (1) Pleural effusion Status: Acute Response to Treatment: Improving Problem Text: 02/20: As far as I can tell, she is making improvements on medical therapy. I did discuss the possibility of interventional radiology guided thoracentesis with the patient and her daughter. The daughter seemed to be leani ng toward this procedure, but the patient expressed she was very nervous about it. We decided I would repeat a chest x-ray tomorrow and see how things are going. If she has good output and her chest x-ray does not worsen then we may not need a thoracentesis. If she does not continue diuresing, or her chest x-ray looks worse, then we may need to consider the thoracentesis. 02/17 met Neg Net overnight, Lasix held this morning, will cont to monitor. Rise in her Scr, BUN stable, monitor. Cont diuresis for now. Portable CXR this morning without change in effusion. ECHO report not available yet. O2 being titrated to keep sats 88-90% 02/16 I believe this is assoc with failure, she rec a dose of IV lasix in the ED, will cont for Net Neg of 1L/24 h, monitor renal function. ECHO has been ordered, it has been sometime since this was done last. Repeat CXR in AM. Cont O2. (2) Iron deficiency anemia Status: Acute Response to Treatment: Stable Problem Specific Plan: Monitor Clinically, Repeat Labs Problem Text: 02/20: Her hemoglobin seems to be relatively stable at this time. We will continue to monitor carefully. 02/17 Hgb 9.1, down form 9.8, cont to monitor. 02/16 Hgb 7.8 on admission, she has rec 1 unit pRBCs with improvement in her Hgb to 9.8, she will be started on supplemental iron, as her Fe was 12, hemoccult has been ordered. 09/17 colonoscopy with diminutive polyps. (3) Dementia Status: Chronic Response to Treatment: Stable Problem Specific Plan: Monitor Clinically Problem Text: She continues to have intermittent agitated events especially at nighttime. They seem to generally have improved with more time here. She is not sleeping well at night per nursing (4) CAD (coronary artery disease) Status: Chronic Response to Treatment: Stable Problem Text: Cont Plavix, lipitor. (5) Chronic back pain Status: Chronic Problem Specific Plan: Monitor Clinically Problem Text: This is a long-standing issue for this patient, but she is not currently complaining of her back. We'll continue current regimen, monitor. Plan/VTE VTE Prophylaxis Ordered?: Yes (Lovenox, teds, SCDs) VS, I&O, 24H, Fishbone Vital Signs/I&O Vital Signs Date Time Temp Pulse Resp B/P (MAP) Pulse Ox O2 Delivery O2 Flow Rate FiO2 02/20/19 07:48 97.0 90 20 114/63 (80) 95 2.0 02/20/19 06:00 Nasal Cannula 02/16/19 07:29 100 I&O- Last 24 Hours up to 6 AM 02/20/19 06:00 Intake Total 780 ml Output Total 2625 ml Balance -1845 ml Laboratory Data 24H LABS Laboratory Tests 2 02/20/19 05:34: Nucleated Red Blood Cells % (auto) 0.0, Blood Urea Nitrogen 20H, Creatinine 0.96, Sodium Level 136, Potassium Level 3.9, Chloride Level 92L, Carbon Dioxide Level 38H, Anion Gap 6L, Glomerular Filtration Rate 59.1, Calcium Level 8.7L, Phosphorus Level 3.4, Magnesium Level 1.6L, Albumin 2.9L CBC/BMP Laboratory Tests 02/20/19 05:34 Red Blood Count 4.03, Mean Corpuscular Volume 87.1, Mean Corpuscular Hemoglobin 24.1 L, Mean Corpuscular Hemoglobin Concent 27.6 L, Red Cell Distribution Width 18.8 H, Anion Gap 6 L Andrei Terry MD Feb 20, 2019 10:52
[2019-02-20] MEDS ORDERED: SLF 3 ML SYR IV PRN (11:00)
[2019-02-20] MEDS: ALBUTEROL SULFATE 2.5 MG/0.5 ML INH NEB SOLN NEB PRN (11:12)
[2019-02-20] MEDS: MAG SULF 1GM/100ML (MAG RUN) 1 GM in APPROPRIATE DILUENT 1 EA IV SCH ×2 (12:01→13:37)
[2019-02-20] MEDS: SLF 3 ML SYR IV SCH ×2 (14:00→22:00)
[2019-02-20] MEDS: DULoxetine 20 MG CAP (CYMBALTA) PO SCH (20:00)
[2019-02-20] MEDS: ATORVASTATIN 20 MG TAB PO SCH (20:01)
[2019-02-21] VITALS (14 sets, daily range): BP systolic 122–132; BP diastolic 76–79; O2SAT 82–98
[2019-02-21] MEDS: IPRATROPIUM 0.5MG/ALBUTEROL 2.5MG INH SOL UD 3ML (DUONEB)(J7620) NEB SCH ×4 (02:00→20:00)
[2019-02-21] MEDS: SLF 3 ML SYR IV SCH ×3 (06:00→22:00)
[2019-02-21 06:08] LABS: HEMATOCRIT 32.8 % (36.0-47.0); HEMOGLOBIN 9.4 g/dl (12.0-15.5); MEAN CORPUSCULAR HEMOGLOBIN 24.5 pg (27.0-33.0); MEAN CORPUSCULAR HGB CONC 28.7 g/dl (32.0-36.5); MEAN CORPUSCULAR VOLUME 85.6 fl (80.0-96.0); PLATELET COUNT, AUTOMATED 176 10^3/uL (150-450); RED BLOOD COUNT 3.83 10^6/uL (4.00-5.40); WHITE BLOOD COUNT 4.5 10^3/uL (4.0-10.0)
[2019-02-21 06:32] LABS: ALBUMIN 2.6 GM/DL (3.2-5.2); CALCIUM LEVEL 8.8 MG/DL (8.8-10.2); CREATININE FOR GFR 0.99 MG/DL (0.55-1.30); MAGNESIUM LEVEL 2.1 MG/DL (1.8-2.4); PHOSPHORUS LEVEL 4.3 MG/DL (2.5-4.9); POTASSIUM SERUM 3.8 MEQ/L (3.5-5.1)
[2019-02-21] MEDS: HALOPERIDOL 5 MG/ML VIAL (J1630) IM PRN ×2 (07:01→19:12)
[2019-02-21] MEDS: SERTRALINE HCL 50 MG TAB PO SCH (11:54)
[2019-02-21] MEDS: SENOKOT S TAB PO SCH (11:54)
[2019-02-21] MEDS: QUEtiapine FUMARATE 25 MG TAB PO SCH ×2 (11:55→22:03)
[2019-02-21] MEDS: POTASSIUM CHLORIDE 10 MEQ SR TABLET PO SCH ×2 (11:55→22:05)
[2019-02-21] MEDS: CLOPIDOGREL 75 MG TAB PO SCH (11:55)
[2019-02-21] MEDS: VITAMIN D 1,000 INTERNATIONAL UNITS TABLET PO SCH (11:55)
[2019-02-21] MEDS: MAGNESIUM OXIDE 400 MG TAB (MAG-OX) PO SCH ×2 (11:56→22:06)
[2019-02-21] MEDS: PANTOPRAZOLE 40MG TAB (PROTONIX) PO SCH (11:56)
[2019-02-21] MEDS: FERROUS SULFATE 325MG TAB PO SCH ×2 (11:56→22:06)
[2019-02-21] MEDS: ENOXAPARIN 40 MG/0.4 ML SYRINGE (J1650) SC SCH (11:57)
[2019-02-21] MEDS: LORazepam 0.5 MG TAB PO PRN ×2 (12:04→22:03)
[2019-02-21] MEDS: ACETAMINOPHEN TAB 650MG DOSE (2X325MG) PO PRN (12:04)
--- NOTE | 2019-02-21 13:40 | IPNPDOC ---
Subjective Date Seen The patient was seen on 02/21/19. Subjective Chief Complaint/HPI agitation and continued tx of her R pleural effusion Events since last encounter Ms. Chairez had a difficult morning. She was very agitated, which reportedly happens at times even while she is at [facility]. She pulled her IV out, so we have had difficulty giving her her IV Lasix, which has been the mainstay of her diuretic therapy. She was not cooperative with the CXR ordered for this morning and this has not been acquired yet, although nursing is still trying. Her daughter seems perplexed by this. She expresses that she really was hoping that her mother could get an IR guided thoracentesis today, but at present the patient isn't in any state to have a non-sedated procedure done on her. Pulmonary: Reports: Dyspnea, Cough (dry and non-productive) Cardiovascular: Denies: Paroxysmal Noc. Dyspnea, Edema Gastrointestinal: Denies: Vomiting, Diarrhea, Melena, Hematochezia Psych: Reports: Other Psych (agitation) Objective Physical Examination General Exam: Positive: Alert, No Acute Distress; Negative: Cooperative (she is not actively fighting the nursing staff, but also is ordering them out of her room) Eye Exam: Negative: Sclera icteric ENT Exam: Positive: Atraumatic, Mucous membr. moist/pink Neck Exam: Positive: Supple; Negative: Lymphadenopathy Chest Exam: Positive: Rales (rales noted at the base of the right posterior lung field only), Wheezing (scant noted in bilateral posterior lung olson), Diminished Heart Exam: Positive: Rate Normal, Normal S1, Normal S2 Abdomen Exam: Positive: Normal bowel sounds, Soft; Negative: Tenderness Extremity Exam: Negative: Edema, Tenderness Neuro Exam: Negative: Normal Speech (shorter and more gutteral phrases. Seems angry at everyone) Psych Exam: Positive: Anxiety; Negative: Mental status NL, Mood NL, Memory Intact, Oriented x 3 Assessment /Plan Problems (1) Pleural effusion Status: Acute Response to Treatment: Improving Problem Text: 02/21: She continues to make slow progress on her medication therapy. We currently don't have IV access. She was getting 40mg Lasix BID; if we can't get it restored soon, I will plan on 60mg PO BID, but I'm not sure if this will be adequate to continue her steady diuresis. 02/20: As far as I can tell, she is making improvements on medical therapy. I did discuss the possibility of interventional radiology guided thoracentesis with the patient and her daughter. The daughter seemed to be leaning toward this procedure, but the patient expressed she was very nervous about it. We decided I would repeat a chest x-ray tomorrow and see how things are going. If she has good output and her chest x-ray does not worsen then we may not need a thoracentesis. If she does not continue diuresing, or her chest x-ray looks worse, then we may need to consider the thoracentesis. 02/17 met Neg Net overnight, Lasix held this morning, will cont to monitor. Rise in her Scr, BUN stable, monitor. Cont diuresis for now. Portable CXR this morning without change in effusion. ECHO report not available yet. O2 being titrated to keep sats 88-90% 02/16 I believe this is assoc with failure, she rec a dose of IV lasix in the ED, will cont for Net Neg of 1L/24 h, monitor renal function. ECHO has been ordered, it has been sometime since this was done last. Repeat CXR in AM. Cont O2. (2) Iron deficiency anemia Status: Acute Response to Treatment: Stable Problem Specific Plan: Monitor Clinically, Repeat Labs Problem Text: Her hemoglobin seems to be relatively stable at this time. We will continue to monitor carefully. 02/17 Hgb 9.1, down form 9.8, cont to monitor. 02/16 Hgb 7.8 on admission, she has rec 1 unit pRBCs with improvement in her Hgb to 9.8, she will be started on supplemental iron, as her Fe was 12, hemoccult has been ordered. 09/17 colonoscopy with diminutive polyps. (3) Dementia Status: Chronic Response to Treatment: Stable Problem Specific Plan: Monitor Clinically Problem Text: She continues to have intermittent agitated events especially at nighttime. They seem to generally have improved with more time here, although today is a poor example of that. She is not sleeping well at night per nursing (4) CAD (coronary artery disease) Status: Chronic Response to Treatment: Stable Problem Text: Cont Plavix, lipitor. (5) Chronic back pain Status: Chronic Problem Specific Plan: Monitor Clinically Problem Text: This is a long-standing issue for this patient, but she is not currently complaining of her back. We'll continue current regimen, monitor. Plan/VTE VTE Prophylaxis Ordered?: Yes (Lovenox, teds, SCDs) Plan Anticipated Discharge: Retirement (on or around Sumi 02/23) VS, I&O, 24H, Fishbone Vital Signs/I&O Vital Signs Date Time Temp Pulse Resp B/P (MAP) Pulse Ox O2 Delivery O2 Flow Rate FiO2 02/21/19 12:28 93 2.0 02/21/19 12:27 97.7 108 18 126/79 (95) 02/21/19 06:00 Nasal Cannula 02/16/19 07:29 100 I&O- Last 24 Hours up to 6 AM 02/21/19 06:00 Intake Total 1280 ml Output Total 1575 ml Balance -295 ml Laboratory Data 24H LABS Laboratory Tests 2 02/21/19 05:47: Nucleated Red Blood Cells % (auto) 0.0, Blood Urea Nitrogen 24H, Creatinine 0.99, Sodium Level 137, Potassium Level 3.8, Chloride Level 95L, Carbon Dioxide Level 38H, Anion Gap 4L, Glomerular Filtration Rate 57.0, Calcium Level 8.8, Phosphorus Level 4.3#, Magnesium Level 2.1, Albumin 2.6L CBC/BMP Laboratory Tests 02/21/19 05:47 Red Blood Count 3.83 L, Mean Corpuscular Volume 85.6, Mean Corpuscular Hemoglobin 24.5 L, Mean Corpuscular Hemoglobin Concent 28.7 L, Red Cell Distribution Width 18.5 H, Anion Gap 4 L Andrei Terry MD Feb 21, 2019 13:40
[2019-02-21] MEDS: FUROSEMIDE 20 MG TAB PO SCH ×2 (15:28→22:04)
[2019-02-21] MEDS ORDERED: FUROSEMIDE 20 MG TAB PO SCH (17:00)
--- NOTE | 2019-02-21 17:30 | REP ---
Chest x-ray: Two views. History: Follow up right effusion. Comparison chest x-ray: February 19, 2019. Findings: Moderate cardiac enlargement is noted. There is a small amount of right pleural fluid again noted blunting the right lateral pleural angle and producing some thickening of the minor fissure. The aorta is calcific and tortuous. Pulmonary vasculature is cephalized as before. No new infiltrate. Impression: Cardiomegaly small right pleural effusion. Cephalization. CHF pattern. Electronically Signed by Pedro Baker MD 02/21/2019 05:21 P
[2019-02-21] MEDS: ATORVASTATIN 20 MG TAB PO SCH (22:04)
[2019-02-21] MEDS: DULoxetine 20 MG CAP (CYMBALTA) PO SCH (22:06)
[2019-02-22] VITALS (8 sets, daily range): BP systolic 104–148; BP diastolic 66–83; O2SAT 80–97
[2019-02-22] MEDS: ACETAMINOPHEN TAB 650MG DOSE (2X325MG) PO PRN ×2 (01:19→15:30)
[2019-02-22] MEDS: IPRATROPIUM 0.5MG/ALBUTEROL 2.5MG INH SOL UD 3ML (DUONEB)(J7620) NEB SCH ×4 (01:37→20:00)
[2019-02-22] MEDS: SLF 3 ML SYR IV SCH ×3 (05:36→20:41)
[2019-02-22] MEDS: HALOPERIDOL 5 MG/ML VIAL (J1630) IM PRN (08:18)
[2019-02-22] MEDS: CLOPIDOGREL 75 MG TAB PO SCH ×2 (09:00→10:54)
[2019-02-22] MEDS: MAGNESIUM OXIDE 400 MG TAB (MAG-OX) PO SCH ×2 (09:00→20:41)
[2019-02-22] MEDS: FUROSEMIDE 20 MG TAB PO SCH ×3 (09:00→17:00)
[2019-02-22] MEDS: VITAMIN D 1,000 INTERNATIONAL UNITS TABLET PO SCH (09:00)
[2019-02-22] MEDS: SENOKOT S TAB PO SCH (09:00)
[2019-02-22] MEDS: PANTOPRAZOLE 40MG TAB (PROTONIX) PO SCH ×2 (09:00→10:54)
[2019-02-22] MEDS: POTASSIUM CHLORIDE 10 MEQ SR TABLET PO SCH ×2 (09:00→20:41)
[2019-02-22] MEDS: QUEtiapine FUMARATE 25 MG TAB PO SCH ×3 (09:00→20:40)
[2019-02-22] MEDS: FERROUS SULFATE 325MG TAB PO SCH ×2 (09:00→20:40)
[2019-02-22] MEDS: ENOXAPARIN 40 MG/0.4 ML SYRINGE (J1650) SC SCH (09:00)
[2019-02-22] MEDS: SERTRALINE HCL 50 MG TAB PO SCH ×2 (09:00→10:54)
--- NOTE | 2019-02-22 10:00 | IPNPDOC ---
Subjective Date Seen The patient was seen on 02/22/19. Subjective Chief Complaint/HPI pleural effusion Events since last encounter Behaviors improved today. CXR shows mild effusion. Oxygen saturations remain stable. General: Reports: ROS Unobtainable (due to behavior) Objective Physical Examination General Exam: Positive: Alert, Cooperative, No Acute Distress Eye Exam: Negative: Sclera icteric ENT Exam: Positive: Atraumatic, Mucous membr. moist/pink Neck Exam: Positive: Supple; Negative: Lymphadenopathy Chest Exam: Positive: Diminished; Negative: Rales, Wheezing Heart Exam: Positive: Rate Normal, Normal S1, Normal S2 Abdomen Exam: Positive: Normal bowel sounds, Soft; Negative: Tenderness Extremity Exam: Negative: Edema, Tenderness Neuro Exam: Negative: Normal Speech (shorter and more gutteral phrases. Seems angry at everyone) Psych Exam: Positive: Anxiety; Negative: Mental status NL, Mood NL, Memory Intact, Oriented x 3 A-FIB/CHADSVASC A-FIB History Current/History of A-Fib/PAF?: No Assessment /Plan Problems (1) Pleural effusion Status: Acute Response to Treatment: Improving Problem Text: 02/22/19: continues to show improvement. anticipate DC back to [facility] within next 1-2 days. Cotinue LSaisx 40 mg po bid. 02/21: She continues to make slow progress on her medication therapy. We currently don't have IV access. She was getting 40mg Lasix BID; if we can't get it restored soon, I will plan on 60mg PO BID, but I'm not sure if this will be adequate to continue her steady diuresis. 02/20: As far as I can tell, she is making improvements on medical therapy. I did discuss the possibility of interventional radiology guided thoracentesis with the patient and her daughter. The daughter seemed to be leaning toward this procedure, but the patient expressed she was very nervous about it. We decided I would repeat a chest x-ray tomorrow and see how things are going. If she has good output and her chest x-ray does not worsen then we may not need a thoracentesis. If she does not continue diuresing, or her chest x-ray looks worse, then we may need to consider the thoracentesis. 02/17 met Neg Net overnight, Lasix held this morning, will cont to monitor. Rise in her Scr, BUN stable, monitor. Cont diuresis for now. Portable CXR this morning without change in effusion. ECHO report not available yet. O2 being titrated to keep sats 88-90% 02/16 I believe this is assoc with failure, she rec a dose of IV lasix in the ED, will cont for Net Neg of 1L/24 h, monitor renal function. ECHO has been ordered, it has been sometime since this was done last. Repeat CXR in AM. Cont O2. (2) Acute on chronic systolic (congestive) heart failure Status: Acute Response to Treatment: Improving Problem Specific Plan: Monitor Clinically, Repeat Labs Problem Text: I believe that this is the etiology for her pleural effusion. (3) Iron deficiency anemia Status: Acute Response to Treatment: Stable Problem Specific Plan: Monitor Clinically, Repeat Labs Problem Text: Her hemoglobin seems to be relatively stable at this time. We will continue to monitor carefully. 02/17 Hgb 9.1, down form 9.8, cont to monitor. 02/16 Hgb 7.8 on admission, she has rec 1 unit pRBCs with improvement in her Hgb to 9.8, she will be started on supplemental iron, as her Fe was 12, hemoccult has been ordered. 09/17 colonoscopy with diminutive polyps. (4) Dementia Status: Chronic Response to Treatment: Stable Problem Specific Plan: Monitor Clinically Problem Text: She continues to have intermittent agitated events especially at nighttime. They seem to generally have improved with more time here, although today is a poor example of that. She is not sleeping well at night per nursing (5) CAD (coronary artery disease) Status: Chronic Response to Treatment: Stable Problem Text: Cont Plavix, lipitor. (6) Chronic back pain Status: Chronic Problem Specific Plan: Monitor Clinically Problem Text: This is a long-standing issue for this patient, but she is not currently complaining of her back. We'll continue current regimen, monitor. Plan/VTE VTE Prophylaxis Ordered?: Yes (Lovenox, teds, SCDs) Plan Anticipated Discharge: Snf (on or around Sumi 02/23) Family Medicine Attending Note: I saw and examined Ms. Chairez, discussed with LEONEL Galindo. Agree with her note as documented. Her pleural effusion is all but resolved. 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
[2019-02-22 10:18] LABS: BASO % 0.8 % (0.0-1.0); EOS # 0.3 10^3/uL (0.0-0.50); EOS % 5.5 % (0.0-3.0); HEMATOCRIT 34.6 % (36.0-47.0); HEMOGLOBIN 9.9 g/dl (12.0-15.5); LYMPH # 1.6 10^3/uL (1.5-4.5); LYMPH % 29.9 % (24.0-44.0); MEAN CORPUSCULAR HEMOGLOBIN 24.8 pg (27.0-33.0); MEAN CORPUSCULAR HGB CONC 28.6 g/dl (32.0-36.5); MEAN CORPUSCULAR VOLUME 86.7 fl (80.0-96.0); MONO # 0.7 10^3/uL (0.0-0.8); MONO % 13.7 % (0.0-5.0); NEUTROPHILS # 2.7 10^3/uL (1.8-7.7); NEUTROPHILS % 49.7 % (36.0-66.0); PLATELET COUNT, AUTOMATED 199 10^3/uL (150-450); RED BLOOD COUNT 3.99 10^6/uL (4.00-5.40); WHITE BLOOD COUNT 5.3 10^3/uL (4.0-10.0)
[2019-02-22 10:42] LABS: BLOOD UREA NITROGEN 23 MG/DL (7-18); CALCIUM LEVEL 8.8 MG/DL (8.8-10.2); CARBON DIOXIDE LEVEL 39 MEQ/L (21-32); CHLORIDE LEVEL 95 MEQ/L (98-107); CREATININE FOR GFR 0.94 MG/DL (0.55-1.30); GLOMERULAR FILTRATION RATE > 60.0 (>32); GLUCOSE, FASTING 94 MG/DL (70-100); SODIUM LEVEL 137 MEQ/L (136-145)
[2019-02-22] MEDS: traMADol 50 MG TAB PO PRN (13:00)
[2019-02-22] MEDS: ANALGESIC BALM CRM 120 GM TOP PRN (14:11)
[2019-02-22] MEDS: ATORVASTATIN 20 MG TAB PO SCH (20:40)
[2019-02-22] MEDS: DULoxetine 20 MG CAP (CYMBALTA) PO SCH (20:40)
[2019-02-22] MEDS: LORazepam 0.5 MG TAB PO PRN (23:43)
[2019-02-23] MEDS: IPRATROPIUM 0.5MG/ALBUTEROL 2.5MG INH SOL UD 3ML (DUONEB)(J7620) NEB SCH ×2 (02:00→08:00)
[2019-02-23] MEDS: SLF 3 ML SYR IV SCH (04:21)
[2019-02-23 06:00] VITALS: BP 116/66
[2019-02-23 06:29] LABS: HEMATOCRIT 36.9 % (36.0-47.0); HEMOGLOBIN 10.7 g/dl (12.0-15.5); MEAN CORPUSCULAR HEMOGLOBIN 24.3 pg (27.0-33.0); MEAN CORPUSCULAR VOLUME 83.7 fl (80.0-96.0); PLATELET COUNT, AUTOMATED 226 10^3/uL (150-450); RED BLOOD COUNT 4.41 10^6/uL (4.00-5.40); WHITE BLOOD COUNT 6.8 10^3/uL (4.0-10.0)
[2019-02-23] MEDS: CLOPIDOGREL 75 MG TAB PO SCH (08:26)
[2019-02-23] MEDS: PANTOPRAZOLE 40MG TAB (PROTONIX) PO SCH (08:26)
[2019-02-23] MEDS: SERTRALINE HCL 50 MG TAB PO SCH (08:27)
[2019-02-23] MEDS: FUROSEMIDE 20 MG TAB PO SCH (08:27)
[2019-02-23] MEDS: FERROUS SULFATE 325MG TAB PO SCH (08:34)
[2019-02-23] MEDS: MAGNESIUM OXIDE 400 MG TAB (MAG-OX) PO SCH (08:34)
[2019-02-23] MEDS: VITAMIN D 1,000 INTERNATIONAL UNITS TABLET PO SCH (08:35)
[2019-02-23] MEDS: SENOKOT S TAB PO SCH (08:35)
[2019-02-23] MEDS: POTASSIUM CHLORIDE 10 MEQ SR TABLET PO SCH (08:35)
[2019-02-23] MEDS: ENOXAPARIN 40 MG/0.4 ML SYRINGE (J1650) SC SCH (08:36)
[2019-02-23] MEDS: QUEtiapine FUMARATE 25 MG TAB PO SCH (08:37)
[2019-02-23] MEDS: traMADol 50 MG TAB PO PRN (09:32)
[2019-02-23] MEDS ORDERED: FURO20TA2 PO (10:07)
--- NOTE | 2019-02-24 14:10 | DSES ---
DATE OF ADMISSION: 02/16/2019 DATE OF DISCHARGE: 02/23/2019 PRIMARY CARE PROVIDER: Dr. Bernard Arora at [facility]. ATTENDING PHYSICIAN: Dr. Andrei Terry HISTORY OF PRESENT ILLNESS: This is an 83-year-old female with a past medical history of hypertension, dyslipidemia, coronary artery disease, dementia, gastroesophageal reflux disease (GERD), anxiety, depression, who presented to [facility] emergency department as a transfer from [facility] for complaints of shortness of breath that had been present for several days prior to her presentation. The patient was found to be hypoxic in the emergency department, requiring 4 liters of supplemental oxygen, which is not close to her baseline. She was noted to have anemia and a right sided pleural effusion. The patient was subsequently admitted to family medicine service. HOSPITAL COURSE: The patient was placed on diuretics for her pleural effusion. Oxygen was titrated accordingly. She received IV Lasix initially for a net negative and diuresed well. She has been transitioned over to oral Lasix over the last few days and has continued to improve regarding her clinical symptoms with no rales appreciated in the right lung, as well as in repeat x-ray on 02/21/2019, which showed a small right pleural effusion, compared to a large right pleural effusion noted on CT of the chest on 02/16/2019. The patient's remain function has remained stable throughout the hospitalization. She did have some difficulties with hypomagnesemia. This was subsequently replaced and her most recent magnesium level on 02/21/2019 was 2.1. She also had some slightly difficulties with hypokalemia, again this was subsequently replaced and she tolerated that well. The patient is status post echocardiogram on 02/17/2019. She is noted to have a left bundle branch block, ejection fraction estimated at 45 to 50%, mildly dilated left atrium, aortic valvular sclerosis without stenosis and only very mild insufficiency, this was read by Dr. Altamirano. PHYSICAL EXAMINATION: Vital signs are stable. She is afebrile. CARDIOVASCULAR: Heart rate and rhythm are regular. PULMONARY: Lungs are clear. ABDOMEN: Soft and nontender. EXTREMITIES: Bilateral lower extremities without any edema. NEUROLOGIC: The patient is alert to self. Her answers and responses are vague. She is not aggressive. She is cooperative with the examination. ASSESSMENT: DISCHARGE DIAGNOSIS: 1. Large right sided pleural effusion. SECONDARY DIAGNOSES: 1. Progressive dementia. 2. Hypertension. 3. Dyslipidemia. 4. Coronary artery disease. 5. Anxiety and depression. PLAN: The patient will be discharged back to [facility]. Diet is 2 gram sodium. Activity is as tolerated. MEDICATIONS: - furosemide 50 mg by mouth twice a day - Tylenol 1000 mg by mouth twice a day - atorvastatin 80 mg by mouth at night - bisacodyl 10 mg per rectum daily as needed for constipation - vitamin D3 2000 International Units by mouth daily - Plavix 75 mg daily - cranberry pills 400 mg by mouth twice a day - Duloxetine 20 mg by mouth at night - hydrocodone with acetaminophen 5/325 mg one tablet by mouth twice a day - krill oil pills one by mouth daily - lidocaine 4% cream applied topically twice a day to affected area - magnesium hydroxide 30 mL by mouth daily as needed for constipation - magnesium oxide 400 mg by mouth twice a day - nitroglycerin 0.4 mg sublingual as needed for chest pain - pantoprazole sodium 40 mg by mouth daily - quetiapine fumarate 25 mg by mouth daily - quetiapine fumarate 50 mg by mouth at night - Senna two tablets by mouth daily - sertraline 50 mg daily - enema daily as needed for constipation The patient is discharged in stable and satisfactory condition with no further questions at the time of discharge. Primary care provider will need to monitor BMP and any further diuretic adjustments within the next week once her pleural effusion has resolved.
== END 2019-02-23 11:30 | DRG 293 ==
LOC: M ED 18:30 → M PCU 02-16 00:27 → M ED INP 02-16 00:27 → M PCU 02-16 14:16 → M MS5PR 02-22 16:49
PROVIDERS: ADMIT Internal Medicine; ATTEND Family Medicine
PROC: 30233N1 Transfusion of Nonautologous Red Blood Cells into Peripheral Vein, Percutaneous Approach (ICD-10-PCS; principal; 2019-02-16)
DX: I11.0 Hypertensive heart disease with heart failure (principal); I50.23 Acute on chronic systolic (congestive) heart failure; D50.9 Iron deficiency anemia, unspecified; F03.90 Unspecified dementia, unspecified severity, without behavioral disturbance, psychotic disturbance, mood disturbance, and anxiety; F41.9 Anxiety disorder, unspecified; F32.9 Major depressive disorder, single episode, unspecified; I25.10 Atherosclerotic heart disease of native coronary artery without angina pectoris; E78.5 Hyperlipidemia, unspecified; K21.9 Gastro-esophageal reflux disease without esophagitis; E83.42 Hypomagnesemia; E87.6 Hypokalemia; Z79.899 Other long term (current) drug therapy; Z96.641 Presence of right artificial hip joint; Z95.2 Presence of prosthetic heart valve; Z88.5 Allergy status to narcotic agent; K59.00 Constipation, unspecified

== ENCOUNTER → 2019-02-15 | Outpatient (REF) | payer MEDICARE, MEDICAID ==
[~2019-02-15] MED LIST changes: +ACET-683 PO; +ASPE16CR TOP; +ATOR80TA59 PO; +CLOP75TA2 PO; +D32000TA PO; +DULC10SU2 PR; +DULO20CA27 PO; +ENEMENE PR; +ENEMENE22 PR; +HYDR-3713 PO; +LISI-1046 PO; -LISI2.5T5 PO; +MAGN400C PO; +MILKSUS3 PO; +NITR4TASL SL; -NORC1TAB4 PO; +NORC1TAB7 PO; +QUET1TAB7 PO; +SENN1TAB41 PO; +SERT-141 PO; +TOPR25TA PO; -TOPR25TA13 PO
--- NOTE | 2019-02-15 15:52 | REP ---
Portable chest, 03:17 p.m., single AP view with the patient sitting: Comparison is 06/07/2018. There is diffuse interstitial coarsening. This is unchanged. There is a large right pleural effusion as an interval change. There is chronic cardiomegaly, unchanged. Impression: New large right pleural effusion. Chronic interstitial coarsening and chronic cardiomegaly. Electronically Signed by Samson Mares MD 02/15/2019 03:43 P
[2019-02-15 16:12] LABS: HEMATOCRIT 27.5 % (36.0-47.0); HEMOGLOBIN 7.6 g/dl (12.0-15.5); MEAN CORPUSCULAR HEMOGLOBIN 23.3 pg (27.0-33.0); MEAN CORPUSCULAR HGB CONC 27.6 g/dl (32.0-36.5); MEAN CORPUSCULAR VOLUME 84.4 fl (80.0-96.0); PLATELET COUNT, AUTOMATED 226 10^3/uL (150-450); RED BLOOD COUNT 3.26 10^6/uL (4.00-5.40); WHITE BLOOD COUNT 5.4 10^3/uL (4.0-10.0)
[2019-02-15 16:29] LABS: CREATININE FOR GFR 1.08 MG/DL (0.55-1.30); GLOMERULAR FILTRATION RATE 51.6 (>32); THYROID STIMULATING HORMONE 2.12 uIU/ML (0.358-3.740)
== END ==
LOC: SKLAB3 15:00
PROVIDERS: ATTEND Family Medicine
DX: J90 Pleural effusion, not elsewhere classified (principal); I51.7 Cardiomegaly; R06.02 Shortness of breath

== ENCOUNTER → 2019-02-27 | Outpatient (REF) | payer MEDICARE, MEDICAID ==
[~2019-02-27] MED LIST changes: +ACET-683 PO; +ASPE16CR TOP; +ATOR80TA59 PO; +CLOP75TA2 PO; +D32000TA PO; +DULC10SU2 PR; +DULO20CA27 PO; +ENEMENE PR; +ENEMENE22 PR; +FURO20TA2 PO; +HYDR-3713 PO; +MAGN400C PO; +MILKSUS3 PO; +NITR4TASL SL; +QUET1TAB7 PO; +SENN1TAB41 PO; +SERT-141 PO
[2019-02-27 07:49] LABS: HEMOGLOBIN 10.5 g/dl (12.0-15.5); MEAN CORPUSCULAR HEMOGLOBIN 24.3 pg (27.0-33.0); MEAN CORPUSCULAR HGB CONC 29.2 g/dl (32.0-36.5); MEAN CORPUSCULAR VOLUME 83.3 fl (80.0-96.0); PLATELET COUNT, AUTOMATED 297 10^3/uL (150-450); RED BLOOD COUNT 4.32 10^6/uL (4.00-5.40); WHITE BLOOD COUNT 6.2 10^3/uL (4.0-10.0)
[2019-02-27 08:10] LABS: CALCIUM LEVEL 8.7 MG/DL (8.8-10.2); CHOLESTEROL RISK RATIO 2.018 (<5); CREATININE FOR GFR 1.23 MG/DL (0.55-1.30); GLOMERULAR FILTRATION RATE 44.4 (>32)
== END ==
LOC: SKLAB3 07:00
PROVIDERS: ATTEND Family Medicine
DX: E78.5 Hyperlipidemia, unspecified (principal); Z79.02 Long term (current) use of antithrombotics/antiplatelets

== ENCOUNTER → 2019-03-16 | Outpatient (REF) | payer MEDICARE, MEDICAID ==
[2019-03-16 08:02] LABS: HEMATOCRIT 36.5 % (36.0-47.0); HEMOGLOBIN 10.7 g/dl (12.0-15.5); MEAN CORPUSCULAR HEMOGLOBIN 25.1 pg (27.0-33.0); MEAN CORPUSCULAR HGB CONC 29.3 g/dl (32.0-36.5); MEAN CORPUSCULAR VOLUME 85.5 fl (80.0-96.0); PLATELET COUNT, AUTOMATED 191 10^3/uL (150-450); RED BLOOD COUNT 4.27 10^6/uL (4.00-5.40)
[2019-03-16 08:18] LABS: CREATININE FOR GFR 1.05 MG/DL (0.55-1.30); GLOMERULAR FILTRATION RATE 53.3 (>32)
== END ==
LOC: SKLAB8 07:00
PROVIDERS: ATTEND Family Medicine
DX: I11.0 Hypertensive heart disease with heart failure (principal); I50.9 Heart failure, unspecified; F03.90 Unspecified dementia, unspecified severity, without behavioral disturbance, psychotic disturbance, mood disturbance, and anxiety

== ENCOUNTER → 2019-04-20 | Outpatient (REF) | payer MEDICARE, MEDICAID ==
[2019-04-20 09:23] LABS: HEMATOCRIT 34.3 % (36.0-47.0); HEMOGLOBIN 10.1 g/dl (12.0-15.5); MEAN CORPUSCULAR HEMOGLOBIN 27.1 pg (27.0-33.0); MEAN CORPUSCULAR HGB CONC 29.4 g/dl (32.0-36.5); PLATELET COUNT, AUTOMATED 220 10^3/uL (150-450); RED BLOOD COUNT 3.73 10^6/uL (4.00-5.40); WHITE BLOOD COUNT 5.4 10^3/uL (4.0-10.0)
[2019-04-20 09:30] LABS: CALCIUM LEVEL 8.8 MG/DL (8.8-10.2); GLOMERULAR FILTRATION RATE 56.4 (>32)
== END ==
LOC: SKLAB8 07:00
PROVIDERS: ATTEND Family Medicine
DX: I10 Essential (primary) hypertension (principal); E83.42 Hypomagnesemia; I25.10 Atherosclerotic heart disease of native coronary artery without angina pectoris

== ENCOUNTER → 2019-05-18 | Outpatient (REF) | payer MEDICARE, MEDICAID ==
[2019-05-18 08:04] LABS: HEMATOCRIT 31.8 % (36.0-47.0); HEMOGLOBIN 9.5 g/dl (12.0-15.5); MEAN CORPUSCULAR HEMOGLOBIN 26.6 pg (27.0-33.0); MEAN CORPUSCULAR HGB CONC 29.9 g/dl (32.0-36.5); MEAN CORPUSCULAR VOLUME 89.1 fl (80.0-96.0); PLATELET COUNT, AUTOMATED 235 10^3/uL (150-450); RED BLOOD COUNT 3.57 10^6/uL (4.00-5.40); WHITE BLOOD COUNT 6.1 10^3/uL (4.0-10.0)
[2019-05-18 08:21] LABS: CALCIUM LEVEL 8.8 MG/DL (8.8-10.2); CREATININE FOR GFR 1.04 MG/DL (0.55-1.30); GLOMERULAR FILTRATION RATE 53.9 (>32); POTASSIUM SERUM 3.6 MEQ/L (3.5-5.1)
== END ==
LOC: SKLAB8 07:00
PROVIDERS: ATTEND Family Medicine
DX: E78.5 Hyperlipidemia, unspecified (principal); I10 Essential (primary) hypertension

== ENCOUNTER → 2019-06-15 | Outpatient (REF) | payer MEDICARE ==
[~2019-06-15] MED LIST changes: +ACET650T3 PO; +APAP325T4 PO; +ATOR1TAB21 PO; +BENG1CRE3 TOP; +DULO30CA9 PO; +DULO60CA35 PO; +FURO80TA2 PO; +GABA-843 PO; +LASI20TA3 PO; +LIDO5DIS41 TD; +LIDO5DIS41 TOP; -LORA0.5T11 PO; +LORA0.5T5 PO; +LORA2TAB14 PO; -LORA2TAB9 PO; +MELA5CAP2 PO; +PANT20TA2 PO; +POTA10CA32 PO
[2019-06-15 08:43] LABS: HEMATOCRIT 32.9 % (36.0-47.0); HEMOGLOBIN 9.7 g/dl (12.0-15.5); MEAN CORPUSCULAR HEMOGLOBIN 25.9 pg (27.0-33.0); MEAN CORPUSCULAR HGB CONC 29.5 g/dl (32.0-36.5); MEAN CORPUSCULAR VOLUME 87.7 fl (80.0-96.0); PLATELET COUNT, AUTOMATED 255 10^3/uL (150-450); RED BLOOD COUNT 3.75 10^6/uL (4.00-5.40); WHITE BLOOD COUNT 5.5 10^3/uL (4.0-10.0)
[2019-06-15 10:16] LABS: CALCIUM LEVEL 8.4 MG/DL (8.8-10.2); CREATININE FOR GFR 0.98 MG/DL (0.55-1.30); GLOMERULAR FILTRATION RATE 57.7 (>32)
== END ==
LOC: SKLAB8 07:00
PROVIDERS: ATTEND Family Medicine
DX: I10 Essential (primary) hypertension (principal)

== ENCOUNTER → 2019-07-02 | Outpatient (REF) | payer MEDICARE ==
[~2019-07-02] MED LIST changes: -APAP325T4 PO; -DULO60CA35 PO; -FURO80TA2 PO; -LIDO5DIS41 TD; +LORA0.5T11 PO; -LORA0.5T5 PO; -LORA2TAB14 PO; +LORA2TAB9 PO
[2019-07-02 12:12] LABS: HEMATOCRIT 35.6 % (36.0-47.0); HEMOGLOBIN 10.4 g/dl (12.0-15.5); MEAN CORPUSCULAR HEMOGLOBIN 25.7 pg (27.0-33.0); MEAN CORPUSCULAR HGB CONC 29.2 g/dl (32.0-36.5); MEAN CORPUSCULAR VOLUME 88.1 fl (80.0-96.0); PLATELET COUNT, AUTOMATED 248 10^3/uL (150-450); RED BLOOD COUNT 4.04 10^6/uL (4.00-5.40); WHITE BLOOD COUNT 6.3 10^3/uL (4.0-10.0)
--- NOTE | 2019-07-02 12:29 | REP ---
Clinical: Cough and fever . Comparison: 02/21/2019 . Technique: PA and lateral. Findings: Stable cardiomegaly and evidence for aortic valve repair. The lung olson demonstrate chronic-appearing interstitial changes without acute consolidation, effusion, or pneumothorax. The skeletal structures are intact and normal. Impression: 1. No acute cardiopulmonary process. Electronically Signed by Antwon Sheffield MD 07/02/2019 12:21 P
[2019-07-02 12:39] LABS: BLOOD UREA NITROGEN 24 MG/DL (7-18); CALCIUM LEVEL 8.6 MG/DL (8.8-10.2); CARBON DIOXIDE LEVEL 34 MEQ/L (21-32); CHLORIDE LEVEL 96 MEQ/L (98-107); CREATININE FOR GFR 0.94 MG/DL (0.55-1.30); GLOMERULAR FILTRATION RATE > 60.0 (>32); GLUCOSE, FASTING 107 MG/DL (70-100); POTASSIUM SERUM 5.1 MEQ/L (3.5-5.1); SODIUM LEVEL 136 MEQ/L (136-145)
== END ==
LOC: SKLAB8 07:00
PROVIDERS: ATTEND Internal Medicine
DX: R50.9 Fever, unspecified (principal); R05 Cough

== ENCOUNTER → 2019-07-20 | Outpatient (REF) | payer MEDICARE ==
[2019-07-20 08:27] LABS: HEMATOCRIT 36.6 % (36.0-47.0); HEMOGLOBIN 10.6 g/dl (12.0-15.5); MEAN CORPUSCULAR HEMOGLOBIN 24.7 pg (27.0-33.0); MEAN CORPUSCULAR VOLUME 85.1 fl (80.0-96.0); PLATELET COUNT, AUTOMATED 249 10^3/uL (150-450)
[2019-07-20 08:50] LABS: CALCIUM LEVEL 9.4 MG/DL (8.8-10.2); GLOMERULAR FILTRATION RATE 56.4 (>32)
== END ==
LOC: SKLAB8 07:00
PROVIDERS: ATTEND Family Medicine
DX: I11.0 Hypertensive heart disease with heart failure (principal); I50.9 Heart failure, unspecified

== ENCOUNTER → 2019-07-21 | Outpatient (REF) | payer MEDICARE ==
[2019-07-21 07:54] LABS: APPEARANCE, URINE CLEAR (CLEAR); BACTERIA, URINE AUTO NEGATIVE (NEGATIVE); BILIRUBIN, URINE AUTO NEGATIVE (NEGATIVE); BLOOD, URINE BLOOD NEGATIVE (NEGATIVE); COLOR, URINE YELLOW (YELLOW); GLUCOSE, URINE (UA) AUTO NEGATIVE (NEGATIVE); KETONE, URINE AUTO NEGATIVE (NEGATIVE); LEUKOCYTE ESTERASE, URINE AUTO NEGATIVE (NEGATIVE); NITRITE, URINE AUTO NEGATIVE (NEGATIVE); PROTEIN, URINE AUTO NEGATIVE (NEGATIVE); RBC, URINE AUTO 3 /HPF (0-3); SPECIFIC GRAVITY URINE AUTO 1.009 (1.002-1.035); SQUAMOUS EPITHELIAL CELL UR AU 0 /HPF (0-6); UROBILINOGEN, URINE AUTO 0.2 mg/dL (0.0-2.0); WBC, URINE AUTO 0 /HPF (0-3)
== END ==
LOC: SKLAB8 07:31
PROVIDERS: ATTEND Family Medicine
DX: F03.91 Unspecified dementia, unspecified severity, with behavioral disturbance (principal); I50.89 Other heart failure; Z87.440 Personal history of urinary (tract) infections

== ENCOUNTER 2019-07-23 16:28 | Emergency (ER) | payer MEDICARE ==
[~2019-07-23] VITALS: Ht 157.5 cm; Wt 72.9 kg
[~2019-07-23 16:28] MED LIST changes: -ACET650T3 PO; -ATOR1TAB21 PO; -BENG1CRE3 TOP; -DULO30CA9 PO; -GABA-843 PO; -LASI20TA3 PO; -LIDO5DIS41 TOP; -LORA0.5T11 PO; +LORA0.5T5 PO; +LORA2TAB14 PO; -LORA2TAB9 PO; -MELA5CAP2 PO; -PANT20TA2 PO; -POTA10CA32 PO
[2019-07-23 17:46] LABS: BASO # 0.1 10^3/uL (0.0-0.2); BASO % 0.6 % (0.0-1.0); EOS # 0.2 10^3/uL (0.0-0.5); EOS % 2.4 % (0.0-3.0); HEMOGLOBIN 10.2 g/dl (12.0-15.5); LYMPH # 1.6 10^3/uL (1.5-5.0); LYMPH % 17.1 % (24.0-44.0); MEAN CORPUSCULAR HGB CONC 29.1 g/dl (32.0-36.5); MEAN CORPUSCULAR VOLUME 85.8 fl (80.0-96.0); MONO % 10.4 % (0.0-5.0); NEUTROPHILS # 6.6 10^3/uL (1.5-8.5); NEUTROPHILS % 69.2 % (36.0-66.0); PLATELET COUNT, AUTOMATED 224 10^3/uL (150-450); RED BLOOD COUNT 4.08 10^6/uL (4.00-5.40); WHITE BLOOD COUNT 9.6 10^3/uL (4.0-10.0)
[2019-07-23] MEDS ORDERED: DULO30CA9 PO (17:47)
[2019-07-23] MEDS ORDERED: PANT20TA2 PO (17:47)
[2019-07-23] MEDS ORDERED: ATOR1TAB21 PO (17:47)
[2019-07-23] MEDS ORDERED: ACET650T3 PO (17:47)
[2019-07-23] MEDS ORDERED: LASI20TA3 PO (17:47)
[2019-07-23] MEDS ORDERED: MELA5CAP2 PO (17:55)
[2019-07-23] MEDS ORDERED: BENG1CRE3 TOP (17:55)
[2019-07-23 17:57] LABS: INR 1.11
[2019-07-23] MEDS ORDERED: GABA-843 PO (17:58)
[2019-07-23] MEDS ORDERED: POTA10CA32 PO (18:02)
[2019-07-23 18:16] LABS: ALBUMIN 3.5 GM/DL (3.2-5.2); ALT/SGPT 14 U/L (12-78); BILIRUBIN,DIRECT 0.2 MG/DL (0.0-0.2); BILIRUBIN,TOTAL 0.5 MG/DL (0.2-1.0); CK-MB VALUE MASS 1.1 NG/ML (<3.6); CPK CREATINE PHOSPHOKINASE 83 U/L (26-192); LIPASE 63 U/L (73-393); MB/CK RELATIVE INDEX 1.33 (< OR =4); NT-PRO BNP 1417 PG/ML (<450); TOTAL PROTEIN 7.9 GM/DL (6.4-8.2); TROPONIN I < 0.02 NG/ML (< 0.10)
[2019-07-23] MEDS ORDERED: ISOVUE-370 76% 100ML VIAL (Q9967) As Ordered ONE (18:21)
--- NOTE | 2019-07-23 18:40 | ECGEPIP ---
[facility] - ED Test Date: 2019-07-23 Pat Name: JEIMY CAM Department: Room: - Gender: Female Kitchen Bath Designer: zora : 1935 Requested By: LEONARDO Naranjo Order Number: [id number] Reading MD: Nora Herndon Measurements Intervals Piercy Rate: 97 P: 73 MT: 204 QRS: 11 QRSD: 141 T: 134 QT: 382 QTc: 487 Interpretive Statements SINUS RHYTHM WITH OCCASIONAL ECTOPIC PREMATURE COMPLEXES LEFT BUNDLE BRANCH BLOCK LAD SIMILAR 02/16/19 Electronically Signed on 07-23-2019 18:40:00 EDT by Nora Herndon
--- NOTE | 2019-07-23 19:20 | REPVR ---
PROCEDURE INFORMATION: Exam: CT Angiography Chest With Contrast Exam date and time: 07/23/2019 6:57 PM Clinical history: 83 years old, female; Chest pain TECHNIQUE: Imaging protocol: Computed tomographic angiography of the chest with intravenous contrast. 3D rendering: MIP reconstructed images were created and reviewed. Radiation optimization: All CT scans at this facility use at least one of these dose optimization techniques: automated exposure control; mA and/or kV adjustment per patient size (includes targeted exams where dose is matched to clinical indication); or iterative reconstruction. Contrast material: ISOVUE 370; Contrast volume: 100 ml; Contrast route: IV; COMPARISON: CT ANGIO CHEST 07/27/2017 10:34 AM FINDINGS: Pulmonary arteries: There are no pulmonary emboli. Aorta: The aorta demonstrates moderate atherosclerotic calcification. There is no aortic dissection or aneurysm. Thyroid: Spiculated lesion in the posterior segment of the right lobe measures 1.4 x 0.7 cm not demonstrated previously. Lungs: Mild emphysematous changes demonstrated predominantly in the upper lung zones. Pleural space: Unremarkable. No pneumothorax. No pleural effusion. Heart: Unremarkable. No cardiomegaly. No pericardial effusion. Lymph nodes: Unremarkable. No enlarged lymph nodes. Bones/joints: Old rib fractures right hemithorax. The spine demonstrates mild degenerative changes. Minimal development of compression fractures in the midthoracic spine and L1. Findings likely related to osteoporosis. Clinical correlation to exclude acute fracture suggested. 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 IMPRESSION: 1. Spiculated lesion in the posterior segment of the right lobe measures 1.4 x 0.7 cm not demonstrated previously. The isHighly suspicious nodule(s). Consider PET/CT, or tissue sampling.(Kenneth et al., Fleischner Society, 2017) 2. There is no aortic dissection or aneurysm. 3. There are no pulmonary emboli. 4. Minimal development of compression fractures in the midthoracic spine and L1. Findings likely related to osteoporosis. Clinical correlation to exclude acute fracture suggested. COMMENT: In patients aged 35 years and older with an incidental thyroid nodule equal to or greater than 1.[address], MRI or extrathyroidal US, further evaluation with dedicated thyroid US is recommended for patients with normal life expectancy and without comorbidities. For smaller nodules without suspicious features, no further evaluation or follow up is recommended. Electronically signed by: Wade Marcos 07/23/2019 19:20:02 PM
--- NOTE | 2019-07-23 19:28 | REPVR ---
PROCEDURE INFORMATION: Exam: CT Abdomen and Pelvis With Contrast Exam date and time: 07/23/2019 6:57 PM Clinical history: 83 years old, female; Abdominal pain; Localized; Left upper quadrant (luq); Additional info: Luq pain TECHNIQUE: Imaging protocol: Computed tomography of the abdomen and pelvis with intravenous contrast. Radiation optimization: All CT scans at this facility use at least one of these dose optimization techniques: automated exposure control; mA and/or kV adjustment per patient size (includes targeted exams where dose is matched to clinical indication); or iterative reconstruction. Contrast material: ISOVUE 370; Contrast volume: 100 ml; Contrast route: IV; COMPARISON: No relevant prior studies available. FINDINGS: Liver: There is a diffuse decrease in hepatic parenchymal density, consistent with fatty infiltration. Gallbladder and bile ducts: Thickened gallbladder wall without evidence of calculi. Clinical correlation to exclude acalculus cholecystitis suggested. Pancreas: There is diffuse pancreatic atrophy. Spleen: Normal. No splenomegaly. Adrenals: There is bilateral adrenal hyperplasia. Kidneys and ureters: Normal. No hydronephrosis. Stomach and bowel: There is diffuse thickening of the gastric wall which is likely related to nondistention. Appendix: No evidence of appendicitis. Intraperitoneal space: Unremarkable. No free air. No significant fluid collection. Vasculature: Infrarenal normal aortic aneurysm measures 3.4 cm. Lymph nodes: Unremarkable. No enlarged lymph nodes. Bladder: Unremarkable as visualized. Reproductive: Unremarkable as visualized. Bones/joints: Moderate to severe central spinal stenosis L3-4, severe spinal stenosis L4-5. 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 Old fracture right pubic symphysis and left inferior pubic ramus. Soft tissues: Diastases of the rectus sheath and small ventral hernia. Other findings: Osteoporosis. IMPRESSION: 1. There is a diffuse decrease in hepatic parenchymal density, consistent with fatty infiltration. 2. Thickened gallbladder wall without evidence of calculi. Clinical correlation to exclude acalculus cholecystitis suggested. 3. There is bilateral adrenal hyperplasia. 4. Infrarenal normal aortic aneurysm measures 3.4 cm. 5. There is diffuse pancreatic atrophy. Electronically signed by: Wade Sherwood On 07/23/2019 19:28:04 PM
[2019-07-23] MEDS ORDERED: LIDOCAINE 5% (LIDODERM) PATCH TD ONE (20:15)
[2019-07-23] MEDS ORDERED: KETOROLAC 30 MG/ML VIAL (J1885) IV ONE (20:15)
[2019-07-23] MEDS ORDERED: HYDROMORPHONE HCL 0.5 MG/ 0.5 ML SYRINGE (J1170 PER 1) IV PRN (20:45)
[2019-07-23] MEDS ORDERED: **NOTE PATIENT COMMENT** MISC XX SCH (21:00)
[2019-07-23] MEDS ORDERED: NORCO, ANEXSIA 5/325MG TABLET (HYDROcodone/ACETAMINOPHEN) PO ONE (21:15)
[2019-07-23] MEDS ORDERED: NORC1TAB7 PO (21:43)
[2019-07-23] MEDS ORDERED: LIDO5DIS41 TOP (21:43)
[2019-07-23 22:20] VITALS: BP 125/75
--- NOTE | 2019-07-24 07:47 | REP ---
CHEST, PORTABLE: AP portable view of the chest is performed and compared to prior studies most recently 07/02/2019. There is cardiomegaly and vascular congestion. There appears to be diffuse interstitial edema. Findings are compatible with congestive heart failure and interstitial edema. There is calcification and tortuosity of the thoracic aorta. The mediastinal silhouette is unchanged. IMPRESSION: Cardiomegaly, vascular congestion and interstitial edema. Electronically Signed by Samson Vang MD 07/25/2019 09:49 A
--- NOTE | 2019-07-24 07:55 | ED PDOC ---
Post-Departure Follow-Up dr shankar faxed formal report of cta chest and ct abd/p Estrada Wood MD Jul 24, 2019 07:55
== END 2019-07-23 22:34 | disposition home or self-care (01) ==
LOC: M ED 16:28 → EDBD 16:28 → M ED 22:34
DX: S32.019A Unspecified fracture of first lumbar vertebra, initial encounter for closed fracture (principal); X58.XXXA Exposure to other specified factors, initial encounter; Y92.89 Other specified places as the place of occurrence of the external cause; R91.1 Solitary pulmonary nodule; I44.7 Left bundle-branch block, unspecified; I10 Essential (primary) hypertension; E78.5 Hyperlipidemia, unspecified; F03.90 Unspecified dementia, unspecified severity, without behavioral disturbance, psychotic disturbance, mood disturbance, and anxiety; Z79.899 Other long term (current) drug therapy; Z88.5 Allergy status to narcotic agent
CPT/HCPCS: 71045; 71275; 74177; 80047; 80076; 81001; 82550; 82553; 83605; 83690; 83880; 84443; 84484; 85025; 85610; 87040; 87486; 87581; 87633; 87798; 93005; 93041; 94760; 96374; 96375; 99285; J1170; J1885; Q9967

== ENCOUNTER → 2019-07-27 | Outpatient (REF) | payer MEDICARE ==
[~2019-07-27] MED LIST changes: +ACET650T3 PO; +ATOR1TAB21 PO; +BENG1CRE3 TOP; +DULO30CA9 PO; +GABA-843 PO; +LASI20TA3 PO; +LIDO5DIS41 TOP; +LORA0.5T11 PO; -LORA0.5T5 PO; -LORA2TAB14 PO; +LORA2TAB9 PO; +MELA5CAP2 PO; +PANT20TA2 PO; +POTA10CA32 PO
[2019-07-27 09:17] LABS: CALCIUM LEVEL 8.9 MG/DL (8.8-10.2); CREATININE FOR GFR 1.26 MG/DL (0.55-1.30); GLOMERULAR FILTRATION RATE 43.2 (>32); POTASSIUM SERUM 3.5 MEQ/L (3.5-5.1)
== END ==
LOC: SKLAB8 07:00
PROVIDERS: ATTEND Family Medicine
DX: R50.9 Fever, unspecified (principal); R05 Cough

== ENCOUNTER → 2019-08-17 | Outpatient (REF) | payer MEDICARE ==
[2019-08-17 08:42] LABS: HEMATOCRIT 35.5 % (36.0-47.0); MEAN CORPUSCULAR HEMOGLOBIN 24.9 pg (27.0-33.0); MEAN CORPUSCULAR HGB CONC 28.2 g/dl (32.0-36.5); MEAN CORPUSCULAR VOLUME 88.5 fl (80.0-96.0); PLATELET COUNT, AUTOMATED 258 10^3/uL (150-450); RED BLOOD COUNT 4.01 10^6/uL (4.00-5.40); WHITE BLOOD COUNT 6.3 10^3/uL (4.0-10.0)
[2019-08-17 09:07] LABS: CALCIUM LEVEL 8.8 MG/DL (8.8-10.2); CHOLESTEROL RISK RATIO 2.074 (<5); CREATININE FOR GFR 1.27 MG/DL (0.55-1.30); GLOMERULAR FILTRATION RATE 42.8 (>32); POTASSIUM SERUM 3.9 MEQ/L (3.5-5.1)
== END ==
LOC: SKLAB8 07:00
PROVIDERS: ATTEND Family Medicine
DX: Z79.899 Other long term (current) drug therapy (principal)

== ENCOUNTER 2019-08-21 01:19 | Emergency (ER) | payer MEDICARE ==
[~2019-08-21] VITALS: Ht 162.6 cm; Wt 76.4 kg
[2019-08-21 01:53] LABS: BASO # 0.1 10^3/uL (0.0-0.2); BASO % 0.6 % (0.0-1.0); EOS # 0.5 10^3/uL (0.0-0.5); EOS % 5.9 % (0.0-3.0); HEMATOCRIT 35.5 % (36.0-47.0); HEMOGLOBIN 10.1 g/dl (12.0-15.5); LYMPH # 1.7 10^3/uL (1.5-5.0); LYMPH % 21.6 % (24.0-44.0); MEAN CORPUSCULAR HEMOGLOBIN 24.9 pg (27.0-33.0); MEAN CORPUSCULAR HGB CONC 28.5 g/dl (32.0-36.5); MEAN CORPUSCULAR VOLUME 87.4 fl (80.0-96.0); MONO # 0.8 10^3/uL (0.0-0.8); MONO % 9.8 % (0.0-5.0); NEUTROPHILS # 4.8 10^3/uL (1.5-8.5); NEUTROPHILS % 61.7 % (36.0-66.0); PLATELET COUNT, AUTOMATED 269 10^3/uL (150-450); RED BLOOD COUNT 4.06 10^6/uL (4.00-5.40); WHITE BLOOD COUNT 7.8 10^3/uL (4.0-10.0)
[2019-08-21 01:55] LABS: BILIRUBIN, URINE MANUAL NEGATIVE (NEGATIVE); GLUCOSE, URINE (UA) MANUAL NEGATIVE (NEGATIVE); KETONE, URINE MANUAL NEGATIVE (NEGATIVE); UROBILINOGEN, URINE MANUAL NORMAL (NORMAL)
[2019-08-21 01:57] LABS: RBC, URINE 0-1 /hpf (0-3); SQUAMOUS EPITHELIAL CELL URINE NONE SEEN /hpf (SMALL AMT)
[2019-08-21 01:58] LABS: BACTERIA, URINE NONE SEEN; HYALINE CAST, URINE NONE SEEN /lpf (0-1); TRANSITIONAL EPI CELLS, URINE SMALL AMOUNT /hpf
--- NOTE | 2019-08-21 02:14 | REPVR ---
PROCEDURE INFORMATION: Exam: CT Maxillofacial Without Contrast Exam date and time: 08/21/2019 1:50 AM Clinical history: 83 years old, female; Injury or trauma; Fall; Initial encounter; Blunt trauma (contusions or hematomas); Eyelid and head/scalp; Loss of consciousness not known; Upper right; Additional info: Trauma, AMS TECHNIQUE: Imaging protocol: Computed tomography images of the face without contrast. Radiation optimization: All CT scans at this facility use at least one of these dose optimization techniques: automated exposure control; mA and/or kV adjustment per patient size (includes targeted exams where dose is matched to clinical indication); or iterative reconstruction. COMPARISON: No relevant prior studies available. FINDINGS: Orbits: Evidence of previous ocular surgery with intraocular lens implants. Sinuses: Chronic hyperdense right maxillary sinus disease. Bones/joints: No acute fracture. Vasculature: There is moderate atherosclerotic calcification of the carotid arteries. Soft tissues: Mild right periorbital soft tissue swelling. IMPRESSION: 1. No acute osseous abnormality. 2. Chronic hyperdense right maxillary sinus disease. Electronically signed by: Orville Gutierrez On 08/21/2019 02:13:16 AM
--- NOTE | 2019-08-21 02:18 | REPVR ---
PROCEDURE INFORMATION: Exam: CT Cervical Spine Without Contrast Exam date and time: 08/21/2019 1:50 AM Clinical history: 83 years old, female; Injury or trauma; Fall; Initial encounter; Blunt trauma; Additional info: Trauma, AMS TECHNIQUE: Imaging protocol: Computed tomography images of the cervical spine without contrast. Radiation optimization: All CT scans at this facility use at least one of these dose optimization techniques: automated exposure control; mA and/or kV adjustment per patient size (includes targeted exams where dose is matched to clinical indication); or iterative reconstruction. COMPARISON: CT Spine,cervical w/o contrast 03/14/2018 10:52 PM FINDINGS: Limitations: Limited by patient's body habitus. Vertebrae: Vertebrae are demineralized and osteopenic appearing, decreases sensitivity for fractures. Chronic superior T1 endplate Schmorl's node cavity. Discs/Spinal canal/Neural foramina: Diffuse degenerative disc space loss with degenerative disc osteophyte complexes, facet arthropathy, and ligamentum flavum thickening causes up to moderate spinal and foraminal stenosis greatest at C4-C6. Soft tissues: Numerous clips in the neck. Lungs: Left upper lung apex fat density partially visualized mass/lipoma. Vasculature: There is moderate atherosclerotic calcification of the carotid arteries. IMPRESSION: No acute abnormality. Electronically signed by: Orville Gutierrez On 08/21/2019 02:17:51 AM
--- NOTE | 2019-08-21 02:20 | REPVR ---
PROCEDURE INFORMATION: Exam: CT Head Without Contrast Exam date and time: 08/21/2019 1:50 AM Clinical history: 83 years old, female; Injury or trauma; Fall; Initial encounter; Blunt trauma (contusions or hematomas); Additional info: Altered mental status TECHNIQUE: Imaging protocol: Computed tomography of the head without contrast. Radiation optimization: All CT scans at this facility use at least one of these dose optimization techniques: automated exposure control; mA and/or kV adjustment per patient size (includes targeted exams where dose is matched to clinical indication); or iterative reconstruction. COMPARISON: CT Head without contrast 03/14/2018 10:52 PM FINDINGS: Brain: Diffuse moderate cerebral age related volume loss. Moderate patchy low attenuation in the white matter compatible with moderate chronic small vessel ischemic disease. No midline shift, mass, fluid collection, or evidence of hemorrhage. Ventricles: Ventricular enlargement proportional to volume loss. Bones/joints: Unremarkable. No acute fracture. Sinuses: Chronic right maxillary sinusitis. Mastoid air cells: Visualized mastoid air cells are well aerated. Soft tissues: Unremarkable. Vasculature: Coarse atherosclerotic calcifications in the vertebral and internal carotid arteries. IMPRESSION: Moderate involutional changes, no acute intracranial abnormality. Electronically signed by: Orville Gutierrez On 08/21/2019 02:19:55 AM
[2019-08-21 04:17] LABS: BILIRUBIN,DIRECT 0.1 MG/DL (0.0-0.2); BILIRUBIN,TOTAL 0.4 MG/DL (0.2-1.0); CALCIUM LEVEL 8.8 MG/DL (8.8-10.2); CK-MB VALUE MASS 4.5 NG/ML (<3.6); CREATININE FOR GFR 1.24 MG/DL (0.55-1.30); MB/CK RELATIVE INDEX 1.81 (< OR =4); POTASSIUM SERUM 3.9 MEQ/L (3.5-5.1); THYROID STIMULATING HORMONE 4.13 uIU/ML (0.358-3.740); TOTAL PROTEIN 6.8 GM/DL (6.4-8.2); TROPONIN I 0.03 NG/ML (< 0.10)
--- NOTE | 2019-08-21 05:46 | ECGEPIP ---
[facility] - ED Test Date: 2019-08-21 Pat Name: JEIMY CAM Department: Room: - Gender: Female Clerical Stock Inspector: : 1935 Requested By: BANG Cyr Order Number: [id number] Reading MD: Moisés Chopra Measurements Intervals [place] Rate: 89 P: 86 LA: 225 QRS: 6 QRSD: 142 T: 125 QT: 399 QTc: 486 Interpretive Statements SINUS RHYTHM WITH FIRST DEGREE AV BLOCK WITH OCCASIONAL VENTRICULAR PREMATURE COMPLEXES LEFT BUNDLE BRANCH BLOCK SIMILAR TO 07/23/19 Electronically Signed on 08-21-2019 5:46:17 EDT by Moisés Chopra
[2019-08-21 06:04] VITALS: BP 109/57
[2019-08-21] MEDS ORDERED: APAP325T4 PO (09:41)
[2019-08-21] MEDS ORDERED: LIDO5DIS41 TD (09:41)
[2019-08-21] MEDS ORDERED: HYDR-3713 PO (09:41)
[2019-08-21] MEDS ORDERED: FURO80TA2 PO (09:41)
--- NOTE | 2019-08-21 16:58 | REP ---
Clinical: Altered mental status . Comparison: 07/23/2019 . Findings: The mediastinum and cardiac silhouette are stable. Tortuous possibly aneurysmal atherosclerotic thoracic aorta with atherosclerotic disease again suggested. The lung olson demonstrate diffuse chronic interstitial changes without acute consolidation, effusion, or pneumothorax. Skeletal structures are intact. Impression: No acute cardiopulmonary process appreciated. Tortuous and possibly aneurysmal atherosclerotic thoracic aorta. Electronically Signed by Antwon Sheffield MD 08/21/2019 04:49 P
== END 2019-08-21 06:34 | disposition home or self-care (01) ==
LOC: M ED 01:19
DX: T14.8XXA Other injury of unspecified body region, initial encounter (principal); W19.XXXA Unspecified fall, initial encounter; Y92.128 Other place in nursing home as the place of occurrence of the external cause; I10 Essential (primary) hypertension; F03.90 Unspecified dementia, unspecified severity, without behavioral disturbance, psychotic disturbance, mood disturbance, and anxiety; K21.9 Gastro-esophageal reflux disease without esophagitis; I71.4 Abdominal aortic aneurysm, without rupture; Z95.5 Presence of coronary angioplasty implant and graft; Z79.899 Other long term (current) drug therapy; Z79.02 Long term (current) use of antithrombotics/antiplatelets; Z88.5 Allergy status to narcotic agent

== ENCOUNTER 2019-08-21 08:27 | Inpatient (IN) | payer MEDICARE ==
[~2019-08-21] VITALS: Ht 162.6 cm; Wt 71.4 kg
[2019-08-21] MEDS ORDERED: FUROSEMIDE 40 MG/4 ML VIAL (J1940) IV ONE (09:00)
[2019-08-21 09:01] LABS: ABG BASE EXCESS 7.8 (-2.0-2.0); ABG HCO3 34.7 MEQ/L (22.0-26.0); ABG O2 SATURATION 94.6 % (95.0-99.0); ABG PARTIAL PRESSURE O2 78.1 mmHg (75.0-100.0); ABG STANDARD HCO3 31.6 MEQ/L (22.0-26.0); ABG TOTAL CO2 36.6 MEQ/L (23.0-31.0); ABG pH (ARTERIAL) 7.363 UNITS (7.350-7.450)
[2019-08-21 09:05] LABS: ABG PARTIAL PRESSURE CO2 62.4 mmHg (35.0-45.0)
[2019-08-21 09:38] LABS: MB/CK RELATIVE INDEX 1.58 (< OR =4); TROPONIN I 0.03 NG/ML (< 0.10)
[2019-08-21] MEDS ORDERED: LIDO5DIS41 TD (09:41)
[2019-08-21] MEDS ORDERED: APAP325T4 PO (09:41)
[2019-08-21] MEDS ORDERED: FURO80TA2 PO (09:41)
[2019-08-21] MEDS ORDERED: HYDR-3713 PO (09:41)
[2019-08-21] MEDS ORDERED: DEXTROSE 50% 50 ML SYRINGE IV PRN (10:45)
[2019-08-21] MEDS ORDERED: GLUCAGON FOR INJ 1 MG VIAL (J1610) SC PRN (10:45)
[2019-08-21] MEDS ORDERED: GLUCOSE 4 GM CHEW TABLET PO PRN (10:45)
[2019-08-21] MEDS ORDERED: FLEET ENEMA PR PRN (11:00)
[2019-08-21] MEDS ORDERED: NITROGLYCERIN 0.4 MG SUBL TABLET SL PRN (11:00)
[2019-08-21] MEDS ORDERED: BISACODYL 10 MG SUPP PR PRN (11:00)
[2019-08-21] MEDS ORDERED: MOM 30ML SUSPENSION UDC PO PRN (11:00)
--- NOTE | 2019-08-21 14:34 | HPEPDOC ---
General Date of Admission Aug 21, 2019 at 10:42 Date of Service: Aug 21, 2019 Chief Complaint The patient is a 83-year-old female Who presented from [facility] for shortness of breath History of Present Illness Patient is an 83 year old female with a PMHx of HTN, DM2, DLP, CAD s/p stent, Dementia, Anxiety / Depression and GERD who presented to the ER on 08/20/2019 after she experienced a fall. Patient received imaging that was negative and was ultimately sent back to the [facility]. Upon return to [facility] patient began to experience shortness of breath and was sent back to the emergency room for further evaluation. Emergency room provider had determined that the patient had imaging consistent with fluid overload and hospitalist service was contacted for further evaluation and treatment. Currently patient has dementia and is unable to contribute any details to her history. Patient healthcare proxy, daughter was present at the bedside. Confirmed CODE STATUS with patients healthcare proxy; she currently remains DO NOT RESUSCITATE, DO NOT INTUBATE, limited medical interventions. Home Medications Scheduled Atorvastatin Calcium (Atorvastatin Calcium) 20 Mg Tablet, 20 MG PO QHS, (Reported) Cholecalciferol (Vitamin D3) (Vitamin D3) 2,000 Unit Tablet, 2,000 UNIT PO DAILY, (Reported) Clopidogrel Bisulfate (Clopidogrel) 75 Mg Tablet, 75 MG PO DAILY, (Reported) Cranberry (Cranberry) 400 Mg Capsule, 400 MG PO BID, (Reported) Duloxetine Hcl (Duloxetine HCl) 30 Mg Capsule.dr, 30 MG PO QPM, (Reported) Furosemide (Furosemide) 80 Mg Tablet, 80 MG PO BID, (Reported) 0600/1200 Gabapentin (Gabapentin) 300 Mg Capsule, 300 MG PO TID, (Reported) 0600/1200/1800 Hydrocodone/Acetaminophen (Hydrocodone-Acetamin 5-325 mg) 1 Each Tablet, 2 TAB PO Q6H, (Reported) 0000/0600/1200/1800 Krill/Om-3/Dha/Epa/Phospho/Ast (Megared [place]-3 Krill Oil Sfgl) 1 Each Capsule, 1 CAP PO DAILY, (Reported) Lidocaine (Lidoderm) 5% Adh..patch, 1 PATCH TD BID, (Reported) APPLY TO BACK Magnesium Oxide (Magnesium) 400 Mg Capsule, 400 MG PO BID, (Reported) Melatonin (Melatonin) 5 Mg Capsule, 5 MG PO QHS, (Reported) 1999 Methyl Salicylate/Menthol (Bengay Greaseless Cream) 57 Gm Cream..g., 1 APPLIC TOP Q8H for CHRONIC BACK PAIN, (Reported) 0600, 1400, 2200 Pantoprazole Sodium (Pantoprazole Sodium) 20 Mg Tablet.dr, 20 MG PO DAILY, (Re ported) Potassium Chloride (Potassium Chloride) 10 Meq Capsule.er, 20 MEQ PO DAILY, (Reported) Quetiapine Fumarate (Quetiapine Fumarate) 25 Mg Tablet, 25 MG PO DAILY, (Reported) Quetiapine Fumarate (Quetiapine Fumarate) 50 Mg Tablet, 50 MG PO QPM, (Reported) Sennosides/Docusate Sodium (Senna-S Tablet) 1 Each Tablet, 2 TAB PO DAILY, (Reported) Sertraline Hcl (Sertraline HCl) 50 Mg Tablet, 50 MG PO DAILY, (Reported) Scheduled PRN Acetaminophen (Acetaminophen) 325 Mg Tablet, 650 MG PO Q4H PRN for PAIN, (Reported) Bisacodyl (Dulcolax) 10 Mg Supp.rect, 10 MG [place] DAILY PRN for CONSTIPATION, (Reported) Magnesium Hydroxide (Milk of Magnesia) 400 Mg/5 Ml Oral.susp, 30 ML PO DAILY PRN for CONSTIPATION, (Reported) Nitroglycerin (Nitrostat) 0.4 Mg Tab.subl, 0.4 MG SL Q5MP PRN for CHEST PAIN, (Reported) Sodium Phosphate,[place]-Dibasic (Enema) 133 Ml Enema, 1 RICH [place] DAILY PRN for CONSTIPATION, (Reported) Allergies Coded Allergies: morphine (Verified Allergy, Unknown, 08/21/19) Past Medical History Medical History HTN, DM2, DLP, CAD, Dementia, Anxiety / Depression and GERD Surgical History Cardiac stenting Abdominal aortic aneurysm repair Carpal tunnel procedure Enterovesicular fistula repair Right total hip arthroplasty Appendectomy Inguinal hernia repair Carotid endarterectomy Family History - Currently, patient is not able to provide me details to her family history secondary to her dementia Social History - Patient is currently resident at [facility] - As per prior medical records, it does indicate that she has denied smoking and alcohol use Review of Systems Other systems Unable to obtain 10 point review of systems as patient is unable to contribute to her history. Given her dementia Vital Signs - Vitals: BP 129/71, HR 87, RR 12, Sat 94%NC2L, Temp 99.3F - General: Lying in bed, No acute distress, Speaking in full sentences, Awake / Alert - HEENT: NC, AT, PERRLA, EOMI - CVS: RRR, +S1S2 - Lungs: Fair air entry bilaterally, No appreciable wheezing / rales / rhonchi - Abdomen: Soft, Non-distended, Non-tender - Extremities: No lower extremity edema, No calf tenderness - Neuro: No focal motor or sensory deficit - Skin: No visible rashes Laboratory Data Labs 24H Laboratory Tests 2 08/21/19 08:45: Blood Gas Bicarbonate Standard 31.6H, Arterial Blood pH 7.363, Arterial Blood Partial Pressure CO2 62.4*H, Arterial Blood Partial Pressure O2 78.1, Arterial Blood Total CO2 36.6H, Arterial Blood HCO3 34.7H, Arterial Blood Base Excess 7.8H, Arterial Blood Oxygen Saturation 94.6L 08/21/19 08:54: Total Creatine Kinase 253H, Creatine Kinase MB 4.0H, Creatine Kinase MB Relative Index 1.58, Troponin I 0.03, UF-Txy-L-Type Natriuretic Peptide 1406H Plan / VTE VTE Prophylaxis Ordered?: Yes Plan Plan Shortness of breath - likely 2/2 fluid overload - likely 2/2 CHF, systolic - Presented to ER with complaints. She is of breath - Has required supplemental oxygen while in the emergency room - Physical without any significant signs of fluid overload - BNP noted to be elevated - CXR 08/21: Imaging consistent with some level of congestion - ECHO 02/17/2019: EF 45-50%; Unable to determine diastolic function - s/p Furosemide in the ER; will c/w Diuretics on a BID basis - Strict ins/outs, daily weights and fluid restrictions Acute hypercapnic respiratory failure - likely 2/2 above - ABG noted; no evidence of acidosis - Will continue to monitor HTN - BP moderately elevated - c/w Diuresis DM2 - c/w ISS DLP - c/w Atorvastatin CAD - c/w Plavix Dementia Anxiety / Depression - c/w Quetiapine, Sertraline, Neuropathy / Chronic pain - c/w Gabapentin - Will hold opiate based medications GERD - c/w Protonix DVT prophylaxis - Will start Lovenox YANET PEÑA MD Aug 21, 2019 14:34
[2019-08-21 14:45] VITALS: BP 140/60
[2019-08-21] MEDS: MAGNESIUM OXIDE 400 MG TAB (MAG-OX) PO SCH ×2 (15:25→21:06)
[2019-08-21] MEDS: GABAPENTIN 300 MG CAP PO SCH ×3 (15:26→21:06)
[2019-08-21] MEDS: LIDOCAINE 5% (LIDODERM) PATCH TD SCH (15:27)
[2019-08-21] MEDS: FUROSEMIDE 40 MG/4 ML VIAL (J1940) IV SCH ×2 (15:27→17:00)
[2019-08-21] MEDS: HumaLOG INSULIN (NovoLOG) PER UNIT SC SCH ×3 (15:28→21:00)
[2019-08-21] MEDS: POTASSIUM CHLORIDE 10 MEQ SR TABLET PO SCH (15:46)
[2019-08-21] MEDS: PANTOPRAZOLE 20 MG TAB PO SCH (15:47)
[2019-08-21] MEDS: SENOKOT S TAB PO SCH (15:47)
[2019-08-21] MEDS: CLOPIDOGREL 75 MG TAB PO SCH (15:47)
[2019-08-21] MEDS: ENOXAPARIN 40 MG/0.4 ML SYRINGE (J1650) SC SCH (15:48)
[2019-08-21] MEDS: ANALGESIC BALM CRM 120 GM TOP SCH ×2 (15:49→21:06)
[2019-08-21] MEDS: VITAMIN D 1,000 INTERNATIONAL UNITS TABLET PO SCH (15:51)
[2019-08-21] MEDS: SERTRALINE HCL 50 MG TAB PO SCH (15:51)
[2019-08-21] MEDS: QUEtiapine FUMARATE 25 MG TAB PO SCH (15:53)
[2019-08-21 16:54] LABS: ABG BASE EXCESS 9.8 (-2.0-2.0); ABG HCO3 35.4 MEQ/L (22.0-26.0); ABG O2 SATURATION 96.9 % (95.0-99.0); ABG PARTIAL PRESSURE CO2 53.5 mmHg (35.0-45.0); ABG STANDARD HCO3 33.5 MEQ/L (22.0-26.0); ABG pH (ARTERIAL) 7.438 UNITS (7.350-7.450)
[2019-08-21] MEDS: ATORVASTATIN 20 MG TAB PO SCH (21:06)
[2019-08-21] MEDS: QUEtiapine FUMARATE 50 MG TAB PO SCH (21:06)
[2019-08-21] MEDS: **NOTE PATIENT COMMENT** MISC XX SCH (21:07)
[2019-08-21 22:00] VITALS: BP 122/80
[2019-08-22] MEDS: ANALGESIC BALM CRM 120 GM TOP SCH ×3 (05:01→20:18)
[2019-08-22 06:00] VITALS: BP 101/52
[2019-08-22 06:23] LABS: HEMATOCRIT 32.6 % (36.0-47.0); HEMOGLOBIN 9.3 g/dl (12.0-15.5); MEAN CORPUSCULAR HEMOGLOBIN 24.3 pg (27.0-33.0); MEAN CORPUSCULAR HGB CONC 28.5 g/dl (32.0-36.5); MEAN CORPUSCULAR VOLUME 85.3 fl (80.0-96.0); PLATELET COUNT, AUTOMATED 280 10^3/uL (150-450); RED BLOOD COUNT 3.82 10^6/uL (4.00-5.40); WHITE BLOOD COUNT 7.5 10^3/uL (4.0-10.0)
[2019-08-22] MEDS: ACETAMINOPHEN TAB 650MG DOSE (2X325MG) PO PRN ×3 (06:31→20:17)
[2019-08-22 06:46] LABS: CALCIUM LEVEL 8.8 MG/DL (8.8-10.2); CREATININE FOR GFR 1.08 MG/DL (0.55-1.30); GLOMERULAR FILTRATION RATE 51.6 (>32); POTASSIUM SERUM 3.7 MEQ/L (3.5-5.1)
[2019-08-22] MEDS: HumaLOG INSULIN (NovoLOG) PER UNIT SC SCH ×4 (07:30→21:00)
--- NOTE | 2019-08-22 08:17 | REP ---
Clinical: Shortness of breath . Comparison: 08/21/2019 . Findings: The mediastinum and cardiac silhouette are stable. Lung olson demonstrate chronic-appearing interstitial changes although trace atelectasis cannot be excluded. No focal consolidation. No effusion. No pneumothorax. Skeletal structures are intact. Impression: Stable chronic-appearing changes. No obvious acute process. Electronically Signed by Antwon Sheffield MD 08/22/2019 08:09 A
--- NOTE | 2019-08-22 10:00 | ECGEPIP ---
[facility] - ED Test Date: 2019-08-21 Pat Name: JEIMY CAM Department: Room: - Gender: Female Final Cigar And Box Examiner: : 1935 Requested By: Moisés Galloway Order Number: [id number] Reading MD: Nora Herndon Measurements Intervals [place] Rate: 78 P: 92 LA: 226 QRS: 0 QRSD: 139 T: 133 QT: 422 QTc: 481 Interpretive Statements SINUS RHYTHM WITH FIRST DEGREE AV BLOCK WITH OCCASIONAL VENTRICULAR PREMATURE COMPLEXES LEFT BUNDLE BRANCH BLOCK DECREASED RATE 08/21/19 Electronically Signed on 08-22-2019 10:00:05 EDT by Nora Herndon
[2019-08-22] MEDS: SENOKOT S TAB PO SCH (10:28)
[2019-08-22] MEDS: VITAMIN D 1,000 INTERNATIONAL UNITS TABLET PO SCH (10:28)
[2019-08-22] MEDS: SERTRALINE HCL 50 MG TAB PO SCH (10:28)
[2019-08-22] MEDS: GABAPENTIN 300 MG CAP PO SCH ×3 (10:29→20:17)
[2019-08-22] MEDS: MAGNESIUM OXIDE 400 MG TAB (MAG-OX) PO SCH ×2 (10:29→20:17)
[2019-08-22] MEDS: PANTOPRAZOLE 20 MG TAB PO SCH (10:29)
[2019-08-22] MEDS: CLOPIDOGREL 75 MG TAB PO SCH (10:29)
[2019-08-22] MEDS: QUEtiapine FUMARATE 25 MG TAB PO SCH (10:29)
[2019-08-22] MEDS: POTASSIUM CHLORIDE 10 MEQ SR TABLET PO SCH (10:29)
[2019-08-22] MEDS: LIDOCAINE 5% (LIDODERM) PATCH TD SCH (10:30)
[2019-08-22] MEDS: ENOXAPARIN 40 MG/0.4 ML SYRINGE (J1650) SC SCH (10:30)
[2019-08-22] MEDS: FUROSEMIDE 40 MG/4 ML VIAL (J1940) IV SCH ×2 (10:33→16:14)
--- NOTE | 2019-08-22 11:03 | IPNPDOC ---
Text Note Date of Service The patient was seen on 08/22/19. NOTE Subjective: Patient is an 83 year old female with a PMHx of HTN, DM2, DLP, CAD s/p stent, Dementia, Anxiety / Depression and GERD who presented to the ER on 08/20/2019 after she experienced a fall. Patient received imaging that was negative and was ultimately sent back to the [facility]. Upon return to [facility] patient began to experience shortness of breath and was sent back to the emergency room for further evaluation. Emergency room provider had determined that the patient had imaging consistent with fluid overload and hospitalist service was contacted for further evaluation and treatment. Patient was seen and examined at the bedside. Currently, patient is oriented to person and place. . She denies any significant pain. Denies chest pain, shortness of breath or palpitations. Has not spent any nausea, vomiting, abdominal pain or diarrhea. Objective: Vitals (See below) General: Lying in bed, no acute distress, comfortable, AAOx3 HEENT: NC, AT CVS: RRR, +S1S2 Lungs: Fair air entry b/l, -w/r/r Abdomen: Soft, ND, NT Extremities: - Edema, - Calf tenderness Assessment and plan: Shortness of breath - likely 2/2 fluid overload - likely 2/2 CHF, systolic - Clinically continues to display signs of improvement is full without any significant signs of fluid overload - BNP noted to be elevated - CXR 08/21: Imaging consistent with some level of congestion - ECHO 02/17/2019: EF 45-50%; Unable to determine diastolic function - Repeat echocardiogram is pending - c/w Furosemide 40 IV BID - Strict ins/outs, daily weights and fluid restrictions - Anticipated transition back to senior care by tomorrow Acute hypercapnic respiratory failure - likely 2/2 above - ABG noted; no evidence of acidosis - Will continue to monitor HTN - BP moderately elevated - c/w Diuresis DM2 - c/w ISS DLP - c/w Atorvastatin CAD - c/w Plavix Dementia Anxiety / Depression - c/w Quetiapine, Sertraline, Neuropathy / Chronic pain - c/w Gabapentin - Will continue to hold opiate based medications GERD - c/w Protonix DVT prophylaxis - c/w Lovenox VS,Fishbone, I+O VS, Fishbone, I+O Laboratory Tests 08/22/19 05:55 Vital Signs Date Time Temp Pulse Resp B/P (MAP) Pulse Ox O2 Delivery O2 Flow Rate FiO2 08/22/19 06:00 97.7 101 20 101/52 (68) 90 Nasal Cannula 2.0 I&O- Last 24 Hours up to 6 AM 08/22/19 05:59 Intake Total 450 ml Output Total 100 ml Balance 350 ml YANET PEÑA MD Aug 22, 2019 11:03
[2019-08-22 16:00] VITALS: BP 121/57
[2019-08-22] MEDS: QUEtiapine FUMARATE 50 MG TAB PO SCH (20:17)
[2019-08-22] MEDS: ATORVASTATIN 20 MG TAB PO SCH (20:17)
[2019-08-22] MEDS: **NOTE PATIENT COMMENT** MISC XX SCH (20:18)
[2019-08-22 22:00] VITALS: BP 134/68
[2019-08-23] MEDS: ANALGESIC BALM CRM 120 GM TOP SCH (05:13)
[2019-08-23 06:00] VITALS: BP 108/60
[2019-08-23] MEDS: ACETAMINOPHEN TAB 650MG DOSE (2X325MG) PO PRN ×2 (06:08→11:09)
[2019-08-23 06:18] LABS: HEMATOCRIT 33.6 % (36.0-47.0); HEMOGLOBIN 9.5 g/dl (12.0-15.5); MEAN CORPUSCULAR HEMOGLOBIN 24.1 pg (27.0-33.0); MEAN CORPUSCULAR HGB CONC 28.3 g/dl (32.0-36.5); MEAN CORPUSCULAR VOLUME 85.1 fl (80.0-96.0); PLATELET COUNT, AUTOMATED 292 10^3/uL (150-450); RED BLOOD COUNT 3.95 10^6/uL (4.00-5.40); WHITE BLOOD COUNT 6.3 10^3/uL (4.0-10.0)
[2019-08-23 06:40] LABS: CALCIUM LEVEL 8.9 MG/DL (8.8-10.2); CREATININE FOR GFR 0.96 MG/DL (0.55-1.30); GLOMERULAR FILTRATION RATE 59.1 (>32); MAGNESIUM LEVEL 1.9 MG/DL (1.8-2.4)
[2019-08-23] MEDS: HumaLOG INSULIN (NovoLOG) PER UNIT SC SCH (07:30)
[2019-08-23] MEDS ORDERED: POTASSIUM CHLORIDE 10 MEQ SR TABLET PO ONE (07:30)
[2019-08-23] MEDS: ENOXAPARIN 40 MG/0.4 ML SYRINGE (J1650) SC SCH (08:09)
[2019-08-23] MEDS: FUROSEMIDE 40 MG/4 ML VIAL (J1940) IV SCH (08:10)
[2019-08-23] MEDS: POTASSIUM CHLORIDE 10 MEQ SR TABLET PO SCH (08:12)
[2019-08-23] MEDS: GABAPENTIN 300 MG CAP PO SCH (08:12)
[2019-08-23] MEDS: VITAMIN D 1,000 INTERNATIONAL UNITS TABLET PO SCH (08:12)
[2019-08-23] MEDS: CLOPIDOGREL 75 MG TAB PO SCH (08:12)
[2019-08-23] MEDS: SERTRALINE HCL 50 MG TAB PO SCH (08:13)
[2019-08-23] MEDS: SENOKOT S TAB PO SCH (08:13)
[2019-08-23] MEDS: QUEtiapine FUMARATE 25 MG TAB PO SCH (08:13)
[2019-08-23] MEDS: MAGNESIUM OXIDE 400 MG TAB (MAG-OX) PO SCH (08:13)
[2019-08-23] MEDS: PANTOPRAZOLE 20 MG TAB PO SCH (08:20)
[2019-08-23] MEDS: LIDOCAINE 5% (LIDODERM) PATCH TD SCH (08:27)
--- NOTE | 2019-08-23 13:37 | DS.PDOC ---
Discharge Summary General Date of Admission Aug 21, 2019 at 10:42 Date of Discharge 08/23/2019 Discharge Summary PROCEDURES PERFORMED DURING STAY: [None]. ADMITTING DIAGNOSES / DISCHARGE DIAGNOSES: Shortness of breath - likely 2/2 fluid overload - likely 2/2 acute on chronic decompensated systolic CHF Acute hypercapnic respiratory failure - likely 2/2 above HTN DM2 DLP CAD Dementia Anxiety / Depression Neuropathy / Chronic pain GERD DVT prophylaxis COMPLICATIONS/CHIEF COMPLAINT: Shortness of breath HISTORY OF PRESENT ILLNESS: Patient is an 83 year old female with a PMHx of HTN, DM2, DLP, CAD s/p stent, Dementia, Anxiety / Depression and GERD who presented to the ER on 08/20/2019 after she experienced a fall. Patient received imaging that was negative and was ultimately sent back to the [facility]. Upon return to [facility] patient began to experience shortness of breath and was sent back to the emergency room for further evaluation. Emergency room provider had determined th at the patient had imaging consistent with fluid overload and hospitalist service was contacted for further evaluation and treatment. HOSPITAL COURSE: Shortness of breath - likely 2/2 fluid overload - likely 2/2 acute on chronic decompensated systolic CHF - Patient has reported that she feels that she is at her baseline - Physical is without any signs of fluid overload - BNP noted to be elevated - CXR 08/21: Imaging consistent with some level of congestion - ECHO 02/17/2019: EF 45-50%; Unable to determine diastolic function - Repeat echocardiogram could not be completed as patient was not cooperative - c/w Furosemide 40 IV BID; will transition patient back to outpatient dose of diuretics - Strict ins/outs, daily weights and fluid restrictions - Will have follow-up with Dr. Arora within 7 days Acute hypercapnic respiratory failure - likely 2/2 above - ABG noted; no evidence of acidosis - Will continue to monitor HTN - BP moderately elevated - c/w Diuresis DM2 - c/w ISS DLP - c/w Atorvastatin CAD - c/w Plavix Dementia Anxiety / Depression - c/w Quetiapine and Sertraline Neuropathy / Chronic pain - c/w Gabapentin - Will continue to hold opiate based medications GERD - c/w Protonix DVT prophylaxis - c/w Lovenox DISCHARGE MEDICATIONS: Please see below. ALLERGIES: Please see below. PHYSICAL EXAMINATION ON DISCHARGE: Vitals (See below) General: Lying in bed, no acute distress, comfortable, Awake / Alert HEENT: NC, AT CVS: RRR, +S1S2 Lungs: Fair air entry b/l, no appreciable rhonchi, rales or wheezing Abdomen: Soft, without distention or tenderness Extremities: Lower extremities do not reveal any evidence of edema, - Calf tenderness LABORATORY DATA: Please see below. ACTIVITY: [As tolerated]. DISCHARGE PLAN: Follow-up with primary care provider, Dr. Arora within the next 7 days Remain compliant with treatment plan and medications Return to the ER if you experience any problems DISPOSITION: [facility]. DISCHARGE CONDITION: [Stable]. TIME SPENT ON DISCHARGE: 35 minutes Vital Signs/I&Os Vital Signs Date Time Temp Pulse Resp B/P (MAP) Pulse Ox O2 Delivery O2 Flow Rate FiO2 08/23/19 09:00 2.0 08/23/19 06:00 98.2 86 18 108/60 (76) 97 Nasal Cannula I&O- Last 24 Hours up to 6 AM 08/23/19 06:00 Intake Total 1340 ml Output Total 550 ml Balance 790 ml Laboratory Data Labs 24H Laboratory Tests 2 08/22/19 16:39: Bedside Glucose (Misc Panel) 145H 08/23/19 05:50: Nucleated Red Blood Cells % (auto) 0.0, Anion Gap 6L, Glomerular Filtration Rate 59.1, Calcium Level 8.9, Magnesium Level 1.9 CBC/BMP Laboratory Tests 08/23/19 05:50 FSBS Laboratory Tests Test 08/22/19 16:39 Range/Units Bedside Glucose (Misc Panel) 145 83-110 MG/DL Discharge Medications Scheduled Atorvastatin Calcium (Atorvastatin Calcium) 20 Mg Tablet, 20 MG PO QHS, (Reported) Cholecalciferol (Vitamin D3) (Vitamin D3) 2,000 Unit Tablet, 2,000 UNIT PO DAILY, (Reported) Clopidogrel Bisulfate (Clopidogrel) 75 Mg Tablet, 75 MG PO DAILY, (Reported) Cranberry (Cranberry) 400 Mg Capsule, 400 MG PO BID, (Reported) Duloxetine Hcl (Duloxetine HCl) 30 Mg Capsule.dr, 30 MG PO QPM, (Reported) Furosemide (Furosemide) 80 Mg Tablet, 80 MG PO BID, (Reported) 0600/1200 Gabapentin (Gabapentin) 300 Mg Capsule, 300 MG PO TID, (Reported) 0600/1200/1800 Hydrocodone/Acetaminophen (Hydrocodone-Acetamin 5-325 mg) 1 Each Tablet, 2 TAB PO Q6H, (Reported) 0000/0600/1200/1800 Krill/Om-3/Dha/Epa/Phospho/Ast (Megared [place]-3 Krill Oil Sfgl) 1 Each Capsule, 1 CAP PO DAILY, (Reported) Lidocaine (Lidoderm) 5% Adh..patch, 1 PATCH TD BID, (Reported) APPLY TO BACK Magnesium Oxide (Magnesium) 400 Mg Capsule, 400 MG PO BID, (Reported) Melatonin (Melatonin) 5 Mg Capsule, 5 MG PO QHS, (Reported) 1999 Methyl Salicylate/Menthol (Bengay Greaseless Cream) 57 Gm Cream..g., 1 APPLIC TOP Q8H for CHRONIC BACK PAIN, (Reported) 0600, 1400, 2200 Pantoprazole Sodium (Pantoprazole Sodium) 20 Mg Tablet.dr, 20 MG PO DAILY, (Reported) Potassium Chloride (Potassium Chloride) 10 Meq Capsule.er, 20 MEQ PO DAILY, (Reported) Quetiapine Fumarate (Quetiapine Fumarate) 25 Mg Tablet, 25 MG PO DAILY, (Reported) Quetiapine Fumarate (Quetiapine Fumarate) 50 Mg Tablet, 50 MG PO QPM, (Reported) Sennosides/Docusate Sodium (Senna-S Tablet) 1 Each Tablet, 2 TAB PO DAILY, (Reported) Sertraline Hcl (Sertraline HCl) 50 Mg Tablet, 50 MG PO DAILY, (Reported) Scheduled PRN Acetaminophen (Acetaminophen) 325 Mg Tablet, 650 MG PO Q4H PRN for PAIN, (Reported) Bisacodyl (Dulcolax) 10 Mg Supp.rect, 10 MG [place] DAILY PRN for CONSTIPATION, (Reported) Magnesium Hydroxide (Milk of Magnesia) 400 Mg/5 Ml Oral.susp, 30 ML PO DAILY PRN for CONSTIPATION, (Reported) Nitroglycerin (Nitrostat) 0.4 Mg Tab.subl, 0.4 MG SL Q5MP PRN for CHEST PAIN, (Reported) Sodium Phosphate,[place]-Dibasic (Enema) 133 Ml Enema, 1 RICH [place] DAILY PRN for CONSTIPATION, (Reported) Allergies Coded Allergies: morphine (Verified Allergy, Unknown, 08/21/19) YANET PEÑA MD Aug 23, 2019 13:37
== END 2019-08-23 11:24 | DRG 291 ==
LOC: M ED 08:27 → M ED INP 10:42 → M MSPAV 14:43
PROVIDERS: ADMIT Internal Medicine; ATTEND Internal Medicine
DX: I11.0 Hypertensive heart disease with heart failure (principal); J96.02 Acute respiratory failure with hypercapnia; I50.23 Acute on chronic systolic (congestive) heart failure; I25.10 Atherosclerotic heart disease of native coronary artery without angina pectoris; K21.9 Gastro-esophageal reflux disease without esophagitis; E11.40 Type 2 diabetes mellitus with diabetic neuropathy, unspecified; F41.9 Anxiety disorder, unspecified; F32.9 Major depressive disorder, single episode, unspecified; F03.90 Unspecified dementia, unspecified severity, without behavioral disturbance, psychotic disturbance, mood disturbance, and anxiety; G89.29 Other chronic pain; Z95.2 Presence of prosthetic heart valve; Z79.899 Other long term (current) drug therapy; Z88.5 Allergy status to narcotic agent; Z66 Do not resuscitate; Z96.641 Presence of right artificial hip joint

== ENCOUNTER → 2019-08-24 | Outpatient (REF) | payer MEDICARE ==
[~2019-08-24] MED LIST changes: +APAP325T4 PO; +FURO80TA2 PO; +LIDO5DIS41 TD
[2019-08-24 09:39] LABS: BLOOD UREA NITROGEN 21 MG/DL (7-18); CARBON DIOXIDE LEVEL 35 MEQ/L (21-32); CHLORIDE LEVEL 97 MEQ/L (98-107); CREATININE FOR GFR 0.94 MG/DL (0.55-1.30); GLOMERULAR FILTRATION RATE > 60.0 (>32); GLUCOSE, FASTING 98 MG/DL (70-100); MAGNESIUM LEVEL 1.9 MG/DL (1.8-2.4); POTASSIUM SERUM 3.9 MEQ/L (3.5-5.1); SODIUM LEVEL 139 MEQ/L (136-145)
== END ==
LOC: SKLAB8 08:00
PROVIDERS: ATTEND Family Medicine
DX: Z79.899 Other long term (current) drug therapy (principal)

== ENCOUNTER → 2019-08-31 | Outpatient (REF) | payer MEDICARE ==
[2019-08-31 13:39] LABS: CALCIUM LEVEL 8.7 MG/DL (8.8-10.2); CREATININE FOR GFR 1.07 MG/DL (0.55-1.30); GLOMERULAR FILTRATION RATE 52.1 (>32); POTASSIUM SERUM 3.7 MEQ/L (3.5-5.1)
== END ==
LOC: SKLAB8 08:00
PROVIDERS: ATTEND Family Medicine
DX: Z79.899 Other long term (current) drug therapy (principal)

== ENCOUNTER → 2019-09-14 | Outpatient (REF) | payer MEDICARE ==
[2019-09-14 12:34] LABS: CALCIUM LEVEL 8.8 MG/DL (8.8-10.2); CREATININE FOR GFR 1.01 MG/DL (0.55-1.30); GLOMERULAR FILTRATION RATE 55.7 (>32); POTASSIUM SERUM 3.8 MEQ/L (3.5-5.1)
== END ==
LOC: SKLAB8 08:00
PROVIDERS: ATTEND Nurse Practitioner Family
DX: Z79.899 Other long term (current) drug therapy (principal)

== ENCOUNTER 2019-09-24 16:49 | Emergency (ER) | payer MEDICARE ==
[~2019-09-24] VITALS: Ht 162.6 cm; Wt 70.6 kg
[2019-09-24 18:15] LABS: BASO # 0.1 10^3/uL (0.0-0.2); BASO % 1.1 % (0.0-1.0); EOS # 0.3 10^3/uL (0.0-0.5); EOS % 5.1 % (0.0-3.0); HEMATOCRIT 36.2 % (36.0-47.0); HEMOGLOBIN 9.8 g/dl (12.0-15.5); LYMPH # 1.2 10^3/uL (1.5-5.0); MEAN CORPUSCULAR HGB CONC 27.1 g/dl (32.0-36.5); MEAN CORPUSCULAR VOLUME 88.5 fl (80.0-96.0); MONO # 0.6 10^3/uL (0.0-0.8); MONO % 9.3 % (0.0-5.0); NEUTROPHILS # 4.4 10^3/uL (1.5-8.5); PLATELET COUNT, AUTOMATED 309 10^3/uL (150-450); RED BLOOD COUNT 4.09 10^6/uL (4.00-5.40); WHITE BLOOD COUNT 6.7 10^3/uL (4.0-10.0)
[2019-09-24 18:42] LABS: CALCIUM LEVEL 8.4 MG/DL (8.8-10.2); CK-MB VALUE MASS 3.6 NG/ML (<3.6); CREATININE FOR GFR 1.06 MG/DL (0.55-1.30); GLOMERULAR FILTRATION RATE 52.7 (>32); MB/CK RELATIVE INDEX 2.59 (< OR =4); POTASSIUM SERUM 3.6 MEQ/L (3.5-5.1); TROPONIN I 0.06 NG/ML (< 0.10)
[2019-09-24] MEDS ORDERED: DULO60CA35 PO (18:52)
[2019-09-24 20:30] VITALS: BP 97/50
[2019-09-24] MEDS ORDERED: FUROSEMIDE 20 MG/2 ML VIAL (J1940) IV ONE (21:00)
[2019-09-24] MEDS ORDERED: NORCO, ANEXSIA 5/325MG TABLET (HYDROcodone/ACETAMINOPHEN) PO ONE (21:00)
--- NOTE | 2019-09-25 07:26 | ECGEPIP ---
[facility] - ED Test Date: 2019-09-24 Pat Name: JEIMY CAM Department: Room: - Gender: Female Configuration Management Consultant: : 1935 Requested By: LEONARDO Naranjo Order Number: [id number] Reading MD: Moisés Chopra Measurements Intervals [place] Rate: 100 P: 79 VT: 205 QRS: 4 QRSD: 142 T: 105 QT: 394 QTc: 508 Interpretive Statements SINUS TACHYCARDIA WITH FREQUENT VENTRICULAR PREMATURE COMPLEXES LEFT BUNDLE BRANCH BLOCK RATE CHANGE COMPARED TO 08/21/19 Electronically Signed on 09-25-2019 7:26:38 EST by Moisés Chopra
--- NOTE | 2019-09-25 08:02 | REP ---
Clinical: Chest pain . Comparison: 08/22/2019 . Findings: Stable tortuous ectatic appearance to the thoracic aorta. The cardiac silhouette is within normal limits and stable. The lung olson demonstrate diffuse chronic interstitial changes and fibrosis. Superimposed subtle right mid/lower lung atelectasis cannot be excluded. No effusion. No pneumothorax. Skeletal structures intact. Impression: Chronic stable changes. Cannot exclude subtle right-sided atelectasis. Electronically Signed by Antwon Sheffield MD 09/25/2019 07:53 A
== END 2019-09-24 21:19 | disposition home or self-care (01) ==
LOC: EDBD 16:49 → M ED 16:49
DX: I50.23 Acute on chronic systolic (congestive) heart failure (principal); I49.3 Ventricular premature depolarization; R00.0 Tachycardia, unspecified; I44.7 Left bundle-branch block, unspecified; E11.9 Type 2 diabetes mellitus without complications; E78.5 Hyperlipidemia, unspecified; K21.9 Gastro-esophageal reflux disease without esophagitis; G89.29 Other chronic pain; M54.5 Low back pain; Z98.61 Coronary angioplasty status; Z88.5 Allergy status to narcotic agent; Z79.891 Long term (current) use of opiate analgesic; Z79.899 Other long term (current) drug therapy
CPT/HCPCS: 36415; 71045; 80048; 82550; 82553; 83880; 84484; 85025; 93005; 93041; 94760; 96374; 99285; J1940

== ENCOUNTER → 2019-09-26 | Outpatient (REF) | payer MEDICARE ==
[~2019-09-26] MED LIST changes: +DULO60CA35 PO
[2019-09-26 08:36] LABS: BLOOD UREA NITROGEN 17 MG/DL (7-18); CALCIUM LEVEL 8.8 MG/DL (8.8-10.2); CARBON DIOXIDE LEVEL 37 MEQ/L (21-32); CHLORIDE LEVEL 94 MEQ/L (98-107); CREATININE FOR GFR 0.92 MG/DL (0.55-1.30); GLOMERULAR FILTRATION RATE > 60.0 (>32); GLUCOSE, FASTING 95 MG/DL (70-100); NT-PRO BNP 7149 PG/ML (<450); POTASSIUM SERUM 3.6 MEQ/L (3.5-5.1); SODIUM LEVEL 138 MEQ/L (136-145)
== END ==
LOC: SKLAB8 08:00
PROVIDERS: ATTEND Family Medicine
DX: I50.20 Unspecified systolic (congestive) heart failure (principal)

== ENCOUNTER → 2019-12-12 | Outpatient (REF) | payer MEDICARE ==
[~2019-12-12] MED LIST changes: -LORA0.5T11 PO; +LORA0.5T5 PO; +LORA2TAB14 PO; -LORA2TAB9 PO
[2019-12-12 17:58] LABS: INFLUENZA A AMPLIFICATION NEGATIVE (NEGATIVE); INFLUENZA B AMPLIFICATION NEGATIVE (NEGATIVE)
== END ==
LOC: SKLAB8 17:00
PROVIDERS: ATTEND Family Medicine
DX: R05 Cough (principal); R50.9 Fever, unspecified

== ENCOUNTER → 2020-03-08 | Outpatient (REF) | payer MEDICARE ==
[2020-03-08 16:49] LABS: BASO # 0.1 10^3/uL (0.0-0.2); BASO % 0.9 % (0.0-1.0); EOS # 0.3 10^3/uL (0.0-0.5); EOS % 6.2 % (0.0-3.0); HEMATOCRIT 37.3 % (36.0-47.0); HEMOGLOBIN 10.7 g/dl (12.0-15.5); LYMPH # 1.6 10^3/uL (1.5-5.0); LYMPH % 29.6 % (24.0-44.0); MEAN CORPUSCULAR HGB CONC 28.7 g/dl (32.0-36.5); MONO # 0.6 10^3/uL (0.0-0.8); MONO % 11.2 % (0.0-5.0); NEUTROPHILS # 2.8 10^3/uL (1.5-8.5); NEUTROPHILS % 51.5 % (36.0-66.0); PLATELET COUNT, AUTOMATED 229 10^3/uL (150-450); RED BLOOD COUNT 3.97 10^6/uL (4.00-5.40); WHITE BLOOD COUNT 5.3 10^3/uL (4.0-10.0)
[2020-03-08 17:18] LABS: ALT/SGPT 13 U/L (12-78); BILIRUBIN,TOTAL 0.2 MG/DL (0.2-1.0); BLOOD UREA NITROGEN 25 MG/DL (7-18); CALCIUM LEVEL 8.5 MG/DL (8.8-10.2); CARBON DIOXIDE LEVEL 33 MEQ/L (21-32); CHLORIDE LEVEL 98 MEQ/L (98-107); CREATININE FOR GFR 0.89 MG/DL (0.55-1.30); GLOMERULAR FILTRATION RATE > 60.0 (>32); GLUCOSE, FASTING 148 MG/DL (70-100); POTASSIUM SERUM 3.5 MEQ/L (3.5-5.1); SODIUM LEVEL 137 MEQ/L (136-145); TOTAL PROTEIN 7.2 GM/DL (6.4-8.2)
== END ==
LOC: SKLAB8 15:57
PROVIDERS: ATTEND Family Medicine
DX: R19.7 Diarrhea, unspecified (principal); R03.1 Nonspecific low blood-pressure reading

== ENCOUNTER → 2020-03-09 | Outpatient (REF) | payer MEDICARE ==
[2020-03-09 11:10] LABS: CALCIUM LEVEL 8.6 MG/DL (8.8-10.2); CREATININE FOR GFR 0.96 MG/DL (0.55-1.30); GLOMERULAR FILTRATION RATE 58.9 (>32); POTASSIUM SERUM 3.7 MEQ/L (3.5-5.1)
== END ==
LOC: SKLAB8 09:41
PROVIDERS: ATTEND Family Medicine
DX: R19.7 Diarrhea, unspecified (principal); R03.1 Nonspecific low blood-pressure reading

== ENCOUNTER → 2020-06-10 | Emergency (ER) | payer MEDICARE, MEDICAID ==
[~2020-06-10] MED LIST changes: -ASPI81TA85 PO; +ASPI81TA86 PO; +LIDOCAINE W/EPINEPHRINE 1% 20ML VIAL As Ordered ONE; +LIDOCAINE W/EPINEPHRINE 1% 20ML VIAL ONE; -LISI-1046 PO; +LISI2.5T2 PO; -PANT20TA2 PO; +PANT20TA6 PO; +PANT40TA29 PO; -PANT40TA3 PO
== END | disposition home or self-care (01) ==
LOC: M ED 23:01
DX: S01.81XA Laceration without foreign body of other part of head, initial encounter (principal); S51.002A Unspecified open wound of left elbow, initial encounter; W01.0XXA Fall on same level from slipping, tripping and stumbling without subsequent striking against object, initial encounter; Y92.129 Unspecified place in nursing home as the place of occurrence of the external cause; F03.90 Unspecified dementia, unspecified severity, without behavioral disturbance, psychotic disturbance, mood disturbance, and anxiety; Z88.5 Allergy status to narcotic agent; Z79.899 Other long term (current) drug therapy

== ENCOUNTER → 2020-09-09 | Outpatient (REF) | payer MEDICARE, MEDICAID ==
[~2020-09-09] MED LIST changes: -LIDOCAINE W/EPINEPHRINE 1% 20ML VIAL As Ordered ONE; -LIDOCAINE W/EPINEPHRINE 1% 20ML VIAL ONE
--- NOTE | 2020-09-09 13:15 | REP ---
INDICATION: PAIN AFTER FALL. COMPARISON: PORTABLE CHEST 09/24/2019, CT 02/16/2019 TECHNIQUE: Four views right ribs without PA chest FINDINGS: Inferiorly the right lateral 9th and 10th ribs show minimally displaced fractures. Old healed and remodeled the 4th and 7th anterior rib fractures are seen. No effusion or pneumothorax. Posterior rib articulations were intact the clavicle scapula and humerus grossly intact. Degenerative changes in the spine. Atherosclerotic calcification of the aorta again seen IMPRESSION: Acute right lateral 9th and 10th rib fractures the panel with old healed and remodeled rib fractures elsewhere in the right chest no effusion pneumothorax or other acute finding. <Electronically signed by Chema Rodríguez > 09/09/20 [id number]
--- NOTE | 2020-09-09 13:16 | REP ---
INDICATION: PAIN AFTER FALL. COMPARISON: None. TECHNIQUE: Three views FINDINGS: AC joint shows no widening of the joint space or elevation of the clavicle there is no clavicular or scapular fracture evident. Humeral head is without a fracture. There are degenerative changes inferiorly at the glenohumeral joint. No abnormal soft tissue calcification or subluxation. There are some old healed and remodeled rib fractures visible in the right mid chest wall with underlying interstitial fibrotic changes in the lung olson. IMPRESSION: Degenerative changes of the AC and glenohumeral joint without visible fracture, subluxation, dislocation or other acute finding of the shoulder. <Electronically signed by Chema Rodríguez > 09/09/20 [id number]
== END ==
LOC: SKLAB2 12:09 → SKLAB8 12:09
PROVIDERS: ATTEND Nurse Practitioner Family
DX: S22.41XA Multiple fractures of ribs, right side, initial encounter for closed fracture (principal); M19.011 Primary osteoarthritis, right shoulder; M25.511 Pain in right shoulder; R07.81 Pleurodynia; W19.XXXA Unspecified fall, initial encounter; Y92.129 Unspecified place in nursing home as the place of occurrence of the external cause

== ENCOUNTER → 2020-09-09 | Outpatient (CLI) | payer MEDICARE | LOC: M RAD 12:33 | PROVIDERS: ATTEND Family Medicine | DX: M25.511 Pain in right shoulder (principal) ==

== ENCOUNTER → 2020-09-18 | Outpatient (REF) | payer MEDICARE, MEDICAID ==
[~2020-09-18] MED LIST changes: +ACET-907 PO; +ASPI1CHW3 PO; +ENAL1TAB46 PO; +GABA-282 PO; -GABA-843 PO; +GUAIDM5UD PO; +LASI80TA3 PO; -LISI-542 PO; +LISI-898 PO; +MOM30SS PO; +POLYOPD OU; -QUET1TAB7 PO; +QUET25TA3 PO; +QUET50TA3 PO; -QUET5TAB PO
== END ==
LOC: SKLAB8 09-17 13:50 → EDSTATUS 10-25 14:56
DX: Z20.828 Contact with and (suspected) exposure to other viral communicable diseases (principal)

== ENCOUNTER → 2020-09-25 | Outpatient (REF) | payer MEDICARE, MEDICAID ==
[2020-09-25 10:56] LABS: INFLUENZA A AMPLIFICATION NEGATIVE (NEGATIVE); INFLUENZA B AMPLIFICATION NEGATIVE (NEGATIVE)
== END ==
LOC: SKLAB8 08:00
PROVIDERS: ATTEND Internal Medicine
DX: Z20.828 Contact with and (suspected) exposure to other viral communicable diseases (principal)
CPT/HCPCS: 87502; U0003

== ENCOUNTER → 2020-10-01 | Outpatient (REF) | payer MEDICARE ==
[~2020-10-01] MED LIST changes: -GABA-282 PO; +GABA-843 PO; +LISI-542 PO; -LISI-898 PO; +QUET1TAB7 PO; -QUET25TA3 PO; -QUET50TA3 PO; +QUET5TAB PO
[2020-10-01 09:24] LABS: BLOOD UREA NITROGEN 26 MG/DL (7-18); CALCIUM LEVEL 8.7 MG/DL (8.8-10.2); CARBON DIOXIDE LEVEL 33 MEQ/L (21-32); CHLORIDE LEVEL 99 MEQ/L (98-107); CREATININE FOR GFR 0.91 MG/DL (0.55-1.30); GLOMERULAR FILTRATION RATE > 60.0 (>32); GLUCOSE, FASTING 81 MG/DL (70-100); POTASSIUM SERUM 4.2 MEQ/L (3.5-5.1); SODIUM LEVEL 137 MEQ/L (136-145); THYROXINE (T4) 5.6 UG/DL (4.5-12.0)
== END ==
LOC: SKLAB8 07:00
DX: I50.9 Heart failure, unspecified (principal)

== ENCOUNTER → 2020-10-02 | Outpatient (REF) | payer MEDICARE, MEDICAID ==
[~2020-10-02] MED LIST changes: +GABA-282 PO; -GABA-843 PO; -LISI-542 PO; +LISI-898 PO; -QUET1TAB7 PO; +QUET25TA3 PO; +QUET50TA3 PO; -QUET5TAB PO
== END ==
LOC: SKLAB8 08:00
PROVIDERS: ATTEND Internal Medicine
DX: Z20.828 Contact with and (suspected) exposure to other viral communicable diseases (principal)

== ENCOUNTER → 2020-10-03 | Outpatient (REF) | payer MEDICARE, MEDICAID ==
[~2020-10-03] MED LIST changes: -GABA-282 PO; +GABA-843 PO; +LISI-542 PO; -LISI-898 PO; +QUET1TAB7 PO; -QUET25TA3 PO; -QUET50TA3 PO; +QUET5TAB PO
== END ==
LOC: SKLAB8 11:00
PROVIDERS: ATTEND Internal Medicine
DX: I50.9 Heart failure, unspecified (principal)

== ENCOUNTER → 2020-10-09 | Outpatient (REF) | payer MEDICARE, MEDICAID ==
--- NOTE | 2020-10-10 18:34 | CR ---
CONSULTATION DATE: 10/10/2020 REASON FOR CONSULTATION: Inpatient consult. CHIEF COMPLAINT: Left hip pain. HISTORY OF PRESENT ILLNESS: Izzy Chairez is an 84-year-old female who has multiple medical problems and severe dementia, who is a resistant at [facility]. The patient had a fall this morning and was unable to ambulate after. Per her daughter at baseline, she gets around pretty well using a walker. The patient was brought to the emergency room and was found to have a comminuted left intertrochanteric hip fracture. She has been admitted to the medical service. PAST MEDICAL HISTORY: 1. CHF. 2. COPD. 3. Hypertension. 4. Dementia. 5. Depression. 6. Type 2 diabetes. 7. CAD. 8. GERD. PAST SURGICAL HISTORY: 1. Cardiac stenting. 2. Abdominal aorta aneurysm repair. 3. Carpal tunnel. 4. Enterovesicular fistula repair. 5. Right total hip arthroplasty. 6. Appendectomy. 7. Inguinal hernia repair. 8. Carotid endarterectomy. SOCIAL HISTORY: The patient is a resident at [facility]. There is no history of smoking. Her daughter, Kelsie Tenorio, is her call or contact centre operator and is the person who signs her consent. Her number is [phone]. PHYSICAL EXAMINATION: GENERAL: Comfortable, in no acute distress. The patient is not alert or oriented. LUNGS: Clear to auscultation bilaterally. ABDOMEN: Soft and nontender. EXTREMITIES: The patient has pain over the left hip and groin. She is neurovascularly intact distally and has positive dorsiflexion, plantarflexion, inversion, and eversion. Normal sensation to light touch in the superficial peroneal, deep peroneal, and tibial nerve distribution. She has an intact DP pulse. Her skin is intact. IMAGING: X-ray of the left femur shows a comminuted intertrochanteric left femur fracture. IMPRESSION: Left intertrochanteric hip fracture. PLAN: The patient will be kept n.p.o. overnight for likely surgery tomorrow for a cephalomedullary nail. She will need clearance from medicine. She will be admitted to the medical service postoperatively.
== END ==
LOC: SKLAB8 11:00
DX: Z20.828 Contact with and (suspected) exposure to other viral communicable diseases (principal)

== ENCOUNTER → 2020-10-10 | Outpatient (CLI) | payer MEDICARE, MEDICAID | LOC: M RAD 09:55 | PROVIDERS: ATTEND Family Medicine | DX: S79.912A Unspecified injury of left hip, initial encounter (principal); X58.XXXA Exposure to other specified factors, initial encounter; Y92.9 Unspecified place or not applicable; Y99.9 Unspecified external cause status ==

== ENCOUNTER → 2020-10-10 | Outpatient (REF) | payer MEDICARE ==
--- NOTE | 2020-10-10 10:31 | REP ---
INDICATION: POSSIBLE FRACTURE. COMPARISON: None. TECHNIQUE: There are two views. FINDINGS: There is an intertrochanteric fracture. There is no dislocation. There is demineralization. IMPRESSION: Inter trochanteric fracture of the left hip. <Electronically signed by Samson Mares > 10/10/20 [id number]
== END ==
LOC: SKLAB8 08:00
DX: S72.102A Unspecified trochanteric fracture of left femur, initial encounter for closed fracture (principal); W19.XXXA Unspecified fall, initial encounter; Y92.129 Unspecified place in nursing home as the place of occurrence of the external cause; Y99.9 Unspecified external cause status